=== PATIENT | female | born 1945 | race Caucasian/White ===

== ENCOUNTER 2023-10-25 17:06 | Inpatient (IN) | payer MEDICARE, SELFPAY ==
[2023-10-25 17:29] VITALS: BP 122/77; PULSE 85; RESP 18; TEMP 37.1; O2SAT 97; BMI 45.1
--- NOTE | 2023-10-25 17:56 | ED_ITS ---
Documented by User: ROD Lopez 10/25/23 22:36 HPI - Wound/Laceration 2 General: Chief Complaint: Wound/Laceration Stated Complaint: wound on rear Time Seen by Provider: 10/25/23 17:41 History of Present Illness: 77-year-old female comes in today for co ncerns about wound to her buttocks. Patient was just recently released from a hospital in [facility] that had cared for patient's wound to her buttocks. Patient states that she had just moved to the area yesterday and one of the wound evaluated and assistance for for follow-up. Patient has a history of diabetes mellitus, hypothyroidism, chronic pain, major depressive disorder, coronary artery disease, non- Parkinson's tremor, and CHF. Patient reports no fever or chills. Patient did have some episodes of nausea. Patient is on multiple medications for her chronic conditions. Review of Systems 2 General: Reports: 10 or more systems reviewed and unremarkable except in HPI and below Skin/Breast: Reports: lesions Physical Exam 2 Const: COMMON NORMALS: alert HENMT: COMMON NORMALS: normocephalic HEAD & SCALP: normocephalic Neck/C-Spine: COMMON NORMALS: full ROM Resp: COMMON NORMALS: normal respiratory effort and clear to auscultation bilaterally AUSCULTATION: clear to auscultation bilaterally Cardio: COMMON NORMALS: regular rate RATE: regular rate GI: COMMON NORMALS: Soft to palpation PALPATION: Yes Soft to palpation : COMMON NORMALS: Yes no CVA tenderness BLADDER/KIDNEY EXAM: Yes no CVA tenderness Back/Pelvis: COMMON NORMALS: no CVA tenderness and thoracic and lumbar spine normal to inspection Extremity: COMMON NORMALS: normal to inspection Neuro: SENSORIUM/ORIENTATION: Yes alert Skin: NARRATIVE SKIN EXAM: Chronic wound to the sacrum. Appears to have had surgical debridement and has a opened area that is approximately 7 cm circular with a depth of 8 cm with exposure of muscle. Course 2 Vital Signs: Vital signs: Vital Signs Temperature 98.4 F 10/25/23 20:40 Pulse Rate 82 10/25/23 20:40 Respiratory Rate 16 10/25/23 20:40 Blood Pressure 143/75 10/25/23 20:40 Pulse Oximetry 98 10/25/23 20:40 Oxygen Delivery Me thod Room Air 10/25/23 20:40 MDM - Wound/Laceration Medical Decision Making 77-year-old female comes in for wound care and assistance with referral to primary care and wound management. Patient was just recently released from the hospital in [facility] where she had received treatment for a large decubitus to her sacrum. Patient has recently moved to the [place] area to be closer to family. Patient just arrived yesterday. Patient appears nontoxic. Patient reports that she is concerned about her persistent neck pain after her surgery that she had in June, and the large decubitus to her buttocks. Patient reports no fever. Exam notes a very large open decubitus to the sacrum that is stage IV. There seems to have been some recent surgical debridement of the area. Patient had and placed a large ABD pad. Differential diagnosis includes wound infection, chronic wound, electrolyte imbalance, dehydration, anxiety about health. CBC noted a mild leukocytosis of 12,000. CMP noted a creatinine 1.3, glucose 163, normal sodium and normal potassium. Lactic was 1.7. Wound appeared chronic but healing with some granulation of tissue and minimal necrosis. Case management orders were placed for assistance with primary care and wound care management follow-up. Family, Candace Brady, felt uncomfortable taking patient home as they did not have accommodations for her at this time. Patient has a large significant ulcer to her buttocks and could not be discharged. I discussed this with Dr. Sanchez who agreed that patient would need to be admitted for wound care and further evaluation of the wound by surgery and consideration of placement into a chcf facility. Discussed with Dr. Arias, who agreed to admission. Lab Data 10/25/23 18:47 10/25/23 18:47 Laboratory Results WBC 12.51 10^3/uL (3.29-11.43) H 10/25/23 18:47 RBC 4.76 10^6/uL (3.85-5.65) 10/25/23 18:47 Hgb 13.20 g/dL (11.27-16.99) 10/25/23 18:47 Hct 40.6 % (36-47) 10/25/23 18:47 MCV 85.3 fl (85-98) 10/25/23 18:47 MCH 27.7 pg (27-33) 10/25/23 18:47 MCHC 32.5 g/dL (30-55) 10/25/23 18:47 RDW 13.2 % (12.1-15.1) 10/25/23 18:47 Plt Count 373 10^3/cmm (157-399) 10/25/23 18:47 MPV 10.5 fL (7.4-10.4) H 10/25/23 18:47 Neut % (Auto) 67.3 % 10/25/23 18:47 Lymph % (Auto) 21.8 % 10/25/23 18:47 [place] % (Auto) 7.8 % 10/25/23 18:47 Eos % (Auto) 1.9 % 10/25/23 18:47 Baso % (Auto) 0.6 % 10/25/23 18:47 Neut # (Auto) 8.41 10^3/uL (1.8-7.7) H 10/25/23 18:47 Lymph # (Auto) 2.7 10^3/uL (0.8-4.8) 10/25/23 18:47 [place] # (Auto) 1.0 10^3/uL (0.2-0.9) H 10/25/23 18:47 Eos # (Auto) 0.2 10^3/uL (0.0-0.8) 10/25/23 18:47 Baso # (Auto) 0.1 10^3/uL (0.0-0.1) 10/25/23 18:47 Nucleated RBC % (auto) 0 % 10/25/23 18:47 Nucleated RBCs # 0.0 /100WBC 10/25/23 18:47 ESR 27 mm/hr (0-15) H 10/25/23 18:47 D-Dimer 0.63 ug/mLFEU (0-0.59) H 10/25/23 18:47 Sodium 137 mmol/L (136-145) 10/25/23 18:47 Potassium 4.8 mmol/L (3.5-5.1) 10/25/23 18:47 Chloride 102 mmol/L (98-107) 10/25/23 18:47 Carbon Dioxide 21 mmol/L (22-29) L 10/25/23 18:47 Anion Gap 18.8 (5-19) 10/25/23 18:47 BUN 20 mg/dL (8-23) 10/25/23 18:47 Creatinine 1.3 mg/dL (0.5-0.9) H 10/25/23 18:47 GFR Calculation Not Reportable 10/25/23 18:47 Glucose 163 mg/dL (65-115) H 10/25/23 18:47 Calculated Osmolality 290 mOsm/kg (285-295) 10/25/23 18:47 Lactic Acid 1.7 mmol/L (0.5-2.2) 10/25/23 18:47 Calcium 9.4 mg/dL (8.5-10.5) 10/25/23 18:47 Total Bilirubin 0.3 mg/dL (0.15-1.2) 10/25/23 18:47 AST 45 U/L (0-32) H 10/25/23 18:47 ALT 13 U/L (0-33) 10/25/23 18:47 Alkaline Phosphatase 59 U/L (35-105) 10/25/23 18:47 C-Reactive Protein 44.0 mg/L (0.0-4.9) H 10/25/23 18:47 Total Protein 6.4 g/dL (6.6-8.7) L 10/25/23 18:47 Albumin 3.6 g/dL (3.5-5.2) 10/25/23 18:47 Globulin 2.8 g/dL (1.3-4.6) 10/25/23 18:47 Procalcitonin 0.19 ng/mL (0-0.5) 10/25/23 18:47 No radiology studies performed this visit Discharge Plan Discharge Patient Disposition: Admitted As Inpatient Admit Provider: Yobani Arias Clinical Impression: Decubitus ulcer of sacral region, stage 4 Condition: Stable Discharge Diet: Usual diet Discharge Activity: Increase activity as tolerated Coding Level of Care Code ED Work Over Rig Operator for Chg Fwd Documented by User: Alexis Hamilton Daniel, 10/25/23 23:38 HPI - Wound/Laceration 2 General: Chief Complaint: Wound/Laceration Stated Complaint: wound on rear Time Seen by Provider: 10/25/23 17:41 Course 2 Vital Signs: Vital signs: Vital Signs Temperature 98.4 F 10/25/23 20:40 Pulse Rate 82 10/25/23 20:40 Respiratory Rate 16 10/25/23 20:40 Blood Pressure 143/75 10/25/23 20:40 Pulse Oximetry 98 10/25/23 20:40 Oxygen Delivery Me thod Room Air 10/25/23 20:40 MDM - Wound/Laceration Medical Decision Making 77-year-old female comes in for wound care and assistance with referral to primary care and wound management. Patient was just recently released from the hospital in [facility] where she had received treatment for a large decubitus to her sacrum. Patient has recently moved to the [facility] to be closer to family. Patient just arrived yesterday. Patient appears nontoxic. Patient reports that she is concerned about her persistent neck pain after her surgery that she had in June, and the large decubitus to her buttocks. Patient reports no fever. Exam notes a very large open decubitus to the sacrum that is stage IV. There seems to have been some recent surgical debridement of the area. Patient had and placed a large ABD pad. Differential diagnosis includes wound infection, chronic wound, electrolyte imbalance, dehydration, anxiety about health. CBC noted a mild leukocytosis of 12,000. CMP noted a creatinine 1.3, glucose 163, normal sodium and normal potassium. Lactic was 1.7. Wound appeared chronic but healing with some granulation of tissue and minimal necrosis. Case management orders were placed for assistance with primary care and wound care management follow-up. Family, Candace Brady, felt uncomfortable taking patient home as they did not have accommodations for her at this time. Patient has a large significant ulcer to her buttocks and could not be discharged. I discussed this with Dr. Sanchez who agreed that patient would need to be admitted for wound care and further evaluation of the wound by surgery and consideration of placement into a chcf facility. Discussed with Dr. Arias, who agreed to admission. This patient was originally seen by Mr. Howe, [employer].? I agree with his history, evaluation, and treatment. Lab Data 10/25/23 18:47 10/25/23 18:47 Laboratory Results WBC 12.51 10^3/uL (3.29-11.43) H 10/25/23 18:47 RBC 4.76 10^6/uL (3.85-5.65) 10/25/23 18:47 Hgb 13.20 g/dL (11.27-16.99) 10/25/23 18:47 Hct 40.6 % (36-47) 10/25/23 18:47 MCV 85.3 fl (85-98) 10/25/23 18:47 MCH 27.7 pg (27-33) 10/25/23 18:47 MCHC 32.5 g/dL (30-55) 10/25/23 18:47 RDW 13.2 % (12.1-15.1) 10/25/23 18:47 Plt Count 373 10^3/cmm (157-399) 10/25/23 18:47 MPV 10.5 fL (7.4-10.4) H 10/25/23 18:47 Neut % (Auto) 67.3 % 10/25/23 18:47 Lymph % (Auto) 21.8 % 10/25/23 18:47 [place]bur[place] % (Auto) 7.8 % 10/25/23 18:47 Eos % (Auto) 1.9 % 10/25/23 18:47 Baso % (Auto) 0.6 % 10/25/23 18:47 Neut # (Auto) 8.41 10^3/uL (1.8-7.7) H 10/25/23 18:47 Lymph # (Auto) 2.7 10^3/uL (0.8-4.8) 10/25/23 18:47 Sherburne # (Auto) 1.0 10^3/uL (0.2-0.9) H 10/25/23 18:47 Eos # (Auto) 0.2 10^3/uL (0.0-0.8) 10/25/23 18:47 Baso # (Auto) 0.1 10^3/uL (0.0-0.1) 10/25/23 18:47 Nucleated RBC % (auto) 0 % 10/25/23 18:47 Nucleated RBCs # 0.0 /100WBC 10/25/23 18:47 ESR 27 mm/hr (0-15) H 10/25/23 18:47 D-Dimer 0.63 ug/mLFEU (0-0.59) H 10/25/23 18:47 Sodium 137 mmol/L (136-145) 10/25/23 18:47 Potassium 4.8 mmol/L (3.5-5.1) 10/25/23 18:47 Chloride 102 mmol/L (98-107) 10/25/23 18:47 Carbon Dioxide 21 mmol/L (22-29) L 10/25/23 18:47 Anion Gap 18.8 (5-19) 10/25/23 18:47 BUN 20 mg/dL (8-23) 10/25/23 18:47 Creatinine 1.3 mg/dL (0.5-0.9) H 10/25/23 18:47 GFR Calculation Not Reportable 10/25/23 18:47 Glucose 163 mg/dL (65-115) H 10/25/23 18:47 Calculated Osmolality 290 mOsm/kg (285-295) 10/25/23 18:47 Lactic Acid 1.7 mmol/L (0.5-2.2) 10/25/23 18:47 Calcium 9.4 mg/dL (8.5-10.5) 10/25/23 18:47 Total Bilirubin 0.3 mg/dL (0.15-1.2) 10/25/23 18:47 AST 45 U/L (0-32) H 10/25/23 18:47 ALT 13 U/L (0-33) 10/25/23 18:47 Alkaline Phosphatase 59 U/L (35-105) 10/25/23 18:47 C-Reactive Protein 44.0 mg/L (0.0-4.9) H 10/25/23 18:47 Total Protein 6.4 g/dL (6.6-8.7) L 10/25/23 18:47 Albumin 3.6 g/dL (3.5-5.2) 10/25/23 18:47 Globulin 2.8 g/dL (1.3-4.6) 10/25/23 18:47 Procalcitonin 0.19 ng/mL (0-0.5) 10/25/23 18:47 Discharge Plan Discharge Patient Disposition: Admitted As Inpatient Admit Provider: Yobani Arias Clinical Impression: Decubitus ulcer of sacral region, stage 4 Condition: Stable Discharge Diet: Usual diet Discharge Activity: Increase activity as tolerated Coding Level of Care Code ED Work Over Rig Operator for Peri Culp
--- NOTE | 2023-10-25 18:38 | PC.NURSE ---
late entry: Pt had orginally reported that she arrived in town yesterday was staying with a friend and today that friend dropped her off here, however now she is saying she arrived around noon today was assisted by a jainism deacon to get into her daughters house however was unable to get up the stairs so the Confucianism Deacon took the pt to his house then brought her here. This service writer asked who would be helping her at home and changing her dressings, pt stated I have no home and my daughter is resting so I have no one who can help me . This service writer took the number of the pt's daughter Candace Brady, [phone], I attempted to call but was only able to leave a message. Pt is reporting she has an appt with wound care tomorrow. Will try to call daughter again to investigate the situation.
--- NOTE | 2023-10-25 18:57 | PC.NURSE ---
Pt's daughter called back and reported they arrived from [place] this morning around 0600. Candace, Daughter, reported that she brought the pt here to assist in her care as she felt pt was not receiving the care she needed back in [place]. Daughter and family fully intended to take over care of pt's wounds and address all other needs however on arrival they found that the pt wasn't even able to get into the house as there were 7 steps to get into the house. Candace is hoping to to have the pt admitted as they have no place for the pt to stay which will allow them to make arrangments for pt. This curriculum writer explained that we are unable to admit the pt for non acute medical reasons, she verbalized understanding however repeatedly asked for help as they have no resources. Provider notified.
[2023-10-25 19:25] LABS: Basophils # 0.1 10^3/uL (0.0-0.1); Basophils % 0.6 %; Eosinophils # 0.2 10^3/uL (0.0-0.8); Eosinophils % 1.9 %; Hematocrit 40.6 % (36-47); Lymphocytes # 2.7 10^3/uL (0.8-4.8); Lymphocytes % 21.8 %; Mean Corpuscular HGB Conc 32.5 g/dL (30-55); Mean Corpuscular Hemoglobin 27.7 pg (27-33); Mean Corpuscular Volume 85.3 fl (85-98); Mean Platelet Volume 10.5 fL (7.4-10.4); Monocytes % 7.8 %; Neutrophils # 8.41 10^3/uL (1.8-7.7); Neutrophils % 67.3 %; Nucleated Red Blood Cells % 0 %; Platelet Count 373 10^3/cmm (157-399); Red Blood Count 4.76 10^6/uL (3.85-5.65); Red Cell Distribution Width 13.2 % (12.1-15.1); White Blood Count 12.51 10^3/uL (3.29-11.43)
[2023-10-25 19:43] LABS: Lactic Sepsis W/Reflex 1.7 mmol/L (0.5-2.2)
[2023-10-25 19:47] LABS: Alanine Aminotransferase 13 U/L (0-33); Albumin Level 3.6 g/dL (3.5-5.2); Alkaline Phosphatase 59 U/L (35-105); Anion Gap 18.8 (5-19); Aspartate Amino Transferase 45 U/L (0-32); Blood Urea Nitrogen 20 mg/dL (8-23); Calcium 9.4 mg/dL (8.5-10.5); Carbon Dioxide 21 mmol/L (22-29); Chloride 102 mmol/L (98-107); Creatinine Clr Calc Pharmacy 50.2052; Globulin 2.8 g/dL (1.3-4.6); Glucose 163 mg/dL (65-115); Osmolality Calculated 290 mOsm/kg (285-295); Potassium 4.8 mmol/L (3.5-5.1); Sodium 137 mmol/L (136-145); Total Bilirubin 0.3 mg/dL (0.15-1.2); Total Protein 6.4 g/dL (6.6-8.7)
[2023-10-25 20:40] VITALS: BP 143/75; PULSE 82; RESP 16; TEMP 36.9; O2SAT 98
--- NOTE | 2023-10-25 21:16 | PC.NURSE ---
This ghost writer received a call from the pt's daughter, Candace. She became upset when she was given the option to call for a lift assist from the fire dept, she stated well that's not gonna work cause what happens when I need to get her to appointments , this ghost writer explained that it is not a laborer marine terminal solution but it will help while arrangments can be made. Candace continued to repeat reasons why she can't come get the pt, this ghost writer apologized for the situation, Candace stated well I don't know what you're gonna do about it and she hung up the phone. This ghost writer informed the charge nurse and Nurse Private Duty as well as the provider regarding this situation.
[2023-10-25 22:24] LABS: Erythrocyte Sedimentation Rate 27 mm/hr (0-15)
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
--- NOTE | 2023-10-25 22:31 | PC.NURSE ---
Pt states she had left [place] from [facility] [place]. Pt states her family packed her belongings from her apartment into a [employer] and picked pt up from the hospital then traveled to [place]. Pt family stated OTP they were not able to provide care for pt because she is more care than they expected. Pt asking to be admitted at this time for halfway placement. Provider notified.
[2023-10-25 22:46] LABS: Procalcitonin 0.19 ng/mL (0-0.5)
[2023-10-25 22:53] LABS: D Dimer 0.63 ug/mLFEU (0-0.59)
[2023-10-25 23:20] VITALS: BP 114/93; PULSE 96; RESP 18; O2SAT 98
--- NOTE | 2023-10-25 23:31 | PC.NURSE ---
Pt brought back to a room, she met with the hospitalist. Pt is to be admitted as we are unable to get the family to take the pt home even with resources. Report has been called to the med-surg floor, IV is currently being started and blood cultures collected. Will transfer to floor when ready.
[2023-10-25 23:50] VITALS: BP 115/95; PULSE 101; RESP 18; O2SAT 97
[2023-10-26] VITALS (8 sets, daily range): BP systolic 102–132; BP diastolic 65–85; PULSE 69–87; RESP 16–18; TEMP 36.4–37; O2SAT 92–97; BMI 35.0
[2023-10-26] MEDS: enoxaparin 40 mg/0.4 mL Syringe SUBCUT (01:34)
[2023-10-26 01:42] LABS: Thyroid Stimulating Hormone 4.88 uIU/mL (0.27-4.20)
[2023-10-26] MEDS: piperacillin-tazobactam 3.375 GM in sodium chloride 0.9% (plus) 50 ML IV ×3 (02:39→18:14)
[2023-10-26 03:48] LABS: Basophils # 0.1 10^3/uL (0.0-0.1); Basophils % 0.8 %; Eosinophils # 0.2 10^3/uL (0.0-0.8); Eosinophils % 1.9 %; Hematocrit 38.9 % (36-47); Lymphocytes # 3.7 10^3/uL (0.8-4.8); Lymphocytes % 31.2 %; Mean Corpuscular HGB Conc 32.4 g/dL (30-55); Mean Corpuscular Hemoglobin 27.8 pg (27-33); Mean Corpuscular Volume 85.9 fl (85-98); Mean Platelet Volume 10.4 fL (7.4-10.4); Monocytes # 0.8 10^3/uL (0.2-0.9); Neutrophils # 6.98 10^3/uL (1.8-7.7); Neutrophils % 58.5 %; Nucleated Red Blood Cells % 0 %; Platelet Count 350 10^3/cmm (157-399); Red Blood Count 4.53 10^6/uL (3.85-5.65); Red Cell Distribution Width 13.3 % (12.1-15.1); White Blood Count 11.93 10^3/uL (3.29-11.43)
[2023-10-26 04:16] LABS: Blood Urea Nitrogen 18 mg/dL (8-23); C Reactive Protein 40.4 mg/L (0.0-4.9); Calcium 8.9 mg/dL (8.5-10.5); Carbon Dioxide 19 mmol/L (22-29); Chloride 101 mmol/L (98-107); Creatinine Clr Calc Pharmacy 47.5688; Glucose 161 mg/dL (65-115); Magnesium 2.2 mg/dL (1.7-2.3); Osmolality Calculated 285 mOsm/kg (285-295); Phosphorus 4.1 mg/dL (2.5-4.5); Sodium 135 mmol/L (136-145)
[2023-10-26 04:20] LABS: Anion Gap 19.2 (5-19); Potassium 4.2 mmol/L (3.5-5.1)
[2023-10-26 06:31] LABS: Glucose Point of Care 184 mg/dL (70-110)
--- NOTE | 2023-10-26 07:46 | P.PN_ITS ---
Documented by User: NELA Lewis STDROBYN 10/26/23 10:10 Subjective 2 Subjective: Patient resting in bed this morning on room air. She states she is here because she is unable to take care of herself anymore. She denies chest pain, shortness of breath. Medications: Reviewed: Yes Vitals/I&O/Wt Last Vital Signs Temp 97.9 F 10/26/23 03:57 Pulse 72 10/26/23 03:57 Resp 16 10/26/23 03:57 BP 119/75 10/26/23 03:57 Pulse Ox 93 10/26/23 03:57 O2 Del Method Room Air 10/26/23 03:57 10/25/23 10/26/23 10/26/23 22:59 06:59 14:59 Intake Total 420 / 420 Output Total 500 / 500 Balance -80 / -80 Weight last 48 hrs Weight 220 lb 4.8 oz Weight 217 lb Weight 280 lb Physical Exam 2 Narrative: General Exam: Patient noted to be alert, no apparent distress. Neck supple, no lymphadenopathy. Resp: on room air, lungs sounds clear to auscultation, denies SOB with excertion Cardio: no JVD, regular rate, regular rhythm GI: soft, nontender, normoactive bowel sounds Extremity: 1+ edema to bilateral lower legs Skin: Stage IV pressure sore to sacrum Data 10/26/23 02:41 10/26/23 02:41 Micro: Microbiology 10/26/23 00:00 Blood Culture - Preliminary Blood SPECIMEN COLLECTED 10/26/23 00:00 Blood Culture - Preliminary Blood SPECIMEN COLLECTED A&P Assessment and plan (1) Decubitus ulcer of sacral region, stage 4: Consult Surgery Wet to Dry dressing change BID Q2 turn Recent debridment, request records. PRN pain meds ordered (2) Acute kidney injury superimposed on chronic kidney disease: Renal dosing on medications BMP in AM, monitor kidney function closely. (3) Diabetes: Placed on sliding scale insulin Cardiac Carbohydrate Consistent diet ACHS A1C pending (4) Coronary artery disease: Stent placed 6 months ago, request records. Continue home dose statin. Continue aspirin and plavix. (5) H/O neck surgery: Unknown reason for neck surgery, incision site noted to be a well healing scar. Will obtain records from this procedure. Continue carbidopa/levodopa Plan Continue home dose of 25mcg of levothyroxine for Hypothyroism. Continue antihypertensive regimen Continue Bumex for CHF Consult Case Management form SNF placement as patient states she is unable to care for herself. Coding Level of Care Code 18807 Diagnoses Decubitus ulcer of sacral region, stage 4 L89.154 Acute kidney injury superimposed on chronic kidney disease N17.9; N18.9 Diabetes E11.9 Coronary artery disease I25.10 H/O neck surgery Z98.890 Time Spent (min) 24 Documented by User: José Miguel St MD 10/26/23 12:31 Data 10/26/23 02:41 10/26/23 02:41 A&P Assessment and plan (1) Decubitus ulcer of sacral region, stage 4: (2) Acute kidney injury superimposed on chronic kidney disease: (3) Diabetes: (4) Coronary artery disease: (5) H/O neck surgery: Attestations 2 Medical Necessity Statement*: Needs continued hospitalization, for evaluation of decubitus, evaluation of current inability to manage at home and potential placement. Diagnoses Decubitus ulcer of sacral region, stage 4 L89.154 Acute kidney injury superimposed on chronic kidney disease N17.9; N18.9 Diabetes E11.9 Coronary artery disease I25.10 H/O neck surgery Z98.890 Time Spent (min) 24
[2023-10-26] MEDS: levothyroxine 25 mcg Tablet PO (08:24)
[2023-10-26] MEDS: BuSPIRONE 10 mg Tablet 30 MG PO ×2 (08:24→18:13)
[2023-10-26] MEDS: topiramate 100 mg Tablet 200 MG PO ×2 (08:24→18:13)
[2023-10-26] MEDS: carbidopa-levodopa 25-100mg Tablet 1 EACH PO ×3 (08:24→20:47)
[2023-10-26] MEDS: clopidogrel 75 mg Tablet PO (08:24)
[2023-10-26] MEDS: potassium chloride ER 10 mEq Tablet PO (08:24)
[2023-10-26] MEDS: insulin lispro 100 unit/1 mL SUBCUT ×2 (08:24→12:33)
[2023-10-26] MEDS: gabapentin 300 mg Capsule PO ×3 (08:24→20:47)
[2023-10-26] MEDS: bumetanide 1 mg Tablet PO (08:24)
[2023-10-26] MEDS: aspirin 81 mg EC Tablet PO (08:24)
[2023-10-26] MEDS: atorvastatin 40 mg Tablet 20 MG PO (08:24)
[2023-10-26] MEDS: sennosides-docusate Tablet 1 TAB PO (08:24)
[2023-10-26] MEDS: cholecalciferol (vitamin D3) 1,000 unit Tablet 1000 UNIT PO (08:24)
[2023-10-26] MEDS: carvedilol 6.25 mg Tablet PO (08:25)
[2023-10-26] MEDS: pantoprazole 40 mg SDV IVP (09:39)
--- NOTE | 2023-10-26 09:51 | PC.CHAP ---
Pastoral Care Encounter/Spiritual Assessment Type of Contact [] Declined search analyst visit [] Patient/Family/Request visit [] Outpatient visit [] Follow-up visit [] Physician referral [] Code/Alert [x] Routine visit [] Staff referral [] Actively dying [x] Patient sleeping [] Family support [] [] Out of room [] Palliative care [] [] Receiving care in room [] Pre-surgical visit [] Trauma [] Long length of stay [] ICU visit [] Other: Relational/Emotional Strength [] Patient feels connected with others/family/visitors/staff [] Distress [] Loneliness/isolation [] Abandonment Spirituality of Patient [] Person of Nona [] Attends Evangelical of their [place] [] Believes in Prayer [] Reads Bible or Temple materials [] There are Spiritual issues to be addressed Bridge Worker Interventions [x] Prayer [] Active listening [] Non-anxious presence [] Spiritual/emotional support [] Crisis/trauma care [] Spiritual counseling [] Bereavement support [] Provided bereavement packet [] Provided Bible/devotional materials [] Provided toy/stuffed animal, coloring book to patient or family member [] Provided Communion [] Anointing/[place] [] Salvation [] Completed spiritual assessment [] Other: Impact on Illness or Injury [] Angry [] Fearful [] Anxious [] Often cries [] Exhaustion [] Unable to work [] Unable to attend advent [] Unable to walk/stand [] Unable to read [] Unable to drive [] Unable to eat/drink [] Unable to sleep [] Unable to be with family [] Patient intubated [] Other: Summary Time spent with patient
[2023-10-26 10:34] LABS: Glucose Point of Care 153 mg/dL (70-110)
[2023-10-26 15:42] LABS: Estmated Average Glucose 146; Hemoglobin A1C 6.7 % (4.0-6.0)
--- NOTE | 2023-10-26 16:42 | P.CONIM_ITS ---
Providers/Reason For Consult 2 Consulting Physician/Specialty*: general surgery Reason for Consult*: evaluate decubitus ulcer Requesting Physician: roly ramirez MD hospitalist Attending Physician: José Miguel St MD History of Present Illness History of Present Illness Jaylene Montiel is a 77 year old female recently in [facility] with wound vac and daugher who lives around here picked up mother from [place] and dropped patient here in our ER. SHe does not have a wound vac on. SHe had debridment of wound recntly presumably in [place]. It is unclear why she has sacral decubitus ulcer. She is not paraplegic or quadriplegic and no CVA. She is large and uses wheelchair to get about. Never had this size of ulcer before. SHe does not appear septic or in much discomfort. Review of Systems 2 Narrative: Constitutional: denies rigors, singnificant weight gain, increased appetite HEENT: denies chronic cough, blurry vision, excessive tearing, eye pain, flashing lights, odynophagia, painful mastication, change in voice, change in taste, chronic sore throat, hypersalivation Heart: denies racing heart, palpitations, othropnea, PND Lungs: denies hemoptysis, pain with deep inspiration, chronic bronchitis GI: denies hematemesis, hematochezia, dysphagia, tenesmus : denies polyuria, hematuria, painful micturation Musculoskeletal: denies hemarthrosis, Muscle wasting Neuro: denies new onset syncope, dysesthesia, dysequilibrium, ptosis eyelid or face SKin: denies new onset hyperalgia, new rash new cyanosis Endocrine: denies new polyuria, polydipsia, polyphagia, heat intolerance, excessive energy Hem/Onc: denies new petechiae, swollen glands, new excessive epstaxis Psych: denies racing thought Medications/Allergies Home Medications Medication Instructions Recorded Confirmed Last Taken Type aspirin 81 mg tablet 81 mg PO DAILY 10/25/23 10/25/23 Unknown History bumetanide 2 mg tablet 2 mg PO DAILY 10/25/23 10/25/23 Unknown History buspirone 30 mg tablet 30 mg PO BID 10/25/23 10/25/23 Unknown History calcium carbonate 600 mg-vitamin 1 tab PO DAILY 10/25/23 10/25/23 Unknown History D3 10 mcg (400 unit) tablet (Calcium 600 + D(3)) carbidopa 25 mg-levodopa 100 mg 1 tab PO TID 10/25/23 10/25/23 Unknown History tablet carvedilol 6.25 mg tablet 6.25 mg PO DAILY 10/25/23 10/25/23 Unknown History cholecalciferol (vitamin D3) 25 1,000 unit PO DAILY 10/25/23 10/25/23 Unknown History mcg (1,000 unit) tablet (Vitamin D3) clopidogrel 75 mg tablet 75 mg PO DAILY 10/25/23 10/25/23 Unknown History empagliflozin 10 mg tablet 10 mg PO DAILY 10/25/23 10/25/23 Unknown History (Jardiance) gabapentin 300 mg capsule 300 mg PO TID 10/25/23 10/25/23 Unknown History levothyroxine 25 mcg tablet 25 mcg PO DAILY 10/25/23 10/25/23 Unknown History levothyroxine 25 mcg tablet 25 mcg PO DAILY 10/25/23 10/25/23 Unknown History hrfxlpdws-oft-linz fumarate 18 1 cap PO DAILY 10/25/23 10/25/23 Unknown History mg-FA 600 mcg-vit K 40 mcg capsule (Multi For Her) olmesartan 20 mg tablet 20 mg PO DAILY 10/25/23 10/25/23 Unknown History omega-3 acid ethyl esters 1 gram 2 cap PO BID 10/25/23 10/25/23 Unknown History capsule potassium chloride 20 mEq 20 meq PO DAILY 10/25/23 10/25/23 Unknown History tablet,extended release pravastatin 40 mg tablet 40 mg PO DAILY 10/25/23 10/25/23 Unknown History quetiapine 100 mg tablet 100 mg PO QPM 10/25/23 10/25/23 Unknown History spironolactone 25 mg tablet 50 mg PO DAILY 10/25/23 10/25/23 Unknown History topiramate 100 mg tablet 200 mg PO BID 10/25/23 10/25/23 Unknown History trazodone 150 mg tablet 300 mg PO BEDTIME 10/25/23 10/25/23 Unknown History vortioxetine 20 mg tablet 20 mg PO DAILY 10/25/23 10/25/23 Unknown History (Trintellix) vortioxetine 20 mg tablet 20 mg PO DAILY 10/25/23 10/25/23 Unknown History (Trintellix) Allergies Allergy/AdvReac Type Severity Reaction Status Date / Time lisinopril Allergy ADR-Cough Verified 10/25/23 17:34 Sulfa (Sulfonamide Allergy ALGY-Anaphy Verified 10/25/23 17:34 Antibiotics) laxis Current Medications Generic Name Dose Route Start Last Admin Trade Name Kavonq PRN Reason Stop Dose Admin Aspirin 81 mg 10/26/23 09:00 10/26/23 08:24 Aspirin 81 Mg Ec Tablet PO 81 mg DAILY MAX Administration Atorvastatin Calcium 20 mg 10/26/23 09:00 10/26/23 08:24 Atorvastatin 40 Mg Tablet PO 20 mg DAILY MAX Administration Bumetanide 1 mg 10/26/23 09:00 10/26/23 08:24 Bumetanide 1 Mg Tablet PO 1 mg DAILY MAX Administration Buspirone HCl 30 mg 10/26/23 09:00 10/26/23 08:24 Buspirone 10 Mg Tablet PO 30 mg BID MAX Administration Carbidopa/Levodopa 1 each 10/26/23 09:00 10/26/23 15:17 Carbidopa-Levodopa 25-100mg Tablet PO 1 each TID MAX Administration Carvedilol 6.25 mg 10/26/23 09:00 10/26/23 08:25 Carvedilol 6.25 Mg Tablet PO 6.25 mg DAILY MAX Administration Clopidogrel Bisulfate 75 mg 10/26/23 09:00 10/26/23 08:24 Clopidogrel 75 Mg Tablet PO 75 mg DAILY MAX Administration Enoxaparin Sodium 40 mg 10/26/23 00:17 10/26/23 01:34 Enoxaparin 40 Mg/0.4 Ml Syringe SUBCUT 40 mg Q24H MAX Administration Gabapentin 300 mg 10/26/23 09:00 10/26/23 15:17 Gabapentin 300 Mg Capsule PO 300 mg TID MAX Administration Piperacillin Sod/Tazobactam 50 mls @ 12.5 mls/hr 10/26/23 00:45 10/26/23 16:14 Sod 3.375 gm/ Sodium Chloride IV Infused Q8H MAX Infusion Insulin Human Lispro 0 unit 10/26/23 08:00 10/26/23 12:33 Insulin Lispro 100 Unit/1 Ml SUBCUT 6 unit TIDWM MAX Administration Protocol Levothyroxine Sodium 25 mcg 10/26/23 09:00 10/26/23 08:24 Levothyroxine 25 Mcg Tablet PO 25 mcg DAILY MAX Administration Non-Formulary Medication 20 mg 10/26/23 09:00 10/26/23 08:31 Vortioxetine [Trintellix] PO 20 mg DAILY MAX Administration Pantoprazole Sodium 40 mg 10/26/23 09:00 10/26/23 09:39 Pantoprazole 40 Mg Sdv IVP 40 mg BID MAX Administration Potassium Chloride 10 meq 10/26/23 09:00 10/26/23 08:24 Potassium Chloride Er 10 Meq Tablet PO 10 meq DAILY MAX Administration Senna/Docusate Sodium 1 tab 10/26/23 09:00 10/26/23 08:24 Sennosides-Docusate Tablet PO 1 tab DAILY MAX Administration Topiramate 200 mg 10/26/23 09:00 10/26/23 08:24 Topiramate 100 Mg Tablet PO 200 mg BID MAX Administration Vitamin D 1,000 unit 10/26/23 09:00 10/26/23 08:24 Cholecalciferol (Vitamin D3) 1,000 Unit Tablet PO 1,000 unit DAILY MAX Administration PFSH Acute 2 PFSH: Medical History (Updated 10/26/23 @ 09:[address] MD) Coarse tremors Diabetic neuropathy Hypertension Diabetes Coronary artery disease Hypothyroidism Decubitus ulcer of sacral region, stage 4 Surgical History (Updated 10/26/23 @ 09:[address] MD) H/O neck surgery Vitals/I&O/Wt Last Vital Signs Temp 97.8 F 10/26/23 11:49 Pulse 69 10/26/23 11:49 Resp 18 10/26/23 11:49 BP 102/65 10/26/23 11:49 Pulse Ox 94 10/26/23 11:49 O2 Del Method Room Air 10/26/23 11:49 10/26/23 10/26/23 10/26/23 06:59 14:59 22:59 Intake Total 420 / 420 480 / 480 50 / 530 Output Total 500 / 500 Balance -80 / -80 480 / 480 50 / 530 Weight last 48 hrs Weight 220 lb 4.8 oz Weight 217 lb Weight 280 lb Physical Exam 2 Narrative: Patient is a well developed well nourished and in NAD and is afebrile with vitals stable and is answering questions appropriately with a normal affect and is alert and oriented x3 HEENT: normocephalic with normal external ears and nonicteric, oral mucosa moist and dentition normal for age, trachea midline with no large masses visualized Heart: RRR, no gallops murmurs or rubs, normal PMI with no thrills Lungs: normal excursions, no loud audible wheezing, no subcutaneous emphysema Abdomen: nondistended, no gross hepatosplenomegaly, no masses, no rigidity or rebound, no loud borborygmi Neuro: nonfocal, RG, grossly normal sensation Musculoskeletal: good muscle tone, no fasciculations Skin: pink warm and dry with no rashes or ecchymosis Vascular: good radial pulses, no ulceration, less than 2 second capillary refill in hand : deferred 4-5cm wide and 6-8 cm deep granulating i n presacral ulcer with granulation tissue over bone and no gross surrounding skin infection but has chronic reddened skin that extends up to 8 cm beyond skin with some of redness that does not stephanie c/w immature scar/healing of skin Data 10/26/23 02:41 10/26/23 02:41 Micro: Microbiology 10/26/23 00:00 Blood Culture - Preliminary Blood SPECIMEN COLLECTED 10/26/23 00:00 Blood Culture - Preliminary Blood SPECIMEN COLLECTED A&P Assessment and plan (1) Decubitus ulcer of sacral region, stage 4: Wound vac was placed and will need to be changed qmwf and likely when placed at longterm can try to arrange for vac there. SHe would benefit from low pressure air mattress like [employer] mattress to prevent pressure sores. Coding Level of Care Code Acute Code for Chg Fwd Diagnoses Decubitus ulcer of sacral region, stage 4 L89.154
[2023-10-26 17:08] LABS: Glucose Point of Care 132 mg/dL (70-110)
[2023-10-26] MEDS: quetiapine 100 mg Tablet PO (18:13)
[2023-10-26] MEDS: trazodone 150 mg Tablet 300 MG PO (20:47)
[2023-10-26 20:49] LABS: Glucose Point of Care 124 mg/dL (70-110)
--- NOTE | 2023-10-26 22:02 | ECG_ITS ---
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 Measurements Intervals [place] Rate: 77 P: 37 MN: 163 QRS: -4 QRSD: 76 T: 31 QT: 374 QTc: 425 Interpretive Statements SINUS RHYTHM LOW QRS VOLTAGE IN PRECORDIAL LEADS [QRS DEFLECTION < 1.0 mV IN CHEST LEADS] No previous ECG available for comparison Electronically Signed On 10-27-2023 21:43:59 CDT by Chandan Walters M.D. [email or web address]
--- NOTE | 2023-10-26 22:02 | XRR_ITS ---
PROCEDURE INFORMATION: Exam: XR Chest Exam date and time: 10/26/2023 9:35 PM Age: 77 years old Clinical indication: Chest wall pain TECHNIQUE: Imaging protocol: Radiologic exam of the chest. Views: 1 view. COMPARISON: No relevant prior studies available. FINDINGS: Lungs: Unremarkable. No consolidation. Pleural spaces: Unremarkable. No pleural effusion. No pneumothorax. Heart/Mediastinum: Aorta appears somewhat prominent, CT could further characterize this. Bones/joints: Unremarkable. XR/XR chest 1V portable [id number] IMPRESSION: Aorta appears somewhat prominent, CT could further characterize this.
[2023-10-27] VITALS (7 sets, daily range): BP systolic 99–161; BP diastolic 57–115; PULSE 70–84; RESP 15–17; TEMP 36.4–36.9; O2SAT 90–96; BMI 35.5
[2023-10-27] MEDS: enoxaparin 40 mg/0.4 mL Syringe SUBCUT ×2 (00:01→23:41)
[2023-10-27 06:31] LABS: Glucose Point of Care 128 mg/dL (70-110)
[2023-10-27 08:30] LABS: Protein Urine Neg (Negative); Urine Appearance Cloudy (CLEAR); Urine Color Yellow (Yellow); pH Urine 5 (5-7)
[2023-10-27 08:31] LABS: Bilirubin Urine Neg (Negative); Blood Urine Neg (Negative); Glucose Urine UA 4+ (Normal); Ketones Urine Negative (Negative); Leukocyte Esterase Urine 2+ (Negative); Nitrate Urine Negative (Negative); Urobilinogen Urine Norm (Negative)
--- NOTE | 2023-10-27 08:35 | P.PN_ITS ---
Documented by User: Honey Joy, NELA STDNT 10/27/23 08:49 Subjective 2 Subjective: Resting in bed on room air, she just finished eating breakfast. She denies any pain at this time does report a little bit of discomfort where her wound VAC has been placed. Medications: Reviewed: Yes Vitals/I&O/Wt Last Vital Signs Temp 98.1 F 10/27/23 03:52 Pulse 70 10/27/23 03:52 Resp 15 10/27/23 03:52 BP 99/64 10/27/23 03:52 Pulse Ox 90 10/27/23 03:52 O2 Del Method Room Air 10/27/23 03:52 10/26/23 10/27/23 10/27/23 22:59 06:59 14:59 Intake Total 770 / 1250 50 / 1300 Output Total 0 / 0 Balance 770 / 1250 50 / 1300 Weight last 48 hrs Weight 220 lb 4.8 oz Weight 220 lb 4.8 oz Weight 217 lb Weight 280 lb Physical Exam 2 Narrative: General Exam: Patient noted to be alert, no apparent distress. Neck supple, no lymphadenopathy. Resp: on room air, lungs sounds diminished to auscultation, denies SOB with excertion Cardio: no JVD, regular rate, regular rhythm GI: soft, nontender, normoactive bowel sounds Extremity: 2+ edema to bilateral lower legs Skin: Stage IV pressure sore to sacrum, wound VAC placed 10/26/23 Data 10/26/23 02:41 10/26/23 02:41 Micro: Microbiology 10/26/23 00:00 Blood Culture - Preliminary Blood NEGATIVE TO DATE 10/26/23 00:00 Blood Culture - Preliminary Blood NEGATIVE TO DATE A&P Assessment and plan (1) Decubitus ulcer of sacral region, stage 4: Consult Surgery, placed wound VAC 10/26/23 Q2 turn Received records from recent debridment. MRI from recent [facility] Hospital stay demonstrated no abscess or Osteomyelitis. PRN pain meds ordered (2) Acute kidney injury superimposed on chronic kidney disease: Renal dosing on medications BMP in AM, monitor kidney function closely. (3) Diabetes: Placed on sliding scale insulin Cardiac Carbohydrate Consistent diet ACHS A1C pending (4) Coronary artery disease: Stent placed 6 months ago, received records. Continue home dose statin. Continue aspirin and plavix. (5) H/O neck surgery: Unknown reason for neck surgery, incision site noted to be a well healing scar. Continue carbidopa/levodopa Plan Continue home dose of 25mcg of levothyroxine for Hypothyroism. Continue antihypertensive regimen Continue Bumex for CHF Consult Case Management form SNF placement as patient states she is unable to care for herself. Coding Level of Care Code Acute Code for Chg Fwd Diagnoses Decubitus ulcer of sacral region, stage 4 L89.154 Acute kidney injury superimposed on chronic kidney disease N17.9; N18.9 Diabetes E11.9 Coronary artery disease I25.10 H/O neck surgery Z98.890 Documented by User: José Miguel St MD 10/27/23 08:54 Data 10/26/23 02:41 10/26/23 02:41 A&P Assessment and plan (1) Decubitus ulcer of sacral region, stage 4: Consult Surgery, placed wound VAC 10/26/23 Q2 turn Received records from recent debridement. MRI from recent [facility] Hospital stay demonstrated no abscess or osteomyelitis PRN pain meds ordered At this point with review of old records can discontinue Zosyn. Still awaiting urinalysis. (2) Acute kidney injury superimposed on chronic kidney disease: (3) Diabetes: Placed on sliding scale insulin Cardiac Carbohydrate Consistent diet ACHS A1c reviewed (4) Coronary artery disease: (5) H/O neck surgery: Attestations 2 Medical Necessity Statement*: Needs continued hospitalization pending placement Coding Level of Care Code Acute Code for Chg Fwd Diagnoses Decubitus ulcer of sacral region, stage 4 L89.154 Acute kidney injury superimposed on chronic kidney disease N17.9; N18.9 Diabetes E11.9 Coronary artery disease I25.10 H/O neck surgery Z98.890
[2023-10-27 08:36] LABS: Add Urine Culture? Yes; Bacteria Urine TRACE /hpf; RBC Urine 0-4 /hpf (0-2); Squamous Epithelial Cell Urine 0-4 /hpf (0-5); WBC Urine 15-25 /hpf (0-5)
[2023-10-27] MEDS: levothyroxine 25 mcg Tablet PO (09:05)
[2023-10-27] MEDS: topiramate 100 mg Tablet 200 MG PO ×2 (09:05→17:18)
[2023-10-27] MEDS: cholecalciferol (vitamin D3) 1,000 unit Tablet 1000 UNIT PO (09:05)
[2023-10-27] MEDS: sennosides-docusate Tablet 1 TAB PO (09:05)
[2023-10-27] MEDS: potassium chloride ER 10 mEq Tablet PO (09:05)
[2023-10-27] MEDS: bumetanide 1 mg Tablet PO (09:05)
[2023-10-27] MEDS: clopidogrel 75 mg Tablet PO (09:05)
[2023-10-27] MEDS: atorvastatin 40 mg Tablet 20 MG PO (09:05)
[2023-10-27] MEDS: carbidopa-levodopa 25-100mg Tablet 1 EACH PO ×3 (09:05→20:39)
[2023-10-27] MEDS: carvedilol 6.25 mg Tablet PO (09:05)
[2023-10-27] MEDS: aspirin 81 mg EC Tablet PO (09:05)
[2023-10-27] MEDS: BuSPIRONE 10 mg Tablet 30 MG PO ×2 (09:06→17:19)
[2023-10-27] MEDS: gabapentin 300 mg Capsule PO ×3 (09:12→20:39)
[2023-10-27] MEDS: pantoprazole DR 40 mg Tablet PO ×2 (09:13→17:19)
[2023-10-27 10:50] LABS: Glucose Point of Care 158 mg/dL (70-110)
[2023-10-27] MEDS: insulin lispro 100 unit/1 mL SUBCUT (11:47)
[2023-10-27 17:07] LABS: Glucose Point of Care 129 mg/dL (70-110)
[2023-10-27] MEDS: quetiapine 100 mg Tablet PO (17:18)
[2023-10-27 20:35] LABS: Glucose Point of Care 148 mg/dL (70-110)
[2023-10-27] MEDS: trazodone 150 mg Tablet 300 MG PO (20:39)
[2023-10-28 04:00] VITALS: BP 95/55; PULSE 67; RESP 17; TEMP 36.8; O2SAT 92
[2023-10-28 06:30] LABS: Glucose Point of Care 135 mg/dL (70-110)
[2023-10-28 07:14] VITALS: BP 110/69; PULSE 91; RESP 16; TEMP 36.6; O2SAT 93
[2023-10-28] MEDS: cholecalciferol (vitamin D3) 1,000 unit Tablet 1000 UNIT PO (08:09)
[2023-10-28] MEDS: clopidogrel 75 mg Tablet PO (08:10)
[2023-10-28] MEDS: carbidopa-levodopa 25-100mg Tablet 1 EACH PO ×3 (08:10→20:24)
[2023-10-28] MEDS: carvedilol 6.25 mg Tablet PO (08:10)
[2023-10-28] MEDS: BuSPIRONE 10 mg Tablet 30 MG PO ×2 (08:10→17:12)
[2023-10-28] MEDS: gabapentin 300 mg Capsule PO ×3 (08:10→20:24)
[2023-10-28] MEDS: aspirin 81 mg EC Tablet PO (08:10)
[2023-10-28] MEDS: levothyroxine 25 mcg Tablet PO (08:10)
[2023-10-28] MEDS: atorvastatin 40 mg Tablet 20 MG PO (08:10)
[2023-10-28] MEDS: bumetanide 1 mg Tablet PO (08:10)
[2023-10-28] MEDS: pantoprazole DR 40 mg Tablet PO ×2 (08:10→17:12)
[2023-10-28] MEDS: topiramate 100 mg Tablet 200 MG PO ×2 (08:10→17:12)
[2023-10-28] MEDS: potassium chloride ER 10 mEq Tablet PO (08:11)
[2023-10-28] MEDS: sennosides-docusate Tablet 1 TAB PO (08:11)
[2023-10-28 08:14] VITALS: PULSE 78; RESP 16; O2SAT 93
--- NOTE | 2023-10-28 09:22 | PM.PN ---
Documented by User: NELA Lewis STDNT 10/28/23 09:56 Subjective Subjective: Patient resting in bed on room air noted to be more tired this morning. Reports having trouble sleeping in the hospital complains of adhesive from wound VAC being irritating. Denies chest pain, shortness of breath, nausea, vomiting diarrhea. Medications: Reviewed: Yes Vitals/I&O/Wt Last Vital Signs Temp 97.8 F 10/28/23 07:14 Pulse 78 10/28/23 08:14 Resp 16 10/28/23 08:14 BP 110/69 10/28/23 07:14 Pulse Ox 93 10/28/23 08:14 O2 Del Method Room Air 10/28/23 08:14 10/27/23 10/28/23 10/28/23 22:59 06:59 14:59 Intake Total 120 / 120 120 / 120 Balance 120 / -780 120 / 120 Weight last 48 hrs Weight 253 lb 12.8 oz Weight 220 lb 4.8 oz Physical Exam Narrative: General Exam: Patient noted to be alert, no apparent distress. Neck supple, no lymphadenopathy. Resp: on room air, lungs sounds clear to auscultation, denies SOB with excretion Cardio: no JVD, regular rate, regular rhythm GI: soft, nontender, normoactive bowel sounds Extremity: 1+ edema to bilateral lower legs Skin: Stage IV pressure sore to sacrum, wound VAC placed 10/26/23 Data 10/26/23 02:41 10/26/23 02:41 Micro: Microbiology 10/27/23 07:40 Urine Culture - Preliminary Urine,Clean Catch Gram Negative Rods Gram Negative Rods#2 Yeast species A&P Assessment and plan (1) Decubitus ulcer of sacral region, stage 4: Consult Surgery, placed wound VAC 10/26/23, complaining of irritation from adhesive on wound VAC. Q2 turn Received records from recent debridement. MRI from recent [facility] Hospital stay demonstrated no abscess or osteomyelitis PRN pain meds ordered Urinalysis resulted: Gram negative rods and yeast species (2) Acute kidney injury superimposed on chronic kidney disease: Renal dosing on medications BMP in AM, monitor kidney function closely. (3) Diabetes: Placed on sliding scale insulin Cardiac Carbohydrate Consistent diet ACHS A1c reviewed (4) Coronary artery disease: Stent placed 6 months ago, received records. Continue home dose statin. Continue aspirin and plavix. (5) H/O neck surgery: Unknown reason for neck surgery, incision site noted to be a well healing scar. Continue carbidopa/levodopa Plan Continue home dose of 25mcg of levothyroxine for Hypothyroism. Continue antihypertensive regimen Continue Bumex for CHF Consult Case Management form SNF placement as patient states she is unable to care for herself. Coding Level of Care Code 34487 Diagnoses Decubitus ulcer of sacral region, stage 4 L89.154 Acute kidney injury superimposed on chronic kidney disease N17.9; N18.9 Diabetes E11.9 Coronary artery disease I25.10 H/O neck surgery Z98.890 Documented by User: José Miguel St MD 10/28/23 10:44 Data 10/26/23 02:41 10/26/23 02:41 A&P Assessment and plan (1) Decubitus ulcer of sacral region, stage 4: Consult Surgery, placed wound VAC 10/26/23, complaining of irritation from adhesive on wound VAC. Q2 turn Received records from recent debridement. MRI from recent [facility] Hospital stay demonstrated no abscess or osteomyelitis PRN pain meds ordered Urinalysis resulted: Gram negative rods and yeast species. On reviewing records from other hospital they have notations regarding pyuria considered asymptomatic. At this point will not treat. (2) Acute kidney injury superimposed on chronic kidney disease: (3) Diabetes: (4) Coronary artery disease: (5) H/O neck surgery: Attestations Medical Necessity Statement*: Needs continued hospitalization pending placement secondary to need for wound care with wound vacuum Diagnoses Decubitus ulcer of sacral region, stage 4 L89.154 Acute kidney injury superimposed on chronic kidney disease N17.9; N18.9 Diabetes E11.9 Coronary artery disease I25.10 H/O neck surgery Z98.890
[2023-10-28 11:39] LABS: Glucose Point of Care 193 mg/dL (70-110)
[2023-10-28 11:49] VITALS: BP 100/65; PULSE 89; RESP 15; TEMP 36.7; O2SAT 94
--- NOTE | 2023-10-28 12:22 | PC.SOCIAL ---
IMM Update pg 2 of IMM updated and reviewed w/ patient. Copy provided and copy dated, initialed and placed in chart.
[2023-10-28 16:00] VITALS: BP 110/59; PULSE 73; RESP 16; TEMP 36.8; O2SAT 96
[2023-10-28 16:43] LABS: Glucose Point of Care 175 mg/dL (70-110)
[2023-10-28] MEDS: quetiapine 100 mg Tablet PO (17:12)
[2023-10-28] MEDS: insulin lispro 100 unit/1 mL SUBCUT (17:13)
[2023-10-28 20:00] VITALS: BP 101/66; PULSE 76; RESP 18; TEMP 37.2; O2SAT 93
[2023-10-28] MEDS: trazodone 150 mg Tablet 300 MG PO (20:24)
[2023-10-28 20:34] LABS: Glucose Point of Care 197 mg/dL (70-110)
[2023-10-28] MEDS: enoxaparin 40 mg/0.4 mL Syringe SUBCUT (23:30)
[2023-10-29] VITALS: BP 88/55; PULSE 61; RESP 18; TEMP 36.6; O2SAT 93
[2023-10-29] MEDS: lactated ringers 500 ML 999 ML IV (00:18)
[2023-10-29 04:00] VITALS: BP 127/70; PULSE 86; RESP 18; TEMP 36.3; O2SAT 92
[2023-10-29 06:36] LABS: Glucose Point of Care 150 mg/dL (70-110)
[2023-10-29 08:00] VITALS: BP 100/55; PULSE 82; RESP 14; TEMP 37; O2SAT 92
[2023-10-29 08:44] LABS: Basophils # 0.1 10^3/uL (0.0-0.1); Eosinophils # 0.3 10^3/uL (0.0-0.8); Eosinophils % 3.7 %; Hematocrit 36.3 % (36-47); Lymphocytes # 3.5 10^3/uL (0.8-4.8); Lymphocytes % 37.1 %; Mean Corpuscular Hemoglobin 27.8 pg (27-33); Mean Corpuscular Volume 87.1 fl (85-98); Mean Platelet Volume 10.5 fL (7.4-10.4); Monocytes # 0.6 10^3/uL (0.2-0.9); Monocytes % 6.8 %; Neutrophils # 4.73 10^3/uL (1.8-7.7); Neutrophils % 50.8 %; Nucleated Red Blood Cells % 0 %; Platelet Count 322 10^3/cmm (157-399); Red Blood Count 4.17 10^6/uL (3.85-5.65); Red Cell Distribution Width 13.4 % (12.1-15.1)
[2023-10-29 09:03] LABS: Alanine Aminotransferase 21 U/L (0-33); Albumin Level 3.1 g/dL (3.5-5.2); Alkaline Phosphatase 49 U/L (35-105); Anion Gap 14.5 (5-19); Aspartate Amino Transferase 49 U/L (0-32); Blood Urea Nitrogen 23 mg/dL (8-23); Calcium 8.7 mg/dL (8.5-10.5); Carbon Dioxide 23 mmol/L (22-29); Chloride 107 mmol/L (98-107); Creatinine Clr Calc Pharmacy 77.0939; Globulin 2.8 g/dL (1.3-4.6); Glucose 151 mg/dL (65-115); Osmolality Calculated 299 mOsm/kg (285-295); Potassium 3.5 mmol/L (3.5-5.1); Sodium 141 mmol/L (136-145); Total Bilirubin 0.3 mg/dL (0.15-1.2); Total Protein 5.9 g/dL (6.6-8.7)
[2023-10-29 10:06] VITALS: PULSE 63; RESP 16; O2SAT 96
[2023-10-29] MEDS: topiramate 100 mg Tablet 200 MG PO (10:17)
[2023-10-29] MEDS: levothyroxine 25 mcg Tablet PO (10:17)
[2023-10-29] MEDS: cholecalciferol (vitamin D3) 1,000 unit Tablet 1000 UNIT PO (10:17)
[2023-10-29] MEDS: carbidopa-levodopa 25-100mg Tablet 1 EACH PO (10:17)
[2023-10-29] MEDS: gabapentin 300 mg Capsule PO (10:18)
[2023-10-29] MEDS: atorvastatin 40 mg Tablet 20 MG PO (10:18)
[2023-10-29] MEDS: aspirin 81 mg EC Tablet PO (10:19)
[2023-10-29] MEDS: BuSPIRONE 10 mg Tablet 30 MG PO (10:19)
[2023-10-29] MEDS: clopidogrel 75 mg Tablet PO (10:19)
[2023-10-29] MEDS: pantoprazole DR 40 mg Tablet PO (10:19)
[2023-10-29] MEDS: sennosides-docusate Tablet 1 TAB PO (10:20)
[2023-10-29] MEDS: potassium chloride ER 10 mEq Tablet PO (10:20)
[2023-10-29] MEDS: insulin lispro 100 unit/1 mL SUBCUT (11:34)
[2023-10-29 11:40] VITALS: BP 93/64; PULSE 80; RESP 15; TEMP 36.6; O2SAT 97
--- NOTE | 2023-10-29 11:50 | PM.DCS ---
Discharge Providers Date of Admission: 10/25/23 22:57 Date of Discharge: October 29, 2023 Attending Provider at Admission: Yobani Arias MD Attending Provider at Discharge: José Miguel St MD Diagnoses at Discharge Discharge Diagnosis (1) Decubitus ulcer of sacral region, stage 4: Status: Acute (2) Acute kidney injury superimposed on chronic kidney disease: Status: Acute (3) Diabetes: Status: Acute (4) Coronary artery disease: Status: Acute (5) H/O neck surgery: Status: Acute Reason for Visit Reason for Visit: wound on rear Hospital Course Hospital Course Jaylene is a 77-year-old white female has had a prolonged hospital course in [place] with a sacral decubitus. She was discharged from the hospital, transitioned here. Family could not take care of her and she was brought to the emergency department within 24 to 36 hours of discharge and [place] from my understanding. On arrival to the hospital there was initial concern of possibility of infection of decubitus and she was placed on broad-spectrum antibiotics. After review of the patient again, with review of old records obtained from [place] it was apparent she had completed a course of antibiotics, had a pelvic MRI, and IV antibiotics have been discontinued after review by infectious disease. Urinalysis had also been completed there and thought to be contaminant. For that reason IV antibiotics were discontinued, and attempts were made for placement of the patient. Surgery was consulted and recommended wound vacuum for her sacral decub. She was able to be placed on October 28, and was able to transition out of the hospital. Some medications were reduced during her hospital stay secondary to lower blood pressures. She will need follow-up with her primary care provider at the nursing facility with CBC and BMP in approximately 3 days to a week. Family and patient were given opportunity ask questions and agreed with the plan. Physical Exam Narrative: General exam no distress Neck is supple Cardiovascular regular rate and rhythm Lungs clear Abdomen is soft Wound vacuum in place on sacrum Extremities no cyanosis clubbing or edema Discharge Data Studies Completed and Pending Completed Studies During Hospitalization Category Date Time Status XR chest 1V portable [id number] Routine Exams 10/26/23 22:02 Completed Pending at discharge Category Date Time Status Blood Culture Stat Lab 10/25/23 23:37 Results COVID [SARS Covid-2 Antigen] Routine Lab 10/29/23 11:19 Uncollected Urine Culture Routine Lab 10/27/23 07:40 Results Radiology Impressions Chest X-Ray 10/26/23 22:02 IMPRESSION: Aorta appears somewhat prominent, CT could further characterize this. Laboratory Results WBC 9.30 10^3/uL (3.29-11.43) 10/29/23 08:28 RBC 4.17 10^6/uL (3.85-5.65) 10/29/23 08:28 Hgb 11.60 g/dL (11.27-16.99) 10/29/23 08:28 Hct 36.3 % (36-47) 10/29/23 08:28 MCV 87.1 fl (85-98) 10/29/23 08:28 MCH 27.8 pg (27-33) 10/29/23 08:28 MCHC 32.0 g/dL (30-55) 10/29/23 08:28 RDW 13.4 % (12.1-15.1) 10/29/23 08:28 Plt Count 322 10^3/cmm (157-399) 10/29/23 08:28 MPV 10.5 fL (7.4-10.4) H 10/29/23 08:28 Neut % (Auto) 50.8 % 10/29/23 08:28 Lymph % (Auto) 37.1 % 10/29/23 08:28 [place] % (Auto) 6.8 % 10/29/23 08:28 Eos % (Auto) 3.7 % 10/29/23 08:28 Baso % (Auto) 1.0 % 10/29/23 08:28 Neut # (Auto) 4.73 10^3/uL (1.8-7.7) 10/29/23 08:28 Lymph # (Auto) 3.5 10^3/uL (0.8-4.8) 10/29/23 08:28 [place] # (Auto) 0.6 10^3/uL (0.2-0.9) 10/29/23 08:28 Eos # (Auto) 0.3 10^3/uL (0.0-0.8) 10/29/23 08:28 Baso # (Auto) 0.1 10^3/uL (0.0-0.1) 10/29/23 08:28 Nucleated RBC % (auto) 0 % 10/29/23 08:28 Nucleated RBCs # 0.0 /100WBC 10/29/23 08:28 ESR 27 mm/hr (0-15) H 10/25/23 18:47 D-Dimer 0.63 ug/mLFEU (0-0.59) H 10/25/23 18:47 Sodium 141 mmol/L (136-145) 10/29/23 08:28 Potassium 3.5 mmol/L (3.5-5.1) 10/29/23 08:28 Chloride 107 mmol/L (98-107) 10/29/23 08:28 Carbon Dioxide 23 mmol/L (22-29) 10/29/23 08:28 Anion Gap 14.5 (5-19) 10/29/23 08:28 BUN 23 mg/dL (8-23) 10/29/23 08:28 Creatinine 0.8 mg/dL (0.5-0.9) 10/29/23 08:28 GFR Calculation Not Reportable 10/29/23 08:28 Glucose 151 mg/dL (65-115) H 10/29/23 08:28 POC Glucose 150 mg/dL (70-110) H 10/29/23 06:31 Estimat Average Glucose 146 10/26/23 Unknown Hemoglobin A1c 6.7 % (4.0-6.0) H 10/26/23 Unknown Calculated Osmolality 299 mOsm/kg (285-295) H 10/29/23 08:28 Lactic Acid 1.7 mmol/L (0.5-2.2) 10/25/23 18:47 Calcium 8.7 mg/dL (8.5-10.5) 10/29/23 08:28 Phosphorus 4.1 mg/dL (2.5-4.5) 10/26/23 02:41 Magnesium 2.2 mg/dL (1.7-2.3) 10/26/23 02:41 Total Bilirubin 0.3 mg/dL (0.15-1.2) 10/29/23 08:28 AST 49 U/L (0-32) H 10/29/23 08:28 ALT 21 U/L (0-33) 10/29/23 08:28 Alkaline Phosphatase 49 U/L (35-105) 10/29/23 08:28 C-Reactive Protein 40.4 mg/L (0.0-4.9) H 10/26/23 02:41 Total Protein 5.9 g/dL (6.6-8.7) L 10/29/23 08:28 Albumin 3.1 g/dL (3.5-5.2) L 10/29/23 08:28 Globulin 2.8 g/dL (1.3-4.6) 10/29/23 08:28 Procalcitonin 0.19 ng/mL (0-0.5) 10/25/23 18:47 TSH 4.88 uIU/mL (0.27-4.20) H 10/26/23 Unknown Urine Color Yellow (Yellow) 10/27/23 07:40 Urine Appearance Cloudy (CLEAR) A 10/27/23 07:40 Urine pH 5 (5-7) 10/27/23 07:40 Ur Specific [place] 1.020 (1.005-1.030) 10/27/23 07:40 Urine Protein Neg (Negative) 10/27/23 07:40 Urine Glucose (UA) 4+ (Normal) H 10/27/23 07:40 Urine Ketones Negative (Negative) 10/27/23 07:40 Urine Blood Neg (Negative) 10/27/23 07:40 Urine Nitrate Negative (Negative) 10/27/23 07:40 Urine Bilirubin Neg (Negative) 10/27/23 07:40 Urine Urobilinogen Norm mg/dL (Negative) 10/27/23 07:40 Ur Leukocyte Esterase 2+ (Negative) H 10/27/23 07:40 Urine RBC 0-4 /hpf (0-2) H 10/27/23 07:40 Urine WBC 15-25 /hpf (0-5) H 10/27/23 07:40 Ur Squamous Epith Cells 0-4 /hpf (0-5) H 10/27/23 07:40 Amorphous Sediment Not Reportable 10/27/23 07:40 Urine Bacteria Trace /hpf (NONE) 10/27/23 07:40 Urine Mucus None /hpf 10/27/23 07:40 Urine Yeast 4+ /hpf H 10/27/23 07:40 Vitals Last Vital Signs Temp 97.8 F 10/29/23 11:40 Pulse 80 10/29/23 11:40 Resp 15 10/29/23 11:40 BP 93/64 10/29/23 11:40 Pulse Ox 97 10/29/23 11:40 O2 Del Method Nasal Cannula 10/29/23 11:40 O2 Flow Rate 1 10/29/23 10:06 Discharge Plan Discharge Patient Disposition: Xfer SNF Condition: Stable Prescriptions: New pantoprazole 40 mg Tablet,Delayed Release (Dr/Ec) 40 mg PO BID Qty: 60 0RF bumetanide 1 mg Tablet 1 mg PO DAILY Qty: 30 0RF Continued gabapentin 300 mg capsule 300 mg PO TID Trintellix 20 mg tablet 20 mg PO DAILY aspirin 81 mg Tablet 81 mg PO DAILY Vitamin D3 25 mcg (1,000 unit) Tablet 1,000 unit PO DAILY pravastatin 40 mg tablet 40 mg PO DAILY levothyroxine 25 mcg tablet 25 mcg PO DAILY buspirone 30 mg tablet 30 mg PO BID Multi For Her 18 mg iron-600 mcg-40 mcg Capsule 1 cap PO DAILY topiramate 100 mg tablet 200 mg PO BID carvedilol 6.25 mg tablet 6.25 mg PO DAILY Calcium 600 + D(3) 600 mg-10 mcg (400 unit) Tablet 1 tab PO DAILY Jardiance 10 mg tablet 10 mg PO DAILY levothyroxine 25 mcg tablet 25 mcg PO DAILY carbidopa-levodopa 25-100 mg tablet 1 tab PO TID Trintellix 20 mg tablet 20 mg PO DAILY quetiapine 100 mg tablet 100 mg PO QPM clopidogrel 75 mg tablet 75 mg PO DAILY trazodone 150 mg tablet 300 mg PO BEDTIME omega-3 acid ethyl esters 1 gram capsule 2 cap PO BID potassium chloride 20 mEq tablet extended release 20 meq PO DAILY Discontinued olmesartan 20 mg tablet 20 mg PO DAILY spironolactone 25 mg tablet 50 mg PO DAILY bumetanide 2 mg tablet 2 mg PO DAILY Discharge Orders: Discharge Order (Routine); Ordered 10/29/23 Ordered By: José Miguel St Referrals: [facility]Outside[facility], [Staff Physician] - (Will see patient Thursday during halfway rounds. ) Discharge Diet: Usual diet, Cardiac and Diabetic Discharge Activity: Increase activity as tolerated Patient Instructions: Bumetanide (By mouth) (Bumex), Pantoprazole (By mouth), Opioid Safety, Wound Care (General) Activity Restrictions/Additional Instructions: CBC, BMP in 1 week Follow-up with primary care and wound care at nursing facility Continue wound vacuum, please call surgery prior to discharge with any further wound instructions Discharge Attestations Time Spent in Discharge Care*: greater than 30 min Quality Metrics Clinical Quality Measures [ No reported AMI, CVA or VTE this stay] Coding Level of Care Code 73484 Total time (in minutes) for Discharge: 35 Diagnoses Decubitus ulcer of sacral region, stage 4 L89.154 Acute kidney injury superimposed on chronic kidney disease N17.9; N18.9 Diabetes E11.9 Coronary artery disease I25.10 H/O neck surgery Z98.890
[2023-10-29 12:54] LABS: SARS Covid-2 Antigen negative (Negative)
== END 2023-10-29 14:10 | disposition skilled nursing facility (03) | DRG 593 ==
LOC: ER 22:36 → MEDSURG 23:35
PROVIDERS: Admitting Provider Internal Medicine; Emergency Provider Nurse Practitioner Family; Visit Provider Internal Medicine
DX: L89.154 Pressure ulcer of sacral region, stage 4 (principal); I13.0 Hypertensive heart and chronic kidney disease with heart failure and stage 1 through stage 4 chronic kidney disease, or unspecified chronic kidney disease; N17.9 Acute kidney failure, unspecified; Z68.41 Body mass index [BMI] 40.0-44.9, adult; E11.22 Type 2 diabetes mellitus with diabetic chronic kidney disease; E11.40 Type 2 diabetes mellitus with diabetic neuropathy, unspecified; N18.30 Chronic kidney disease, stage 3 unspecified; E03.9 Hypothyroidism, unspecified; R25.1 Tremor, unspecified; M54.50 Low back pain, unspecified; I25.10 Atherosclerotic heart disease of native coronary artery without angina pectoris; E66.01 Morbid (severe) obesity due to excess calories; Z99.3 Dependence on wheelchair; Z79.82 Long term (current) use of aspirin; Z79.02 Long term (current) use of antithrombotics/antiplatelets; Z11.52 Encounter for screening for COVID-19
CPT/HCPCS: 36415; 36416; 71045; 80048; 80053; 81001; 82962; 83036; 83605; 83735; 84100; 84145; 84443; 85025; 85378; 85651; 86140; 87040; 87077; 87086; 87106; 87186; 87426; 93005; 96372; 97110; 97116; 97161; 97167; 97530; 97535; 99285; C9113; J1650; J1815; J2543; J3370; J7050; J7120

== ENCOUNTER → 2024-01-12 12:02 | Outpatient (BNVA) | payer MEDICARE, SELFPAY | PROVIDERS: PCP Internal Medicine; Visit Provider Internal Medicine | DX: E11.40 Type 2 diabetes mellitus with diabetic neuropathy, unspecified; I25.10 Atherosclerotic heart disease of native coronary artery without angina pectoris; E78.5 Hyperlipidemia, unspecified; Z79.4 Long term (current) use of insulin | CPT/HCPCS: 99204 ==

== ENCOUNTER → 2024-02-17 12:15 | Outpatient (BNVA) | payer MEDICARE, SELFPAY | PROVIDERS: PCP Internal Medicine; Visit Provider Internal Medicine | DX: E11.9 Type 2 diabetes mellitus without complications (principal); E78.5 Hyperlipidemia, unspecified; I25.10 Atherosclerotic heart disease of native coronary artery without angina pectoris; Z79.4 Long term (current) use of insulin | CPT/HCPCS: 99214 ==

== ENCOUNTER → 2024-05-24 09:41 | Outpatient (BNVA) | payer MEDICARE, SELFPAY | PROVIDERS: PCP Internal Medicine; Visit Provider Internal Medicine | DX: I25.10 Atherosclerotic heart disease of native coronary artery without angina pectoris (principal); E78.5 Hyperlipidemia, unspecified; E11.9 Type 2 diabetes mellitus without complications; Z79.4 Long term (current) use of insulin | CPT/HCPCS: 99214 ==

== ENCOUNTER 2024-06-04 17:26 | Observation (INO) | payer MEDICARE, SELFPAY ==
[2024-06-04] VITALS (17 sets, daily range): BP systolic 115–125; BP diastolic 60–79; PULSE 53–79; RESP 2–22; TEMP 36.8–37.1; O2SAT 94–98; BMI 36.6
--- NOTE | 2024-06-04 17:34 | XRR_ITS ---
PROCEDURE INFORMATION: Exam: XR Chest Exam date and time: 06/04/2024 6:21 PM Age: 78 years old Clinical indication: Pain; Chest pressure; Prior surgery; Surgery date: 6+ months; Surgery type: Thyroidectomy; Additional info: Chest pain TECHNIQUE: Imaging protocol: Radiologic exam of the chest. Views: 1 view. COMPARISON: CR XR chest 1V portable [id number] 10/26/2023 9:35 PM FINDINGS: Lungs: Unremarkable. No consolidation. Pleural spaces: Unremarkable. No pleural effusion. No pneumothorax. Heart/Mediastinum: Stable cardiomediastinal silhouette. Vasculature: Tortuous thoracic aorta. Bones/joints: Changes of upper median sternotomy. Cervical fusion hardware partially imaged. XR/XR chest 1V portable [id number] IMPRESSION: No acute findings.
--- NOTE | 2024-06-04 17:35 | ECG_ITS ---
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 Measurements Intervals [place] Rate: 57 P: 24 MT: 169 QRS: -12 QRSD: 80 T: 38 QT: 423 QTc: 414 Interpretive Statements SINUS BRADYCARDIA LOW QRS VOLTAGE IN PRECORDIAL LEADS [QRS DEFLECTION < 1.0 mV IN CHEST LEADS] POSSIBLE RIGHT VENTRICULAR CONDUCTION DELAY [RSR (QR) IN V1/V2] POSSIBLE ANTERIOR MYOCARDIAL INFARCTION , PROBABLY OLD [30 ms Q WAVE IN V3/V4, OR R < 0.2 mV IN V4] Compared to ECG 10/26/2023 23:55:22 Myocardial infarct finding now present Sinus rhythm no longer present Electronically Signed On 06-06-2024 00:13:24 CDT by Jerry Wells M.D. [email or web address]
--- NOTE | 2024-06-04 18:03 | W.ED.CHESTPA ---
Documented by User: Nicolas Gamez DO 06/06/24 07:15 HPI - Chest Pain General: Chief Complaint: Chest Pain Stated Complaint: chest pain Time Seen by Provider: 06/04/24 17:34 History of Present Illness: 78-year-old female presents to the emergency room complaining of chest pain that began while she was taking a shower earlier today. She has no known history of coronary disease she thinks she had a stress test around 9 to 10 years ago that was reported to her as normal for the last 3 to 4 months she is intermittently been having chest discomfort to less intense degree usually resolves spontaneously is not always associated with activity. The episode today that began while at rest was much more intense and longer lasting than she has had previously she reports it was a 9 out of 10 she was given aspirin and nitro in the field which relieved her discomfort. Discomfort is almost completely resolved at the time I seen the patient. She does have a upper sternotomy scar from the previous thyroid surgery Associated symptoms: Deny abdominal pain, dyspnea or fever(s) Related Data Home Medications Medication Instructions Recorded Confirmed aspirin 81 mg tablet 81 mg PO DAILY 10/25/23 06/04/24 buspirone 30 mg tablet 30 mg PO BID 10/25/23 06/04/24 calcium 600 mg (as 1 tab PO DAILY 10/25/23 06/04/24 carbonate)-vitamin D3 10 mcg (400 unit) tablet (Calcium 600 + D(3)) carbidopa 25 mg-levodopa 100 mg 1 tab PO TID 10/25/23 06/04/24 tablet carvedilol 6.25 mg tablet 6.25 mg PO DAILY 10/25/23 06/04/24 clopidogrel 75 mg tablet 75 mg PO DAILY 10/25/23 06/04/24 levothyroxine 25 mcg tablet 25 mcg PO 0600 10/25/23 06/04/24 [id number] fumarate 18 1 cap PO DAILY 10/25/23 06/05/24 mg-FA 600 mcg-vit K 40 mcg capsule (Multi For Her) potassium chloride 20 mEq 20 meq PO DAILY 10/25/23 06/04/24 tablet,extended release pravastatin 40 mg tablet 40 mg PO DAILY 10/25/23 06/04/24 topiramate 100 mg tablet 200 mg PO BID 10/25/23 06/04/24 trazodone 150 mg tablet 300 mg PO BEDTIME 10/25/23 06/04/24 fluticasone propionate 50 2 spray intranasal DAILY 01/12/24 06/04/24 mcg/actuation nasal spray,suspension insulin aspart U-100 100 unit/mL 6 unit SUBCUT 0730 01/12/24 06/05/24 (3 mL) subcutaneous pen ondansetron HCl 4 mg tablet 4 mg PO Q4H PRN Nausea And Vomiting 01/12/24 06/04/24 insulin glargine 100 unit/mL 12 unit SUBCUT 0800 02/22/24 06/04/24 subcutaneous solution (Lantus U-100 Insulin) meloxicam 15 mg tablet 15 mg PO DAILY 03/14/24 06/04/24 acetaminophen 325 mg tablet 650 mg PO Q4H PRN Pain, Mild 06/04/24 06/04/24 carboxymethylcellulose sodium 0.5 1 drp ophthalmic (eye) QID 06/04/24 06/05/24 % eye drops (Refresh Tears) cholecalciferol (vitamin D3) 25 25 mcg PO DAILY 06/04/24 06/04/24 mcg (1,000 unit) tablet omega-3 fatty acids 1,000 mg 1,000 mg PO BID 06/04/24 06/04/24 capsule fluconazole 200 mg tablet 200 mg PO DAILY 06/05/24 06/05/24 (Diflucan) insulin aspart U-100 100 unit/mL 4 unit SUBCUT 1200,1700 06/05/24 06/05/24 (3 mL) subcutaneous pen insulin aspart U-100 100 unit/mL See Rx Instructions .Route 06/05/24 06/05/24 (3 mL) subcutaneous pen .COMPLEX PRN Hyperglycemia Previous Rx's Medication Instructions Recorded bumetanide 1 mg tablet 1 mg PO DAILY #30 tabs 10/29/23 pantoprazole 40 mg tablet,delayed 40 mg PO BID #60 tabs 10/29/23 release Allergies Allergy/AdvReac Type Severity Reaction Status Date / Time Influenza Virus Vaccines Allergy ALGY-Swell Verified 06/04/24 23:05 Lip/Tongue/Throat lisinopril Allergy ADR-Cough Verified 05/30/24 13:48 Sulfa (Sulfonamide Allergy ALGY-Anaphy Verified 05/30/24 13:48 Antibiotics) laxis Review of Systems Const: Denies: fever(s) or chills Card: Reports: chest pain Resp: Denies: dyspnea GI: Denies: abdominal pain : Denies: dysuria, urinary frequency or urinary urgency Musc: Denies: neck pain or back pain Skin/Breast: Denies: rash PFSH ED PFSH: Medical History Congestive heart failure Dorsalgia Obesity Tremor, unspecified Type 2 diabetes mellitus with diabetic neuropathy, 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 Coarse tremors Diabetic neuropathy Hypertension Diabetes Coronary artery disease Hypothyroidism Decubitus ulcer of sacral region, stage 4 Surgical History H/O neck surgery Family History Father Family history of premature coronary artery disease CAD (coronary artery disease) Social History Smoking and tobacco/nicotine status: never used tobacco/nicotine Housing: Penitentiary Marital status: / 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 Physical Exam Const: GENERAL APPEARANCE: cooperative ORIENTATION/CONSCIOUSNESS: Yes awake, Yes oriented to person, Yes oriented to place and Yes oriented to time HENMT: COMMON NORMALS: normocephalic, atraumatic and hearing grossly normal bilaterally HEAD & SCALP: normocephalic and atraumatic Resp: COMMON NORMALS: normal respiratory effort, No retractions, No use of accessory muscles and clear to auscultation bilaterally AUSCULTATION: clear to auscultation bilaterally Cardio: COMMON NORMALS: regular rate, regular rhythm and No murmurs present (Cardio) RATE: regular rate RHYTHM: regular rhythm GI: COMMON NORMALS: Soft to palpation and No hepatosplenomegaly present AUSCULTATION: Yes normoactive bowel sounds PALPATION: Yes Soft to palpation, No Tenderness to palpation present (GI), No Guarding due to palpation present (GI) and Yes No hepatosplenomegaly present Extremity: COMMON NORMALS: normal to inspection, capillary refill normal, no clubbing, cyanosis or edema, no calf tenderness and no pedal edema Neuro: SENSORIUM/ORIENTATION: Yes oriented to person, Yes oriented to place and Yes oriented to time Skin: COMMON NORMALS: no rashes or lesions noted GENERAL SKIN EXAM: no rashes or lesions noted Course Vital Signs: Vital signs: Vital Signs Temperature 97.2 F L 06/06/24 04:00 Pulse Rate 54 L 06/06/24 04:00 Respiratory Rate 12 06/06/24 00:00 Blood Pressure 117/75 06/06/24 04:00 Pulse Oximetry 95 06/06/24 04:00 Oxygen Delivery Me thod Room Air 06/06/24 04:00 MDM - Chest Pain Medical Decision Making Care signed out to Dr. Sanchez at change of shift. See final notes for diagnosis and disposition. Lab Data 06/04/24 18:07 06/06/24 02:45 Radiology Impressions Chest X-Ray 06/04/24 17:34 IMPRESSION: No acute findings. Laboratory Results WBC 9.48 10^3/uL (3.29-11.43) 06/04/24 18:07 RBC 5.40 10^6/uL (3.85-5.65) 06/04/24 18:07 Hgb 15.20 g/dL (11.27-16.99) 06/04/24 18:07 Hct 47.1 % (36-47) H 06/04/24 18:07 MCV 87.2 fl (85-98) 06/04/24 18:07 MCH 28.1 pg (27-33) 06/04/24 18:07 MCHC 32.3 g/dL (30-55) 06/04/24 18:07 RDW 12.8 % (12.1-15.1) 06/04/24 18:07 Plt Count 198 10^3/cmm (157-399) 06/04/24 18:07 MPV 10.7 fL (7.4-10.4) H 06/04/24 18:07 Neut % (Auto) 51.1 % 06/04/24 18:07 Lymph % (Auto) 37.2 % 06/04/24 18:07 [place] % (Auto) 6.9 % 06/04/24 18:07 Eos % (Auto) 3.5 % 06/04/24 18:07 Baso % (Auto) 0.7 % 06/04/24 18:07 Neut # (Auto) 4.84 10^3/uL (1.8-7.7) 06/04/24 18:07 Lymph # (Auto) 3.5 10^3/uL (0.8-4.8) 06/04/24 18:07 [place] # (Auto) 0.7 10^3/uL (0.2-0.9) 06/04/24 18:07 Eos # (Auto) 0.3 10^3/uL (0.0-0.8) 06/04/24 18:07 Baso # (Auto) 0.1 10^3/uL (0.0-0.1) 06/04/24 18:07 Nucleated RBC % (auto) 0 % 06/04/24 18:07 Nucleated RBCs # 0.0 /100WBC 06/04/24 18:07 Sodium 138 mmol/L (136-145) 06/04/24 18:07 Potassium 4.5 mmol/L (3.5-5.1) 06/04/24 18:07 Chloride 102 mmol/L (98-107) 06/04/24 18:07 Carbon Dioxide 26 mmol/L (22-29) 06/04/24 18:07 Anion Gap 14.5 (5-19) 06/04/24 18:07 BUN 28 mg/dL (8-23) H 06/04/24 18:07 Creatinine 1.2 mg/dL (0.5-0.9) H 06/04/24 18:07 GFR Calculation Not Reportable 06/04/24 18:07 Glucose 183 mg/dL (65-115) H 06/04/24 18:07 Estimat Average Glucose 180 06/04/24 18:07 Hemoglobin A1c 7.9 % (4.0-6.0) H 06/04/24 18:07 Calculated Osmolality 296 mOsm/kg (285-295) H 06/04/24 18:07 Calcium 9.3 mg/dL (8.5-10.5) 06/04/24 18:07 Total Bilirubin 0.2 mg/dL (0.15-1.2) 06/04/24 18:07 AST 8 U/L (0-32) 06/04/24 18:07 ALT < 5 U/L (0-33) 06/04/24 18:07 Alkaline Phosphatase 50 U/L (35-105) 06/04/24 18:07 Troponin T Baseline 33 ng/L (0-10) H 06/04/24 18:07 Troponin T 120 Minute 30.48 ng/L (0-10) H 06/04/24 20:37 Delta Troponin T -2.52 ABS# (0-10) L 06/04/24 20:37 NT-Pro-B Natriuret Pep 403 pg/mL (0-450) 06/04/24 18:07 Total Protein 6.7 g/dL (6.6-8.7) 06/04/24 18:07 Albumin 4.2 g/dL (3.5-5.2) 06/04/24 18:07 Globulin 2.5 g/dL (1.3-4.6) 06/04/24 18:07 Triglycerides 214 mg/dL (0-150) H 06/04/24 18:07 Cholesterol 174 mg/dL (0-200) 06/04/24 18:07 LDL Cholesterol, Calc 97 mg/dL (50-129) 06/04/24 18:07 HDL Cholesterol 34 mg/dL (60-100) L 06/04/24 18:07 LDL/HDL Ratio 2.85 RATIO (0.00-3.22) 06/04/24 18:07 Cholesterol/HDL Ratio 5.12 mg/dL (0.0-4.40) H 06/04/24 18:07 Discharge Plan Discharge Patient Disposition: Placed in Observation Admit Provider: Alfonso Pedro Clinical Impression: Chest pain Qualifiers: Chest pain type: other chest pain Qualified Code(s): R07.89 - Other chest pain Coding Level of Care Code ED Integrated Marketing Intern for Chg Fwd Documented by User: Alexis Sanchez DO 06/04/24 20:16 HPI - Chest Pain General: Chief Complaint: Chest Pain Stated Complaint: chest pain Time Seen by Provider: 06/04/24 17:34 Related Data Home Medications Medication Instructions Recorded Confirmed aspirin 81 mg tablet 81 mg PO DAILY 10/25/23 06/04/24 buspirone 30 mg tablet 30 mg PO BID 10/25/23 06/04/24 calcium 600 mg (as 1 tab PO DAILY 10/25/23 06/04/24 carbonate)-vitamin D3 10 mcg (400 unit) tablet (Calcium 600 + D(3)) carbidopa 25 mg-levodopa 100 mg 1 tab PO TID 10/25/23 06/04/24 tablet carvedilol 6.25 mg tablet 6.25 mg PO DAILY 10/25/23 06/04/24 clopidogrel 75 mg tablet 75 mg PO DAILY 10/25/23 06/04/24 levothyroxine 25 mcg tablet 25 mcg PO 0600 10/25/23 06/04/24 [id number] fumarate 18 1 cap PO DAILY 10/25/23 06/05/24 mg-FA 600 mcg-vit K 40 mcg capsule (Multi For Her) potassium chloride 20 mEq 20 meq PO DAILY 10/25/23 06/04/24 tablet,extended release pravastatin 40 mg tablet 40 mg PO DAILY 10/25/23 06/04/24 topiramate 100 mg tablet 200 mg PO BID 10/25/23 06/04/24 trazodone 150 mg tablet 300 mg PO BEDTIME 10/25/23 06/04/24 fluticasone propionate 50 2 spray intranasal DAILY 01/12/24 06/04/24 mcg/actuation nasal spray,suspension insulin aspart U-100 100 unit/mL 6 unit SUBCUT 0730 01/12/24 06/05/24 (3 mL) subcutaneous pen ondansetron HCl 4 mg tablet 4 mg PO Q4H PRN Nausea And Vomiting 01/12/24 06/04/24 insulin glargine 100 unit/mL 12 unit SUBCUT 0800 02/22/24 06/04/24 subcutaneous solution (Lantus U-100 Insulin) meloxicam 15 mg tablet 15 mg PO DAILY 03/14/24 06/04/24 acetaminophen 325 mg tablet 650 mg PO Q4H PRN Pain, Mild 06/04/24 06/04/24 carboxymethylcellulose sodium 0.5 1 drp ophthalmic (eye) QID 06/04/24 06/05/24 % eye drops (Refresh Tears) cholecalciferol (vitamin D3) 25 25 mcg PO DAILY 06/04/24 06/04/24 mcg (1,000 unit) tablet omega-3 fatty acids 1,000 mg 1,000 mg PO BID 06/04/24 06/04/24 capsule fluconazole 200 mg tablet 200 mg PO DAILY 06/05/24 06/05/24 (Diflucan) insulin aspart U-100 100 unit/mL 4 unit SUBCUT 1200,1700 06/05/24 06/05/24 (3 mL) subcutaneous pen insulin aspart U-100 100 unit/mL See Rx Instructions .Route 06/05/24 06/05/24 (3 mL) subcutaneous pen .COMPLEX PRN Hyperglycemia Previous Rx's Medication Instructions Recorded bumetanide 1 mg tablet 1 mg PO DAILY #30 tabs 10/29/23 pantoprazole 40 mg tablet,delayed 40 mg PO BID #60 tabs 10/29/23 release Allergies Allergy/AdvReac Type Severity Reaction Status Date / Time Influenza Virus Vaccines Allergy ALGY-Swell Verified 06/04/24 23:05 Lip/Tongue/Throat lisinopril Allergy ADR-Cough Verified 05/30/24 13:48 Sulfa (Sulfonamide Allergy ALGY-Anaphy Verified 05/30/24 13:48 Antibiotics) laxis PFSH ED PFSH: Medical History Congestive heart failure Dorsalgia Obesity Tremor, unspecified Type 2 diabetes mellitus with diabetic neuropathy, 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 Coarse tremors Diabetic neuropathy Hypertension Diabetes Coronary artery disease Hypothyroidism Decubitus ulcer of sacral region, stage 4 Surgical History H/O neck surgery Family History Father Family history of premature coronary artery disease CAD (coronary artery disease) Social History Smoking and tobacco/nicotine status: never used tobacco/nicotine Housing: Penitentiary 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 Sanchez at change of shift. See final notes for diagnosis and disposition. Case checked out at shift change. This patient has anginal pain, onset at rest, crescendoing in terms of frequency and intensity over the last couple of weeks. She still having some mild discomfort now after morphine. Aspirin was not given due to sulfa allergy. Pressure was a bit low, so nitroglycerin was not given in terms of sublingual route. She is placed on nitroglycerin paste, given morphine and Zofran. No acute ST wave changes on EKG. Chest x-ray is nonacute. Other laboratory is not remarkable, except for the first troponin, which is elevated at 33. She has a good story, with an elevation in troponin and she does have risk factors, should be observed. Hospitalist agrees. Requests cardiology consultation, and recommendations from cardiology are Lovenox, nitroglycerin paste, etc. Lab Data 06/04/24 18:07 06/06/24 02:45 Radiology Impressions Chest X-Ray 06/04/24 17:34 IMPRESSION: No acute findings. Laboratory Results WBC 9.48 10^3/uL (3.29-11.43) 06/04/24 18:07 RBC 5.40 10^6/uL (3.85-5.65) 06/04/24 18:07 Hgb 15.20 g/dL (11.27-16.99) 06/04/24 18:07 Hct 47.1 % (36-47) H 06/04/24 18:07 MCV 87.2 fl (85-98) 06/04/24 18:07 MCH 28.1 pg (27-33) 06/04/24 18:07 MCHC 32.3 g/dL (30-55) 06/04/24 18:07 RDW 12.8 % (12.1-15.1) 06/04/24 18:07 Plt Count 198 10^3/cmm (157-399) 06/04/24 18:07 MPV 10.7 fL (7.4-10.4) H 06/04/24 18:07 Neut % (Auto) 51.1 % 06/04/24 18:07 Lymph % (Auto) 37.2 % 06/04/24 18:07 [place] % (Auto) 6.9 % 06/04/24 18:07 Eos % (Auto) 3.5 % 06/04/24 18:07 Baso % (Auto) 0.7 % 06/04/24 18:07 Neut # (Auto) 4.84 10^3/uL (1.8-7.7) 06/04/24 18:07 Lymph # (Auto) 3.5 10^3/uL (0.8-4.8) 06/04/24 18:07 [place] # (Auto) 0.7 10^3/uL (0.2-0.9) 06/04/24 18:07 Eos # (Auto) 0.3 10^3/uL (0.0-0.8) 06/04/24 18:07 Baso # (Auto) 0.1 10^3/uL (0.0-0.1) 06/04/24 18:07 Nucleated RBC % (auto) 0 % 06/04/24 18:07 Nucleated RBCs # 0.0 /100WBC 06/04/24 18:07 Sodium 138 mmol/L (136-145) 06/04/24 18:07 Potassium 4.5 mmol/L (3.5-5.1) 06/04/24 18:07 Chloride 102 mmol/L (98-107) 06/04/24 18:07 Carbon Dioxide 26 mmol/L (22-29) 06/04/24 18:07 Anion Gap 14.5 (5-19) 06/04/24 18:07 BUN 28 mg/dL (8-23) H 06/04/24 18:07 Creatinine 1.2 mg/dL (0.5-0.9) H 06/04/24 18:07 GFR Calculation Not Reportable 06/04/24 18:07 Glucose 183 mg/dL (65-115) H 06/04/24 18:07 Estimat Average Glucose 180 06/04/24 18:07 Hemoglobin A1c 7.9 % (4.0-6.0) H 06/04/24 18:07 Calculated Osmolality 296 mOsm/kg (285-295) H 06/04/24 18:07 Calcium 9.3 mg/dL (8.5-10.5) 06/04/24 18:07 Total Bilirubin 0.2 mg/dL (0.15-1.2) 06/04/24 18:07 AST 8 U/L (0-32) 06/04/24 18:07 ALT < 5 U/L (0-33) 06/04/24 18:07 Alkaline Phosphatase 50 U/L (35-105) 06/04/24 18:07 Troponin T Baseline 33 ng/L (0-10) H 06/04/24 18:07 Troponin T 120 Minute 30.48 ng/L (0-10) H 06/04/24 20:37 Delta Troponin T -2.52 ABS# (0-10) L 06/04/24 20:37 NT-Pro-B Natriuret Pep 403 pg/mL (0-450) 06/04/24 18:07 Total Protein 6.7 g/dL (6.6-8.7) 06/04/24 18:07 Albumin 4.2 g/dL (3.5-5.2) 06/04/24 18:07 Globulin 2.5 g/dL (1.3-4.6) 06/04/24 18:07 Triglycerides 214 mg/dL (0-150) H 06/04/24 18:07 Cholesterol 174 mg/dL (0-200) 06/04/24 18:07 LDL Cholesterol, Calc 97 mg/dL (50-129) 06/04/24 18:07 HDL Cholesterol 34 mg/dL (60-100) L 06/04/24 18:07 LDL/HDL Ratio 2.85 RATIO (0.00-3.22) 06/04/24 18:07 Cholesterol/HDL Ratio 5.12 mg/dL (0.0-4.40) H 06/04/24 18:07 All radiology interpretation(s) finalized by discharge Discharge Plan Discharge Patient Disposition: Placed in Observation Admit Provider: Alfonso Pedro Clinical Impression: Chest pain Qualifiers: Chest pain type: other chest pain Qualified Code(s): R07.89 - Other chest pain Coding Level of Care Code ED Integrated Marketing Intern for Peri Culp
[2024-06-04 18:15] LABS: Basophils # 0.1 10^3/uL (0.0-0.1); Basophils % 0.7 %; Eosinophils # 0.3 10^3/uL (0.0-0.8); Eosinophils % 3.5 %; Hematocrit 47.1 % (36-47); Lymphocytes # 3.5 10^3/uL (0.8-4.8); Lymphocytes % 37.2 %; Mean Corpuscular HGB Conc 32.3 g/dL (30-55); Mean Corpuscular Hemoglobin 28.1 pg (27-33); Mean Corpuscular Volume 87.2 fl (85-98); Mean Platelet Volume 10.7 fL (7.4-10.4); Monocytes # 0.7 10^3/uL (0.2-0.9); Monocytes % 6.9 %; Neutrophils # 4.84 10^3/uL (1.8-7.7); Neutrophils % 51.1 %; Nucleated Red Blood Cells % 0 %; Platelet Count 198 10^3/cmm (157-399); Red Cell Distribution Width 12.8 % (12.1-15.1); White Blood Count 9.48 10^3/uL (3.29-11.43)
[2024-06-04 18:33] LABS: Troponin(5th) Baseline 33 ng/L (0-10)
[2024-06-04 18:36] LABS: Alanine Aminotransferase < 5 U/L (0-33); Albumin Level 4.2 g/dL (3.5-5.2); Alkaline Phosphatase 50 U/L (35-105); Anion Gap 14.5 (5-19); Aspartate Amino Transferase 8 U/L (0-32); Blood Urea Nitrogen 28 mg/dL (8-23); Calcium 9.3 mg/dL (8.5-10.5); Carbon Dioxide 26 mmol/L (22-29); Chloride 102 mmol/L (98-107); Creatinine Clr Calc Pharmacy 41.1214; Globulin 2.5 g/dL (1.3-4.6); Glucose 183 mg/dL (65-115); Osmolality Calculated 296 mOsm/kg (285-295); Potassium 4.5 mmol/L (3.5-5.1); Sodium 138 mmol/L (136-145); Total Bilirubin 0.2 mg/dL (0.15-1.2); Total Protein 6.7 g/dL (6.6-8.7)
--- NOTE | 2024-06-04 19:33 | ECG_ITS ---
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 Measurements Intervals Mercedes Rate: 59 P: 46 MD: 181 QRS: -10 QRSD: 80 T: 44 QT: 426 QTc: 423 Interpretive Statements SINUS BRADYCARDIA LOW QRS VOLTAGE IN PRECORDIAL LEADS [QRS DEFLECTION < 1.0 mV IN CHEST LEADS] POSSIBLE ANTERIOR MYOCARDIAL INFARCTION , PROBABLY OLD [30 ms Q WAVE IN V3/V4, OR R < 0.2 mV IN V4] Compared to ECG 06/04/2024 18:13:47 No significant changes Electronically Signed On 06-07-2024 01:04:19 CDT by Jerry Wells M.D. [email or web address]
[2024-06-04] MEDS: morphine 4 mg/mL SDV 1 mL IVP (19:59)
[2024-06-04] MEDS: ondansetron 2 mg/ML SDV 2 mL 4 MG IVP (19:59)
--- NOTE | 2024-06-04 20:02 | P.HP_ITS ---
Providers/Chief Complaint 2 Primary Care Provider: Joni Woods MD Chief Complaint: chest pain History of Present Illness Jaylene Montiel is a 78 year old female with a past medical history significant for hypertension, type 2 diabetes mellitus, hypothyroidism, obesity, sacral pressure ulcer, neuropathy, tremors, and congestive heart failure who presents to the emergency department with chest pain. Patient reports onset prior today. She states that she was taking a shower at the time of onset. She describes the changes left-sided chest pressure without significant radiation. She divides the location is substernal. She rates the pain initially about a 9- 10 out of 10. Pain medications in the emergency department helped the pain. She denies other known alleviating or aggravating factors. She endorses associated shortness of breath. She is unsure about diaphoresis. Denies other associated symptoms. Denies fevers or chills. Denies nausea or emesis. Patient denies prior known history of coronary artery disease or heart disease. Home medication list does reveal aspirin and Plavix. She endorses a history of congestive heart failure but is unsure of the type. She denies prior cardiac catheterization. She reports a remote history of a cardiac stress test conducted greater than 10 years ago. Review of Systems 2 Narrative: A complete review of systems was obtained and is negative except as stated in HPI. Medications/Allergies Home Medications Medication Instructions Recorded Confirmed Last Taken Type aspirin 81 mg tablet 81 mg PO DAILY 10/25/23 05/30/24 Unknown History buspirone 30 mg tablet 30 mg PO BID 10/25/23 05/30/24 Unknown History calcium 600 mg (as 1 tab PO DAILY 10/25/23 05/30/24 Unknown History carbonate)-vitamin D3 10 mcg (400 unit) tablet (Calcium 600 + D(3)) carbidopa 25 mg-levodopa 100 mg 1 tab PO TID 10/25/23 05/30/24 Unknown History tablet carvedilol 6.25 mg tablet 6.25 mg PO DAILY 10/25/23 05/30/24 Unknown History cholecalciferol (vitamin D3) 25 1,000 unit PO DAILY 10/25/23 05/30/24 Unknown History mcg (1,000 unit) tablet (Vitamin D3) clopidogrel 75 mg tablet 75 mg PO DAILY 10/25/23 05/30/24 Unknown History gabapentin 300 mg capsule 300 mg PO TID 10/25/23 05/30/24 Unknown History levothyroxine 25 mcg tablet 25 mcg PO DAILY 10/25/23 05/30/24 Unknown History lamwhwxfu-cpr-xaja fumarate 18 1 cap PO DAILY 10/25/23 05/30/24 Unknown History mg-FA 600 mcg-vit K 40 mcg capsule (Multi For Her) omega-3 acid ethyl esters 1 gram 2 cap PO BID 10/25/23 05/30/24 Unknown History capsule potassium chloride 20 mEq 20 meq PO DAILY 10/25/23 05/30/24 Unknown History tablet,extended release pravastatin 40 mg tablet 40 mg PO DAILY 10/25/23 05/30/24 Unknown History topiramate 100 mg tablet 200 mg PO BID 10/25/23 05/30/24 Unknown History trazodone 150 mg tablet 300 mg PO BEDTIME 10/25/23 05/30/24 Unknown History vortioxetine 20 mg tablet 20 mg PO DAILY 10/25/23 05/30/24 Unknown History (Trintellix) bumetanide 1 mg tablet 1 mg PO DAILY #30 tabs 10/29/23 05/30/24 Unknown Rx pantoprazole 40 mg tablet,delayed 40 mg PO BID #60 tabs 10/29/23 05/30/24 Unknown Rx release fluticasone propionate 50 intranasal 01/12/24 05/30/24 Unknown History mcg/actuation nasal spray,suspension insulin aspart U-100 100 unit/mL SUBCUT 01/12/24 05/30/24 Unknown History (3 mL) subcutaneous pen lamotrigine 100 mg tablet mg PO 01/12/24 05/30/24 Unknown History ondansetron HCl 4 mg tablet mg PO 01/12/24 05/30/24 Unknown History insulin glargine 100 unit/mL unit SUBCUT 02/22/24 05/30/24 Unknown History subcutaneous solution (Lantus U-100 Insulin) nystatin 100,000 unit/gram topical topical 02/22/24 05/30/24 Unknown History cream cefuroxime axetil 250 mg tablet 250 mg PO BID 03/14/24 05/30/24 Unknown History meloxicam 15 mg tablet 15 mg PO 03/14/24 05/30/24 Unknown History nitrofurantoin 100 mg PO BID 05/30/24 05/30/24 Unknown History monohydrate/macrocrystals 100 mg capsule (Macrobid) Allergies Allergy/AdvReac Type Severity Reaction Status Date / Time lisinopril Allergy ADR-Cough Verified 05/30/24 13:48 Sulfa (Sulfonamide Allergy ALGY-Anaphy Verified 05/30/24 13:48 Antibiotics) laxis PFSH Acute 2 PFSH: Medical History Congestive heart failure Dorsalgia Obesity Tremor, unspecified Type 2 diabetes mellitus with diabetic neuropathy, 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 Coarse tremors Diabetic neuropathy Hypertension Diabetes Coronary artery disease Hypothyroidism Decubitus ulcer of sacral region, stage 4 Surgical History H/O neck surgery Family History Father Family history of premature coronary artery disease CAD (coronary artery disease) Social History Smoking and tobacco/nicotine status: never used tobacco/nicotine Housing: Assisted 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 Head: Normocephalic. Atraumatic. EOM intact. Neck: No JVD. Cardiovascular: RRR. No gallops. No murmurs. Lungs: Clear to auscultation, no use of accessory muscles, no crackles or wheezes. Skin: No jaundice. No rashes. Abdomen: Normal bowel sounds, abdomen soft and nontender. Genito Urinary: Genital exam not performed since complaints not related. Rectal: Rectal exam not performed since no symptoms indicated blood loss. Extremities: No cyanosis or clubbing. Musculoskeletal: No swollen or erythematous joints. Neurological: Moves all 4 extremities. No myoclonus. Data 06/04/24 18:07 10/26/24 18:07 A&P Assessment and plan (1) Chest pain: Chest pain concerning for possible unstable angina Continuous telemetry monitoring Trend troponins Status post aspirin load and therapeutic Lovenox in ED Nitroglycerin as needed Continue home aspirin and Plavix Continue home pravastatin Check lipids and A1c for restratification Check echocardiogram Cardiology consultation (2) Congestive heart failure: Chronic congestive heart failure, unspecified type Obtain NT proBNP Check echocardiogram Continue beta-carlie (3) Hyperlipidemia: Lipid panel as above Continue statin (4) Diabetes: Type 2 diabetes mellitus Continue Lantus, dose adjusted Sliding-scale insulin correction (5) Diabetic neuropathy: Continue home gabapentin Plan DVT prophylaxis: Lovenox CODE STATUS: Full code Attestations 2 Medical Necessity Statement*: Patient presents with chest pain concerning for unstable angina with expected hospitalization not to cross 2 midnights for evaluation for acute coronary syndrome, telemetry monitoring, serial troponins, echocardiogram, cardiology evaluation, and supportive care. Coding Level of Care Code Acute Code for [facility] Fwd Diagnoses Chest pain R07.9 Congestive heart failure I50.9 Hyperlipidemia E78.5 Diabetes E11.9 Diabetic neuropathy E11.40
[2024-06-04] MEDS: enoxaparin 100 mg/mL Syringe 90 MG SUBCUT (20:27)
[2024-06-04] MEDS: nitroglycerin 1 gm/inch oint Pkt 0.5 INCH TOPICAL (20:27)
[2024-06-04 20:51] LABS: Chol HDL Ratio 5.12 mg/dL (0.0-4.40); Cholesterol 174 mg/dL (0-200); HDL Cholesterol 34 mg/dL (60-100); LDL Cholesterol Calculated 97 mg/dL (50-129); LDL HDL Ratio 2.85 RATIO (0.00-3.22); Triglycerides 214 mg/dL (0-150)
[2024-06-04 20:52] LABS: Estmated Average Glucose 180; Hemoglobin A1C 7.9 % (4.0-6.0)
[2024-06-04 21:03] LABS: Troponin 5 2HR 30.48 ng/L (0-10)
[2024-06-04 21:04] LABS: Troponin 5 2HR Delta -2.52 ABS# (0-10)
--- NOTE | 2024-06-04 22:03 | P.CONIM_ITS ---
Providers/Reason For Consult 2 Consulting Physician/Specialty*: ALEX Wells MD/cardiology Reason for Consult*: Patient with a chest pain suggestive of unstable angina. History of atherosclerotic heart diseas Requesting Physician: Dr. Pedro Attending Physician: Alfonso Pedro MD Primary Care Provider: Joni Woods MD History of Present Illness History of Present Illness Jaylene Montiel is a 78 year old female presenting with acute chest pain and shortness of breath. The chest pain has been intermittently occurring for several months but became severe today during a shower, prompting her visit. The pain, rated 8/10, was located in the left breast area but did not radiate to the neck or back. It lasted approximately 45 minutes. The patient reports episodes of this chest pain occurring once or twice a week and can occur at rest. She has a past medical history significant for Congestive Heart Failure (CHF), diagnosed 10-12 years ago, but she denies previous myocardial infarction or coronary artery disease investigations like angiography. She has hypertension, diabetes, and hyperlipidemia, managed with medication. The patient has a history of essential tremor and underwent neck surgery, reportedly without clear indication. Sleep apnea was diagnosed, and while she was previously on CPAP, she lost the device. She also has a history of chronic new disease a stage III, hypothyroidism, muscle spasm, lower back pain and tremors. She resides in a [place] [facility] and was transported to the hospital by ambulance after administration of nitroglycerin proved ineffective. Additionally, there's mention of weakness during episodes of pain. Her father had a history of heart disease, dying of a heart attack in his 60s. Review of Systems 2 Narrative: CONSTITUTIONAL: No fever or chills. EYES: No blurring of vision or other visual disturbances lately. ENT: No hoarseness of voice, auditory disturbances or sore throat. CARDIOVASCULAR: As mentioned above. RESPIRATORY: No significant cough. GASTROINTESTINAL: No hematemesis or melena. GENITOURINARY: No dysuria or hematuria. INTEGUMENTARY: No skin rashes or history of skin cancer. NEURO: No transient ischemic attacks or amaurosis. PSYCHIATRIC: No history of psychosis or major depression. HEMATOLOGIC: No bleeding disorders or significant anemia. ENDOCRINE: History of diabetes and hypothyroidism. She had a retrosternal goiter and underwent surgery few years ago. She is on thyroid replacement. MUSCULOSKELETAL: No recent joint pain or swelling. ALLERGY/IMMUNOLOGY: As mentioned above. Medications/Allergies Home Medications Medication Instructions Recorded Confirmed Last Taken Type aspirin 81 mg tablet 81 mg PO DAILY 10/25/23 05/30/24 Unknown History buspirone 30 mg tablet 30 mg PO BID 10/25/23 05/30/24 Unknown History calcium 600 mg (as 1 tab PO DAILY 10/25/23 05/30/24 Unknown History carbonate)-vitamin D3 10 mcg (400 unit) tablet (Calcium 600 + D(3)) carbidopa 25 mg-levodopa 100 mg 1 tab PO TID 10/25/23 05/30/24 Unknown History tablet carvedilol 6.25 mg tablet 6.25 mg PO DAILY 10/25/23 05/30/24 Unknown History cholecalciferol (vitamin D3) 25 1,000 unit PO DAILY 10/25/23 05/30/24 Unknown History mcg (1,000 unit) tablet (Vitamin D3) clopidogrel 75 mg tablet 75 mg PO DAILY 10/25/23 05/30/24 Unknown History gabapentin 300 mg capsule 300 mg PO TID 10/25/23 05/30/24 Unknown History levothyroxine 25 mcg tablet 25 mcg PO DAILY 10/25/23 05/30/24 Unknown History qvdwlcnww-uap-jkri fumarate 18 1 cap PO DAILY 10/25/23 05/30/24 Unknown History mg-FA 600 mcg-vit K 40 mcg capsule (Multi For Her) omega-3 acid ethyl esters 1 gram 2 cap PO BID 10/25/23 05/30/24 Unknown History capsule potassium chloride 20 mEq 20 meq PO DAILY 10/25/23 05/30/24 Unknown History tablet,extended release pravastatin 40 mg tablet 40 mg PO DAILY 10/25/23 05/30/24 Unknown History topiramate 100 mg tablet 200 mg PO BID 10/25/23 05/30/24 Unknown History trazodone 150 mg tablet 300 mg PO BEDTIME 10/25/23 05/30/24 Unknown History vortioxetine 20 mg tablet 20 mg PO DAILY 10/25/23 05/30/24 Unknown History (Trintellix) bumetanide 1 mg tablet 1 mg PO DAILY #30 tabs 10/29/23 05/30/24 Unknown Rx pantoprazole 40 mg tablet,delayed 40 mg PO BID #60 tabs 10/29/23 05/30/24 Unknown Rx release fluticasone propionate 50 intranasal 01/12/24 05/30/24 Unknown History mcg/actuation nasal spray,suspension insulin aspart U-100 100 unit/mL SUBCUT 01/12/24 05/30/24 Unknown History (3 mL) subcutaneous pen lamotrigine 100 mg tablet mg PO 01/12/24 05/30/24 Unknown History ondansetron HCl 4 mg tablet mg PO 01/12/24 05/30/24 Unknown History insulin glargine 100 unit/mL unit SUBCUT 02/22/24 05/30/24 Unknown History subcutaneous solution (Lantus U-100 Insulin) nystatin 100,000 unit/gram topical topical 02/22/24 05/30/24 Unknown History cream cefuroxime axetil 250 mg tablet 250 mg PO BID 03/14/24 05/30/24 Unknown History meloxicam 15 mg tablet 15 mg PO 03/14/24 05/30/24 Unknown History nitrofurantoin 100 mg PO BID 05/30/24 05/30/24 Unknown History monohydrate/macrocrystals 100 mg capsule (Macrobid) Allergies Allergy/AdvReac Type Severity Reaction Status Date / Time Influenza Virus Vaccines Allergy ALGY-Swell Verified 06/04/24 23:05 Lip/Tongue/Throat lisinopril Allergy ADR-Cough Verified 05/30/24 13:48 Sulfa (Sulfonamide Allergy ALGY-Anaphy Verified 05/30/24 13:48 Antibiotics) laxis PFSH Acute 2 PFSH: Medical History (Updated 06/04/24 @ 23:31 by Jerry Wells MD) Congestive heart failure Dorsalgia Obesity Tremor, unspecified Type 2 diabetes mellitus with diabetic neuropathy, 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 Coarse tremors Diabetic neuropathy Hypertension Diabetes Coronary artery disease Hypothyroidism Decubitus ulcer of sacral region, stage 4 Surgical History H/O neck surgery Family History Father Family history of premature coronary artery disease CAD (coronary artery disease) Social History Smoking and tobacco/nicotine status: never used tobacco/nicotine Housing: Shelter Marital status: / 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 Not in any acute distress. HEENT: No significant pallor, icterus or lymphadenopathy.Oral cavity: There are no mucous membrane lesions. NECK: Trachea appears to be central. No masses noted. No JVD or thyromegaly appreciated. RESPIRATORY: Chest is symmetrical. No intercostals muscle retraction or any accessory muscle activation. She has significant tenderness in the chest wall, anteriorly in the left infraclavicular region.. Breath sounds are heard bilaterally. No rales or rhonchi heard. No evidence of any consolidation. BREASTS: Deferred. HEART: The heart sounds are normal. No S3 or S4. No significant murmurs. No pericardial rub ABDOMEN: No vessel pulsations or distention. No tenderness. No organomegaly appreciated. Bowel sounds are normally heard. : Deferred. RECTAL: Deferred. LYMPHATIC: No lymphadenopathy noted in the neck. EXTREMITIES: 1+ edema both lower extremities. No cyanosis. Peripheral pulses are palpable and good volume and amplitude. MUSCULOSKELETAL: No acute joint deformities or swelling SKIN: There are no significant rashes or ecchymosis NEUROPSYCHIATRIC: The patient is alert and oriented x3. Appears to be in a good mood. No tremors or rigidity noted. Data 06/04/24 18:07 06/04/24 18:07 Other Labs: Laboratory Last Values WBC 9.48 10^3/uL (3.29-11.43) 06/04/24 18:07 RBC 5.40 10^6/uL (3.85-5.65) 06/04/24 18:07 Hgb 15.20 g/dL (11.27-16.99) 06/04/24 18:07 Hct 47.1 % (36-47) H 06/04/24 18:07 MCV 87.2 fl (85-98) 06/04/24 18:07 MCH 28.1 pg (27-33) 06/04/24 18:07 MCHC 32.3 g/dL (30-55) 06/04/24 18:07 RDW 12.8 % (12.1-15.1) 06/04/24 18:07 Plt Count 198 10^3/cmm (157-399) 06/04/24 18:07 MPV 10.7 fL (7.4-10.4) H 06/04/24 18:07 Neut % (Auto) 51.1 % 06/04/24 18:07 Lymph % (Auto) 37.2 % 06/04/24 18:07 [place] % (Auto) 6.9 % 06/04/24 18:07 Eos % (Auto) 3.5 % 06/04/24 18:07 Baso % (Auto) 0.7 % 06/04/24 18:07 Neut # (Auto) 4.84 10^3/uL (1.8-7.7) 06/04/24 18:07 Lymph # (Auto) 3.5 10^3/uL (0.8-4.8) 06/04/24 18:07 [place] # (Auto) 0.7 10^3/uL (0.2-0.9) 06/04/24 18:07 Eos # (Auto) 0.3 10^3/uL (0.0-0.8) 06/04/24 18:07 Baso # (Auto) 0.1 10^3/uL (0.0-0.1) 06/04/24 18:07 Nucleated RBC % (auto) 0 % 06/04/24 18:07 Nucleated RBCs # 0.0 /100WBC 06/04/24 18:07 Sodium 138 mmol/L (136-145) 06/04/24 18:07 Potassium 4.5 mmol/L (3.5-5.1) 06/04/24 18:07 Chloride 102 mmol/L (98-107) 06/04/24 18:07 Carbon Dioxide 26 mmol/L (22-29) 06/04/24 18:07 Anion Gap 14.5 (5-19) 06/04/24 18:07 BUN 28 mg/dL (8-23) H 06/04/24 18:07 Creatinine 1.2 mg/dL (0.5-0.9) H 06/04/24 18:07 GFR Calculation Not Reportable 06/04/24 18:07 Glucose 183 mg/dL (65-115) H 06/04/24 18:07 Estimat Average Glucose 180 06/04/24 18:07 Hemoglobin A1c 7.9 % (4.0-6.0) H 06/04/24 18:07 Calculated Osmolality 296 mOsm/kg (285-295) H 06/04/24 18:07 Calcium 9.3 mg/dL (8.5-10.5) 06/04/24 18:07 Total Bilirubin 0.2 mg/dL (0.15-1.2) 06/04/24 18:07 AST 8 U/L (0-32) 06/04/24 18:07 ALT < 5 U/L (0-33) 06/04/24 18:07 Alkaline Phosphatase 50 U/L (35-105) 06/04/24 18:07 Troponin T Baseline 33 ng/L (0-10) H 06/04/24 18:07 Troponin T 120 Minute 30.48 ng/L (0-10) H 06/04/24 20:37 Delta Troponin T -2.52 ABS# (0-10) L 06/04/24 20:37 Total Protein 6.7 g/dL (6.6-8.7) 06/04/24 18:07 Albumin 4.2 g/dL (3.5-5.2) 06/04/24 18:07 Globulin 2.5 g/dL (1.3-4.6) 06/04/24 18:07 Triglycerides 214 mg/dL (0-150) H 06/04/24 18:07 Cholesterol 174 mg/dL (0-200) 06/04/24 18:07 LDL Cholesterol, Calc 97 mg/dL (50-129) 06/04/24 18:07 HDL Cholesterol 34 mg/dL (60-100) L 06/04/24 18:07 LDL/HDL Ratio 2.85 RATIO (0.00-3.22) 06/04/24 18:07 Cholesterol/HDL Ratio 5.12 mg/dL (0.0-4.40) H 06/04/24 18:07 EKG 1: [employer] Worker Interpretation: Sinus bradycardia with poor R wave progression. No acute ST-T changes. A&P Assessment and plan (1) Chest pain: The patient's acute presentation necessitates the exclusion of myocardial infarction or cardiac origin of chest pain. Initial investigations including blood tests and EKG do not show acute coronary syndrome. The severe tenderness of chest wall suggests possible musculoskeletal etiology; however, cardiac causes remain a concern given her CHF history. Further evaluation is indicated with echocardiography to assess cardiac function. Future testing, potentially including a stress test, will be considered if ultrasound results are negative to further evaluate the chest pain. A dye-based study is reserved due to kidney function concerns. Patient may be treated with subcu Lovenox and baby aspirin. Other medication may be continued. Qualifiers: Chest pain type: other chest pain Qualified Code(s): R07.89 - Other chest pain (2) Congestive heart failure: Patient was told her her congestive heart failure in the past. But currently she is not any diuretics. Clinically she is not in heart failure. She has trace edema of the lower extremities. I may do a BNP to further evaluate for heart failure. Echocardiogram also would be helpful to evaluate the LV function. Qualifiers: Heart failure type: unspecified Heart failure chronicity: unspecified Qualified Code(s): I50.9 - Heart failure, unspecified (3) Hypothyroidism: Clinically patient appears to be euthyroid. She is on thyroid supplement. This may be continued. Qualifiers: Hypothyroidism type: acquired Qualified Code(s): E03.9 - Hypothyroidism, unspecified (4) Type 2 diabetes mellitus with diabetic neuropathy, unspecified: Aggressive management of the diabetes would be appropriate. Qualifiers: Diabetes mellitus long wall mining machine helper insulin use: without long wall mining machine helper use Qualified Code(s): E11.40 - Type 2 diabetes mellitus with diabetic neuropathy, unspecified (5) Obesity: Patient seems to understand the importance of lifestyle modification. Qualifiers: Obesity type: due to excess calories Obesity classification: adult class 2 (BMI 35 - 39.9) Body mass index: BMI 36.0-36.9 Serious obesity comorbidity presence: with serious comorbidity Qualified Code(s): E66.812 - Obesity, class 2; E66.01 - Morbid (severe) obesity due to excess calories; Z68.36 - Body mass index [BMI] 36.0-36.9, adult (6) Obstructive sleep apnea: Patient may benefit from CPAP treatment. She may require a repeat sleep study. This is deferred to the primary (7) Chronic kidney disease (CKD): The kidney function seems to be fairly stable. Qualifiers: Chronic kidney disease stage: stage 2 (mild) Qualified Code(s): N18.2 - Chronic kidney disease, stage 2 (mild) Plan History of hypertension, currently normotensive. Will go ahead and schedule for the echocardiogram. Serial cardiac enzymes will be continued. Patient may benefit from a cardiac catheterization which will be decided after reviewing the above. Thank you for the opportunity to evaluate this patient and make these recommendations Coding Level of Care Code 76038 Diagnoses Other chest pain R07.89 Chest pain type: other chest pain Congestive heart failure, unspecified HF chronicity, unspecified heart failure type I50.9 Heart failure type: unspecified Heart failure chronicity: unspecified Acquired hypothyroidism E03.9 Hypothyroidism type: acquired Type 2 diabetes mellitus with diabetic neuropathy, without long-term current use of insulin E11.40 Diabetes mellitus fci insulin use: without long wall mining machine helper use Class 2 severe obesity due to excess calories with serious comorbidity and body mass index (BMI) of 36.0 to 36.9 in adult E66.812; E66.01; Z68.36 Obesity type: due to excess calories Obesity classification: adult class 2 (BMI 35 - 39.9) Body mass index: BMI 36.0-36.9 Serious obesity comorbidity presence: with serious comorbidity Obstructive sleep apnea G47.33 Stage 2 chronic kidney disease N18.2 Chronic kidney disease stage: stage 2 (mild)
[2024-06-04 22:54] LABS: NT Pro B Type Natriuretic Pept 403 pg/mL (0-450)
--- NOTE | 2024-06-04 23:35 | ECG_ITS ---
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 Measurements Intervals [place] Rate: 56 P: 46 AL: 190 QRS: -7 QRSD: 106 T: 36 QT: 469 QTc: 455 Interpretive Statements SINUS BRADYCARDIA LOW QRS VOLTAGE IN PRECORDIAL LEADS [QRS DEFLECTION < 1.0 mV IN CHEST LEADS] ANTEROSEPTAL MYOCARDIAL INFARCTION , PROBABLY OLD [40+ ms Q WAVE IN V1-V4] Compared to ECG 06/04/2024 19:33:00 No significant changes Electronically Signed On 06-07-2024 01:04:21 CDT by Jerry Wells M.D. [id number]
[2024-06-04 23:57] LABS: Troponin 5 6HR 33.97 ng/L (0-10); Troponin 5 6HR Delta 0.97 ng/L (0-12)
[2024-06-05] VITALS (9 sets, daily range): BP systolic 92–111; BP diastolic 47–81; PULSE 51–62; RESP 11–16; TEMP 36.5–36.9; O2SAT 92–98
[2024-06-05] MEDS: trazodone 150 mg Tablet 300 MG PO ×2 (00:06→21:29)
--- NOTE | 2024-06-05 01:02 | PC.NURSE ---
Spoke with Dr. Pedro regarding patients medication orders after nurse completed patient medication reconciliation, some medications patient takes differently or has been discontinued. gave orders to make changes to medication orders.
[2024-06-05 04:41] LABS: Blood Urea Nitrogen 27 mg/dL (8-23); Calcium 8.5 mg/dL (8.5-10.5); Carbon Dioxide 23 mmol/L (22-29); Chloride 104 mmol/L (98-107); Creatinine Clr Calc Pharmacy 45.6081; Glucose 204 mg/dL (65-115); Osmolality Calculated 295 mOsm/kg (285-295); Sodium 137 mmol/L (136-145)
[2024-06-05 04:44] LABS: Anion Gap 14.2 (5-19); Potassium 4.2 mmol/L (3.5-5.1)
[2024-06-05] MEDS: levothyroxine 25 mcg Tablet PO (06:14)
[2024-06-05 07:06] LABS: Glucose Point of Care 178 mg/dL (70-110)
[2024-06-05] MEDS: BuSPIRONE 10 mg Tablet 30 MG PO ×2 (08:49→17:35)
[2024-06-05] MEDS: clopidogrel 75 mg Tablet PO (08:49)
[2024-06-05] MEDS: atorvastatin 40 mg Tablet 20 MG PO (08:49)
[2024-06-05] MEDS: topiramate 100 mg Tablet 200 MG PO ×2 (08:49→17:34)
[2024-06-05] MEDS: aspirin 81 mg EC Tablet PO (08:50)
[2024-06-05] MEDS: enoxaparin 100 mg/mL Syringe 90 MG SUBCUT ×2 (08:50→20:00)
[2024-06-05] MEDS: insulin glargine 100 units/1 mL 12 UNIT SUBCUT (08:50)
[2024-06-05] MEDS: pantoprazole DR 40 mg Tablet PO ×2 (08:50→17:34)
[2024-06-05] MEDS: bumetanide 1 mg Tablet PO (08:50)
[2024-06-05] MEDS: insulin lispro 100 unit/1 mL SUBCUT ×4 (08:51→21:30)
[2024-06-05] MEDS: nystatin cream 30 gm 1 APPLIC TOPICAL ×2 (12:15→17:32)
[2024-06-05] MEDS: fluconazole 100 mg Tablet 200 MG PO (12:16)
--- NOTE | 2024-06-05 12:22 | ECG_ITS ---
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 Measurements Intervals [place] Rate: 62 P: 27 TN: 162 QRS: -4 QRSD: 76 T: 28 QT: 387 QTc: 394 Interpretive Statements SINUS RHYTHM LOW QRS VOLTAGE IN PRECORDIAL LEADS [QRS DEFLECTION < 1.0 mV IN CHEST LEADS] SEPTAL MYOCARDIAL INFARCTION , PROBABLY OLD [40+ ms Q WAVE IN V1/V2] Compared to ECG 06/05/2024 00:11:39 Sinus bradycardia no longer present Myocardial infarct finding still present Electronically Signed On 06-07-2024 01:04:34 CDT by Jerry Wells M.D. [id number]
[2024-06-05] MEDS: morphine 4 mg/mL SDV 1 mL 2 MG IVP (12:40)
--- NOTE | 2024-06-05 13:27 | PC.NURSE ---
pt c/o chest pain at 1215.sitting up in chair,eating lunch.rates pain 8/10.substernal.no radiation reported.sr on monitor.no nausea or diaphoresis.bp 112/77.ekg obtained.2 mg mso4 given iv.dr tsai notified.he ordered ntg sl to be given.when nurse brought med to bedside...pt stated that the pain had abated.ntg was not given.pt instructed to notify staff for any further chest pain or tightness.pt verb understanding of instructions
--- NOTE | 2024-06-05 13:43 | PC.NURSE ---
pt refused to have accucheck performed.states she has a dexcom and she wants staff to use results from it for sliding scale insulin.dr tsai notified.he stated he wants at least one accucheck result checked daily and compared with pt's dexcom result.pt instructed in this.states she will oblige.pt also refuses to have bp checked on upper arm..only will allow bp checked on wrist area.rn instructed that most accurate bp is obtained at brachial artery.pt states she has fibromyalgia and cannot tolerate the pain of the bp on upper arm
--- NOTE | 2024-06-05 14:03 | P.PN_ITS ---
Subjective 2 Subjective: Patient has no recurrence of chest pain. Cardiac enzymes are negative so far. The echocardiogram revealed normal LV size ejection fraction within normal [facility] [place] wall motion normalities. Patient had some episodes of bradycardia on the telemetry. But remains asymptomatic Medications: Medication Review Details: Current Medications Acetaminophen (Acetaminophen 325 Mg Tablet) 650 mg PO Q6H PRN PRN Reason: Mild/Mod Pain Or Temp >/= 101 Artificial Tears (Artificial Tears Op Soln 15 Ml Btl) 1 drop EYE-BOTH Q4H PRN PRN Reason: DRY EYE(S) Aspirin (Aspirin 81 Mg Ec Tablet) 81 mg PO DAILY FORMERLY [facility], [facility] Last Admin: 06/05/24 08:50 Dose: 81 mg Atorvastatin Calcium (Atorvastatin 40 Mg Tablet) 20 mg PO DAILY FOR[facility]LY [facility], [facility]1983 Last Admin: 06/05/24 08:49 Dose: 20 mg Bumetanide (Bumetanide 1 Mg Tablet) 1 mg PO DAILY FOR[facility]LY [facility], [facility] Last Admin: 06/05/24 08:50 Dose: 1 mg Buspirone HCl (Buspirone 10 Mg Tablet) 30 mg PO BID FOR[facility]LY [facility], [facility] Last Admin: 06/05/24 08:49 Dose: 30 mg Calcium Carbonate (Calcium Carbonate 500 Mg Chew Tablet) 1,000 mg PO Q4H PRN PRN Reason: DYSPEPSI Carbidopa/Levodopa (Carbidopa-Levodopa 10-100 Mg Tablet) 1 each PO TID FORMERLY [facility], [facility]1983 Last Admin: 06/05/24 08:50 Dose: 1 each Carvedilol (Carvedilol 6.25 Mg Tablet) 6.25 mg PO BEDTIME FORMERLY [facility], [facility]–1983 Clopidogrel Bisulfate (Clopidogrel 75 Mg Tablet) 75 mg PO DAILY FOR[facility]LY [facility], [facility] Last Admin: 06/05/24 08:49 Dose: 75 mg Enoxaparin Sodium (Enoxaparin 100 Mg/Ml Syringe) 90 mg 1 mg/kg (90 mg) SUBCUT Q12H FOR[facility], [facility]1983 Last Admin: 06/05/24 08:50 Dose: 90 mg Glucagon (Glucagon 1 Mg/Ml Kit 1 Ml) 1 mg IM ONCE PRN; Protocol PRN Reason: Adult Acute Hypoglycemia Nursing Prot. Dextrose (D5w) 500 mls @ 0 mls/hr IV ONCE PRN; Protocol PRN Reason: Adult Acute Hypoglycemia Prot Dextrose (D10w) 125 mls @ 750 mls/hr IV PRN PRN; Protocol PRN Reason: Adult Acute Hypoglycemia Nursing Protocol Dextrose (D10w) 250 mls @ 1,000 mls/hr IV PRN PRN; Protocol PRN Reason: Adult Acute Hypoglycemia Nursing Protocol Insulin Glargine (Insulin Glargine 100 Units/1 Ml) 12 unit SUBCUT 0800 FOR[facility], [facility] Last Admin: 06/05/24 08:50 Dose: 12 unit Insulin Human Lispro (Insulin Lispro 100 Unit/1 Ml) 0 unit SUBCUT WM&BEDTIME FOR[facility]LY [facility], [facility]; Protocol Last Admin: 06/05/24 12:16 Dose: 4 unit Levothyroxine Sodium (Levothyroxine 25 Mcg Tablet) 25 mcg PO QAM FOR[facility], [facility] Last Admin: 06/05/24 06:14 Dose: 25 mcg Morphine Sulfate (Morphine 4 Mg/Ml Sdv 1 Ml) 2 mg IVP Q4H PRN PRN Reason: SEVERE PAIN Last Admin: 06/05/24 12:40 Dose: 2 mg Nitroglycerin (Nitroglycerin 0.4 Mg Sublingual Tablet) 0.4 mg SUBLINGUAL Q5M PRN PRN Reason: CHEST PAIN Nystatin (Nystatin Cream 30 Gm) 1 applic TOPICAL BID FORMERLY [facility], [facility] Last Admin: 06/05/24 12:15 Dose: 1 applic Ondansetron HCl (Ondansetron 2 Mg/Ml Sdv 2 Ml) 4 mg IVP Q8H PRN PRN Reason: vomiting, or N/V if npo Ondansetron HCl (Ondansetron 4 Mg Tablet) 4 mg PO Q8H PRN PRN Reason: NAUSEA Pantoprazole Sodium (Pantoprazole Dr 40 Mg Tablet) 40 mg PO BID [facility], [facility] Last Admin: 06/05/24 08:50 Dose: 40 mg Topiramate (Topiramate 100 Mg Tablet) 200 mg PO BID FOR[facility], [facility] Last Admin: 06/05/24 08:49 Dose: 200 mg Trazodone HCl (Trazodone 150 Mg Tablet) 300 mg PO BEDTIME FOR[facility], [facility] Last Admin: 06/05/24 00:06 Dose: 300 mg Vitals/I&O/Wt Last Vital Signs Temp 98.3 F 06/05/24 11:37 Pulse 62 06/05/24 11:37 Resp 16 06/05/24 12:40 BP 111/81 06/05/24 11:37 Pulse Ox 94 06/05/24 12:40 O2 Del Method Nasal Cannula 06/05/24 11:37 06/04/24 06/05/24 06/05/24 22:59 06:59 14:59 Intake Total 240 / 240 Output Total 600 / 600 Balance -360 / -360 Weight last 48 hrs Weight 206 lb 1.6 oz Weight 206 lb 1.6 oz Weight 200 lb Physical Exam 2 Narrative: GENERAL: The patient is alert and oriented times three. Not in any acute distress. HEENT: No significant pallor, icterus or lymphadenopathy.Oral cavity: There are no mucous membrane lesions. NECK: Trachea appears to be central. No masses noted. No JVD or thyromegaly appreciated. RESPIRATORY: Chest is symmetrical. No intercostals muscle retraction or any accessory muscle activation. There is no chest wall tenderness. Breath sounds are heard bilaterally. No rales or rhonchi heard. No evidence of any consolidation. BREASTS: Deferred. HEART: The heart sounds are normal. No S3 or S4. No significant murmurs. No pericardial rub ABDOMEN: No vessel pulsations or distention. No tenderness. No organomegaly appreciated. Bowel sounds are normally heard. : Deferred. RECTAL: Deferred. LYMPHATIC: No lymphadenopathy noted in the neck. EXTREMITIES: No edema or cyanosis. No clubbing. MUSCULOSKELETAL: No acute joint deformities or swelling SKIN: There are no significant rashes or ecchymosis NEUROPSYCHIATRIC: The patient is alert and oriented x3. Appears to be in a good mood. No tremors or rigidity noted. Data 06/04/24 18:07 06/05/24 03:51 Other Labs: Laboratory Last Values WBC 9.48 10^3/uL (3.29-11.43) 06/04/24 18:07 RBC 5.40 10^6/uL (3.85-5.65) 06/04/24 18:07 Hgb 15.20 g/dL (11.27-16.99) 06/04/24 18:07 Hct 47.1 % (36-47) H 06/04/24 18:07 MCV 87.2 fl (85-98) 06/04/24 18:07 MCH 28.1 pg (27-33) 06/04/24 18:07 MCHC 32.3 g/dL (30-55) 06/04/24 18:07 RDW 12.8 % (12.1-15.1) 06/04/24 18:07 Plt Count 198 10^3/cmm (157-399) 06/04/24 18:07 MPV 10.7 fL (7.4-10.4) H 06/04/24 18:07 Neut % (Auto) 51.1 % 06/04/24 18:07 Lymph % (Auto) 37.2 % 06/04/24 18:07 [place] % (Auto) 6.9 % 06/04/24 18:07 Eos % (Auto) 3.5 % 06/04/24 18:07 Baso % (Auto) 0.7 % 06/04/24 18:07 Neut # (Auto) 4.84 10^3/uL (1.8-7.7) 06/04/24 18:07 Lymph # (Auto) 3.5 10^3/uL (0.8-4.8) 06/04/24 18:07 [place] # (Auto) 0.7 10^3/uL (0.2-0.9) 06/04/24 18:07 Eos # (Auto) 0.3 10^3/uL (0.0-0.8) 06/04/24 18:07 Baso # (Auto) 0.1 10^3/uL (0.0-0.1) 06/04/24 18:07 Nucleated RBC % (auto) 0 % 06/04/24 18:07 Nucleated RBCs # 0.0 /100WBC 06/04/24 18:07 Sodium 137 mmol/L (136-145) 06/05/24 03:51 Potassium 4.2 mmol/L (3.5-5.1) 06/05/24 03:51 Chloride 104 mmol/L (98-107) 06/05/24 03:51 Carbon Dioxide 23 mmol/L (22-29) 06/05/24 03:51 Anion Gap 14.2 (5-19) 06/05/24 03:51 BUN 27 mg/dL (8-23) H 06/05/24 03:51 Creatinine 1.1 mg/dL (0.5-0.9) H 06/05/24 03:51 GFR Calculation Not Reportable 06/05/24 03:51 Glucose 204 mg/dL (65-115) H 06/05/24 03:51 POC Glucose 178 mg/dL (70-110) H 06/05/24 06:59 Estimat Average Glucose 180 06/04/24 18:07 Hemoglobin A1c 7.9 % (4.0-6.0) H 06/04/24 18:07 Calculated Osmolality 295 mOsm/kg (285-295) 06/05/24 03:51 Calcium 8.5 mg/dL (8.5-10.5) 06/05/24 03:51 Total Bilirubin 0.2 mg/dL (0.15-1.2) 06/04/24 18:07 AST 8 U/L (0-32) 06/04/24 18:07 ALT < 5 U/L (0-33) 06/04/24 18:07 Alkaline Phosphatase 50 U/L (35-105) 06/04/24 18:07 Troponin T Baseline 33 ng/L (0-10) H 06/04/24 18:07 Troponin T 120 Minute 30.48 ng/L (0-10) H 06/04/24 20:37 Delta Troponin T -2.52 ABS# (0-10) L 06/04/24 20:37 Troponin T Hi Sens 6Hr 33.97 ng/L (0-10) H 06/04/24 23:32 Troponin T Hi Sens 6Hr Delta 0.97 ng/L (0-12) 06/04/24 23:32 NT-Pro-B Natriuret Pep 403 pg/mL (0-450) 06/04/24 18:07 Total Protein 6.7 g/dL (6.6-8.7) 06/04/24 18:07 Albumin 4.2 g/dL (3.5-5.2) 06/04/24 18:07 Globulin 2.5 g/dL (1.3-4.6) 06/04/24 18:07 Triglycerides 214 mg/dL (0-150) H 06/04/24 18:07 Cholesterol 174 mg/dL (0-200) 06/04/24 18:07 LDL Cholesterol, Calc 97 mg/dL (50-129) 06/04/24 18:07 HDL Cholesterol 34 mg/dL (60-100) L 06/04/24 18:07 LDL/HDL Ratio 2.85 RATIO (0.00-3.22) 06/04/24 18:07 Cholesterol/HDL Ratio 5.12 mg/dL (0.0-4.40) H 06/04/24 18:07 Other data: Echocardiogram from today Normal LV size ejection fraction of 60%. Relative hypokinesia of the septum in the anteroseptal segments.Grade I/IV diastolic dysfunction (abnormal relaxation filling pattern), normal to mildly elevated filling pressures. Trace mitral valve regurgitation. Trace tricuspid valve regurgitation. There is no pericardial effusion. There are no intracardiac masses. No similar previous studies are available for comparison A&P Assessment and plan (1) Chest pain: The patient's acute presentation necessitates the exclusion of myocardial infarction or cardiac origin of chest pain. Initial investigations including blood tests and EKG do not show acute coronary syndrome. The severe tenderness of chest wall suggests possible musculoskeletal etiology; however, cardiac causes remain a concern given her CHF history. Further evaluation is indicated with echocardiography to assess cardiac function. Future testing, potentially including a stress test, will be considered if ultrasound results are negative to further evaluate the chest pain. A dye-based study is reserved due to kidney function concerns. Patient may be treated with subcu Lovenox and baby aspirin. Other medication may be continued. At this point, I may go ahead and schedule the patient for a Lexiscan/sestamibi/sestamibi stress test in the morning. Based on the results, further recommendations will be made. Qualifiers: Chest pain type: other chest pain Qualified Code(s): R07.89 - Other chest pain (2) Congestive heart failure: Patient was told her her congestive heart failure in the past. But currently she is not any diuretics. Clinically she is not in heart failure. She has trace edema of the lower extremities. I may do a BNP to further evaluate for heart failure. Echocardiogram also would be helpful to evaluate the LV function. The echocardiogram results are discussed with the patient. The LV ejection fraction was within normal limits. No significant wall motion abnormalities. The BNP was found to be in the normal range. At this point, the patient may not require any specific intervention. Based on the results of the Perfusion scan, further recommendations will be made. Qualifiers: Heart failure type: unspecified Heart failure chronicity: unspecified Qualified Code(s): I50.9 - Heart failure, unspecified (3) Hypothyroidism: Clinically patient appears to be euthyroid. She is on thyroid supplement. This may be continued. Qualifiers: Hypothyroidism type: acquired Qualified Code(s): E03.9 - Hypothyroidism, unspecified (4) Type 2 diabetes mellitus with diabetic neuropathy, unspecified: Aggressive management of the diabetes would be appropriate. Qualifiers: Diabetes mellitus fci insulin use: without local company intermodal truck driver use Qualified Code(s): E11.40 - Type 2 diabetes mellitus with diabetic neuropathy, unspecified (5) Obesity: Patient seems to understand the importance of lifestyle modification. Qualifiers: Obesity type: due to excess calories Obesity classification: adult class 2 (BMI 35 - 39.9) Serious obesity comorbidity presence: with serious comorbidity Body mass index: BMI 36.0-36.9 Qualified Code(s): E66.812 - Obesity, class 2; E66.01 - Morbid (severe) obesity due to excess calories; Z68.36 - Body mass index [BMI] 36.0-36.9, adult (6) Obstructive sleep apnea: Patient may benefit from CPAP treatment. She may require a repeat sleep study. This is deferred to the primary (7) Chronic kidney disease (CKD): The kidney function seems to be fairly stable. Qualifiers: Chronic kidney disease stage: stage 2 (mild) Qualified Code(s): N18.2 - Chronic kidney disease, stage 2 (mild) Plan The blood pressure seems to be fairly under control. May continue the current medications. Based on the results of the above tests and the patient's clinical progress, further recommendations will be made. Attestations 2 Medical Necessity Statement*: Deferred to the primary Coding Level of Care Code 78363 Diagnoses Other chest pain R07.89 Chest pain type: other chest pain Congestive heart failure, unspecified HF chronicity, unspecified heart failure type I50.9 Heart failure type: unspecified Heart failure chronicity: unspecified Acquired hypothyroidism E03.9 Hypothyroidism type: acquired Type 2 diabetes mellitus with diabetic neuropathy, without long-term current use of insulin E11.40 Diabetes mellitus local company intermodal truck driver insulin use: without local company intermodal truck driver use Class 2 severe obesity due to excess calories with serious comorbidity and body mass index (BMI) of 36.0 to 36.9 in adult E66.812; E66.01; Z68.36 Obesity type: due to excess calories Obesity classification: adult class 2 (BMI 35 - 39.9) Serious obesity comorbidity presence: with serious comorbidity Body mass index: BMI 36.0-36.9 Obstructive sleep apnea G47.33 Stage 2 chronic kidney disease N18.2 Chronic kidney disease stage: stage 2 (mild)
--- NOTE | 2024-06-05 16:20 | P.PN_ITS ---
Subjective 2 Subjective: No chest pain or pressure at the time of my visit. Had additional episode in the afternoon which improved with morphine. Vitals/I&O/Wt Last Vital Signs Temp 98.3 F 06/05/24 11:37 Pulse 62 06/05/24 11:37 Resp 16 06/05/24 12:40 BP 111/81 06/05/24 11:37 Pulse Ox 94 06/05/24 12:40 O2 Del Method Nasal Cannula 06/05/24 11:37 06/05/24 06/05/24 06/05/24 06:59 14:59 22:59 Intake Total 480 / 480 Output Total 600 / 600 Balance -120 / -120 Weight last 48 hrs Weight 93.485 kg Weight 93.485 kg Weight 90.718 kg Physical Exam 2 Const: COMMON NORMALS: patient oriented x3 and alert GENERAL APPEARANCE: c ooperative ORIENTATION/CONSCIOUSNESS: Yes awake HENMT: COMMON NORMALS: oropharynx normal Neck/C-Spine: COMMON NORMALS: no JVD Resp: COMMON NORMALS: normal respiratory effort and clear to auscultation bilaterally AUSCULTATION: clear to auscultation bilaterally Cardio: COMMON NORMALS: no JVD, regular rhythm, S1 normal heart sound present, S2 normal heart sound present and No murmurs present (Cardio) RHYTHM: regular rhythm HEART SOUNDS: S1 normal heart sound present and S2 normal heart sound present GI: COMMON NORMALS: Normal to inspection, nondistended, normoactive bowel sounds present, Soft to palpation and non-tender PALPATION: Yes Soft to palpation Extremity: COMMON NORMALS: no joint enlargement GENERAL: Yes edema (1+ BLLE) Neuro: COMMON NORMALS: patient oriented x3 and moves all extremities S ENSORIUM/ORIENTATION: Yes alert Skin: COMMON NORMALS: no rashes or lesions noted GENERAL SKIN EXAM: no rashes or lesions noted Data 06/04/24 18:07 06/05/24 03:51 A&P Assessment and plan (1) Chest pain: Additional episode of chest pain, EKG obtained, reviewed, no evidence of acute ischemia. Reviewed vitals, CBC, CMP, troponin series, Echocardiogram noted with 6% EF, relative hypokinesia of the septum in the anteroseptal segments. Grade 1 diastolic dysfunction. Trace MVR, trace TVR. Reviewed cardiology note, discussed with meter installer. Continue aspirin, Plavix, statin. Beta-carlie dose was decreased due to bradycardia. Plans for additional assessment with stress testing in the morning. lipids and A1c for restratification. A1c 7.9. Qualifiers: Chest pain type: other chest pain Qualified Code(s): R07.89 - Other chest pain (2) Congestive heart failure: Bilateral lower extremity edema. EF noted 60%, grade 1 diastolic dysfunction. Noted septal wall motion abnormality. Additional assessment with stress testing the morning. Continue bumetanide. Chronic congestive heart failure, unspecified type Obtain NT proBNP Check echocardiogram Continue beta-carlie Qualifiers: Heart failure type: unspecified Heart failure chronicity: unspecified Qualified Code(s): I50.9 - Heart failure, unspecified (3) Hyperlipidemia: Lipid panel as above Continue statin (4) Diabetes: Reviewed A1c, 7.9. Continue insulin, consistent carbohydrate diet. Type 2 diabetes mellitus Continue Lantus, dose adjusted Sliding-scale insulin correction Qualifiers: Diabetes mellitus type: type 2 Diabetes mellitus senior care insulin use: without termite helper use Diabetes mellitus complication status: with other specified complication Qualified Code(s): E11.69 - Type 2 diabetes mellitus with other specified complication (5) Diabetic neuropathy: Continue home gabapentin Plan Dry eyes: Artificial tears added DVT prophylaxis: Lovenox CODE STATUS: Full code Attestations 2 Medical Necessity Statement*: Continue admission for assessment management of chest pain, septal wall motion abnormality, and a lady with underlying CHF, metabolic syndrome. and High MDM includes amount and/or complexity of data reviewed/ordered [ previous or external records, resulted lab(s)/test(s), ordered lab(s)/test(s) and other healthcare professional discussion] as documented Diagnoses Other chest pain R07.89 Chest pain type: other chest pain Congestive heart failure, unspecified HF chronicity, unspecified heart failure type I50.9 Heart failure type: unspecified Heart failure chronicity: unspecified Hyperlipidemia E78.5 Type 2 diabetes mellitus with other specified complication, without long-term current use of insulin E11.69 Diabetes mellitus type: type 2 Diabetes mellitus termite helper insulin use: without termite helper use Diabetes mellitus complication status: with other specified complication Diabetic neuropathy E11.40
[2024-06-05 17:34] LABS: Glucose Point of Care 169 mg/dL (70-110)
[2024-06-05] MEDS: nitroglycerin 0.4 mg sublingual Tablet SUBLINGUAL ×2 (19:52→20:00)
[2024-06-05 20:28] LABS: Glucose Point of Care 174 mg/dL (70-110)
--- NOTE | 2024-06-05 20:29 | USCV_ITS ---
Jaylene Montiel Age: 78 Gender: F : 1945 Exam Date: 06/05/2024 08:17 Ordering Phys: Alfonso Pedro MD Technologist: Terry King Exam Location: [facility] – [place] Indication: chest pain BP: 105 / 55 HR: 54 Rhythm: Sinus Technical Quality: Adequate MEASUREMENTS (Male / Female) Normal Values 2D ECHO LV Diastolic Diameter PLAX 3.1 cm 4.2 - 5.9 / 3.9 - 5.3 cm IVS Diastolic Thickness 1.3 cm 0.6 - 1.0 / 0.6 - 0.9 cm IVS Systolic Thickness 1.4 cm LVPW Diastolic Thickness 1.3 cm 0.6 - 1.0 / 0.6 - 0.9 cm LVPW Systolic Thickness 1.4 cm LVOT Diameter 2.1 cm LV Ejection Fraction 2D Teich 64.3 % LV Ejection Fraction MOD 4C 57.5 % LV Ejection Fraction MOD 2C 61.4 % LV Ejection Fraction 2C AL 61.6 % LA Diameter 3.7 cm RA Systolic Volume 4C AL 41.4 ml RA Systolic Volume 4C MOD 40.6 ml LA Sys Volume AL 39.8 cm cubed LA Sys Volume Index AL 19.2 cm cubed/m squared Aorta at Sinotubular Diameter 2.5 cm IVC Diameter 1.9 cm M-MODE LA Ao Ratio MM 0.6 AV Cusp Separation MM 1.9 cm DOPPLER AV Peak Velocity 104.0 cm/s LVOT Peak Velocity 89.0 cm/s AV Area Cont Eq vti 3.4 cm squared AV Area Cont Eq pk 3.0 cm squared MV Peak Velocity 102.0 cm/s MV Area PHT 4.5 cm squared Mitral E to A Ratio 0.8 TV Peak Velocity 253.5 cm/s TR Peak Velocity 269.0 cm/s TR Peak Gradient 28.9 mmHg TR Mean Velocity 223.0 cm/s TR Mean Gradient 20.9 mmHg TR Velocity Time Integral 90.0 cm PV Peak Velocity 74.0 cm/s RV Ejection Time 0.4 s FINDINGS Left Ventricle Normal LV size ejection fraction of 60%. Relative hypokinesia of the septum in the anteroseptal segments.Grade I/IV diastolic dysfunction (abnormal relaxation filling pattern), normal to mildly elevated filling pressures. Right Ventricle Normal right ventricular size and systolic function. Right Atrium Normal right atrial size. Left Atrium Normal left atrial size. Mitral Valve Trace mitral valve regurgitation. Aortic Valve Thickened aortic valve. Tricuspid Valve Trace tricuspid valve regurgitation. Pulmonic Valve No gross abnormalities noted Pericardium No pericardial effusion. Aorta Normal aortic annulus size. IVC The inferior vena cava appears normal. CONCLUSIONS Normal LV size ejection fraction of 60%. Relative hypokinesia of the septum in the anteroseptal segments.Grade I/IV diastolic dysfunction (abnormal relaxation filling pattern), normal to mildly elevated filling pressures. Trace mitral valve regurgitation. Trace tricuspid valve regurgitation. There is no pericardial effusion. There are no intracardiac masses. No similar previous studies are available for comparison Dr Jerry Wells MD FAC (Electronically Signed) Final Date: 05 June 2024 10:03 S
[2024-06-05] MEDS: carvedilol 6.25 mg Tablet PO (21:29)
[2024-06-06] VITALS (11 sets, daily range): BP systolic 90–133; BP diastolic 52–79; PULSE 54–77; RESP 12–19; TEMP 36.2–37.1; O2SAT 90–96
[2024-06-06 03:44] LABS: Blood Urea Nitrogen 29 mg/dL (8-23); Calcium 8.3 mg/dL (8.5-10.5); Carbon Dioxide 25 mmol/L (22-29); Chloride 105 mmol/L (98-107); Glucose 146 mg/dL (65-115); Osmolality Calculated 296 mOsm/kg (285-295); Sodium 139 mmol/L (136-145)
[2024-06-06 03:55] LABS: Anion Gap 12.9 (5-19); Creatinine Clr Calc Pharmacy 45.6081; Potassium 3.9 mmol/L (3.5-5.1)
--- NOTE | 2024-06-06 06:00 | ECG_ITS ---
[facility] Test Date: 2024-06-06 Pat Name: Jaylene Montiel Department: Room: 105 Gender: Female Laboratory Tech: : [id number] Requested By: Jerry Wells Order Number: [id number] Mary MD: Jerry Wells M.D. Interpretive Statements PROCEDURE: At the baseline, the EKG revealed sinus bradycardia with some nonspecific T wave changes. Minimal left axis deviation. The baseline heart was 51 bpm with a blood pressue of 103/81 mm of Hg Lexiscan was infused over a period of 20 seconds. A total of 0.4 milligrams of Lexiscan was infused. The stress phase was continued for a total of 5 minutes. Heart rate at the end of the stress phase was 58 bpm with a blood pressure 108/67 mm of Hg. The EKG at the peak infusion revealed no significant changes. Sestamibi was injected 20 seconds after the Lexiscan infusion. Heart rate at the end of the recovery phase was 59 bpm with a blood pressure of 105/66 mm of Hg. CONCLUSION: 1. No significant EKG changes with the LexiScan infusion 2. No LexiScan induced chest pain or cardiac arrhythmia 3. Normal blood pressure and heart rate response 4. Sestamibi/sestamibi perfusion scan pending; see separate report. Lung unchanged pre/post procedure; Intraprocedure shortess of breath; Symptoms resoled by discharge Electronically Signed On 06-09-2024 18:46:53 CDT by Jerry Wells M.D. [email or web address]
[2024-06-06] MEDS: levothyroxine 25 mcg Tablet PO (06:07)
[2024-06-06 06:46] LABS: Glucose Point of Care 129 mg/dL (70-110)
--- NOTE | 2024-06-06 07:36 | PC.NURSE ---
Patient left unit to stress test at 0710.
[2024-06-06] MEDS: regadenoson 0.4 Mg/5 ml Syringe IVP (08:11)
--- NOTE | 2024-06-06 09:21 | PC.NURSE ---
Patient returned to unit from stress test at 0920.
[2024-06-06] MEDS: insulin glargine 100 units/1 mL 12 UNIT SUBCUT (09:42)
[2024-06-06] MEDS: enoxaparin 100 mg/mL Syringe 90 MG SUBCUT ×2 (09:42→21:13)
[2024-06-06] MEDS: aspirin 81 mg EC Tablet PO (09:43)
[2024-06-06] MEDS: atorvastatin 40 mg Tablet 20 MG PO (09:43)
[2024-06-06] MEDS: clopidogrel 75 mg Tablet PO (09:43)
[2024-06-06] MEDS: bumetanide 1 mg Tablet PO (09:43)
[2024-06-06] MEDS: topiramate 100 mg Tablet 200 MG PO ×2 (09:43→17:05)
[2024-06-06] MEDS: pantoprazole DR 40 mg Tablet PO ×2 (09:43→17:04)
[2024-06-06] MEDS: BuSPIRONE 10 mg Tablet 30 MG PO ×2 (09:44→17:04)
--- NOTE | 2024-06-06 10:02 | P.PN_ITS ---
Subjective 2 Subjective: Patient went for a stress test today. She has been having atypical chest pain on and off. Most recent was after her stress test. She stated that during her stress test she did not have any chest pain. She states it is the left side of her chest wall and goes across to the other. It lasts normally for about 1 minute. This is been going on for 3 to 4 months she states. No active chest pain at this time. Most recent echo showed EF normal at 60% with some mild hypokinesis of the septum and anteroseptal segment. Blood pressure is well- controlled. Vital signs are stable. Medications: Reviewed: Yes Medication Review Details: Current Medications Acetaminophen (Acetaminophen 325 Mg Tablet) 650 mg PO Q6H PRN PRN Reason: Mild/Mod Pain Or Temp >/= 101 Aminophylline (Aminophylline 25 Mg/Ml Sdv 20 Ml) 25 mg IVP Q2M PRN PRN Reason: see dose instructions Stop: 06/07/24 07:59 Artificial Tears (Artificial Tears Op Soln 15 Ml Btl) 1 drop EYE-BOTH Q4H PRN PRN Reason: DRY EYE(S) Last Admin: 06/06/24 17:05 Dose: 1 drop Aspirin (Aspirin 81 Mg Ec Tablet) 81 mg PO DAILY [facility] Last Admin: 06/06/24 09:43 Dose: 81 mg Atorvastatin Calcium (Atorvastatin 40 Mg Tablet) 20 mg PO DAILY [facility] Last Admin: 06/06/24 09:43 Dose: 20 mg Bumetanide (Bumetanide 1 Mg Tablet) 1 mg PO DAILY [facility] Last Admin: 06/06/24 09:43 Dose: 1 mg Buspirone HCl (Buspirone 10 Mg Tablet) 30 mg PO BID [facility] Last Admin: 06/06/24 17:04 Dose: 30 mg Calcium Carbonate (Calcium Carbonate 500 Mg Chew Tablet) 1,000 mg PO Q4H PRN PRN Reason: DYSPEPSI Carbidopa/Levodopa (Carbidopa-Levodopa 10-100 Mg Tablet) 1 each PO TID [facility] Last Admin: 06/06/24 15:27 Dose: 1 each Carvedilol (Carvedilol 6.25 Mg Tablet) 6.25 mg PO BEDTIME [facility] Last Admin: 06/05/24 21:29 Dose: 6.25 mg Clopidogrel Bisulfate (Clopidogrel 75 Mg Tablet) 75 mg PO DAILY [facility] Last Admin: 06/06/24 09:43 Dose: 75 mg Enoxaparin Sodium (Enoxaparin 100 Mg/Ml Syringe) 90 mg 1 mg/kg (90 mg) SUBCUT Q12H [facility] Last Admin: 06/06/24 09:42 Dose: 90 mg Glucagon (Glucagon 1 Mg/Ml Kit 1 Ml) 1 mg IM ONCE PRN; Protocol PRN Reason: Adult Acute Hypoglycemia Nursing Prot. Dextrose (D5w) 500 mls @ 0 mls/hr IV ONCE PRN; Protocol PRN Reason: Adult Acute Hypoglycemia Prot Dextrose (D10w) 125 mls @ 750 mls/hr IV PRN PRN; Protocol PRN Reason: Adult Acute Hypoglycemia Nursing Protocol Dextrose (D10w) 250 mls @ 1,000 mls/hr IV PRN PRN; Protocol PRN Reason: Adult Acute Hypoglycemia Nursing Protocol Insulin Glargine (Insulin Glargine 100 Units/1 Ml) 12 unit SUBCUT 0800 [facility] Last Admin: 06/06/24 09:42 Dose: 12 unit Insulin Human Lispro (Insulin Lispro 100 Unit/1 Ml) 0 unit SUBCUT WM&BEDTIME [facility]; Protocol Last Admin: 06/06/24 17:05 Dose: 4 unit Levothyroxine Sodium (Levothyroxine 25 Mcg Tablet) 25 mcg PO QAM [facility] Last Admin: 06/06/24 06:07 Dose: 25 mcg Morphine Sulfate (Morphine 4 Mg/Ml Sdv 1 Ml) 2 mg IVP Q4H PRN PRN Reason: SEVERE PAIN Last Admin: 06/05/24 12:40 Dose: 2 mg Nitroglycerin (Nitroglycerin 0.4 Mg Sublingual Tablet) 0.4 mg SUBLINGUAL Q5M PRN PRN Reason: CHEST PAIN Last Admin: 06/06/24 18:36 Dose: 0.4 mg Nitroglycerin (Nitroglycerin 0.4 Mg Sublingual Tablet) 0.4 mg SUBLINGUAL Q5M PRN PRN Reason: CHEST PAIN Stop: 06/07/24 07:59 Nystatin (Nystatin Cream 30 Gm) 1 applic TOPICAL BID [facility] Last Admin: 06/06/24 18:11 Dose: 1 applic Ondansetron HCl (Ondansetron 2 Mg/Ml Sdv 2 Ml) 4 mg IVP Q8H PRN PRN Reason: vomiting, or N/V if npo Ondansetron HCl (Ondansetron 4 Mg Tablet) 4 mg PO Q8H PRN PRN Reason: NAUSEA Ondansetron HCl (Ondansetron 2 Mg/Ml Sdv 2 Ml) 4 mg IVP Q2M PRN PRN Reason: NAUSEA Pantoprazole Sodium (Pantoprazole Dr 40 Mg Tablet) 40 mg PO BID [facility] Last Admin: 06/06/24 17:04 Dose: 40 mg Topiramate (Topiramate 100 Mg Tablet) 200 mg PO BID [facility] Last Admin: 06/06/24 17:05 Dose: 200 mg Trazodone HCl (Trazodone 150 Mg Tablet) 300 mg PO BEDTIME [facility] Last Admin: 06/05/24 21:29 Dose: 300 mg Vitals/I&O/Wt Last Vital Signs Temp 98.3 F 06/06/24 08:00 Pulse 59 L 06/06/24 08:17 Resp 18 06/06/24 08:00 BP 105/66 06/06/24 08:17 Pulse Ox 96 06/06/24 08:00 O2 Del Method Room Air 06/06/24 08:00 06/05/24 06/06/24 06/06/24 22:59 06:59 14:59 Intake Total 120 / 600 Output Total 300 / 900 300 / 1200 Balance -180 / -300 -300 / -600 Weight last 48 hrs Weight 209 lb Weight 209 lb Weight 206 lb 1.6 oz Weight 206 lb 1.6 oz Weight 200 lb Physical Exam 2 Narrative: GENERAL: The patient is alert and oriented times three. Not in any acute distress. HEENT: No significant pallor, icterus or lymphadenopathy.Oral cavity: There are no mucous membrane lesions. NECK: Trachea appears to be central. No masses noted. No JVD or thyromegaly appreciated. RESPIRATORY: Chest is symmetrical. No intercostals muscle retraction or any accessory muscle activation. There is no chest wall tenderness. Breath sounds are heard bilaterally. No rales or rhonchi heard. No evidence of any consolidation. BREASTS: Deferred. HEART: The heart sounds are normal. No S3 or S4. Short systolic murmur the left sternal border. No pericardial rub ABDOMEN: No vessel pulsations or distention. No tenderness. No organomegaly appreciated. Bowel sounds are normally heard. : Deferred. RECTAL: Deferred. LYMPHATIC: No lymphadenopathy noted in the neck. EXTREMITIES: No edema or cyanosis. No clubbing. MUSCULOSKELETAL: No acute joint deformities or swelling SKIN: There are no significant rashes or ecchymosis NEUROPSYCHIATRIC: The patient is alert and oriented x3. Appears to be in a good mood. No tremors or rigidity noted. Data 06/04/24 18:07 06/06/24 02:45 Other Labs: Laboratory Last Values WBC 9.48 10^3/uL (3.29-11.43) 06/04/24 18:07 RBC 5.40 10^6/uL (3.85-5.65) 06/04/24 18:07 Hgb 15.20 g/dL (11.27-16.99) 06/04/24 18:07 Hct 47.1 % (36-47) H 06/04/24 18:07 MCV 87.2 fl (85-98) 06/04/24 18:07 MCH 28.1 pg (27-33) 06/04/24 18:07 MCHC 32.3 g/dL (30-55) 06/04/24 18:07 RDW 12.8 % (12.1-15.1) 06/04/24 18:07 Plt Count 198 10^3/cmm (157-399) 06/04/24 18:07 MPV 10.7 fL (7.4-10.4) H 06/04/24 18:07 Neut % (Auto) 51.1 % 06/04/24 18:07 Lymph % (Auto) 37.2 % 06/04/24 18:07 [place] % (Auto) 6.9 % 06/04/24 18:07 Eos % (Auto) 3.5 % 06/04/24 18:07 Baso % (Auto) 0.7 % 06/04/24 18:07 Neut # (Auto) 4.84 10^3/uL (1.8-7.7) 06/04/24 18:07 Lymph # (Auto) 3.5 10^3/uL (0.8-4.8) 06/04/24 18:07 [place] # (Auto) 0.7 10^3/uL (0.2-0.9) 06/04/24 18:07 Eos # (Auto) 0.3 10^3/uL (0.0-0.8) 06/04/24 18:07 Baso # (Auto) 0.1 10^3/uL (0.0-0.1) 06/04/24 18:07 Nucleated RBC % (auto) 0 % 06/04/24 18:07 Nucleated RBCs # 0.0 /100WBC 06/04/24 18:07 Sodium 139 mmol/L (136-145) 06/06/24 02:45 Potassium 3.9 mmol/L (3.5-5.1) 06/06/24 02:45 Chloride 105 mmol/L (98-107) 06/06/24 02:45 Carbon Dioxide 25 mmol/L (22-29) 06/06/24 02:45 Anion Gap 12.9 (5-19) 06/06/24 02:45 BUN 29 mg/dL (8-23) H 06/06/24 02:45 Creatinine 1.1 mg/dL (0.5-0.9) H 06/06/24 02:45 GFR Calculation Not Reportable 06/06/24 02:45 Glucose 146 mg/dL (65-115) H 06/06/24 02:45 POC Glucose 181 mg/dL (70-110) H 06/06/24 16:21 Estimat Average Glucose 180 06/04/24 18:07 Hemoglobin A1c 7.9 % (4.0-6.0) H 06/04/24 18:07 Calculated Osmolality 296 mOsm/kg (285-295) H 06/06/24 02:45 Calcium 8.3 mg/dL (8.5-10.5) L 06/06/24 02:45 Total Bilirubin 0.2 mg/dL (0.15-1.2) 06/04/24 18:07 AST 8 U/L (0-32) 06/04/24 18:07 ALT < 5 U/L (0-33) 06/04/24 18:07 Alkaline Phosphatase 50 U/L (35-105) 06/04/24 18:07 Troponin T Baseline 33 ng/L (0-10) H 06/04/24 18:07 Troponin T 120 Minute 30.48 ng/L (0-10) H 06/04/24 20:37 Delta Troponin T -2.52 ABS# (0-10) L 06/04/24 20:37 Troponin T Hi Sens 6Hr 33.97 ng/L (0-10) H 06/04/24 23:32 Troponin T Hi Sens 6Hr Delta 0.97 ng/L (0-12) 06/04/24 23:32 NT-Pro-B Natriuret Pep 403 pg/mL (0-450) 06/04/24 18:07 Total Protein 6.7 g/dL (6.6-8.7) 06/04/24 18:07 Albumin 4.2 g/dL (3.5-5.2) 06/04/24 18:07 Globulin 2.5 g/dL (1.3-4.6) 06/04/24 18:07 Triglycerides 214 mg/dL (0-150) H 06/04/24 18:07 Cholesterol 174 mg/dL (0-200) 06/04/24 18:07 LDL Cholesterol, Calc 97 mg/dL (50-129) 06/04/24 18:07 HDL Cholesterol 34 mg/dL (60-100) L 06/04/24 18:07 LDL/HDL Ratio 2.85 RATIO (0.00-3.22) 06/04/24 18:07 Cholesterol/HDL Ratio 5.12 mg/dL (0.0-4.40) H 06/04/24 18:07 Other data: Echo Complete CONCLUSIONS Normal LV size ejection fraction of 60%. Relative hypokinesia of the septum in the anteroseptal segments.Grade I/IV diastolic dysfunction (abnormal relaxation filling pattern), normal to mildly elevated filling pressures. Trace mitral valve regurgitation. Trace tricuspid valve regurgitation. There is no pericardial effusion. There are no intracardiac masses. No similar previous studies are available for comparison A&P Assessment and plan (1) Chest pain: Patient had Lexiscan/sestamibi/sestamibi stress test this morning. Based on the results, further recommendations will be made. The Perfusion scan results were discussed the patient. As of now she has no evidence of ischemia based on the perfusion scan. She has a low risk for coronary events based on the current findings. At this point, it may be appropriate to continue the medical treatment. Qualifiers: Chest pain type: other chest pain Qualified Code(s): R07.89 - Other chest pain (2) Congestive heart failure: Patient was told her her congestive heart failure in the past. But currently she is not any diuretics. Clinically she is not in heart failure. She has trace edema of the lower extremities. Probnp stable at 403. Echocardiogram showed normal LV function with no significant wall motion abnormalities. Qualifiers: Heart failure chronicity: unspecified Heart failure type: unspecified Qualified Code(s): I50.9 - Heart failure, unspecified (3) Hypothyroidism: Clinically patient appears to be euthyroid. She is on thyroid supplement. This may be continued. Qualifiers: Hypothyroidism type: acquired Qualified Code(s): E03.9 - Hypothyroidism, unspecified (4) Type 2 diabetes mellitus with diabetic neuropathy, unspecified: Aggressive management of the diabetes would be appropriate. Qualifiers: Diabetes mellitus fdc insulin use: without tank terminal gauger use Qualified Code(s): E11.40 - Type 2 diabetes mellitus with diabetic neuropathy, unspecified (5) Obesity: Patient seems to understand the importance of lifestyle modification. Qualifiers: Body mass index: BMI 36.0-36.9 Obesity classification: adult class 2 (BMI 35 - 39.9) Obesity type: due to excess calories Serious obesity comorbidity presence: with serious comorbidity Qualified Code(s): E66.812 - Obesity, class 2; E66.01 - Morbid (severe) obesity due to excess calories; Z68.36 - Body mass index [BMI] 36.0-36.9, adult (6) Obstructive sleep apnea: Patient may benefit from CPAP treatment. She may require a repeat sleep study. This is deferred to the primary (7) Chronic kidney disease (CKD): Kidney function is stable. Creat 1.1. Qualifiers: Chronic kidney disease stage: stage 2 (mild) Qualified Code(s): N18.2 - Chronic kidney disease, stage 2 (mild) Plan Since the patient has no evidence of ischemia based on the perfusion scan, she may not require any further investigations or myocardial standpoint. The therapeutic dose of Lovenox will be discontinued. Patient may be started on DVT prophylaxis Attestations 2 Medical Necessity Statement*: Deferred to primary. Coding Level of Care Code 21878 Diagnoses Other chest pain R07.89 Chest pain type: other chest pain Congestive heart failure, unspecified HF chronicity, unspecified heart failure type I50.9 Heart failure chronicity: unspecified Heart failure type: unspecified Acquired hypothyroidism E03.9 Hypothyroidism type: acquired Type 2 diabetes mellitus with diabetic neuropathy, without long-term current use of insulin E11.40 Diabetes mellitus fdc insulin use: without tank terminal gauger use Class 2 severe obesity due to excess calories with serious comorbidity and body mass index (BMI) of 36.0 to 36.9 in adult E66.812; E66.01; Z68.36 Body mass index: BMI 36.0-36.9 Obesity classification: adult class 2 (BMI 35 - 39.9) Obesity type: due to excess calories Serious obesity comorbidity presence: with serious comorbidity Obstructive sleep apnea G47.33 Stage 2 chronic kidney disease N18.2 Chronic kidney disease stage: stage 2 (mild)
--- NOTE | 2024-06-06 10:32 | NMCV_ITS ---
NM julianne perf SPECT r/s* [id number] Jaylene Montiel Age: 78 Gender: F : 1945 Exam Date: 06/06/2024 07:13 Ordering Phys: Jerry Wells MD ([email or web address]) Technologist: PALAK Humphreys Exam Location: [facility] Indications: cp STRESS TEST Please see separate stress test report in [facility] for full findings IMAGE PROTOCOL Rest/Stress 1 Lexiscan Day Radiopharmaceutical Dose (mCi) Administration Site Administered by Rest: Tc-99m 10.4 IV PALAK Rudd Sestamibi Stress:Tc-99m 28.9 IV PALAK Humphreys Sestamikeshawn Rest: 06-Jun-2024 60 Discovery 630 Stress: 06-Jun-2024 30 Discovery 630 0.4mg Lexiscan. Supine position only as patient was unable to lay prone. SPECT RESULTS Technical Quality: Good Raw Data Analysis: Normal Image Corrections: No attenuation or motion correction applied Summed Stress Score: 0 Summed Rest Score: 5 Summed Difference Score: 0 PERFUSION FINDINGS Fairly uniform myocardial tracer uptake with no significant Perfusion normalities FUNCTIONAL RESULTS (calculated via Gated SPECT) Stress Image LV EF (%): 72 Stress EDV (mL):61 TID: 1.03 Stress ESV (mL):17 FUNCTIONAL FINDINGS: Segmental wall motion analysis revealing no gross wall motion abnormalities IMPRESSIONS 1. Unremarkable Myocardial perfusion imaging 2. Normal LV ejection fraction 72% 3. LV wall motion analysis revealing no gross wall motion abnormalities. 4. Normal LV volume Low probability for coronary ischemia, based on the above findings No similar previous studies are available for comparison Dr Jerry eWlls MD [facility] (Electronically Signed) Final Date: 06 June 2024 12:58 S
[2024-06-06] MEDS: nystatin cream 30 gm 1 APPLIC TOPICAL ×2 (11:24→18:11)
--- NOTE | 2024-06-06 11:30 | PC.NURSE ---
Intradry is placed in patients folds under both breast, right underarm, and lower abdomen.
[2024-06-06 12:55] LABS: Glucose Point of Care 207 mg/dL (70-110)
[2024-06-06] MEDS: insulin lispro 100 unit/1 mL SUBCUT ×3 (13:01→21:14)
--- NOTE | 2024-06-06 16:00 | PM.PN ---
Subjective Subjective: Patient underwent stress test earlier today. Results are currently awaited. States that she is having intermittent jaw pain but otherwise is improved. Medications: Reviewed: Yes Medication Review Details: Current Medications Acetaminophen (Acetaminophen 325 Mg Tablet) 650 mg PO Q6H PRN PRN Reason: Mild/Mod Pain Or Temp >/= 101 Artificial Tears (Artificial Tears Op Soln 15 Ml Btl) 1 drop EYE-BOTH Q4H PRN PRN Reason: DRY EYE(S) Aspirin (Aspirin 81 Mg Ec Tablet) 81 mg PO DAILY [facility] Last Admin: 06/05/24 08:50 Dose: 81 mg Atorvastatin Calcium (Atorvastatin 40 Mg Tablet) 20 mg PO DAILY [facility] Last Admin: 06/05/24 08:49 Dose: 20 mg Bumetanide (Bumetanide 1 Mg Tablet) 1 mg PO DAILY [facility] Last Admin: 06/05/24 08:50 Dose: 1 mg Buspirone HCl (Buspirone 10 Mg Tablet) 30 mg PO BID [facility] Last Admin: 06/05/24 08:49 Dose: 30 mg Calcium Carbonate (Calcium Carbonate 500 Mg Chew Tablet) 1,000 mg PO Q4H PRN PRN Reason: DYSPEPSI Carbidopa/Levodopa (Carbidopa-Levodopa 10-100 Mg Tablet) 1 each PO TID [facility] Last Admin: 06/05/24 08:50 Dose: 1 each Carvedilol (Carvedilol 6.25 Mg Tablet) 6.25 mg PO BEDTIME [facility] Clopidogrel Bisulfate (Clopidogrel 75 Mg Tablet) 75 mg PO DAILY [facility] Last Admin: 06/05/24 08:49 Dose: 75 mg Enoxaparin Sodium (Enoxaparin 100 Mg/Ml Syringe) 90 mg 1 mg/kg (90 mg) SUBCUT Q12H [facility] Last Admin: 06/05/24 08:50 Dose: 90 mg Glucagon (Glucagon 1 Mg/Ml Kit 1 Ml) 1 mg IM ONCE PRN; Protocol PRN Reason: Adult Acute Hypoglycemia Nursing Prot. Dextrose (D5w) 500 mls @ 0 mls/hr IV ONCE PRN; Protocol PRN Reason: Adult Acute Hypoglycemia Prot Dextrose (D10w) 125 mls @ 750 mls/hr IV PRN PRN; Protocol PRN Reason: Adult Acute Hypoglycemia Nursing Protocol Dextrose (D10w) 250 mls @ 1,000 mls/hr IV PRN PRN; Protocol PRN Reason: Adult Acute Hypoglycemia Nursing Protocol Insulin Glargine (Insulin Glargine 100 Units/1 Ml) 12 unit SUBCUT 0800 [facility] Last Admin: 06/05/24 08:50 Dose: 12 unit Insulin Human Lispro (Insulin Lispro 100 Unit/1 Ml) 0 unit SUBCUT WM&BEDTIME [facility]; Protocol Last Admin: 06/05/24 12:16 Dose: 4 unit Levothyroxine Sodium (Levothyroxine 25 Mcg Tablet) 25 mcg PO QAM [facility] Last Admin: 06/05/24 06:14 Dose: 25 mcg Morphine Sulfate (Morphine 4 Mg/Ml Sdv 1 Ml) 2 mg IVP Q4H PRN PRN Reason: SEVERE PAIN Last Admin: 06/05/24 12:40 Dose: 2 mg Nitroglycerin (Nitroglycerin 0.4 Mg Sublingual Tablet) 0.4 mg SUBLINGUAL Q5M PRN PRN Reason: CHEST PAIN Nystatin (Nystatin Cream 30 Gm) 1 applic TOPICAL BID [facility] Last Admin: 06/05/24 12:15 Dose: 1 applic Ondansetron HCl (Ondansetron 2 Mg/Ml Sdv 2 Ml) 4 mg IVP Q8H PRN PRN Reason: vomiting, or N/V if npo Ondansetron HCl (Ondansetron 4 Mg Tablet) 4 mg PO Q8H PRN PRN Reason: NAUSEA Pantoprazole Sodium (Pantoprazole Dr 40 Mg Tablet) 40 mg PO BID [facility] Last Admin: 06/05/24 08:50 Dose: 40 mg Topiramate (Topiramate 100 Mg Tablet) 200 mg PO BID [facility] Last Admin: 06/05/24 08:49 Dose: 200 mg Trazodone HCl (Trazodone 150 Mg Tablet) 300 mg PO BEDTIME [facility] Last Admin: 06/05/24 00:06 Dose: 300 mg Vitals/I&O/Wt Last Vital Signs Temp 98.4 F 06/06/24 16:00 Pulse 56 L 06/06/24 16:00 Resp 16 06/06/24 16:00 BP 110/64 06/06/24 16:00 Pulse Ox 95 06/06/24 16:00 O2 Del Method Room Air 06/06/24 16:00 06/06/24 06/06/24 06/06/24 06:59 14:59 22:59 Intake Total 60 / 60 240 / 300 Output Total 300 / 1200 1000 / 1000 450 / 1450 Balance -300 / -600 -940 / -940 -210 / -1150 Weight last 48 hrs Weight 94.801 kg Weight 94.801 kg Weight 93.485 kg Weight 93.485 kg Physical Exam Narrative: General: No acute distress, AO x3 HEENT: PERRLA, pupils bilaterally equal and reactive, pallors not present Chest: Normal vesicular breath sounds, no added sounds, equal good air entry bilaterally CVS: S1-S2 regular, no murmurs, no tachycardia, no gallops, no rubs Abdomen: Soft, nontender, no organomegaly, bowel sounds present Neuro: No focal deficits, no facial deformity, AO x3, power 5/5 in all limbs Data 06/04/24 18:07 06/06/24 02:45 A&P Assessment and plan (1) Chest pain: Additional episode of chest pain, EKG obtained, reviewed, no evidence of acute ischemia. Reviewed vitals, CBC, CMP, troponin series, Echocardiogram noted with 6% EF, relative hypokinesia of the septum in the anteroseptal segments. Grade 1 diastolic dysfunction. Trace MVR, trace TVR. Reviewed cardiology note, discussed with turbine attendant. Continue aspirin, Plavix, statin. Beta-carlie dose was decreased due to bradycardia. Plans for additional assessment with stress testing in the morning. lipids and A1c for restratification. A1c 7.9. Qualifiers: Chest pain type: other chest pain Qualified Code(s): R07.89 - Other chest pain (2) Congestive heart failure: Bilateral lower extremity edema. EF noted 60%, grade 1 diastolic dysfunction. Noted septal wall motion abnormality. Additional assessment with stress testing the morning. Continue bumetanide. Chronic congestive heart failure, unspecified type Obtain NT proBNP Check echocardiogram Continue beta-carlie Qualifiers: Heart failure type: unspecified Heart failure chronicity: unspecified Qualified Code(s): I50.9 - Heart failure, unspecified (3) Hyperlipidemia: Lipid panel as above Continue statin (4) Diabetes: Reviewed A1c, 7.9. Continue insulin, consistent carbohydrate diet. Type 2 diabetes mellitus Continue Lantus, dose adjusted Sliding-scale insulin correction Qualifiers: Diabetes mellitus type: type 2 Diabetes mellitus skilled nursing insulin use: without skilled nursing use Diabetes mellitus complication status: with other specified complication Qualified Code(s): E11.69 - Type 2 diabetes mellitus with other specified complication (5) Diabetic neuropathy: Continue home gabapentin Plan Dry eyes: Artificial tears added DVT prophylaxis: Lovenox CODE STATUS: Full code Plan for today: June 06, 2024. Awaiting stress test results for further disposition. If abnormal may need an angiogram for further diagnostics and treatment decisions. Has intermittent jaw pain but otherwise feels improved. Attestations Medical Necessity Statement*: Awaiting stress test results Coding Level of Care Code Acute Code for Chg Fwd Straight Forward/Low MDM includes number and complexity of problems actively addressed during encounter, amount and/or complexity of data reviewed/ordered and described risk of complication, morbidity or mortality of management as documented Diagnoses Other chest pain R07.89 Chest pain type: other chest pain Congestive heart failure, unspecified HF chronicity, unspecified heart failure type I50.9 Heart failure type: unspecified Heart failure chronicity: unspecified Hyperlipidemia E78.5 Type 2 diabetes mellitus with other specified complication, without long-term current use of insulin E11.69 Diabetes mellitus type: type 2 Diabetes mellitus skilled nursing insulin use: without skilled nursing use Diabetes mellitus complication status: with other specified complication Diabetic neuropathy E11.40
[2024-06-06 16:53] LABS: Glucose Point of Care 181 mg/dL (70-110)
[2024-06-06] MEDS: artificial tears Op Soln 15 mL Btl 1 DROP EYE-BOTH (17:05)
[2024-06-06] MEDS: nitroglycerin 0.4 mg sublingual Tablet SUBLINGUAL (18:36)
--- NOTE | 2024-06-06 18:38 | PC.NURSE ---
Addendum entered by Johana Walsh RN 06/06/24 18:41: Nursing stayed with patient for the first 5 minutes and patient states the pain is going away. Original Note: Patient tells nursing staff that she is having mid-jaw pain and says that maybe it is a little in the mid chest area. Patient rates it 4/10. Would like to have a nitro. Nitro is given by nursing. Vitals ar HR 71 R 17, O2 92% BP 106/59. Telemetry is afib.
[2024-06-06 20:55] LABS: Glucose Point of Care 202 mg/dL (70-110)
[2024-06-06] MEDS: trazodone 150 mg Tablet 300 MG PO (21:14)
[2024-06-06] MEDS: carvedilol 6.25 mg Tablet PO (21:14)
[2024-06-06] MEDS: morphine 4 mg/mL SDV 1 mL 2 MG IVP (21:15)
[2024-06-07] VITALS: BP 87/57; PULSE 59; RESP 12; TEMP 37.1; O2SAT 96
[2024-06-07 01:09] VITALS: BP 111/51
[2024-06-07 04:00] VITALS: BP 101/59; PULSE 54; RESP 12; TEMP 36.8; O2SAT 98
[2024-06-07 06:00] VITALS: PULSE 52
[2024-06-07] MEDS: levothyroxine 25 mcg Tablet PO (06:11)
[2024-06-07 06:46] LABS: Glucose Point of Care 129 mg/dL (70-110)
[2024-06-07 07:41] VITALS: BP 115/63; PULSE 58; RESP 16; TEMP 36.6; O2SAT 98
[2024-06-07] MEDS: clopidogrel 75 mg Tablet PO (08:31)
[2024-06-07] MEDS: topiramate 100 mg Tablet 200 MG PO (08:31)
[2024-06-07] MEDS: pantoprazole DR 40 mg Tablet PO (08:31)
[2024-06-07] MEDS: atorvastatin 40 mg Tablet 20 MG PO (08:32)
[2024-06-07] MEDS: bumetanide 1 mg Tablet PO (08:32)
[2024-06-07] MEDS: BuSPIRONE 10 mg Tablet 30 MG PO (08:32)
[2024-06-07] MEDS: insulin glargine 100 units/1 mL 12 UNIT SUBCUT (08:32)
[2024-06-07] MEDS: aspirin 81 mg EC Tablet PO (08:32)
[2024-06-07] MEDS: nystatin cream 30 gm 1 APPLIC TOPICAL (08:33)
--- NOTE | 2024-06-07 09:46 | CTR_ITS ---
PROCEDURE INFORMATION: Exam: CTA Chest With Contrast Exam date and time: 06/07/2024 12:09 PM Age: 78 years old Clinical indication: Sternal or substernal pain; Additional info: Evaluate for pe TECHNIQUE: Imaging protocol: Computed tomographic angiography of the chest with contrast. Exam focused on the arteries. 3D rendering (Not supervised by radiologist): MIP and/or 3D reconstructed images were created by the technologist. Radiation optimization: All CT scans at this facility use at least one of these dose optimization techniques: automated exposure control; mA and/or kV adjustment per patient size (includes targeted exams where dose is matched to clinical indication); or iterative reconstruction. Contrast material: OMNI 350; Contrast volume: 82 ml; Contrast route: INTRAVENOUS (IV); COMPARISON: CR (CHEST, ) 06/04/2024 6:21 PM RADIATION DOSE METRICS: Total DLP (mGy-cm): 500.26 FINDINGS: Pulmonary arteries: There is a 14 x 2 mm metallic structure in the left lower lobe are artery visible on axial series 6, image 234 through 253 and coronal series 7 image 27 through 29. The structure is better visualized on prior chest radiographs. The pulmonary arteries are adequately opacified for evaluation to the subsegmental level. There is no filling defect to suggest embolism. Aorta: There is mild aortic atherosclerotic disease. Thyroid: Left thyroidectomy. Lungs: There is subsegmental atelectasis in the lung bases. There is no consolidation. Pleural spaces: There is no pleural effusion or pneumothorax. Heart: The heart is unremarkable. There is no pericardial effusion. Lymph nodes: There is no mediastinal or hilar lymphadenopathy. Bones/joints: Cervicothoracic posterolateral fusion hardware is partially imaged. Visible portions intact. There is moderate degenerative disease at both shoulders. There are multiple healed right rib fractures. There has been a sternotomy with intact repair. No dehiscence. There is a mild chronic compression fracture at T10 status post vertebroplasty. Soft tissues: The extrathoracic soft tissues are unremarkable. CT/CT angio chest PE protcl [id number] IMPRESSION: 1. No acute pulmonary embolism. 2. 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 The structure is visible on prior chest radiographs dating back to 10/26/2023.
[2024-06-07 11:14] VITALS: BP 114/62; PULSE 60; RESP 14; TEMP 36.9; O2SAT 96
--- NOTE | 2024-06-07 11:23 | PM.PN ---
Subjective Subjective: Patient is doing well this morning without chest pain. Vital signs are stable. Stress test was performed that showed no evidence of ischemia. Medications: Reviewed: Yes Vitals/I&O/Wt Last Vital Signs Temp 98.5 F 06/07/24 11:14 Pulse 60 06/07/24 11:14 Resp 14 06/07/24 11:14 BP 114/62 06/07/24 11:14 Pulse Ox 96 06/07/24 11:14 O2 Del Method Room Air 06/07/24 11:14 06/06/24 06/07/24 06/07/24 22:59 06:59 14:59 Intake Total 240 / 300 420 / 720 1000 / 1000 Output Total 650 / 1650 600 / 600 Balance -410 / -1350 420 / -930 400 / 400 Weight last 48 hrs Weight 207 lb 9.6 oz Weight 207 lb 9.6 oz Weight 209 lb Weight 209 lb Physical Exam Narrative: General: No apparent distress, healthy appearing, well nourished HENMT: normoceophalic Eye: PERRL Neck: No carotid bruit bilaterally Muskuloskeletal: Full ROM Respiratory: Normal respiratory effort, clear to auscultation bilaterally throughout all lung perez, no use of accessory muscles Cardio: No JVD, regular rate, regular rhythm, S1 S2 normal, no murmurs GI: Normal to inspection, nondistended Extremities: Full ROM, normal, normal capillary refill, no cyanosis, trace edema bilaterally present Neuro: Alert and oriented x4, no focal motor deficits Psych: Affect normal, denies suicidal ideation, mental status grossly normal Skin: No rashes or lesions noted, no wounds Data 06/04/24 18:07 06/06/24 02:45 Other data: Myocardial perfusion IMPRESSIONS 1. Unremarkable Myocardial perfusion imaging 2. Normal LV ejection fraction 72% 3. LV wall motion analysis revealing no gross wall motion abnormalities. 4. Normal LV volume Low probability for coronary ischemia, based on the above findings No similar previous studies are available for comparison A&P Assessment and plan (1) Chest pain: Patient had Lexiscan/sestamibi/sestamibi stress test. No evidence of ischemia on the perfusion scan. She has a low risk for coronary events based on the current findings. At this point, it may be appropriate to continue the medical treatment. Qualifiers: Chest pain type: other chest pain Qualified Code(s): R07.89 - Other chest pain (2) Congestive heart failure: Patient was told her her congestive heart failure in the past. But currently she is not any diuretics. Clinically she is not in heart failure. She has trace edema of the lower extremities. Probnp stable at 403. Echocardiogram showed normal LV function with no significant wall motion abnormalities. Qualifiers: Heart failure type: unspecified Heart failure chronicity: unspecified Qualified Code(s): I50.9 - Heart failure, unspecified (3) Hypothyroidism: Clinically patient appears to be euthyroid. She is on thyroid supplement. This may be continued. Qualifiers: Hypothyroidism type: acquired Qualified Code(s): E03.9 - Hypothyroidism, unspecified (4) Type 2 diabetes mellitus with diabetic neuropathy, unspecified: Aggressive management of the diabetes would be appropriate. Qualifiers: Diabetes mellitus snf insulin use: without equipment operator intermodal yard use Qualified Code(s): E11.40 - Type 2 diabetes mellitus with diabetic neuropathy, unspecified (5) Obesity: Patient seems to understand the importance of lifestyle modification. Qualifiers: Obesity type: due to excess calories Obesity classification: adult class 2 (BMI 35 - 39.9) Serious obesity comorbidity presence: with serious comorbidity Body mass index: BMI 36.0-36.9 Qualified Code(s): E66.812 - Obesity, class 2; E66.01 - Morbid (severe) obesity due to excess calories; Z68.36 - Body mass index [BMI] 36.0-36.9, adult (6) Obstructive sleep apnea: Patient may benefit from CPAP treatment. She may require a repeat sleep study. This is deferred to the primary (7) Chronic kidney disease (CKD): Kidney function is stable. Creat 1.1. Qualifiers: Chronic kidney disease stage: stage 2 (mild) Qualified Code(s): N18.2 - Chronic kidney disease, stage 2 (mild) Plan Since the patient has no evidence of ischemia based on the perfusion scan, she may not require any further investigations or myocardial standpoint. At this time, cardiology will sign off of this patient. As always, if our assistance is needed in the future, please consult us. Thank you for allowing us to take care of this very pleasant patient. Attestations Medical Necessity Statement*: Deferred to primary Coding Level of Care Code Acute Code for Chg Fwd Diagnoses Other chest pain R07.89 Chest pain type: other chest pain Congestive heart failure, unspecified HF chronicity, unspecified heart failure type I50.9 Heart failure type: unspecified Heart failure chronicity: unspecified Acquired hypothyroidism E03.9 Hypothyroidism type: acquired Type 2 diabetes mellitus with diabetic neuropathy, without long-term current use of insulin E11.40 Diabetes mellitus equipment operator intermodal yard insulin use: without snf use Class 2 severe obesity due to excess calories with serious comorbidity and body mass index (BMI) of 36.0 to 36.9 in adult E66.812; E66.01; Z68.36 Obesity type: due to excess calories Obesity classification: adult class 2 (BMI 35 - 39.9) Serious obesity comorbidity presence: with serious comorbidity Body mass index: BMI 36.0-36.9 Obstructive sleep apnea G47.33 Stage 2 chronic kidney disease N18.2 Chronic kidney disease stage: stage 2 (mild)
[2024-06-07 11:44] LABS: Glucose Point of Care 170 mg/dL (70-110)
[2024-06-07] MEDS: iohexol 350 mg/mL 500 mL Btl (per mL) IV (12:16)
[2024-06-07] MEDS: insulin lispro 100 unit/1 mL SUBCUT (12:49)
--- NOTE | 2024-06-07 14:25 | PC.NURSE ---
Report is called to JAZZ Martinez at [facility] at [phone]. Case management is arranging for a ride.
--- NOTE | 2024-06-07 15:22 | PM.DCS ---
Discharge Providers Date of Admission: 06/04/24 21:43 Date of Discharge: June 07, 2024 Attending Provider at Admission: Alfonso Pedro MD Attending Provider at Discharge: Princess Gupta MD Primary Care Provider: Joni Woods MD Diagnoses at Discharge Discharge Diagnosis (1) Chest pain: Status: Acute Qualifiers: Chest pain type: other chest pain Qualified Code(s): R07.89 - Other chest pain (2) Congestive heart failure: Status: Acute Qualifiers: Heart failure type: unspecified Heart failure chronicity: unspecified Qualified Code(s): I50.9 - Heart failure, unspecified (3) Hypothyroidism: Status: Acute Qualifiers: Hypothyroidism type: acquired Qualified Code(s): E03.9 - Hypothyroidism, unspecified (4) Type 2 diabetes mellitus with diabetic neuropathy, unspecified: Status: Acute Qualifiers: Diabetes mellitus adjunct faculty for medical terminology insulin use: without adjunct faculty for medical terminology use Qualified Code(s): E11.40 - Type 2 diabetes mellitus with diabetic neuropathy, unspecified (5) Obesity: Status: Acute Qualifiers: Obesity type: due to excess calories Obesity classification: adult class 2 (BMI 35 - 39.9) Serious obesity comorbidity presence: with serious comorbidity Body mass index: BMI 36.0-36.9 Qualified Code(s): E66.812 - Obesity, class 2; E66.01 - Morbid (severe) obesity due to excess calories; Z68.36 - Body mass index [BMI] 36.0-36.9, adult (6) Obstructive sleep apnea: Status: Acute (7) Chronic kidney disease (CKD): Status: Chronic Qualifiers: Chronic kidney disease stage: stage 2 (mild) Qualified Code(s): N18.2 - Chronic kidney disease, stage 2 (mild) Reason for Visit Reason for Visit: chest pain Hospital Course Hospital Course Patient is a 78-year-old lady who presented to the hospital with atypical left-sided chest pain. Cardiology service was consulted due to concern for unstable angina. She underwent a cardiac stress test on June 06, 2024 which did not show any signs of reversible ischemia. She reported a past medical history of pulmonary embolism over 40 years ago, does not recall how she was treated at the time. Due to concern for PE as a cause of her pain, she underwent a CT of the chest today. While the study was negative for PE, it did show an embolized metallic device measuring 14 x 2 mm in the distal left lower lobe pulmonary artery without associated arterial occlusion. The structure was visible on prior chest radiographs dating back to October 26, 2023. Nature of this metallic object is not entirely clear at this time. She does not recall any history of cardiac or pulmonary interventions. Patient had an peripheral angiogram 7 to 8 years ago and has a stent in her right leg. Call was placed to vascular surgery at [facility] to discuss these above findings. Given that the patient has had this object in place at least since October 2023, perhaps longer, with no current pulmonary symptoms such as hypoxia or dyspnea, there is no current urgent indication to undergo vascular intervention. Referral has been placed to vascular surgery as an outpatient at [facility]. Call placed t patient's daughters to discuss- got VM. left message. Findings discussed with patient's PCP Dr. Lima. Physical Exam Narrative: General: No acute distress, AO x3 HEENT: PERRLA, pupils bilaterally equal and reactive, pallors not present Chest: Normal vesicular breath sounds, no added sounds, equal good air entry bilaterally CVS: S1-S2 regular, no murmurs, no tachycardia, no gallops, no rubs Abdomen: Soft, nontender, no organomegaly, bowel sounds present Neuro: No focal deficits, no facial deformity, AO x3, power 5/5 in all limbs Discharge Data Studies Completed and Pending Completed Studies During Hospitalization Category Date Time Status CTA chest [CT angio chest PE protcl [id number]] Routine Cat Scan 06/07/24 09:46 Completed Sestamibi Stress Test Request Routine Exams 06/06/24 06:00 Draft XR chest 1V portable [id number] Stat Exams 06/04/24 17:34 Completed NM julianne perf SPECT r/s* [id number] Routine Nuc Med 06/06/24 10:32 Completed CV. echo complete* [id number] Stat Ultrasound 06/05/24 20:29 Completed Radiology Impressions Chest X-Ray 06/04/24 17:34 IMPRESSION: No acute findings. Chest CTA 06/07/24 09:46 IMPRESSION: 1. No acute pulmonary embolism. 2. 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 The structure is visible on prior chest radiographs dating back to 10/26/2023. ADDENDUM: 06/07/24 1304 THIS REPORT CONTAINS FINDINGS THAT MAY BE CRITICAL TO PATIENT CARE. The findings and recommendations were personally verbally communicated via telephone conference with PRINCESS GUPTA at 1:02 PM CDT on 06/07/2024. The findings were acknowledged and understood. Laboratory Results WBC 9.48 10^3/uL (3.29-11.43) 06/04/24 18:07 RBC 5.40 10^6/uL (3.85-5.65) 06/04/24 18:07 Hgb 15.20 g/dL (11.27-16.99) 06/04/24 18:07 Hct 47.1 % (36-47) H 06/04/24 18:07 MCV 87.2 fl (85-98) 06/04/24 18:07 MCH 28.1 pg (27-33) 06/04/24 18:07 MCHC 32.3 g/dL (30-55) 06/04/24 18:07 RDW 12.8 % (12.1-15.1) 06/04/24 18:07 Plt Count 198 10^3/cmm (157-399) 06/04/24 18:07 MPV 10.7 fL (7.4-10.4) H 06/04/24 18:07 Neut % (Auto) 51.1 % 06/04/24 18:07 Lymph % (Auto) 37.2 % 06/04/24 18:07 [place] % (Auto) 6.9 % 06/04/24 18:07 Eos % (Auto) 3.5 % 06/04/24 18:07 Baso % (Auto) 0.7 % 06/04/24 18:07 Neut # (Auto) 4.84 10^3/uL (1.8-7.7) 06/04/24 18:07 Lymph # (Auto) 3.5 10^3/uL (0.8-4.8) 06/04/24 18:07 [place] # (Auto) 0.7 10^3/uL (0.2-0.9) 06/04/24 18:07 Eos # (Auto) 0.3 10^3/uL (0.0-0.8) 06/04/24 18:07 Baso # (Auto) 0.1 10^3/uL (0.0-0.1) 06/04/24 18:07 Nucleated RBC % (auto) 0 % 06/04/24 18:07 Nucleated RBCs # 0.0 /100WBC 06/04/24 18:07 Sodium 139 mmol/L (136-145) 06/06/24 02:45 Potassium 3.9 mmol/L (3.5-5.1) 06/06/24 02:45 Chloride 105 mmol/L (98-107) 06/06/24 02:45 Carbon Dioxide 25 mmol/L (22-29) 06/06/24 02:45 Anion Gap 12.9 (5-19) 06/06/24 02:45 BUN 29 mg/dL (8-23) H 06/06/24 02:45 Creatinine 1.1 mg/dL (0.5-0.9) H 06/06/24 02:45 GFR Calculation Not Reportable 06/06/24 02:45 Glucose 146 mg/dL (65-115) H 06/06/24 02:45 POC Glucose 170 mg/dL (70-110) H 06/07/24 11:13 Estimat Average Glucose 180 06/04/24 18:07 Hemoglobin A1c 7.9 % (4.0-6.0) H 06/04/24 18:07 Calculated Osmolality 296 mOsm/kg (285-295) H 06/06/24 02:45 Calcium 8.3 mg/dL (8.5-10.5) L 06/06/24 02:45 Total Bilirubin 0.2 mg/dL (0.15-1.2) 06/04/24 18:07 AST 8 U/L (0-32) 06/04/24 18:07 ALT < 5 U/L (0-33) 06/04/24 18:07 Alkaline Phosphatase 50 U/L (35-105) 06/04/24 18:07 Troponin T Baseline 33 ng/L (0-10) H 06/04/24 18:07 Troponin T 120 Minute 30.48 ng/L (0-10) H 06/04/24 20:37 Delta Troponin T -2.52 ABS# (0-10) L 06/04/24 20:37 Troponin T Hi Sens 6Hr 33.97 ng/L (0-10) H 06/04/24 23:32 Troponin T Hi Sens 6Hr Delta 0.97 ng/L (0-12) 06/04/24 23:32 NT-Pro-B Natriuret Pep 403 pg/mL (0-450) 06/04/24 18:07 Total Protein 6.7 g/dL (6.6-8.7) 06/04/24 18:07 Albumin 4.2 g/dL (3.5-5.2) 06/04/24 18:07 Globulin 2.5 g/dL (1.3-4.6) 06/04/24 18:07 Triglycerides 214 mg/dL (0-150) H 06/04/24 18:07 Cholesterol 174 mg/dL (0-200) 06/04/24 18:07 LDL Cholesterol, Calc 97 mg/dL (50-129) 06/04/24 18:07 HDL Cholesterol 34 mg/dL (60-100) L 06/04/24 18:07 LDL/HDL Ratio 2.85 RATIO (0.00-3.22) 06/04/24 18:07 Cholesterol/HDL Ratio 5.12 mg/dL (0.0-4.40) H 06/04/24 18:07 Vitals Last Vital Signs Temp 98.5 F 06/07/24 11:14 Pulse 60 06/07/24 11:14 Resp 14 06/07/24 11:14 BP 114/62 06/07/24 11:14 Pulse Ox 96 06/07/24 11:14 O2 Del Method Room Air 06/07/24 11:14 Discharge Plan Discharge Patient Disposition: Xfer SNF Condition: Stable Prescriptions: Continued ondansetron HCl 4 mg tablet 4 mg PO Q4H PRN (Reason: Nausea And Vomiting) fluticasone propionate 50 mcg/actuation spray,suspension 2 spray intranasal DAILY insulin aspart U-100 100 unit/mL (3 mL) insulin pen 6 unit SUBCUT 0730 meloxicam 15 mg tablet 15 mg PO DAILY insulin glargine [Lantus U-100 Insulin] 100 unit/mL solution 12 unit SUBCUT 0800 cholecalciferol (vitamin D3) 25 mcg (1,000 unit) Tablet 25 mcg PO DAILY omega-3 fatty acids 1,000 mg Capsule 1,000 mg PO BID acetaminophen 325 mg Tablet 650 mg PO Q4H PRN (Reason: Pain, Mild) carboxymethylcellulose sodium [Refresh Tears] 0.5 % Drops 1 drp OPHTHALMIC (EYE) QID fluconazole [Diflucan] 200 mg Tablet 200 mg PO DAILY Rx Instructions: for 7 days, last dose 06/05 insulin aspart U-100 100 unit/mL (3 mL) Insulin Pen 4 unit SUBCUT 1200,1700 Rx Instructions: at lunch and supper insulin aspart U-100 100 unit/mL (3 mL) Insulin Pen See Rx Instructions .ROUTE .COMPLEX PRN (Reason: Hyperglycemia) Rx Instructions: Inject per sliding scale, 200-250= 2units, 251-300= 3units, 301-350= 4units, 351-400= 5units every 4 hours PRN for hyperglycemia aspirin 81 mg Tablet 81 mg PO DAILY pravastatin 40 mg tablet 40 mg PO DAILY buspirone 30 mg tablet 30 mg PO BID Multi For Her 18 mg iron-600 mcg-40 mcg Capsule 1 cap PO DAILY topiramate 100 mg tablet 200 mg PO BID carvedilol 6.25 mg tablet 6.25 mg PO DAILY calcium carbonate-vitamin D3 [Calcium 600 + D(3)] 600 mg-10 mcg (400 unit) Tablet 1 tab PO DAILY levothyroxine 25 mcg tablet 25 mcg PO 0600 carbidopa-levodopa 25-100 mg tablet 1 tab PO TID Rx Instructions: at 0800, 1600, 2000 clopidogrel 75 mg tablet 75 mg PO DAILY trazodone 150 mg tablet 300 mg PO BEDTIME potassium chloride 20 mEq tablet extended release 20 meq PO DAILY pantoprazole 40 mg Tablet,Delayed Release (Dr/Ec) 40 mg PO BID Qty: 60 0RF bumetanide 1 mg Tablet 1 mg PO DAILY Qty: 30 0RF Discharge Orders: Discharge Order (Routine); Ordered 06/07/24 Ordered By: Princess Gupta Referrals: [facility], Pulmonology [Other] [facility] , and [facility] [Other] (urgent referral. Ct with incidental finding of metallic object ? vascular catheter lodged in pulmonary artery ) Joni Woods MD [Primary Care Provider] - Discharge Diet: Usual diet Discharge Activity: Resume usual activity Patient Instructions: Chronic Kidney Disease (DC), CHF Stoplight, Chest Pain Stoplight, Obstructive Sleep Apnea Discharge Attestations Time Spent in Discharge Care*: greater than 30 min Quality Metrics Clinical Quality Measures [ No reported AMI, CVA or VTE this stay] Coding Level of Care Code Acute Code for Chg Fwd Diagnoses Other chest pain R07.89 Chest pain type: other chest pain Congestive heart failure, unspecified HF chronicity, unspecified heart failure type I50.9 Heart failure type: unspecified Heart failure chronicity: unspecified Acquired hypothyroidism E03.9 Hypothyroidism type: acquired Type 2 diabetes mellitus with diabetic neuropathy, without long-term current use of insulin E11.40 Diabetes mellitus adjunct faculty for medical terminology insulin use: without adjunct faculty for medical terminology use Class 2 severe obesity due to excess calories with serious comorbidity and body mass index (BMI) of 36.0 to 36.9 in adult E66.812; E66.01; Z68.36 Obesity type: due to excess calories Obesity classification: adult class 2 (BMI 35 - 39.9) Serious obesity comorbidity presence: with serious comorbidity Body mass index: BMI 36.0-36.9 Obstructive sleep apnea G47.33 Stage 2 chronic kidney disease N18.2 Chronic kidney disease stage: stage 2 (mild)
== END 2024-06-07 15:58 | disposition skilled nursing facility (03) ==
LOC: ER 20:16 → CSU 21:44
PROVIDERS: Family Medicine; Internal Medicine; Admitting Provider Internal Medicine; Emergency Provider Emergency Medicine; PCP Internal Medicine; Visit Provider Student in an Organized Health Care Education/Training Program
DX: I50.9 Heart failure, unspecified (principal); E03.9 Hypothyroidism, unspecified; E11.42 Type 2 diabetes mellitus with diabetic polyneuropathy; E66.812 Obesity, class 2; E66.01 Morbid (severe) obesity due to excess calories; Z68.36 Body mass index [BMI] 36.0-36.9, adult; G47.33 Obstructive sleep apnea (adult) (pediatric); E11.22 Type 2 diabetes mellitus with diabetic chronic kidney disease; I13.0 Hypertensive heart and chronic kidney disease with heart failure and stage 1 through stage 4 chronic kidney disease, or unspecified chronic kidney disease; N18.2 Chronic kidney disease, stage 2 (mild); Z79.4 Long term (current) use of insulin; Z79.82 Long term (current) use of aspirin
CPT/HCPCS: 36415; 36416; 71045; 71275; 78452; 80048; 80053; 80061; 82962; 83036; 83880; 84484; 85025; 93005; 93017; 93306; 96372; 96374; 96375; 96376; 99285; A9500; G0378; J1650; J1815; J2270; J2405; J2785

== ENCOUNTER 2024-09-12 14:46 | Emergency (ER) | payer MEDICARE, MEDICAID, SELFPAY ==
[2024-09-12 14:47] VITALS: BP 176/91; PULSE 58; RESP 18; TEMP 36.6; O2SAT 96; BMI 32.9
--- NOTE | 2024-09-12 14:51 | CT_ITS ---
WS: [id number] CT CERVICAL SPINE HISTORY: fall TECHNIQUE: Contiguous 2.0 mm axial imaging performed through the entire cervical spine. Sagittal and coronal reformats also performed. All CT scans at [facility] use at least one of these dose o ptimization techniques: automated exposure control; mA and/or kV adjustment per patient size (include s targeted exams where dose is matched to clinical indication); or iterative reconstruction. DLP: 1851.33 mGy.cm COMPARISON: None available. Normal posterior cervical alignment. Posterior fusion hardware extends from C2-T1. Disc spaces are na rrowed. Osteophytes at all levels. Mild concave deformity of the superior endplates of T1 and T2. Lateral masses are aligned. The odontoid is intact. Normal craniocervical junction. Large posterior l aminectomy defects beginning at C2-3 through C6. At C6-7 osteophytic ridging resulting in moderate to severe central and foraminal stenosis. Lung apices are clear. CT/CT cervical spin wo con* [id number] IMPRESSION: 1. No acute cervical spine fracture. 2. Status post extensive posterior fusion from C2-T1. 3. Very slight, age-indeterminate compression fractures at T1 and T2.
--- NOTE | 2024-09-12 14:51 | CT_ITS ---
WS: [id number] CT HEAD NONCONTRAST HISTORY: fall TECHNIQUE: Contiguous axial imaging performed through the brain. Bone and soft tissue windows. Sagitt al and coronal reformats reviewed. All CT scans at [facility] use at least one of these dose optimization techniques: automated exposure control; mA and/or kV adjustment per patient size (includ es targeted exams where dose is matched to clinical indication); or iterative reconstruction. DLP: 1851.33 mGy.cm COMPARISON: None available. Heterogeneous with acute blood products in the subdural location over the LEFT frontal, temporal and parietal lobes. Slightly lobulated configuration but the extra-axial blood crosses the suture line th erefore this is most likely subdural hematoma with a maximum diameter of 12 mm over the LEFT temporal lobe. There is a small amount of blood extending along the interhemispheric falx and along the tento rium. Mixture of acute and subacute or acute with continued bleeding products. Midline shift and slight mass effect. Approximately 4 mm of midline shift. Questionable tiny amount o f blood layering along the RIGHT ambient cistern. Ventricles: Normal size with no hydrocephalus. No inferior displacement of the cerebellar tonsils. Paranasal sinuses: Air-fluid levels in the maxillary sinuses. Mastoid air cells: Well pneumatized. Calvarium and scalp: Skull is intact with no soft tissue edema or swelling. CT/CT head wo con* [id number] IMPRESSION: 1. Moderate size LEFT subdural hematoma of variable density suggesting acute o n subacute or acute with active bleeding. Largest diameter is 12 mm over the LE FT temporal lobe. There is additional blood along the interhemispheric falx and tentorium. 2. No hydrocephalus. 3. 4 mm of midline shift to the RIGHT. 4. No skull fracture identified. Notified Ghada Barlow MD at 09/12/2024 3:49 PM.
--- NOTE | 2024-09-12 14:51 | CT_ITS ---
WS: [id number] CT FACIAL BONES HISTORY: fall TECHNIQUE: Images obtained from the supraorbital location through the mandible. Soft tissue and bone windows are reviewed. Coronal and sagittal reformats have also been submitted. DLP: 1851.[address] scans at [facility] use at least one of these dose optimization techniques: automated e xposure control; mA and/or kV adjustment per patient size (includes targeted exams where dose is matc hed to clinical indication); or iterative reconstruction. COMPARISON: None available. No acute facial bone fractures are identified. Zygomatic arches are intact. Nasal bones are intact. T here are small air-fluid levels in the maxillary sinuses but the calvin of the maxillary sinuses appea r to be intact. Lamina papyracea are normal. No visualized skull fracture. No mandibular condyle frac ture. Advanced degenerative changes in the upper cervical spine. Extensive posterior fusion hardware in the cervical spine. There is a soft tissue hematoma along the LEFT lateral mandible. No blood along the inner ear. Patien t has a known LEFT subdural hemorrhage. CT/CT facial bones wo con* [id number] IMPRESSION: 1. No acute facial bone fracture. 2. Soft tissue hematoma centered along the LEFT mandible. 3. Small air-fluid levels in the maxillary sinuses but no sinus fracture ident ified.
--- NOTE | 2024-09-12 14:59 | ECG_ITS ---
[facility] Test Date: 2024-09-12 Pat Name: Jaylene Montiel Department: Room: Gender: Female Step Down Nurse: : 1945 Requested By: Ghada Barlow Order Number: [id number] Mary MD: Chandan Walters M.D. Measurements Intervals [place] Rate: 56 P: 50 MS: 187 QRS: -4 QRSD: 77 T: 54 QT: 465 QTc: 451 Interpretive Statements SINUS BRADYCARDIA LOW QRS VOLTAGE IN PRECORDIAL LEADS [QRS DEFLECTION < 1.0 mV IN CHEST LEADS] Compared to ECG 06/05/2024 12:22:10 Sinus rhythm no longer present Myocardial infarct finding no longer present Electronically Signed On 09-15-2024 22:06:02 TWISTING DEPARTMENT END FINDER by Chandan Walters M.D. [email or web address] [id number]
[2024-09-12 15:00] VITALS: BP 163/94; PULSE 58; RESP 16; O2SAT 97
--- NOTE | 2024-09-12 15:00 | ED_ITS ---
HPI - Fall 2 General: Chief Complaint: Fall Stated Complaint: fall Time Seen by Provider: 09/12/24 14:47 Source: patient and EMS Mode of arrival: EMS Limitations: no limitations History of Present Illness: 78-year-old female states that she had f ell today at home states she had felt little lightheaded and tripped and fell states she did hit her head she has a headache she also has bruising to left upper lip. She denies any other injuries. She denies chest pain. Associated symptoms-after fall: Reports headache(s); Denies abdominal pain, chest pain or neck pain Related Data Home Medications Medication Instructions Recorded Confirmed [id number] fumarate 18 1 cap PO DAILY 10/25/23 09/12/24 mg-FA 600 mcg-vit K 40 mcg capsule (Multi For Her) topiramate 100 mg tablet 200 mg PO BID 10/25/23 09/12/24 insulin glargine 100 unit/mL 12 unit SUBCUT 0800 02/22/24 09/12/24 subcutaneous solution (Lantus U-100 Insulin) omega-3 fatty acids 1,000 mg 1,000 mg PO BID 06/04/24 09/12/24 capsule insulin aspart U-100 100 unit/mL See Rx Instructions .Route 06/05/24 09/12/24 (3 mL) subcutaneous pen .COMPLEX PRN Hyperglycemia aspirin 81 mg tablet,delayed 81 mg PO DAILY 09/12/24 09/12/24 release Previous Rx's Medication Instructions Recorded bumetanide 1 mg tablet 1 mg PO DAILY #30 tabs 08/02/24 buspirone 30 mg tablet 30 mg PO BID #60 tabs 08/02/24 clopidogrel 75 mg tablet 75 mg PO DAILY #30 tabs 08/02/24 fluticasone propionate 50 2 spray intranasal DAILY #16 grams 08/02/24 mcg/actuation nasal spray,suspension meloxicam 15 mg tablet 15 mg PO DAILY #30 tabs 08/02/24 metoprolol tartrate 25 mg tablet 12.5 mg (1/2 x 25 mg) PO BID #30 08/02/24 tabs pantoprazole 40 mg tablet,delayed 40 mg PO BID #60 tabs 08/02/24 release potassium chloride 20 mEq 20 meq PO DAILY #30 tabs 08/02/24 tablet,extended release rosuvastatin 20 mg tablet 20 mg PO DAILY #30 tabs 08/02/24 levothyroxine 25 mcg tablet 25 mcg PO 0600 #90 tabs 08/24/24 trazodone 300 mg tablet 300 mg PO BEDTIME #30 tabs 08/29/24 meclizine 50 mg tablet 50 mg PO BID PRN dizziness #30 tabs 09/06/24 ondansetron 8 mg disintegrating 8 mg PO Q8H PRN nausea and 09/06/24 tablet vomiting 5 days #15 tabs Allergies Allergy/AdvReac Type Severity Reaction Status Date / Time Influenza Virus Vaccines Allergy ALGY-Swell Verified 09/07/24 09:58 Lip/Tongue/Throat lisinopril Allergy ADR-Cough Verified 09/07/24 09:58 Sulfa (Sulfonamide Allergy ALGY-Anaphy Verified 09/07/24 09:58 Antibiotics) laxis Review of Systems 2 Const: Denies: fever(s), chills, body aches or change in appetite ENMT: Denies: throat pain or dental pain Card: Denies: chest pain Resp: Denies: dyspnea GI: Denies: abdominal pain, nausea, vomiting or diarrhea Musc: Denies: neck pain or back pain Skin/Breast: Denies: rash Neuro: Reports: headache(s) PFSH ED 2 PFSH: Medical History Psychiatric care Obesity with body mass index (BMI) of 30.0 to 39.9 Chronic kidney disease (CKD) Hyperlipidemia Obstructive sleep apnea hypopnea, severe Hx of pulmonary embolus during had PE last 2 pregnancies Post-surgical hypothyroidism Congestive heart failure Dorsalgia Obesity Tremor, unspecified Type 2 diabetes mellitus with diabetic neuropathy, unspecified Diabetic neuropathy Hypertension Diabetes Coronary artery disease Decubitus ulcer of sacral region, stage 4 Surgical History Hx of thymectomy upper sternotomy Hx of cardiac cath reports no stents but has CAD Hx of vascular surgery R groin; she says it is in the vein Hx of appendectomy Hx of cholecystectomy Hx of thyroidectomy L thyroidectomy done for goiter; no cancer History of bunionectomy of both great toes History of right shoulder replacement History of bilateral knee arthroplasty History of total hysterectomy with bilateral salpingo-oophorectomy (BSO) no cancer Hx of section X 1 Hx of non-cataract eye surgery bilateral; for glaucoma Hx of cataract surgery OU H/O neck surgery Family History Father Family history of premature coronary artery disease CAD (coronary artery disease) Mother Diabetes mellitus, type 2 Leukemia Sister Breast cancer Social History Smoking and tobacco/nicotine status: former use of tobacco/nicotine Alcohol intake: former Former alcohol use details: rare and in 1970s Substance/Drug Use: never Household members: none Housing: House Marital status: / Number of children: 4 Highest education level completed: Master's Degree Current occupational status: 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 Physical Exam 2 Const: COMMON NORMALS: no acute distress, patient oriented x3 and healthy appearing HENMT: COMMON NORMALS: normocephalic and atraumatic HEAD & SCALP: n ormocephalic and atraumatic OTHER: Contusion to left upper lip Eye: COMMON NORMALS: Equal, round and reactive pupils present and EOMs intact bilaterally PUPIL: Yes Equal, round and reactive pupils present Neck/C-Spine: COMMON NORMALS: full ROM and supple Chest: COMMONS NORMALS: normal inspection of the chest and normal palpation of entire chest wall Resp: COMMON NORMALS: normal respiratory effort, No retractions, No use of accessory muscles and clear to auscultation bilaterally AUSCULTATION: clear to auscultation bilaterally Cardio: COMMON NORMALS: regular rate, regular rhythm and No murmurs present (Cardio) RATE: regular rate RHYTHM: regular rhythm GI: COMMON NORMALS: Normal to inspection, nondistended, normoactive bowel sounds present, Soft to palpation, non-tender and no masses PALPATION: Yes Soft to palpation Extremity: COMMON NORMALS: normal to inspection and full ROM Neuro: COMMON NORMALS: patient oriented x3, moves all extremities and no focal motor deficits Psych: COMMON NORMALS: mental status grossly normal, Normal thought process present and cooperative THOUGHT PROCESS: Normal thought process present Skin: COMMON NORMALS: no rashes or lesions noted and no wounds GENERAL SKIN EXAM: no rashes or lesions noted Course 2 Vital Signs: Vital signs: Vital Signs Temperature 97.9 F 09/12/24 14:47 Pulse Rate 88 09/12/24 16:00 Respiratory Rate 15 09/12/24 16:00 Blood Pressure 109/91 09/12/24 16:00 Pulse Oximetry 95 09/12/24 16:00 Oxygen Delivery Me thod Room Air 09/12/24 14:47 MDM - Fall Medical Decision Making Patient presents here with fall head injury does have a subdural hemorrhage on the head injury. She has been awake and alert here did speak to [facility] will transfer. Medical Records I reviewed the patient's medical records. Lab Data I reviewed the patient's lab results. 09/12/24 15:21 09/12/24 15:21 Radiology Impressions Cervical Spine CT 09/12/24 14:51 IMPRESSION: 1. No acute cervical spine fracture. 2. Status post extensive posterior fusion from C2-T1. 3. Very slight, age-indeterminate compression fractures at T1 and T2. Face CT 09/12/24 14:51 IMPRESSION: 1. No acute facial bone fracture. 2. Soft tissue hematoma centered along the LEFT mandible. 3. Small air-fluid levels in the maxillary sinuses but no sinus fracture identified. Head CT 09/12/24 14:51 IMPRESSION: 1. Moderate size LEFT subdural hematoma of variable density suggesting acute on subacute or acute with active bleeding. Largest diameter is 12 mm over the LEFT temporal lobe. There is additional blood along the interhemispheric falx and tentorium. 2. No hydrocephalus. 3. 4 mm of midline shift to the RIGHT. 4. No skull fracture identified. Notified Ghada Barlow MD at 09/12/2024 3:49 PM. Laboratory Results WBC 8.27 10^3/uL (3.29-11.43) 09/12/24 15:21 RBC 5.18 10^6/uL (3.85-5.65) 09/12/24 15:21 Hgb 15.00 g/dL (11.27-16.99) 09/12/24 15:21 Hct 45.3 % (36-47) 09/12/24 15:21 MCV 87.5 fl (85-98) 09/12/24 15:21 MCH 29.0 pg (27-33) 09/12/24 15: MCHC 33.1 g/dL (30-55) 09/12/24 15:21 RDW 12.0 % (12.1-15.1) L 09/12/24 15:21 Plt Count 215 10^3/cmm (157-399) 09/12/24 15:21 MPV 11.1 fL (7.4-10.4) H 09/12/24 15:21 Neut % (Auto) 51.9 % 09/12/24 15:21 Lymph % (Auto) 31.0 % 09/12/24 15:21 Esmeralda % (Auto) 7.5 % 09/12/24 15:21 Eos % (Auto) 8.5 % 09/12/24 15:21 Baso % (Auto) 0.6 % 09/12/24 15:21 Neut # (Auto) 4.30 10^3/uL (1.8-7.7) 09/12/24 15:21 Lymph # (Auto) 2.6 10^3/uL (0.8-4.8) 09/12/24 15:21 Esmeralda # (Auto) 0.6 10^3/uL (0.2-0.9) 09/12/24 15:21 Eos # (Auto) 0.7 10^3/uL (0.0-0.8) 09/12/24 15:21 Baso # (Auto) 0.1 10^3/uL (0.0-0.1) 09/12/24 15:21 Nucleated RBC % (auto) 0 % 09/12/24 15: Nucleated RBCs # 0.0 /100WBC 09/12/24 15:21 PT 12.70 SECONDS (12.1-14.9) 09/12/24 15:21 INR 0.89 (0.8-1.2) 09/12/24 15:21 Sodium 139 mmol/L (136-145) 09/12/24 15:21 Potassium 4.3 mmol/L (3.5-5.1) 09/12/24 15:21 Chloride 99 mmol/L (98-107) 09/12/24 15:21 Carbon Dioxide 28 mmol/L (22-29) 09/12/24 15:21 Anion Gap 16.3 (5-19) 09/12/24 15:21 BUN 23 mg/dL (8-23) 09/12/24 15:21 Creatinine 1.1 mg/dL (0.5-0.9) H 09/12/24 15:21 GFR Calculation Not Reportable 09/12/24 15:21 Glucose 123 mg/dL (65-115) H 09/12/24 15:21 Calculated Osmolality 293 mOsm/kg (285-295) 09/12/24 15:21 Calcium 9.0 mg/dL (8.5-10.5) 09/12/24 15:21 Total Bilirubin 0.2 mg/dL (0.15-1.2) 09/12/24 15:21 AST 25 U/L (0-32) 09/12/24 15:21 ALT 19 U/L (0-33) 09/12/24 15:21 Alkaline Phosphatase 51 U/L (35-105) 09/12/24 15:21 Total Protein 6.5 g/dL (6.6-8.7) L 09/12/24 15:21 Albumin 3.7 g/dL (3.5-5.2) 09/12/24 15:21 Globulin 2.8 g/dL (1.3-4.6) 09/12/24 15:21 All radiology interpretation(s) finalized by discharge EKG Data EKG 1: I personally reviewed and interpreted this EKG as follows: EKG interpretation date: 09/12/24 EKG interpretation time: 14:59 Interpretation: sinus sondra hr [address] elevation qrs 77 qtc 457 Critical Care Time 2 Critical Care Time: Critical Care Time: Yes Total Critical Care Time: 35 Attestation: The high probability of a clinically significant, sudden or life threatening deterioration of the patient's trauma system(s) required my full and direct attention, intervention and personal management. The critical care time is as shown. This time is in addition to time spent performing any reported procedures but includes the following: [x] Data and vital sign review and interpretation [x] Patient assessment, examination and intervention [x] Documentation [x] Medication orders and management Discharge Plan Discharge Patient Disposition: Xfer Short-Term Hosp Clinical Impression: Subdural hemorrhage Condition: Stable Referrals: Candace Rogers MD [Primary Care Provider] - Coding Level of Care Code ED Donor Specialist for g Robbi
[2024-09-12 15:32] LABS: Basophils # 0.1 10^3/uL (0.0-0.1); Basophils % 0.6 %; Eosinophils # 0.7 10^3/uL (0.0-0.8); Eosinophils % 8.5 %; Hematocrit 45.3 % (36-47); Lymphocytes # 2.6 10^3/uL (0.8-4.8); Mean Corpuscular HGB Conc 33.1 g/dL (30-55); Mean Corpuscular Volume 87.5 fl (85-98); Mean Platelet Volume 11.1 fL (7.4-10.4); Monocytes # 0.6 10^3/uL (0.2-0.9); Monocytes % 7.5 %; Neutrophils % 51.9 %; Nucleated Red Blood Cells % 0 %; Platelet Count 215 10^3/cmm (157-399); Red Blood Count 5.18 10^6/uL (3.85-5.65); White Blood Count 8.27 10^3/uL (3.29-11.43)
[2024-09-12 15:37] VITALS: BP 133/76; PULSE 57; RESP 16; O2SAT 94
[2024-09-12 15:39] LABS: INR 0.89 (0.8-1.2)
[2024-09-12 15:42] LABS: Alanine Aminotransferase 19 U/L (0-33); Albumin Level 3.7 g/dL (3.5-5.2); Alkaline Phosphatase 51 U/L (35-105); Anion Gap 16.3 (5-19); Aspartate Amino Transferase 25 U/L (0-32); Blood Urea Nitrogen 23 mg/dL (8-23); Carbon Dioxide 28 mmol/L (22-29); Chloride 99 mmol/L (98-107); Creatinine Clr Calc Pharmacy 42.4065; Globulin 2.8 g/dL (1.3-4.6); Glucose 123 mg/dL (65-115); Osmolality Calculated 293 mOsm/kg (285-295); Potassium 4.3 mmol/L (3.5-5.1); Sodium 139 mmol/L (136-145); Total Bilirubin 0.2 mg/dL (0.15-1.2); Total Protein 6.5 g/dL (6.6-8.7)
[2024-09-12 16:00] VITALS: BP 109/91; PULSE 58; RESP 15; O2SAT 95
[2024-09-12] MEDS: ondansetron 2 mg/ML SDV 2 mL 4 MG IVP (16:09)
[2024-09-12] MEDS: morphine 4 mg/mL SDV 1 mL IVP (16:09)
[2024-09-12 16:30] VITALS: BP 148/81; PULSE 58; RESP 26; O2SAT 94
== END 2024-09-12 16:40 | disposition short-term general hospital (02) ==
PROVIDERS: Emergency Provider Emergency Medicine; PCP Family Medicine
DX: I62.01 Nontraumatic acute subdural hemorrhage (principal); Z87.891 Personal history of nicotine dependence; E11.40 Type 2 diabetes mellitus with diabetic neuropathy, unspecified; E11.22 Type 2 diabetes mellitus with diabetic chronic kidney disease; I12.9 Hypertensive chronic kidney disease with stage 1 through stage 4 chronic kidney disease, or unspecified chronic kidney disease; N18.9 Chronic kidney disease, unspecified; I25.10 Atherosclerotic heart disease of native coronary artery without angina pectoris
CPT/HCPCS: 36415; 70450; 70486; 72125; 80053; 85025; 85610; 93005; 96374; 96375; 99285; J2270; J2405

== ENCOUNTER 2024-09-19 13:37 | Outpatient (CLI) | payer MEDICARE, MEDICAID, SELFPAY | END 2024-09-19 13:38 | disposition home or self-care (01) | LOC: SLEEP 13:53 | PROVIDERS: PCP Family Medicine; Visit Provider Family Medicine | DX: G47.33 Obstructive sleep apnea (adult) (pediatric) (principal) | CPT/HCPCS: G0399 ==

== ENCOUNTER 2024-09-26 14:52 | Emergency (ER) | payer MEDICARE, SELFPAY ==
[2024-09-26 14:54] VITALS: BP 116/88; PULSE 59; RESP 17; TEMP 37.2; O2SAT 98
--- NOTE | 2024-09-26 14:55 | CT_ITS ---
WS: [id number] Exam: CT head thrombolytic [id number] Date/Time of Exam: 09/26/2024 2:55 PM Reason For Exam: ACUTE SYMPTOMS OF STROKE Comparison 09/12/2024. Subacute LEFT subdural hematoma is again noted along the LEFT frontal and temporal lobes. This shows improvement. There is still some diffuse edema in the LEFT cerebral hemisphere with about 5 mm LEFT to RIGHT shift. Mild effacement of the LEFT lateral ventricle. Hematoma measures about 10.4 mm in greatest thickness along the LEFT temporal lobe. Residual blood noted in the tentorial and interhemispheric fissure. The skull is intact. The RIGHT cerebral hemisphere is otherwise unremarkable. CT/CT head thrombolytic [id number] IMPRESSION: 1. Improving subacute left-sided subdural hematoma as noted above. There is sti ll some diffuse cerebral edema in the LEFT cerebral hemisphere and about 5 mm L EFT to RIGHT shift across midline. No significant new finding is identified.
[2024-09-26 15:01] LABS: Glucose Point of Care 184 mg/dL (70-110)
--- NOTE | 2024-09-26 15:11 | XRR_ITS ---
PROCEDURE INFORMATION: Exam: XR Chest Exam date and time: 09/26/2024 3:18 PM Age: 78 years old Clinical indication: Other: Weakness TECHNIQUE: Imaging protocol: Radiologic exam of the chest. Views: 1 view. COMPARISON: CT angio chest PE protcl [id number] 06/07/2024 12:09 PM FINDINGS: Lungs: No focal consolidation. Pleural spaces: No evidence of pneumothorax. No evidence of pleural effusion. Heart/Mediastinum: Cardiomediastinal silhouette is within normal limits. Postsurgical changes of the mediastinum. Bones/joints: No evidence of acute osseous abnormality. Cervicothoracic fusion hardware noted. XR/XR chest 1V portable [id number] IMPRESSION: 1. No acute cardiopulmonary abnormality.
--- NOTE | 2024-09-26 15:11 | ECG_ITS ---
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 Measurements Intervals [place] Rate: 54 P: 43 MS: 174 QRS: -14 QRSD: 78 T: 37 QT: 425 QTc: 403 Interpretive Statements SINUS BRADYCARDIA LOW QRS VOLTAGE IN PRECORDIAL LEADS [QRS DEFLECTION < 1.0 mV IN CHEST LEADS] POSSIBLE ANTERIOR MYOCARDIAL INFARCTION , OF INDETERMINATE AGE [30 ms Q WAVE IN V3/V4, OR R < 0.2 mV IN V4] Compared to ECG 09/12/2024 14:59:55 Myocardial infarct finding now present Electronically Signed On 09-26-2024 20:27:22 SCENE AND LIGHTING DESIGN LECTURER by Jerry Wells M.D. [id number] [id number]
--- NOTE | 2024-09-26 15:31 | W.ED.NEUROSD ---
HPI - Neuro Symptoms/Deficit General: Chief Complaint: Neuro Symptoms/Deficit Stated Complaint: Stroke Alert Time Seen by Provider: 09/26/24 14:58 History of Present Illness: This is a 78-year-old female with a history of obesity and diabetes and a recent fall with a subdural hematoma for which she was admitted to [facility] in [place] and sent home recently. She is continue to have headaches at home. Today she had some slurred speech associated with a headache. On my exam she no longer has any slurred speech. She has some difficulty initially with speaking and then not able to come up with a word or being distracted by pain. She says loud voices make her headache much worse. Related Data Home Medications ?Medication ?Instructions ?Recorded ?Confirmed [id number] fumarate 18 1 cap PO DAILY 10/25/23 09/22/24 mg-FA 600 mcg-vit K 40 mcg capsule (Multi For Her) topiramate 100 mg tablet 200 mg PO BID 10/25/23 09/22/24 insulin glargine 100 unit/mL 12 unit SUBCUT 0800 02/22/24 09/22/24 subcutaneous solution (Lantus U-100 Insulin) omega-3 fatty acids 1,000 mg 1,000 mg PO BID 06/04/24 09/22/24 capsule insulin aspart U-100 100 unit/mL See Rx Instructions .Route 06/05/24 09/22/24 (3 mL) subcutaneous pen .COMPLEX PRN Hyperglycemia aspirin 81 mg tablet,delayed 81 mg PO DAILY 09/12/24 09/22/24 release Previous Rx's ?Medication ?Instructions ?Recorded bumetanide 1 mg tablet 1 mg PO DAILY #30 tabs 08/02/24 buspirone 30 mg tablet 30 mg PO BID #60 tabs 08/02/24 clopidogrel 75 mg tablet 75 mg PO DAILY #30 tabs 08/02/24 fluticasone propionate 50 2 spray intranasal DAILY #16 grams 08/02/24 mcg/actuation nasal spray,suspension meloxicam 15 mg tablet 15 mg PO DAILY #30 tabs 08/02/24 metoprolol tartrate 25 mg tablet 12.5 mg (1/2 x 25 mg) PO BID #30 08/02/24 tabs pantoprazole 40 mg tablet,delayed 40 mg PO BID #60 tabs 08/02/24 release potassium chloride 20 mEq 20 meq PO DAILY #30 tabs 08/02/24 tablet,extended release rosuvastatin 20 mg tablet 20 mg PO DAILY #30 tabs 08/02/24 levothyroxine 25 mcg tablet 25 mcg PO 0600 #90 tabs 08/24/24 trazodone 300 mg tablet 300 mg PO BEDTIME #30 tabs 08/29/24 meclizine 50 mg tablet 50 mg PO BID PRN dizziness #30 tabs 09/06/24 ondansetron 8 mg disintegrating 8 mg PO Q8H PRN nausea and 09/06/24 tablet vomiting 5 days #15 tabs Auto-titrating CPAP 6-16cm #1 ea 09/22/24 cefdinir 300 mg capsule 300 mg PO BID 7 days #14 caps 09/26/24 levetiracetam 750 mg tablet 750 mg PO BID #60 tabs 09/26/24 (Keppra) Allergies Allergy/AdvReac Type Severity Reaction Status Date / Time Influenza Virus Vaccines Allergy ALGY-Swell Verified 09/22/24 09:09 Lip/Tongue/Throat lisinopril Allergy ADR-Cough Verified 09/22/24 09:09 Sulfa (Sulfonamide Allergy ALGY-Anaphy Verified 09/22/24 09:09 Antibiotics) laxis Review of Systems Narrative: Constitutional symptoms: Negative except as documented in HPI. Skin symptoms: Negative except as documented in HPI. Eye symptoms: Negative except as documented in HPI. ENMT symptoms: Negative except as documented in HPI. Respiratory symptoms: Negative except as documented in HPI. Cardiovascular symptoms: Negative except as documented in HPI. Gastrointestinal symptoms: Negative except as documented in HPI. Genitourinary symptoms: Negative except as documented in HPI. Musculoskeletal symptoms: Negative except as documented in HPI. Neurologic symptoms: Negative except as documented in HPI. Psychiatric symptoms: Negative except as documented in HPI. Endocrine symptoms: Negative except as documented in HPI. PFSH ED PFSH: Medical History (Updated 09/26/24 @ 18:23 by Alexia Goss MD) Obstructive sleep apnea sleep study done 09.19.24 Mild YUDELKA; nocturnal hypoxemia; auto titrating CPAP 6-16cm ordered Psychiatric care Obesity with body mass index (BMI) of 30.0 to 39.9 Chronic kidney disease (CKD) Hyperlipidemia Hx of pulmonary embolus during had PE last 2 pregnancies Post-surgical hypothyroidism Congestive heart failure Dorsalgia Obesity Tremor, unspecified Type 2 diabetes mellitus with diabetic neuropathy, unspecified Diabetic neuropathy Hypertension Diabetes Coronary artery disease Decubitus ulcer of sacral region, stage 4 Surgical History Hx of thymectomy upper sternotomy Hx of cardiac cath reports no stents but has CAD Hx of vascular surgery R groin; she says it is in the vein Hx of appendectomy Hx of cholecystectomy Hx of thyroidectomy L thyroidectomy done for goiter; no cancer History of bunionectomy of both great toes History of right shoulder replacement History of bilateral knee arthroplasty History of total hysterectomy with bilateral salpingo-oophorectomy (BSO) no cancer Hx of section X 1 Hx of non-cataract eye surgery bilateral; for glaucoma Hx of cataract surgery OU H/O neck surgery Family History Father Family history of premature coronary artery disease CAD (coronary artery disease) Mother Diabetes mellitus, type 2 Leukemia Sister Breast cancer Social History Smoking and tobacco/nicotine status: never used tobacco/nicotine Alcohol intake: former Former alcohol use details: rare and in 1970s Substance/Drug Use: never Household members: none Housing: House Marital status: / Number of children: 4 Highest education level completed: Master's Degree 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 Skin: Warm, dry. Head: Normocephalic, atraumatic. Neck: Supple, trachea midline. Eye: Extraocular movements are intact. Ears, nose, mouth and throat: mucosa moist. Cardiovascular: Regular, Normal peripheral perfusion. Respiratory: Lungs are clear to auscultation, respirations are non-labored, breath sounds are equal, Symmetrical chest wall expansion. Gastrointestinal: Soft, Nontender, Non distended Musculoskeletal: Normal ROM, no deformity. Neurological: Alert and oriented, No focal neurological deficit observed. Patient has some pauses in her speech that seem to be related more to pain and difficulty concentrating been like a word salad or aphasia. No slurred speech. Psychiatric: Cooperative, appropriate mood & affect. Course Vital Signs: Vital signs: Vital Signs Temperature 98.9 F 09/26/24 14:54 Pulse Rate 61 02/17/25 18:30 Respiratory Rate 17 09/26/24 14:54 Blood Pressure 137/73 09/26/24 18:30 Pulse Oximetry 98 09/26/24 18:30 Oxygen Delivery Me thod Room Air 09/26/24 18:30 MDM - Neuro Symptoms/Deficit Medical Decision Making Medical decision making: Differential diagnosis for patient with focal neurologic deficit(s) includes but not limited to and based on the above HPI, review of systems and physical exam: ischemic stroke, hemorrhagic stroke and embolic stroke secondary to atrial fibrillation), TIA, Rodríguez's palsey, metabolic encephalopathy with previous stroke. Orders placed to evaluate differential diagnosis based on the above differential, HPI and physical exam CT of the head without contrast: Improving subacute left sided subdural hematoma. Some diffuse cerebral edema in the left cerebral hemisphere and about 5 mm ftqu-dl-qtdgm shift across midline. No significant change from previous with some slight improvement possibly. This was reviewed and interpreted by myself the emergency room physician. I also reviewed the radiology report. Consultation: I spoke with Dr. Holm who his neurosurgeon at [facility] and is covering for Dr. Werner who is the patient's neurosurgeon when she was admitted there. He recommends follow-up and also recommends Chest x-ray: No acute process. No infiltrate. No pneumothorax. This was reviewed and interpreted by myself the emergency room physician. I also reviewed the radiology report. Lab Review: Laboratory results were reviewed and interpreted by myself the emergency room physician. No leukocytosis. No anemia. No renal failure. I reviewed the patient's medical record. Reexamination: Patient remained stable. Vitals are normal. I discussed the findings with patient but was called back to the room with an irate family member over concern for giving of Tylenol as it might affect her Dexcom readings. I discussed that if this is the case then perhaps she can recheck glucose if abnormal at home over the next 12 hours with a different monitor. I discussed that pain with this headache hopefully will be relieved by treatment with Keppra and treating her urinary tract infection. Assessment and plan: Subdural hematoma Headache Urinary tract infection ? IV Keppra, IV fluids, IV Rocephin and IV Tylenol in the emergency room. - Discharged home - Discussed plan with patient. Answered any questions. - Evaluation and treatment of this problem were appropriate in the emergency setting. Lab Data 09/26/24 15:35 09/26/24 15:[address] 09/26/24 14:55 IMPRESSION: 1. Improving subacute left-sided subdural hematoma as noted above. There is still some diffuse cerebral edema in the LEFT cerebral hemisphere and about 5 mm LEFT to RIGHT shift across midline. No significant new finding is identified. Chest X-Ray 09/26/24 15:11 IMPRESSION: 1. No acute cardiopulmonary abnormality. Laboratory Results WBC 11.07 10^3/uL (3.29-11.43) 09/26/24 15:35 RBC 5.03 10^6/uL (3.85-5.65) 09/26/24 15:35 Hgb 14.00 g/dL (11.27-16.99) 09/26/24 15:35 Hct 43.5 % (36-47) 09/26/24 15:35 MCV 86.5 fl (85-98) 09/26/24 15:35 MCH 27.8 pg (27-33) 09/26/24 15:35 MCHC 32.2 g/dL (30-55) 09/26/24 15:35 RDW 12.3 % (12.1-15.1) 09/26/24 15:35 Plt Count 304 10^3/cmm (157-399) 09/26/24 15:35 MPV 10.3 fL (7.4-10.4) 09/26/24 15:35 Neut % (Auto) 61.5 % 09/26/24 15:35 Lymph % (Auto) 25.7 % 09/26/24 15:35 [place] % (Auto) 8.4 % 09/26/24 15:35 Eos % (Auto) 3.3 % 09/26/24 15:35 Baso % (Auto) 0.6 % 09/26/24 15:35 Neut # (Auto) 6.80 10^3/uL (1.8-7.7) 09/26/24 15:35 Lymph # (Auto) 2.9 10^3/uL (0.8-4.8) 09/26/24 15:35 Erath # (Auto) 0.9 10^3/uL (0.2-0.9) 09/26/24 15:35 Eos # (Auto) 0.4 10^3/uL (0.0-0.8) 09/26/24 15:35 Baso # (Auto) 0.1 10^3/uL (0.0-0.1) 09/26/24 15:35 Nucleated RBC % (auto) 0 % 09/26/24 15:35 Nucleated RBCs # 0.0 /100WBC 09/26/24 15:35 PT 13.00 SECONDS (12.1-14.9) 09/26/24 15:35 INR 0.92 (0.8-1.2) 09/26/24 15:35 APTT 25.0 SECONDS (23.9-36.7) 09/26/24 15:35 Sodium 141 mmol/L (136-145) 09/26/24 15:35 Potassium 4.0 mmol/L (3.5-5.1) 09/26/24 15:35 Chloride 101 mmol/L (98-107) 09/26/24 15:35 Carbon Dioxide 28 mmol/L (22-29) 09/26/24 15:35 Anion Gap 16.0 (5-19) 09/26/24 15:35 BUN 19 mg/dL (8-23) 09/26/24 15:35 Creatinine 1.0 mg/dL (0.5-0.9) H 09/26/24 15:35 GFR Calculation Not Reportable 09/26/24 15:35 Glucose 166 mg/dL (65-115) H 09/26/24 15:35 POC Glucose 184 mg/dL (70-110) H 09/26/24 14:58 Calculated Osmolality 298 mOsm/kg (285-295) H 09/26/24 15:35 Lactic Acid 1.4 mmol/L (0.5-2.2) 09/26/24 15:35 Calcium 9.1 mg/dL (8.5-10.5) 09/26/24 15:35 Total Bilirubin 0.3 mg/dL (0.15-1.2) 09/26/24 15:35 AST 9 U/L (0-32) 09/26/24 15:35 ALT 7 U/L (0-33) 09/26/24 15:35 Alkaline Phosphatase 52 U/L (35-105) 09/26/24 15:35 Total Protein 6.8 g/dL (6.6-8.7) 09/26/24 15:35 Albumin 3.7 g/dL (3.5-5.2) 09/26/24 15:35 Globulin 3.1 g/dL (1.3-4.6) 09/26/24 15:35 Urine Color Yellow (Yellow) 09/26/24 17:08 Urine Appearance Cloudy (CLEAR) A 09/26/24 17:08 Urine pH 5.5 (5-7) 09/26/24 17:08 Ur Specific Tuttle 1.020 (1.005-1.030) 09/26/24 17:08 Urine Protein Trace (Negative) A 09/26/24 17:08 Urine Glucose (UA) Negative (Normal) 09/26/24 17: Urine Ketones Negative (Negative) 09/26/24 17:08 Urine Blood Trace (Negative) A 09/26/24 17:08 Urine Nitrate Negative (Negative) 09/26/24 17:08 Urine Bilirubin Negative (Negative) 09/26/24 17:08 Urine Urobilinogen 1.0 mg/dL (Negative) 09/26/24 17:08 Ur Leukocyte Esterase 2+ (Negative) A 09/26/24 17:08 Urine RBC 0-2 /hpf (0-2) 09/26/24 17:08 Urine WBC >100 /hpf (0-5) H 09/26/24 17:08 Ur Squamous Epith Cells 6-10 /hpf (0-5) 09/26/24 17:08 Amorphous Sediment Not Reportable 09/26/24 17:08 Urine Bacteria None seen /hpf (NONE) 09/26/24 17:08 Hyaline Casts 11.16 /lpf 09/26/24 17:08 Influenza A (PCR) Negative (Negative) 09/26/24 16:40 Influenza Type B (PCR) Negative (Negative) 09/26/24 16:40 RSV (PCR) Negative (Negative) 09/26/24 16:40 SARS-CoV-2 (PCR) Negative (Negative) 09/26/24 16:40 All radiology interpretation(s) finalized by discharge Discharge Plan Discharge Patient Disposition: Home Clinical Impression: Subdural hematoma, Urinary tract infection, Headache Condition: Stable Prescriptions: New cefdinir 300 mg capsule 300 mg PO BID 7 Days Qty: 14 0RF levetiracetam [Keppra] 750 mg tablet 750 mg PO BID Qty: 60 0RF No Action bumetanide 1 mg tablet 1 mg PO DAILY Qty: 30 3RF buspirone 30 mg tablet 30 mg PO BID Qty: 60 3RF metoprolol tartrate 25 mg tablet 12.5 mg PO BID Qty: 30 3RF clopidogrel 75 mg tablet 75 mg PO DAILY Qty: 30 3RF fluticasone propionate 50 mcg/actuation spray,suspension 2 spray intranasal DAILY Qty: 16 3RF meloxicam 15 mg tablet 15 mg PO DAILY Qty: 30 3RF pantoprazole 40 mg tablet,delayed release (DR/EC) 40 mg PO BID Qty: 60 3RF potassium chloride 20 mEq tablet extended release 20 meq PO DAILY Qty: 30 3RF rosuvastatin 20 mg tablet 20 mg PO DAILY Qty: 30 3RF insulin glargine [Lantus U-100 Insulin] 100 unit/mL solution 12 unit SUBCUT 0800 meclizine 50 mg tablet 50 mg PO BID PRN (Reason: dizziness) Qty: 30 0RF ondansetron 8 mg tablet,disintegrating 8 mg PO Q8H PRN (Reason: nausea and vomiting) 5 Days Qty: 15 0RF levothyroxine 25 mcg tablet 25 mcg PO 0600 Qty: 90 1RF trazodone 300 mg tablet 300 mg PO BEDTIME Qty: 30 1RF (DME) Auto-titrating CPAP 6-16cm See Rx Instructions .Route .MEDSUPPLY Qty: 1 0RF Rx Instructions: and needs CPAP supplies/mask too omega-3 fatty acids 1,000 mg Capsule 1,000 mg PO BID insulin aspart U-100 100 unit/mL (3 mL) Insulin Pen See Rx Instructions .ROUTE .COMPLEX PRN (Reason: Hyperglycemia) Rx Instructions: Inject per sliding scale, 200-250= 2units, 251-300= 3units, 301-350= 4units, 351-400= 5units every 4 hours PRN for hyperglycemia aspirin [Aspir-81] 81 mg Tablet,Delayed Release (Dr/Ec) 81 mg PO DAILY Multi For Her 18 mg iron-600 mcg-40 mcg Capsule 1 cap PO DAILY topiramate 100 mg tablet 200 mg PO BID Discharge Orders: Discharge ED (Routine); Ordered 09/26/24 Ordered By: Alexia Goss Referrals: Candace Rogers MD [Primary Care Provider] - Discharge Diet: Usual diet Discharge Activity: Increase activity as tolerated and Limit activity as instructed Patient Instructions: Urinary Tract Infection in Older Adults (ED), Opioid Safety, Pain Management Activity Restrictions/Additional Instructions: I spoke with Dr. Werner's partner Dr. Sal. He is concerned you may be having spells related to the injury to your brain and recommends you take Keppra. He also recommends that you follow-up with Dr. Werner very soon. The phone number for Dr. Werner is [phone]. He is at [facility] neurosurgery. This is at [address] [place] [id number]. Please contact the clinic for follow-up as soon as possible. Thank you for choosing [facility] for your healthcare needs today. Please realize this is an emergency room and that we are providing you with a medical screening exam and this may not be complete and all inclusive of all the testing and or work up that you may need to determine your ailment or severity of your illness. You have been screened and evaluated and felt safe for discharge. Health conditions do change or evolve sometimes and as such it is important that you follow up with your Primary Doctor to be re checked, 3-5 days is a general good time frame for follow up. 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
[2024-09-26] MEDS: levETIRAcetam 1,000 MG/100 ML PREMIX 400 MG IV (15:55)
[2024-09-26] MEDS: acetaminophen 1,000 MG/100 ML PIGGYBACK 400 MG IV (15:58)
[2024-09-26 16:04] LABS: Basophils # 0.1 10^3/uL (0.0-0.1); Basophils % 0.6 %; Eosinophils # 0.4 10^3/uL (0.0-0.8); Eosinophils % 3.3 %; Hematocrit 43.5 % (36-47); Lymphocytes # 2.9 10^3/uL (0.8-4.8); Lymphocytes % 25.7 %; Mean Corpuscular HGB Conc 32.2 g/dL (30-55); Mean Corpuscular Hemoglobin 27.8 pg (27-33); Mean Corpuscular Volume 86.5 fl (85-98); Mean Platelet Volume 10.3 fL (7.4-10.4); Monocytes # 0.9 10^3/uL (0.2-0.9); Monocytes % 8.4 %; Neutrophils % 61.5 %; Nucleated Red Blood Cells % 0 %; Platelet Count 304 10^3/cmm (157-399); Red Blood Count 5.03 10^6/uL (3.85-5.65); Red Cell Distribution Width 12.3 % (12.1-15.1); White Blood Count 11.07 10^3/uL (3.29-11.43)
[2024-09-26 16:26] LABS: INR 0.92 (0.8-1.2)
[2024-09-26 16:30] LABS: Alanine Aminotransferase 7 U/L (0-33); Albumin Level 3.7 g/dL (3.5-5.2); Alkaline Phosphatase 52 U/L (35-105); Aspartate Amino Transferase 9 U/L (0-32); Blood Urea Nitrogen 19 mg/dL (8-23); Calcium 9.1 mg/dL (8.5-10.5); Carbon Dioxide 28 mmol/L (22-29); Chloride 101 mmol/L (98-107); Globulin 3.1 g/dL (1.3-4.6); Glucose 166 mg/dL (65-115); Osmolality Calculated 298 mOsm/kg (285-295); Sodium 141 mmol/L (136-145); Total Bilirubin 0.3 mg/dL (0.15-1.2); Total Protein 6.8 g/dL (6.6-8.7)
[2024-09-26 16:31] LABS: Lactic Sepsis W/Reflex 1.4 mmol/L (0.5-2.2)
[2024-09-26 16:42] VITALS: BP 150/79; PULSE 53; O2SAT 98
[2024-09-26 17:30] LABS: Bilirubin Urine Negative (Negative); Blood Urine Trace (Negative); Glucose Urine UA Negative (Normal); Ketones Urine Negative (Negative); Leukocyte Esterase Urine 2+ (Negative); Nitrate Urine Negative (Negative); Protein Urine Trace (Negative); Urine Appearance Cloudy (CLEAR); Urine Color Yellow (Yellow); pH Urine 5.5 (5-7)
[2024-09-26 17:37] LABS: Bacteria Urine None Seen /hpf; Hyaline Casts Urine 11.16 /lpf; RBC Urine 0-2 /hpf (0-2); WBC Urine >100 /hpf (0-5)
[2024-09-26 17:38] LABS: Influenza A NEGATIVE (Negative); Influenza B NEGATIVE (Negative); Respiratory Syncytial Virus Ce NEGATIVE (Negative); SARS-CoV-2 PCR NEGATIVE (Negative)
[2024-09-26 18:00] VITALS: BP 154/73; PULSE 54; O2SAT 96
[2024-09-26 18:10] LABS: Add Urine Culture? Yes; UA Slide Review UA Slide Review Perf
[2024-09-26] MEDS: sodium chloride 0.9% 500 ML 999 ML IV (18:28)
[2024-09-26] MEDS: cefTRIAXone 1,000 mg SDV 1000 MG IVP (18:29)
[2024-09-26 18:30] VITALS: BP 137/73; PULSE 61; O2SAT 98
--- NOTE | 2024-09-26 18:43 | PC.NURSE ---
THIS NURSE WAS CALLED INTO PT ROOM DUE TO PT DAUGHTER HAVING SOME QUESTIONS. THIS NURSE ASKED PT DAUGHTER WHAT QUESTIONS SHE HAD. PT DAUGHTER STATED SHE TOLD ME YOU GAVE HER TYLENOL. THIS NURSE VERBALIZED THAT IV TYLENOL WAS GIVEN. PT DAUGHTER STATED NO! NO! NO! SHE CANNOT HAVE TYLENOL WITH HER DEXCOM. LET ME TALK TO THE DOCTOR. THIS NURSE NOTIFIED DR. WILL THAT PT FAMILY WOULD LIKE TO SPEAK WITH HIM. DR. WILL AT BEDSIDE. WHEN DR. WILL ENTERED THE ROOM, PT DAUGHTER BECAME VERBALLY ESCALATED WITH DR. WILL STATING HE DID NOT DO WHAT HE WAS SUPPOSED TO DO. DR. WILL EDUCATED PT DAUGHTER ON WHAT WAS DONE FOR PT HERE AND HOW HE PLACED THE APPROPRIATE CONSULTS IN FOR THE PT. DR. WILL EDUCATED PT DAUGHTER ON ALL THE INTERVENTIONS HE DID AND HOW PT IS SUPPOSED TO FOLLOW UP. PT DAUGHTER STILL UPSET WITH THE TYLENOL BEING GIVEN. DR WILL EDUCATED PT DAUGHTER THAT IF SHE WAS CONCERNED ABOUT PT BLOOD SUGARS, SHE CAN CHECK SUGARS THROUGH THE NIGHT. PT DAUGHTER VERBALIZED UNDERSTANDING.
[2024-09-26 19:24] VITALS: BP 143/79; PULSE 54; O2SAT 98
== END 2024-09-26 19:27 | disposition home or self-care (01) ==
PROVIDERS: Emergency Provider Emergency Medicine; PCP Family Medicine
DX: S06.5X0A Traumatic subdural hemorrhage without loss of consciousness, initial encounter (principal); N39.0 Urinary tract infection, site not specified; R51.9 Headache, unspecified; Z79.02 Long term (current) use of antithrombotics/antiplatelets; Z79.4 Long term (current) use of insulin; Z79.82 Long term (current) use of aspirin; Z11.52 Encounter for screening for COVID-19; E11.40 Type 2 diabetes mellitus with diabetic neuropathy, unspecified; E11.22 Type 2 diabetes mellitus with diabetic chronic kidney disease; I12.9 Hypertensive chronic kidney disease with stage 1 through stage 4 chronic kidney disease, or unspecified chronic kidney disease; N18.9 Chronic kidney disease, unspecified; I25.10 Atherosclerotic heart disease of native coronary artery without angina pectoris; X58.XXXA Exposure to other specified factors, initial encounter
CPT/HCPCS: 36415; 36416; 70450; 71045; 80053; 81001; 82962; 83605; 85025; 85610; 85730; 87040; 87086; 87637; 93005; 96361; 96374; 96375; 99285; J0131; J0696; J1953; J7040

== ENCOUNTER → 2024-11-25 11:36 | Outpatient (BNVA) | payer MEDICARE, SELFPAY | PROVIDERS: PCP Family Medicine; Visit Provider Internal Medicine | DX: E11.69 Type 2 diabetes mellitus with other specified complication (principal); E78.2 Mixed hyperlipidemia; I25.10 Atherosclerotic heart disease of native coronary artery without angina pectoris | CPT/HCPCS: 99214 ==

== ENCOUNTER → 2024-11-28 13:18 | Outpatient (BNVA) | payer MEDICARE, MEDICAID, SELFPAY | PROVIDERS: PCP Family Medicine; Visit Provider Podiatrist Foot & Ankle Surgery | DX: E11.40 Type 2 diabetes mellitus with diabetic neuropathy, unspecified (principal); L60.3 Nail dystrophy; L84 Corns and callosities; Q66.71 Congenital pes cavus, right foot; Q66.72 Congenital pes cavus, left foot; L90.9 Atrophic disorder of skin, unspecified; Z79.4 Long term (current) use of insulin | CPT/HCPCS: 11056; 11721; 99204 ==

== ENCOUNTER 2024-12-25 12:36 | Emergency (ER) | payer MEDICARE, MEDICAID, SELFPAY ==
[2024-12-25 12:37] VITALS: BP 152/75; PULSE 70; RESP 16; TEMP 36.2; O2SAT 98; BMI 38.0
--- NOTE | 2024-12-25 12:56 | XRR_ITS ---
PROCEDURE INFORMATION: Exam: XR Chest Exam date and time: 12/25/2024 1:34 PM Age: 79 years old Clinical indication: Pain; Chest pressure; Additional info: Chest pain TECHNIQUE: Imaging protocol: Radiologic exam of the chest. Views: 1 view. COMPARISON: CR XR chest 1V portable [id number] 09/26/2024 3:18 PM FINDINGS: Lungs: Low lung volumes with associated bibasilar compression/atelectasis. No focal consolidation. Pleural spaces: No large pleural effusion. No pneumothorax. Heart/Mediastinum: The cardiomediastinal silhouette is stable. Bones/joints: Median sternotomy wires in place. Cervical fusion hardware is partially visualized. Screw anchor noted in the right humeral head. Degenerative changes of the bilateral shoulders. No acute osseous abnormality. XR/XR chest 1V portable [id number] IMPRESSION: No acute cardiopulmonary abnormality.
[2024-12-25 13:22] LABS: Basophils # 0.1 10^3/uL (0.0-0.1); Basophils % 1.2 %; Eosinophils # 0.4 10^3/uL (0.0-0.8); Eosinophils % 4.6 %; Hematocrit 43.6 % (36-47); Lymphocytes # 2.8 10^3/uL (0.8-4.8); Lymphocytes % 34.2 %; Mean Corpuscular HGB Conc 31.4 g/dL (30-55); Mean Corpuscular Hemoglobin 27.6 pg (27-33); Mean Corpuscular Volume 87.9 fl (85-98); Mean Platelet Volume 10.6 fL (7.4-10.4); Monocytes # 0.5 10^3/uL (0.2-0.9); Monocytes % 6.1 %; Neutrophils # 4.31 10^3/uL (1.8-7.7); Neutrophils % 53.5 %; Nucleated Red Blood Cells % 0 %; Platelet Count 160 10^3/cmm (157-399); Red Blood Count 4.96 10^6/uL (3.85-5.65); Red Cell Distribution Width 12.7 % (12.1-15.1); White Blood Count 8.05 10^3/uL (3.29-11.43)
[2024-12-25 13:51] LABS: Troponin(5th) Baseline 22 ng/L (0-10)
--- NOTE | 2024-12-25 14:18 | W.ED.CHESTPA ---
HPI - Chest Pain General: Chief Complaint: Chest Pain Stated Complaint: chest pain Time Seen by Provider: 12/25/24 12:56 History of Present Illness: Jaylene Montiel presents to the emergency department with chest pain and jaw pain that started today around 10 AM. The patient reports pain across her chest and in the right side of her jaw. She acknowledges experiencing a little shortness of breath associated with the pain. The patient also mentions constipation as a recent issue, stating she finally had a bowel movement last night after not having one for a couple of weeks. She reports some discomfort with urination, which she attributes to improper washing of the genital area for the past 3-4 weeks due to lack of assistance. The patient mentions having diabetes as well. The patient denies experiencing nausea, vomiting, or diarrhea. She reports feeling hungry but understands she cannot eat until her condition is evaluated further. Related Data Home Medications ?Medication ?Instructions ?Recorded ?Confirmed topiramate 100 mg tablet 200 mg PO BID 10/25/23 12/25/24 aspirin 81 mg tablet,delayed 81 mg PO DAILY 09/12/24 12/25/24 release cholecalciferol (vitamin D3) 125 125 mcg PO DAILY 12/25/24 12/25/24 mcg (5,000 unit) tablet (Vitamin D3) insulin glargine 100 unit/mL (3 12 unit SUBCUT DAILY 12/25/24 12/25/24 mL) subcutaneous pen (Lantus Solostar U-100 Insulin) insulin lispro 100 unit/mL 12 unit SUBCUT TID 12/25/24 12/25/24 subcutaneous pen (Humalog KwikPen (U-100) Insulin) meclizine 25 mg tablet 25 mg PO BID PRN Dizziness Or 12/25/24 12/25/24 Vertigo mmbhddoxtjoe-ejrdhdvu-yipqrff-folic 1 tab PO DAILY 12/25/24 12/25/24 acid 400 mcg-vit K1 20 mcg tablet niacin 500 mg tablet 500 mg PO DAILY 12/25/24 12/25/24 omega-3 acid ethyl esters 1 gram 1 cap PO BID 12/25/24 12/25/24 capsule pravastatin 40 mg tablet 40 mg PO DAILY 12/25/24 12/25/24 Previous Rx's ?Medication ?Instructions ?Recorded bumetanide 1 mg tablet 1 mg PO DAILY #30 tabs 08/02/24 buspirone 30 mg tablet 30 mg PO BID #60 tabs 08/02/24 clopidogrel 75 mg tablet 75 mg PO DAILY #30 tabs 08/02/24 fluticasone propionate 50 2 spray intranasal DAILY #16 grams 08/02/24 mcg/actuation nasal spray,suspension meloxicam 15 mg tablet 15 mg PO DAILY #30 tabs 08/02/24 metoprolol tartrate 25 mg tablet 12.5 mg (1/2 x 25 mg) PO BID #30 08/02/24 tabs pantoprazole 40 mg tablet,delayed 40 mg PO BID #60 tabs 08/02/24 release potassium chloride 20 mEq 20 meq PO DAILY #30 tabs 08/02/24 tablet,extended release rosuvastatin 20 mg tablet 20 mg PO DAILY #30 tabs 08/02/24 levothyroxine 25 mcg tablet 25 mcg PO 0600 #90 tabs 08/24/24 trazodone 300 mg tablet 300 mg PO BEDTIME #30 tabs 08/29/24 ondansetron 8 mg disintegrating 8 mg PO Q8H PRN nausea and 09/06/24 tablet vomiting 5 days #15 tabs levetiracetam 750 mg tablet 750 mg PO BID #60 tabs 09/26/24 (Keppra) Auto-titrating CPAP 6-16cm #1 ea 10/07/24 blood sugar diagnostic (Accu-Chek #100 ea 10/17/24 Guide test strips) blood-glucose meter (Accu-Chek #1 ea 10/17/24 Guide Glucose Meter) blood-glucose sensor (DexBloomThat G7 #3 ea 10/24/24 Sensor device) insulin aspart U-100 100 unit/mL See Rx Instructions .Route 11/01/24 (3 mL) subcutaneous pen .COMPLEX PRN Hyperglycemia #15 mL Diabetic shoes with 3 set insoles #1 ea 11/28/24 Allergies Allergy/AdvReac Type Severity Reaction Status Date / Time Influenza Virus Vaccines Allergy ALGY-Swell Verified 11/28/24 13:45 Lip/Tongue/Throat lisinopril Allergy ADR-Cough Verified 11/28/24 13:45 Sulfa (Sulfonamide Allergy ALGY-Anaphy Verified 11/28/24 13:45 Antibiotics) laxis Review of Systems General: Reports: 10 or more systems reviewed and unremarkable except in HPI and below PFSH ED PFSH: Medical History Obstructive sleep apnea sleep study done 09.19.24 Mild YUDELKA; nocturnal hypoxemia; auto titrating CPAP 6-16cm ordered Psychiatric care Obesity with body mass index (BMI) of 30.0 to 39.9 Chronic kidney disease (CKD) Hyperlipidemia Hx of pulmonary embolus during had PE last 2 pregnancies Post-surgical hypothyroidism Congestive heart failure Dorsalgia Obesity Tremor, unspecified Type 2 diabetes mellitus with diabetic neuropathy, unspecified Diabetic neuropathy Hypertension Diabetes Coronary artery disease Decubitus ulcer of sacral region, stage 4 Surgical History Hx of thymectomy upper sternotomy Hx of cardiac cath reports no stents but has CAD Hx of vascular surgery R groin; she says it is in the vein Hx of appendectomy Hx of cholecystectomy Hx of thyroidectomy L thyroidectomy done for goiter; no cancer History of bunionectomy of both great toes History of right shoulder replacement History of bilateral knee arthroplasty History of total hysterectomy with bilateral salpingo-oophorectomy (BSO) no cancer Hx of section X 1 Hx of non-cataract eye surgery bilateral; for glaucoma Hx of cataract surgery OU H/O neck surgery Family History Father Family history of premature coronary artery disease CAD (coronary artery disease) Mother Diabetes mellitus, type 2 Leukemia Sister Breast cancer Social History Smoking and tobacco/nicotine status: former use of tobacco/nicotine (Quit smoking in 1971) Alcohol intake: former Former alcohol use details: rare and in 1970s Substance/Drug Use: never Household members: none Housing: House Marital status: / Number of children: 4 Highest education level completed: Master's Degree Current occupational status: 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 Physical Exam Const: COMMON NORMALS: no acute distress, patient oriented x3, healthy appearing, alert and well nourished HENMT: COMMON NORMALS: normocephalic HEAD & SCALP: normocephalic Eye: COMMON NORMALS: EOMs intact bilaterally Neck/C-Spine: COMMON NORMALS: full ROM and supple Resp: COMMON NORMALS: normal respiratory effort, No retractions and clear to auscultation bilaterally AUSCULTATION: clear to auscultation bilaterally Cardio: COMMON NORMALS: regular rate, regular rhythm, No gallops present (Cardio) and No murmurs present (Cardio) RATE: regular rate RHYTHM: regular rhythm GI: COMMON NORMALS: Soft to palpation and non-tender PALPATION: Yes Soft to palpation Extremity: GENERAL: Yes normal exam except as noted Neuro: COMMON NORMALS: patient oriented x3 SENSORIUM/ORIENTATION: Yes alert Skin: COMMON NORMALS: no rashes or lesions noted GENERAL SKIN EXAM: no rashes or lesions noted Course Vital Signs: Vital signs: Vital Signs Temperature 97.2 F L 12/25/24 12:37 Pulse Rate 58 L 12/25/24 18:13 Respiratory Rate 16 12/25/24 12:37 Blood Pressure 148/73 12/25/24 18:13 Pulse Oximetry 90 12/25/24 18:13 Oxygen Delivery Me thod Room Air 12/25/24 18:13 MDM - Chest Pain Medical Decision Making 79-year-old female presents to the emergency department for evaluation of chest pain and right-sided jaw pain. Her initial set of vital signs demonstrated a slightly elevated blood pressure and a slightly low temperature. Laboratory evaluation was only significant for initial elevated troponin and elevated platelet level. Her second troponin went up by 0.3 and her 6-hour troponin went down by 1.25. After the patient had been on the floor for a few hours she asked if she could eat because she was worried that her blood sugar was very low at 116. A idxmi-wa-nmop bedside glucose confirmed the 116 that she had on her CGM. I counseled the patient that a glucose of 116 is not considered low and that she did not need to eat or need IV glucose at this time. She became very upset and said that we needed to contact her daughter. Nursing contacted the daughter to let her know of the abnormal blood sugar. After the patient's 6-hour observation period with EKGs and troponins the patient was told that her chest pain was not cardiac in nature and was likely muscle skeletal. She and her daughter became very upset and started questioning and yelling at nursing staff. Several attempts by myself and nursing staff were made to educate the patient and her daughter. They were resistant to the attempts. Security was required to escort the patient and her daughter out of the emergency department. Lab Data 12/25/24 13:16 12/25/24 13:16 Radiology Impressions Chest X-Ray 12/25/24 12:56 IMPRESSION: No acute cardiopulmonary abnormality. Laboratory Results WBC 8.05 10^3/uL (3.29-11.43) 12/25/24 13:16 RBC 4.96 10^6/uL (3.85-5.65) 12/25/24 13:16 Hgb 13.70 g/dL (11.27-16.99) 12/25/24 13:16 Hct 43.6 % (36-47) 12/25/24 13:16 MCV 87.9 fl (85-98) 12/25/24 13:16 MCH 27.6 pg (27-33) 12/25/24 13:16 MCHC 31.4 g/dL (30-55) 12/25/24 13:16 RDW 12.7 % (12.1-15.1) 12/25/24 13:16 Plt Count 160 10^3/cmm (157-399) 12/25/24 13:16 MPV 10.6 fL (7.4-10.4) H 12/25/24 13:16 Neut % (Auto) 53.5 % 12/25/24 13:16 Lymph % (Auto) 34.2 % 12/25/24 13:16 Wells % (Auto) 6.1 % 12/25/24 13:16 Eos % (Auto) 4.6 % 12/25/24 13:16 Baso % (Auto) 1.2 % 12/25/24 13:16 Neut # (Auto) 4.31 10^3/uL (1.8-7.7) 12/25/24 13:16 Lymph # (Auto) 2.8 10^3/uL (0.8-4.8) 12/25/24 13:16 Wells # (Auto) 0.5 10^3/uL (0.2-0.9) 12/25/24 13:16 Eos # (Auto) 0.4 10^3/uL (0.0-0.8) 12/25/24 13:16 Baso # (Auto) 0.1 10^3/uL (0.0-0.1) 12/25/24 13:16 Nucleated RBC % (auto) 0 % 12/25/24 13:16 Nucleated RBCs # 0.0 /100WBC 12/25/24 13:16 Sodium 143 mmol/L (136-145) 12/25/24 13:16 Potassium 4.5 mmol/L (3.5-5.1) 12/25/24 13:16 Chloride 106 mmol/L (98-107) 12/25/24 13:16 Carbon Dioxide 26 mmol/L (22-29) 12/25/24 13:16 Anion Gap 15.5 (5-19) 12/25/24 13:16 BUN 19 mg/dL (8-23) 12/25/24 13:16 Creatinine 0.7 mg/dL (0.5-0.9) 12/25/24 13:16 GFR Calculation Not Reportable 12/25/24 13:16 Glucose 157 mg/dL (65-115) H 12/25/24 13:16 POC Glucose 114 mg/dL (70-110) H 12/25/24 18:09 Calculated Osmolality 302 mOsm/kg (285-295) H 12/25/24 13:16 Calcium 9.1 mg/dL (8.5-10.5) 12/25/24 13:16 Troponin T Baseline 22 ng/L (0-10) H 12/25/24 13:16 Troponin T 120 Minute 22.34 ng/L (0-10) H 12/25/24 15:23 Delta Troponin T 0.34 ABS# (0-10) 12/25/24 15:23 Troponin T Hi Sens 6Hr 20.75 ng/L (0-10) H 12/25/24 19:17 Troponin T Hi Sens 6Hr Delta -1.25 ng/L (0-12) L 12/25/24 19:17 NT-Pro-B Natriuret Pep 288 pg/mL (0-450) 12/25/24 13:16 All radiology interpretation(s) finalized by discharge Discharge Plan Discharge Patient Disposition: Home Clinical Impression: Hyperosmolality Chest pain Qualifiers: Chest pain type: other chest pain Qualified Code(s): R07.89 - Other chest pain Condition: Stable Prescriptions: No Action bumetanide 1 mg tablet 1 mg PO DAILY Qty: 30 3RF buspirone 30 mg tablet 30 mg PO BID Qty: 60 3RF metoprolol tartrate 25 mg tablet 12.5 mg PO BID Qty: 30 3RF clopidogrel 75 mg tablet 75 mg PO DAILY Qty: 30 3RF fluticasone propionate 50 mcg/actuation spray,suspension 2 spray intranasal DAILY Qty: 16 3RF meloxicam 15 mg tablet 15 mg PO DAILY Qty: 30 3RF pantoprazole 40 mg tablet,delayed release (DR/EC) 40 mg PO BID Qty: 60 3RF potassium chloride 20 mEq tablet extended release 20 meq PO DAILY Qty: 30 3RF rosuvastatin 20 mg tablet 20 mg PO DAILY Qty: 30 3RF (DME) Diabetic shoes with 3 set insoles See Rx Instructions .Route .MEDSUPPLY Qty: 1 0RF Rx Instructions: As directed ondansetron 8 mg tablet,disintegrating 8 mg PO Q8H PRN (Reason: nausea and vomiting) 5 Days Qty: 15 0RF levothyroxine 25 mcg tablet 25 mcg PO 0600 Qty: 90 1RF trazodone 300 mg tablet 300 mg PO BEDTIME Qty: 30 1RF (DME) Auto-titrating CPAP 6-16cm See Rx Instructions .Route .MEDSUPPLY Qty: 1 0RF Rx Instructions: and needs CPAP supplies/mask too (DME) blood-glucose meter [Accu-Chek Guide Glucose Meter] Misc See Rx Instructions .Route Qty: 1 0RF Rx Instructions: As directed (DME) Accu-Chek Guide test strips Strip See Rx Instructions .Route Qty: 100 0RF Rx Instructions: As directed (DME) Dexcom G7 Sensor Device See Rx Instructions .Route Qty: 3 0RF Rx Instructions: As directed insulin aspart U-100 100 unit/mL (3 mL) insulin pen See Rx Instructions .ROUTE .COMPLEX PRN (Reason: Hyperglycemia) Qty: 15 0RF Rx Instructions: Inject per sliding scale, 200-250= 2units, 251-300= 3units, 301-350= 4units, 351-400= 5units every 4 hours PRN for hyperglycemia aspirin [Aspir-81] 81 mg Tablet,Delayed Release (Dr/Ec) 81 mg PO DAILY levetiracetam [Keppra] 750 mg tablet 750 mg PO BID Qty: 60 0RF meclizine 25 mg tablet 25 mg PO BID PRN (Reason: Dizziness Or Vertigo) niacin 500 mg Tablet 500 mg PO DAILY insulin lispro [Humalog KwikPen Insulin] 100 unit/mL insulin pen 12 unit SUBCUT TID omega-3 acid ethyl esters 1 gram capsule 1 cap PO BID insulin glargine [Lantus Solostar U-100 Insulin] 100 unit/mL (3 mL) insulin pen 12 unit SUBCUT DAILY cholecalciferol (vitamin D3) [Vitamin D3] 125 mcg (5,000 unit) Tablet 125 mcg PO DAILY One-A-Day Women's 50 Plus 400-20 mcg Tablet 1 tab PO DAILY pravastatin 40 mg tablet 40 mg PO DAILY topiramate 100 mg tablet 200 mg PO BID Discharge Orders: Discharge ED (Routine); Ordered 12/25/24 Ordered By: Mark Law Referrals: Candace Rogers MD [Primary Care Provider, [facility]] Discharge Diet: Advance as tolerated Discharge Activity: Resume usual activity Patient Instructions: Opioid Safety, Pain Management Activity Restrictions/Additional Instructions: Please return to the emergency department with any new or worsening symptoms. Your blood work did suggest that she may be dehydrated. Increase your oral fluid intake. Follow-up with your primary care physician with any persistent symptoms. Print Language: Slovenian Coding Level of Care Code ED Senior Ux Developer for Peri Culp
[2024-12-25 14:23] LABS: Anion Gap 15.5 (5-19); Blood Urea Nitrogen 19 mg/dL (8-23); Calcium 9.1 mg/dL (8.5-10.5); Carbon Dioxide 26 mmol/L (22-29); Chloride 106 mmol/L (98-107); Creatinine Clr Calc Pharmacy 62.0312; Glucose 157 mg/dL (65-115); Osmolality Calculated 302 mOsm/kg (285-295); Potassium 4.5 mmol/L (3.5-5.1); Sodium 143 mmol/L (136-145)
[2024-12-25 14:31] LABS: NT Pro B Type Natriuretic Pept 288 pg/mL (0-450)
--- NOTE | 2024-12-25 14:56 | ECG_ITS ---
[email or web address]: 2024-[facility]25 Pat Name: Jaylene Montiel Department: Room: Gender: Female Remittance Clerk: : 1945 Requested By: Mark Law Order Number: [id number] Mary MD: Kristopher Neri M.D. Measurements Intervals [place] Rate: 54 P: 50 AL: 186 QRS: -20 QRSD: 94 T: 56 QT: 447 QTc: 424 Interpretive Statements SINUS BRADYCARDIA LOW QRS VOLTAGE IN PRECORDIAL LEADS [QRS DEFLECTION < 1.0 mV IN CHEST LEADS] POSSIBLE ANTERIOR MYOCARDIAL INFARCTION , PROBABLY OLD [30 ms Q WAVE IN V3/V4, OR R < 0.2 mV IN V4] Compared to ECG 09/26/2024 16:06:53 No significant changes Electronically Signed On 12-25-2024 19:58:42 CDT by Kristopher Neri M.D. [email or web address] [id number]
[2024-12-25] MEDS: nitroglycerin 0.4 mg sublingual Tablet SUBLINGUAL (15:03)
[2024-12-25 15:04] VITALS: BP 146/79; PULSE 62; O2SAT 98
--- NOTE | 2024-12-25 15:11 | PC.PHAR ---
Patient had all bottles with her . Patient is taking Pravastatin 40mg and Rosuvastatin 20mg.
[2024-12-25 15:50] LABS: Troponin 5 2HR 22.34 ng/L (0-10); Troponin 5 2HR Delta 0.34 ABS# (0-10)
[2024-12-25 18:12] LABS: Glucose Point of Care 114 mg/dL (70-110)
[2024-12-25 18:13] VITALS: BP 148/73; PULSE 58; O2SAT 90
--- NOTE | 2024-12-25 18:56 | ECG_ITS ---
[facility] Date: 2024-12-25 Pat Name: Jaylene Montiel Department: Room: Gender: Female Statistical Typist: : 1945 Requested By: Mark Rodriguez Order Number: [id number] Mary MD: Jerry Wells M.D. Measurements Intervals [place] Rate: 67 P: 58 RI: 174 QRS: -13 QRSD: 85 T: 73 QT: 397 QTc: 420 Interpretive Statements SINUS RHYTHM LOW QRS VOLTAGE IN PRECORDIAL LEADS [QRS DEFLECTION < 1.0 mV IN CHEST LEADS] Compared to ECG 09/26/2024 16:06:53 Sinus bradycardia no longer present Myocardial infarct finding no longer present Electronically Signed On 12-27-2024 17:55:24 CDT by Jerry Wells M.D. [email or web address] [id number]
[2024-12-25 19:51] LABS: Troponin 5 6HR 20.75 ng/L (0-10)
[2024-12-25 20:01] LABS: Troponin 5 6HR Delta -1.25 ng/L (0-12)
== END 2024-12-25 21:05 | disposition home or self-care (01) ==
PROVIDERS: Emergency Provider General Practice; PCP Family Medicine
DX: E78.5 Hyperlipidemia, unspecified (principal); E11.22 Type 2 diabetes mellitus with diabetic chronic kidney disease; I13.0 Hypertensive heart and chronic kidney disease with heart failure and stage 1 through stage 4 chronic kidney disease, or unspecified chronic kidney disease; N18.9 Chronic kidney disease, unspecified; I50.9 Heart failure, unspecified; I25.10 Atherosclerotic heart disease of native coronary artery without angina pectoris; Z87.891 Personal history of nicotine dependence; R07.89 Other chest pain; Z79.4 Long term (current) use of insulin; Z79.82 Long term (current) use of aspirin; R00.1 Bradycardia, unspecified
CPT/HCPCS: 36415; 36416; 71045; 80048; 82962; 83880; 84484; 85025; 93005; 99285; J9999

== ENCOUNTER → 2025-01-10 08:12 | Outpatient (BNVA) | payer MEDICARE, MEDICAID, SELFPAY | PROVIDERS: PCP Family Medicine; Visit Provider Nurse Practitioner Family | DX: I13.0 Hypertensive heart and chronic kidney disease with heart failure and stage 1 through stage 4 chronic kidney disease, or unspecified chronic kidney disease (principal); E11.22 Type 2 diabetes mellitus with diabetic chronic kidney disease; N18.9 Chronic kidney disease, unspecified; I50.9 Heart failure, unspecified; Z79.4 Long term (current) use of insulin; E78.2 Mixed hyperlipidemia; Z79.02 Long term (current) use of antithrombotics/antiplatelets; Z79.82 Long term (current) use of aspirin | CPT/HCPCS: 99214 ==

== ENCOUNTER 2025-01-12 08:42 | Outpatient (CLI) | payer OTHER, MEDICAID, SELFPAY ==
[2025-01-12 10:03] LABS: Alanine Aminotransferase 13 U/L (0-33); Albumin Level 4.2 g/dL (3.5-5.2); Alkaline Phosphatase 43 U/L (35-105); Anion Gap 16.3 (5-19); Aspartate Amino Transferase 12 U/L (0-32); Blood Urea Nitrogen 24 mg/dL (8-23); Calcium 9.3 mg/dL (8.5-10.5); Carbon Dioxide 27 mmol/L (22-29); Chloride 104 mmol/L (98-107); Cholesterol 177 mg/dL (0-200); Globulin 3.1 g/dL (1.3-4.6); Glucose 118 mg/dL (65-115); HDL Cholesterol 52 mg/dL (60-100); LDL Cholesterol Calculated 103 mg/dL (50-129); LDL HDL Ratio 1.98 RATIO (0.00-3.22); Osmolality Calculated 301 mOsm/kg (285-295); Potassium 4.3 mmol/L (3.5-5.1); Sodium 143 mmol/L (136-145); Total Bilirubin 0.3 mg/dL (0.15-1.2); Total Protein 7.3 g/dL (6.6-8.7); Triglycerides 112 mg/dL (0-150)
[2025-01-12 10:23] LABS: Estmated Average Glucose 171; Hemoglobin A1C 7.6 % (4.0-6.0)
[2025-01-12 18:24] LABS: Creatinine Urine, Random 11 mg/dL (28-217); Microalbumin Random Urine 2 ug/dL (0-20)
[2025-01-12 18:30] LABS: Microalbum Creatinine Ratio Ur 182 mg/dL (0-20)
== END 2025-01-12 08:43 | disposition home or self-care (01) ==
LOC: LAB 08:44
PROVIDERS: PCP Family Medicine; Visit Provider Internal Medicine
DX: E78.2 Mixed hyperlipidemia (principal); I25.10 Atherosclerotic heart disease of native coronary artery without angina pectoris; E11.69 Type 2 diabetes mellitus with other specified complication
CPT/HCPCS: 36415; 80053; 80061; 82044; 83036

== ENCOUNTER 2025-01-24 08:22 | Outpatient (CLI) | payer OTHER, MEDICAID, SELFPAY ==
[2025-01-24 09:56] LABS: Glucose Fasting 138 mg/dL (74-106)
[2025-01-25 07:04] LABS: C-Peptide 3.73 ng/mL (0.80-3.85)
== END 2025-01-24 08:23 | disposition home or self-care (01) ==
LOC: LAB 08:24
PROVIDERS: PCP Family Medicine; Visit Provider Internal Medicine
DX: E78.2 Mixed hyperlipidemia (principal); E11.40 Type 2 diabetes mellitus with diabetic neuropathy, unspecified; E11.69 Type 2 diabetes mellitus with other specified complication; L89.153 Pressure ulcer of sacral region, stage 3
CPT/HCPCS: 36415; 82947; 84681; 86337; 86341

== ENCOUNTER → 2025-03-02 11:26 | Outpatient (BNVA) | payer OTHER, MEDICAID, SELFPAY | PROVIDERS: PCP Family Medicine; Visit Provider Internal Medicine | DX: E11.69 Type 2 diabetes mellitus with other specified complication (principal); E78.2 Mixed hyperlipidemia | CPT/HCPCS: 99214 ==

== ENCOUNTER 2025-03-08 22:36 | Emergency (ER) | payer OTHER, MEDICAID, SELFPAY ==
--- NOTE | 2025-03-08 22:38 | XRR_ITS ---
PROCEDURE INFORMATION: Exam: XR Chest Exam date and time: 03/08/2025 10:41 PM Age: 79 years old Clinical indication: Pain; Chest pressure; Additional info: Cheast pain TECHNIQUE: Imaging protocol: Radiologic exam of the chest. Views: 1 view. COMPARISON: CR XR chest 1V portable [id number] 12/25/2024 1:34 PM FINDINGS: Lungs: Unremarkable. No consolidation. Pleural spaces: Unremarkable. No pleural effusion. No pneumothorax. Heart/Mediastinum: Unremarkable. No cardiomegaly. Bones/joints: Prior median sternotomy. No acute osseous finding. XR/XR chest 1V portable [id number] IMPRESSION: No acute findings.
--- NOTE | 2025-03-08 22:38 | ECG_ITS ---
[facility] Date: 2025-03-08 Pat Name: Jaylene Montiel Department: Room: Gender: Female Milk Handler: : 1945 Requested By: Alexia Ramirez Order Number: [id number] Mary MD: Chandan Walters M.D. Measurements Intervals [place] Rate: 62 P: 29 CA: 166 QRS: 1 QRSD: 79 T: 52 QT: 413 QTc: 420 Interpretive Statements SINUS RHYTHM LOW QRS VOLTAGE IN PRECORDIAL LEADS [QRS DEFLECTION < 1.0 mV IN CHEST LEADS] POSSIBLE ANTERIOR MYOCARDIAL INFARCTION , PROBABLY OLD [30 ms Q WAVE IN V3/V4, OR R < 0.2 mV IN V4] Compared to ECG 12/25/2024 16:59:42 Sinus bradycardia no longer present Myocardial infarct finding still present Electronically Signed On 03-09-2025 10:23:00 CDT by Chandan Walters M.D. [id number] [id number]
[2025-03-08 22:45] VITALS: BP 119/72; PULSE 61; RESP 18; TEMP 36.6; O2SAT 95
[2025-03-08 22:59] LABS: Hematocrit 40.6 % (36-47); Hemoglobin 13.40 g/dL (11.27-16.99); Mean Corpuscular HGB Conc 33.0 g/dL (30-55); Mean Corpuscular Hemoglobin 27.6 pg (27-33); Mean Corpuscular Volume 83.7 fl (85-98); Nucleated Red Blood Cells % 0 %; Platelet Count 179 10^3/cmm (157-399); Red Blood Count 4.85 10^6/uL (3.85-5.65); White Blood Count 8.56 10^3/uL (3.29-11.43)
[2025-03-08 23:16] LABS: Troponin(5th) Baseline 18 ng/L (0-10)
[2025-03-08 23:34] LABS: Alanine Aminotransferase 8 U/L (0-33); Albumin Level 3.9 g/dL (3.5-5.2); Alkaline Phosphatase 44 U/L (35-105); Anion Gap 15.8 (5-19); Aspartate Amino Transferase 9 U/L (0-32); Blood Urea Nitrogen 17 mg/dL (8-23); Calcium 9.2 mg/dL (8.5-10.5); Carbon Dioxide 25 mmol/L (22-29); Chloride 104 mmol/L (98-107); Creatinine Clr Calc Pharmacy 50.5545; Globulin 2.1 g/dL (1.3-4.6); Glucose 153 mg/dL (65-115); NT Pro B Type Natriuretic Pept 802 pg/mL (0-450); Osmolality Calculated 297 mOsm/kg (285-295); Potassium 3.8 mmol/L (3.5-5.1); Sodium 141 mmol/L (136-145); Total Protein 6.0 g/dL (6.6-8.7)
--- NOTE | 2025-03-09 00:11 | W.ED.CHESTPA ---
HPI - Chest Pain General: Chief Complaint: Chest Pain Stated Complaint: chest pain Time Seen by Provider: 03/08/25 23:37 History of Present Illness: 79-year-old female with a history of morbid obesity, obstructive sleep apnea, chronic kidney disease, type 2 diabetes mellitus, hypertension, coronary artery disease on Plavix who presents the emergency room with chest pain. She says pain started about 3 and half hours prior to arrival. Said she was in a hot car today and got chills and then the chest pain started. No cough. No fevers. No abdominal pain. No vomiting. Patient says she has never had stents. She says she is on Plavix for congestive heart failure. Related Data Home Medications ?Medication ?Instructions ?Recorded ?Confirmed topiramate 100 mg tablet 200 mg PO BID 10/25/23 03/01/25 aspirin 81 mg tablet,delayed 81 mg PO DAILY 09/12/24 03/01/25 release cholecalciferol (vitamin D3) 125 125 mcg PO DAILY 12/25/24 03/01/25 mcg (5,000 unit) tablet (Vitamin D3) insulin glargine 100 unit/mL (3 12 unit SUBCUT DAILY 12/25/24 03/01/25 mL) subcutaneous pen (Lantus Solostar U-100 Insulin) insulin lispro 100 unit/mL 12 unit SUBCUT TID 12/25/24 03/01/25 subcutaneous pen (Humalog KwikPen (U-100) Insulin) meclizine 25 mg tablet 25 mg PO BID PRN Dizziness Or 12/25/24 03/01/25 Vertigo pncmujogwbgs-eyuzqipc-alczinz-folic 1 tab PO DAILY 12/25/24 03/01/25 acid 400 mcg-vit K1 20 mcg tablet niacin 500 mg tablet 500 mg PO DAILY 12/25/24 03/01/25 omega-3 acid ethyl esters 1 gram 1 cap PO BID 12/25/24 03/01/25 capsule pravastatin 40 mg tablet mg PO 03/02/25 03/02/25 Previous Rx's ?Medication ?Instructions ?Recorded bumetanide 1 mg tablet 1 mg PO DAILY #30 tabs 08/02/24 buspirone 30 mg tablet 30 mg PO BID #60 tabs 08/02/24 clopidogrel 75 mg tablet 75 mg PO DAILY #30 tabs 08/02/24 fluticasone propionate 50 2 spray intranasal DAILY #16 grams 08/02/24 mcg/actuation nasal spray,suspension meloxicam 15 mg tablet 15 mg PO DAILY #30 tabs 08/02/24 metoprolol tartrate 25 mg tablet 12.5 mg (1/2 x 25 mg) PO BID #30 08/02/24 tabs pantoprazole 40 mg tablet,delayed 40 mg PO BID #60 tabs 08/02/24 release potassium chloride 20 mEq 20 meq PO DAILY #30 tabs 08/02/24 tablet,extended release levothyroxine 25 mcg tablet 25 mcg PO 0600 #90 tabs 08/24/24 trazodone 300 mg tablet 300 mg PO BEDTIME #30 tabs 08/29/24 ondansetron 8 mg disintegrating 8 mg PO Q8H PRN nausea and 09/06/24 tablet vomiting 5 days #15 tabs levetiracetam 750 mg tablet 750 mg PO BID #60 tabs 09/26/24 (Keppra) Auto-titrating CPAP 6-16cm #1 ea 10/07/24 blood sugar diagnostic (Accu-Chek #100 ea 10/17/24 Guide test strips) blood-glucose meter (Accu-Chek #1 ea 10/17/24 Guide Glucose Meter) blood-glucose sensor ([employer] G7 #3 ea 10/24/24 Sensor device) insulin aspart U-100 100 unit/mL See Rx Instructions .Route 11/01/24 (3 mL) subcutaneous pen .COMPLEX PRN Hyperglycemia #15 mL Diabetic shoes with 3 set insoles #1 ea 11/28/24 Allergies Allergy/AdvReac Type Severity Reaction Status Date / Time Influenza Virus Vaccines Allergy ALGY-Swell Verified 03/08/25 22:50 Lip/Tongue/Throat lisinopril Allergy ADR-Cough Verified 03/08/25 22:50 Sulfa (Sulfonamide Allergy ALGY-Anaphy Verified 03/08/25 22:50 Antibiotics) laxis Review of Systems Narrative: Constitutional symptoms: Negative except as documented in HPI. Skin symptoms: Negative except as documented in HPI. Eye symptoms: Negative except as documented in HPI. ENMT symptoms: Negative except as documented in HPI. Respiratory symptoms: Negative except as documented in HPI. Cardiovascular symptoms: Negative except as documented in HPI. Gastrointestinal symptoms: Negative except as documented in HPI. Genitourinary symptoms: Negative except as documented in HPI. Musculoskeletal symptoms: Negative except as documented in HPI. Neurologic symptoms: Negative except as documented in HPI. Psychiatric symptoms: Negative except as documented in HPI. Endocrine symptoms: Negative except as documented in HPI. PFSH ED PFSH: Medical History (Updated 03/09/25 @ 01:22 by Alexia Goss MD) Obstructive sleep apnea sleep study done 2.. Mild YUDELKA; nocturnal hypoxemia; auto titrating CPAP 6-16cm ordered Psychiatric care Obesity with body mass index (BMI) of 30.0 to 39.9 Chronic kidney disease (CKD) Hyperlipidemia Hx of pulmonary embolus during had PE last 2 pregnancies Post-surgical hypothyroidism Congestive heart failure Dorsalgia Obesity Tremor, unspecified Type 2 diabetes mellitus with diabetic neuropathy, unspecified Diabetic neuropathy Hypertension Diabetes Coronary artery disease Decubitus ulcer of sacral region, stage 4 Surgical History Hx of thymectomy upper sternotomy Hx of cardiac cath reports no stents but has CAD Hx of vascular surgery R groin; she says it is in the vein Hx of appendectomy Hx of cholecystectomy Hx of thyroidectomy L thyroidectomy done for goiter; no cancer History of bunionectomy of both great toes History of right shoulder replacement History of bilateral knee arthroplasty History of total hysterectomy with bilateral salpingo-oophorectomy (BSO) no cancer Hx of section X 1 Hx of non-cataract eye surgery bilateral; for glaucoma Hx of cataract surgery OU H/O neck surgery Family History Father Family history of premature coronary artery disease CAD (coronary artery disease) Mother Diabetes mellitus, type 2 Leukemia Sister Breast cancer Social History Smoking and tobacco/nicotine status: unknown if used tobacco/nicotine Alcohol intake: former Former alcohol use details: rare and in 1970s Substance/Drug Use: never Household members: none Housing: House Marital status: / Number of children: 4 Highest education level completed: Master's Degree 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 Skin: Warm, dry. Head: Normocephalic, atraumatic. Neck: Supple, trachea midline. Eye: Extraocular movements are intact. Ears, nose, mouth and throat: mucosa moist. Cardiovascular: Regular, Normal peripheral perfusion. Respiratory: Lungs are clear to auscultation, respirations are non-labored, breath sounds are equal, Symmetrical chest wall expansion. Gastrointestinal: Soft, Nontender, Non distended Musculoskeletal: Normal ROM, no deformity. Neurological: Alert and oriented, No focal neurological deficit observed. Psychiatric: Cooperative, appropriate mood & affect. Course Vital Signs: Vital signs: Vital Signs Temperature 97.9 F 03/08/25 22:45 Pulse Rate 50 L 03/09/25 00:25 Respiratory Rate 18 03/09/25 00:25 Blood Pressure 117/65 03/09/25 00:25 Pulse Oximetry 95 03/09/25 00:25 Oxygen Delivery Me thod Room Air 03/09/25 00:25 Oxygen Flow Rate 2 03/08/25 22:45 MDM - Chest Pain Medical Decision Making Differential diagnosis for patient with chest pain includes but is not limited to and based on the above HPI, review of systems and physical exam: Pneumonia. unstable angina. angina. Acute coronary syndrome / AK. Pulmonary embolism. Costochondritis / musculoskeletal. Pleurisy. Pericarditis. Esophageal spasm. Pancreatis. Cholecystitis. Orders placed to evaluate differential diagnosis based on the above differential, HPI and physical exam EKG: Time 2246. Rate 62. Normal sinus rhythm, No ST-T changes, no ectopy, normal WI & QRS intervals, This was reviewed and interpreted by myself the ER physician at 2250 Chest x-ray: No acute process. No infiltrate. No pneumothorax. This was reviewed and interpreted by myself the emergency room physician. I also reviewed the radiology report. Lab Review: Laboratory results were reviewed and interpreted by myself the emergency room physician. No leukocytosis. No anemia. No renal failure. Serial cardiac markers are negative. I reviewed the patient's medical record. Reexamination: Patient remained stable. No increased work of breathing. No altered mental status. No focal motor deficits. Discussed findings with the patient and offered admission. She says she prefers to go home and follow-up as an outpatient. Assessment and plan: Noncardiac chest pain Dehydration ?1 L normal saline bolus - Discharged home - Discussed plan with patient. Answered any questions. - Evaluation and treatment of this problem were appropriate in the emergency setting. Lab Data 03/08/25 22:15 07/30/25 22:15 Radiology Impressions Chest X-Ray 03/08/25 22:38 IMPRESSION: No acute findings. Laboratory Results WBC 8.56 10^3/uL (3.29-11.43) 03/08/25 22:15 RBC 4.85 10^6/uL (3.85-5.65) 03/08/25 22:15 Hgb 13.40 g/dL (11.27-16.99) 03/08/25 22:15 Hct 40.6 % (36-47) 03/08/25 22:15 MCV 83.7 fl (85-98) L 03/08/25 22:15 MCH 27.6 pg (27-33) 03/08/25 22:15 MCHC 33.0 g/dL (30-55) 03/08/25 22:15 RDW 12.7 % (12.1-15.1) 03/08/25 22:15 Plt Count 179 10^3/cmm (157-399) 03/08/25 22:15 MPV 10.8 fL (7.4-10.4) H 03/08/25 22:15 Neut % (Auto) 55.1 % 03/08/25 22:15 Lymph % (Auto) 33.3 % 03/08/25 22:15 [place] % (Auto) 6.9 % 03/08/25 22:15 Eos % (Auto) 3.5 % 03/08/25 22:15 Baso % (Auto) 0.7 % 03/08/25 22:15 Neut # (Auto) 4.72 10^3/uL (1.8-7.7) 03/08/25 22:15 Lymph # (Auto) 2.9 10^3/uL (0.8-4.8) 03/08/25 22:15 [place] # (Auto) 0.6 10^3/uL (0.2-0.9) 03/08/25 22:15 Eos # (Auto) 0.3 10^3/uL (0.0-0.8) 03/08/25 22:15 Baso # (Auto) 0.1 10^3/uL (0.0-0.1) 03/08/25 22:15 Nucleated RBC % (auto) 0 % 03/08/25 22:15 Nucleated RBCs # 0.0 /100WBC 03/08/25 22:15 Sodium 141 mmol/L (136-145) 03/08/25 22:15 Potassium 3.8 mmol/L (3.5-5.1) 03/08/25 22:15 Chloride 104 mmol/L (98-107) 03/08/25 22:15 Carbon Dioxide 25 mmol/L (22-29) 03/08/25 22:15 Anion Gap 15.8 (5-19) 03/08/25 22:15 BUN 17 mg/dL (8-23) 03/08/25 22:15 Creatinine 1.0 mg/dL (0.5-0.9) H 03/08/25 22:15 GFR Calculation Not Reportable 03/08/25 22:15 Glucose 153 mg/dL (65-115) H 03/08/25 22:15 Calculated Osmolality 297 mOsm/kg (285-295) H 03/08/25 22:15 Calcium 9.2 mg/dL (8.5-10.5) 03/08/25 22:15 Total Bilirubin 0.2 mg/dL (0.15-1.2) 03/08/25 22:15 AST 9 U/L (0-32) 03/08/25 22:15 ALT 8 U/L (0-33) 03/08/25 22:15 Alkaline Phosphatase 44 U/L (35-105) 03/08/25 22:15 Troponin T Baseline 18 ng/L (0-10) H 03/08/25 22:15 Troponin T 120 Minute 16.84 ng/L (0-10) H 03/09/25 00:25 Delta Troponin T -1.16 ABS# (0-10) L 03/09/25 00:25 NT-Pro-B Natriuret Pep 802 pg/mL (0-450) H 03/08/25 22:15 Total Protein 6.0 g/dL (6.6-8.7) L 03/08/25 22:15 Albumin 3.9 g/dL (3.5-5.2) 03/08/25 22:15 Globulin 2.1 g/dL (1.3-4.6) 03/08/25 22:15 All radiology interpretation(s) finalized by discharge Discharge Plan Discharge Patient Disposition: Home Clinical Impression: Non-cardiac chest pain, Dehydration Condition: Stable Prescriptions: No Action bumetanide 1 mg tablet 1 mg PO DAILY Qty: 30 3RF buspirone 30 mg tablet 30 mg PO BID Qty: 60 3RF metoprolol tartrate 25 mg tablet 12.5 mg PO BID Qty: 30 3RF clopidogrel 75 mg tablet 75 mg PO DAILY Qty: 30 3RF fluticasone propionate 50 mcg/actuation spray,suspension 2 spray intranasal DAILY Qty: 16 3RF meloxicam 15 mg tablet 15 mg PO DAILY Qty: 30 3RF pantoprazole 40 mg tablet,delayed release (DR/EC) 40 mg PO BID Qty: 60 3RF potassium chloride 20 mEq tablet extended release 20 meq PO DAILY Qty: 30 3RF (DME) Diabetic shoes with 3 set insoles See Rx Instructions .Route .MEDSUPPLY Qty: 1 0RF Rx Instructions: As directed ondansetron 8 mg tablet,disintegrating 8 mg PO Q8H PRN (Reason: nausea and vomiting) 5 Days Qty: 15 0RF pravastatin 40 mg tablet PO levothyroxine 25 mcg tablet 25 mcg PO 0600 Qty: 90 1RF trazodone 300 mg tablet 300 mg PO BEDTIME Qty: 30 1RF (DME) Auto-titrating CPAP 6-16cm See Rx Instructions .Route .MEDSUPPLY Qty: 1 0RF Rx Instructions: and needs CPAP supplies/mask too (DME) blood-glucose meter [Accu-Chek Guide Glucose Meter] Misc See Rx Instructions .Route Qty: 1 0RF Rx Instructions: As directed (DME) Accu-Chek Guide test strips Strip See Rx Instructions .Route Qty: 100 0RF Rx Instructions: As directed (DME) Dexcom G7 Sensor Device See Rx Instructions .Route Qty: 3 0RF Rx Instructions: As directed insulin aspart U-100 100 unit/mL (3 mL) insulin pen See Rx Instructions .ROUTE .COMPLEX PRN (Reason: Hyperglycemia) Qty: 15 0RF Rx Instructions: Inject per sliding scale, 200-250= 2units, 251-300= 3units, 301-350= 4units, 351-400= 5units every 4 hours PRN for hyperglycemia aspirin [Aspir-81] 81 mg Tablet,Delayed Release (Dr/Ec) 81 mg PO DAILY levetiracetam [Keppra] 750 mg tablet 750 mg PO BID Qty: 60 0RF meclizine 25 mg tablet 25 mg PO BID PRN (Reason: Dizziness Or Vertigo) niacin 500 mg Tablet 500 mg PO DAILY insulin lispro [Humalog KwikPen Insulin] 100 unit/mL insulin pen 12 unit SUBCUT TID omega-3 acid ethyl esters 1 gram capsule 1 cap PO BID insulin glargine [Lantus Solostar U-100 Insulin] 100 unit/mL (3 mL) insulin pen 12 unit SUBCUT DAILY cholecalciferol (vitamin D3) [Vitamin D3] 125 mcg (5,000 unit) Tablet 125 mcg PO DAILY One-A-Day Women's 50 Plus 400-20 mcg Tablet 1 tab PO DAILY topiramate 100 mg tablet 200 mg PO BID Discharge Orders: Discharge ED (Routine); Ordered 03/09/25 Ordered By: Alexia Goss Referrals: Viridiana Carias DO [Primary Care Provider, Family Practice] Discharge Diet: Usual diet Discharge Activity: Increase activity as tolerated Patient Instructions: Noncardiac Chest Pain (ED), Opioid Safety, Pain Management, Patient Portal & Champ Instructions Activity Restrictions/Additional Instructions: Thank you for choosing [facility] for your healthcare needs today. You have been screened and evaluated and felt safe for discharge. Health conditions do change or evolve sometimes and as such it is important that you follow up with your Primary Doctor to be re checked, 3-5 days is a general good time frame for follow up. You are always welcome to return to the ED for re assessment if your symptoms are worsening or you have new concerns Print Language: Romansh Coding Level of Care Code ED Television Production Technician for Peri Culp
[2025-03-09 00:25] VITALS: BP 117/65; PULSE 50; RESP 18; O2SAT 95
[2025-03-09 00:44] LABS: Troponin 5 2HR 16.84 ng/L (0-10)
[2025-03-09 00:51] LABS: Troponin 5 2HR Delta -1.16 ABS# (0-10)
[2025-03-09 01:51] VITALS: BP 154/77; PULSE 55; RESP 14; O2SAT 95
--- OUTSIDE RECORDS SUMMARY | 2025-03-10 03:13 | XMS_ITS | Encounter Summary ---
Author Organization [facility] Address [address] [place] [address] Care Team Providers Care Change Control Manager Name Role Phone Viridiana Carias Primary Care Provider [phone]- [phone] Encounter Details Date Type Department Care Team (Latest Contact Info) Description 02/06/2025 Results Follow-Up [facility] [address] [place] [address] [facility] [address] [place] [address] MISCELLANEOUS LAB TEST Social History Tobacco Use Types Packs/Day Years Used Date Smoking Tobacco: Never Smokeless Tobacco: Never Alcohol Use Standard Drinks/Week Comments No 0 (1 standard drink = 0.6 oz pur e alcohol) Comments No Sex and Gender Information Value Date Recorded Sex Assigned at Not on file Legal Sex Female 9:09 PM CDT Gender Identity Not on file Sexual Orientation Not on file Occupation Industry Job Start Date Job End Date Not on file Not on file Not on file Not on file documented as of this encounter Plan of Treatment Upcoming Encounters Date Type Department Care Team (Late st Contact Info) Description 05/23/2025 2:00 PM CDT Office Visit [facility] [address] [place] [address] [facility] [address] [place] [phone] documented as of this encounter Visit Diagnoses Not on filedocumented in this encounter Care Teams Change Control Manager Relationship Specialty Start Date End Date Viridiana Carias DO [address] [place] [phone] PCP - General Family Practice 10/17/24 documented as of this encounter
--- OUTSIDE RECORDS SUMMARY | 2025-03-10 03:13 | XMS_ITS | Encounter Summary ---
Author Organization [facility] Address [address] [place] [address] Care Team Providers Care Aircraft Painter Apprentice Name Role Phone Viridiana Carias DO Primary Care Provider [phone]- [phone] Reason for Visit * Reason Comments Medication Question Encounter Details Date Type Department Care Team (Late st Contact Info) Description 02/22/2025 Telephone [facility] [place] [address] [place] [address] Viridiana Carias DO [address] [place] [address] Medication Question Social History Tobacco Use Types Packs/Day Years [...] on file documented as of this encounter Miscellaneous Notes * Telephone Encounter - Mandie Escobar - 02/23/2025 8:18 AM CDT I have faxed the update med list to [facility] Mandie Escobar, 02/23/2025 8:18 AM * Telephone Encounter - Jing Maza FNP - 02/22/2025 12:03 PM CDT I do not believe I have told her to stop starting metoprolol. She can have metoprolol and lidocainepatch refilled. * Telephone Encounter - Cheli Sal LPN - 02/22/2025 11:49 AM CDT 02/22/2025 11:49 AM I returned call to Hansa at the pharmacy, she said daughter wanted to know why lidocaine patches and metoprolol have not been filled. Hansa says she was told by the daughter on 11/16/24 to stop fillingmetoprolol, that Alfonso told her (daughter) that pt was to stop taking this, and she (daughter) toldthe pharmacy she did not remember telling them that. Lidocaine patches on med list under historicalprovider. Per pharmacy they last filled Metoprolol on 10/21/[address] Qiu. Pharmacy discontinues script that was sent in on 11/04/24. Pharmacy would like updated med list faxed to them [phone]. Cheli SCHULZ * Telephone Encounter - Burton Pham - 02/22/2025 10:51 AM CDT Copied from [facility] #[id number]. Topic: Medication Request >> Feb 22, 2025 10:49 AM Burton Martines wrote: Pharmacy Calling: Brayan Vel[facility]quez - [address] (Pharmacy) Pharmacy Contact Name: Hansa Pharmacy Number: Medication: metoprolol tartrate (LOPRESSOR) 25 mg tablet lidocaine (Lidoderm) 5 % Adhesive Patch, Medicated Call Notes: Caller has questions concerning a prescription. Is the patient there at the pharmacy waiting to fill a prescription? No Is there an encounter open? No documented in this encounter Plan of Treatment Upcoming Encounters Date Type Department Care Team (Late st Contact Info) Description 05/23/2025 2:00 PM CDT Office Visit [facility] [address] [place] [address] Jing Maza FNP [address] [place] [address] documented as of this encounter Visit Diagnoses Diagnosis Primary hypertension Unspecified essential hypertension documented in this encounter Additional Health Concerns Assessment Noted Time PHQ-9 Depression Total Score: 2 02/19/20 25 1:10 PM CDT documented as of this encounter Care Teams Aircraft Painter Apprentice Relationship Specialty Start Date End Date Viridiana Carias DO [address] [place] [address] PCP - General Family Practice 10/17/24 documented as of this encounter
--- OUTSIDE RECORDS SUMMARY | 2025-03-10 03:13 | XMS_ITS | Encounter Summary ---
Author Organization [facility] Address [address] [place] [address] Care Team Providers Care Kitchen Hand Name Role Phone Viridiana Carias Primary Care Provider [phone]- [phone] Encounter Details Date Type Department Care Team (Late Contact Info) Description 02/03/2025 Results Follow-Up [facility] [address] [place] [address] Jing Maza, [facility] [address] [place] [address] CBC WITH DIFFERENTIAL, HIV DETECTION W/REFLX CONFIRMATION, TSH, Additional followed-up results: 3 Social History Tobacco Use Types Packs/Day Years [...] Encounters Date Type Department Care Team (Late Contact Info) Description 05/23/2025 2:00 PM CDT Office Visit [facility] [address] [place] [phone] Jing Maza, [facility] [address] [place] [phone] documented as of this encounter Visit Diagnoses Not on filedocumented in this encounter Care Teams Kitchen Hand Relationship Specialty Start Date End Date Viridiana Carias DO [address] [place] [phone] PCP - General Family Practice 10/17/24 documented as of this encounter
--- OUTSIDE RECORDS SUMMARY | 2025-03-10 03:14 | XMS_ITS | Encounter Summary ---
Author Organization [facility] Address 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) Social History Tobacco Use Types Packs/Day Years [...] Description 05/23/2025 2:00 PM CDT Office Visit [facility] [address] [place] [address] Jing Maza, [facility] [address] [place] [address] documented as of this encounter Visit Diagnoses Diagnosis Mixed stress and urge urinary incontinence- Primary Mixed incontinence urge and stress (male)(female) documented in this encounter Additional Health Concerns Assessment Noted Time PHQ-9 Depression Total Score: 2 02/19/20 25 1:10 PM CDT documented as of this encounter Care Teams Technical Administrator Relationship Specialty Start Date End Date Viridiana Carias DO [address] [place] [phone] PCP - General Family Practice 10/17/24 documented as of this encounter
--- OUTSIDE RECORDS SUMMARY | 2025-03-10 03:14 | XMS_ITS | Clinical Summary ---
Author Organization [facility] Address [address] [place] [address] Phone Care Team Providers Care Airflight Attendants Supervisor Name Role Phone Viridiana Carias Ashley PRATT Primary Care Provider Allergies Active Allergy Reactions Criticality Noted Date Comments Influenza Virus Vaccine Ts 2012- (18 Yrs-64 Yrs) Hives High 03/18/2014 Lisinopril Other (See Comments) Medium 10/17/2024 Patient not able to recall the specific reaction Sulfa (Sulfonamide Antibiotics) Swelling Low 03/18/2014 Medications meclizine 25 mg Tablet, Chewable Take 25 mg by mouth 2 times daily as needed for Dizziness. Active ondansetron (ZOFRAN ODT) 8 mg Tablet, Rapid Dissolve Take 8 mg by mouth every 8 hours as needed for Nausea/Emesis. Dissolve 1 tablet on top of tongue then swallow with saliva every 8 hours as needed for nausea or vomiting Active lidocaine (Lidoderm) 5 % Adhesive Patch, Medicated Apply 1 Patch to affected area every 12 hours. Active levothyroxine 25 mcg tabletIndications :Acquired hypothyroidism TAKE ONE TABLET BY MOUTH EVERY DAY at 6:00am 90 Tablet 1 025 Active Lantus Solostar U-100 Insulin 100 unit/mL (3 mL) solution for injection inject 12 units UNDER THE SKIN ONCE a day 15 mL 025 Active aspirin (ECOTRIN EC) 81 mg Tablet, Delayed Release (E.C.)Indications :Atherosclerosis of [place] coronary artery of [place] heart without angina pectoris Take 1 Tablet (81 mg) by mouth daily. 90 Tablet 3 025 Active pravastatin (PRAVACHOL) 40 mg tabletIndications :Atherosclerosis of [place] coronary artery of [place] heart without angina pectoris,Mixed hyperlipidemia Take 1 Tablet (40 mg) by mouth daily. 90 Tablet 3 025 Active cetirizine (ZyrTEC) 10 mg tabletIndications :Environmental and seasonal allergies Take 1 Tablet (10 mg) by mouth daily. 90 Tablet 3 025 Active pantoprazole (PROTONIX) 40 mg Tablet, Delayed Release (E.C.)Indications :Gastro-esophagea l reflux disease without esophagitis TAKE 1 TABLET BY MOUTH TWICE DAILY 180 Tablet 3 Active blood sugar diagnostic (Accu-Chek Guide test strips) StripIndications: Type 2 diabetes mellitus with other specified complication, with long-term current use of insulin (CMS/LTAC, [facility]IN [facility]) USE DIRECTED TO TEST BLOOD SUGAR UP TO 6 TIMES DAILY 200 Strip 6 Active levETIRAcetam (KEPPRA) 750 mg TabletIndications :Seizure (CMS/HCC) TAKE 1 TABLET BY MOUTH EVERY TWELVE HOURS 180 Tablet 3 Active Blood-Glucose Sensor (Dexcom G7 Sensor) DeviceIndications :Type 2 diabetes mellitus with other specified complication, with long-term current use of insulin (CMS/HCC) USE as directed, change sensor EVERY 10 days 9 Each Active cpap medical deviceIndications :YUDELKA (obstructive sleep apnea) CPAP @ 6-16 cwp with heated humidifier. Length of need:99 months; full face mask with headgear every 6 months; mask only every 3 months; 2 cushions per month; Tubing heated 1 every 3 months, water chamber 1 every 6 months, chin strap 1 every 6 months, filters disposable 2 per month, filters reusable 1 per 6 months. 1 Each Active insulin lispro (HumaLOG,ADMELOG) 100 unit/mL pen syringeIndication s:Type 2 diabetes mellitus with other specified complication, with long-term current use of insulin (CMS/HCC) Inject 12 Units by subcutaneous injection 3 times daily with meals. 33 mL 3 Active omega-3 acid ethyl esters (LOVAZA) 1 gram CapsuleIndication s:Mixed hyperlipidemia TAKE ONE CAPSULE BY MOUTH TWICE DAILY 180 Capsule 3 Active nystatin (MYCOSTATIN) 100,000 unit/gram CreamIndications: Yeast infection Apply to affected area 4 times daily. 30 Gram 4 Active psyllium (FIBER-CAP) 0.52 gram CapsuleIndication s:Slow transit constipation Take 2 Capsules by mouth 2 times daily. 120 Capsule 11 Active bumetanide (BUMEX) 1 mg tabletIndications :Leg swelling TAKE 1 TABLET BY MOUTH DAILY 30 Tablet 3 Active busPIRone (BUSPAR) 30 mg TabletIndications :Anxiety state TAKE 1 TABLET BY MOUTH TWICE DAILY 60 Tablet 025 Active traZODone (DESYREL) 300 mg tabletIndications :Primary insomnia TAKE ONE TABLET BY MOUTH AT BEDTIME 30 Tablet 3 Active clopidogreL (PLAVIX) 75 mg TabletIndications :Atherosclerotic heart disease of [place] coronary artery without angina pectoris TAKE 1 TABLET BY MOUTH DAILY 30 Tablet 3 Active Additional Information Patient not taking.Reported on 02/21/2025 potassium CHLORIDE (K-TAB) 20 mEq Extended Release tabletIndications :Leg swelling TAKE 1 TABLET BY MOUTH DAILY 30 Tablet 3 Active fluticasone propionate (FLONASE) 50 mcg/spray [place], Suspension nasal inhalerIndication s:Seasonal allergic rhinitis due to pollen SPRAY 2 SPRAYS in each nostril DAILY 16 Gram Active HYDROcodone-aceta minophen (NORCO) 5-325 mg tabletIndications :Chronic midline low back pain with bilateral sciatica Take 1 Tablet by mouth 2 times daily as needed for Pain, Moderate. Max Daily Amount: 2 Tablets 30 Tablet Active metoprolol tartrate (LOPRESSOR) 25 mg tabletIndications :Primary hypertension Take 1 Tablet (25 mg) by mouth 2 times daily. 180 Tablet 3 025 Active Miscellaneous Medical SupplyIndications :Mixed stress and urge urinary incontinence Adult depend absorbent pad. Fit for size. 200 Each Active clopidogreL (PLAVIX) 75 mg TabletIndications :Atherosclerotic heart disease of [place] coronary artery without angina pectoris TAKE 1 TABLET BY MOUTH DAILY 30 Tablet 3 025 2024 Discontinued bumetanide (BUMEX) 1 mg tabletIndications :Leg swelling TAKE 1 TABLET BY MOUTH DAILY 30 Tablet 3 025 2024 Discontinued metoprolol tartrate (LOPRESSOR) 25 mg tabletIndications :Primary hypertension TAKE 1/2 TABLET BY MOUTH BODY TWICE DAILY 30 Tablet 3 025 2024 Discontinued(R eorder) potassium CHLORIDE (K-TAB) 20 mEq Extended Release tabletIndications :Leg swelling TAKE 1 TABLET BY MOUTH DAILY 30 Tablet 3 025 2024 Discontinued fluticasone propionate (FLONASE) 50 mcg/spray [place], Suspension nasal inhalerIndication s:Seasonal allergic rhinitis due to pollen SPRAY 2 SPRAYS in each nostril DAILY 16 Gram 3 025 2024 Discontinued busPIRone (BUSPAR) 30 mg TabletIndications :Anxiety state TAKE 1 TABLET BY MOUTH TWICE DAILY 60 Tablet 3 025 2024 Discontinued traZODone (DESYREL) 300 mg tabletIndications :Primary insomnia TAKE ONE TABLET BY MOUTH AT BEDTIME 30 Tablet 3 025 2024 Discontinued rosuvastatin (CRESTOR) 20 mg tablet Take 1 Tablet by mouth daily. 025 2024 Discontinued(A lternate therapy prescribed) fluconazole (DIFLUCAN) 150 mg tabletIndications :Yeast infection Take 1 Tablet (150 mg) by mouth daily for 10 days. 10 Tablet 025 2024 fluconazole (DIFLUCAN) 150 mg tabletIndications :Yeast infection Take 1 Tablet (150 mg) by mouth daily for 10 days. 10 Tablet 025 2024 Active Problems Problem Noted Date Diagnosed Date Mild cognitive impairment with memory loss 01/25 Primary insomnia 01/25/2025 Slow transit constipation 01/25/2025 Chronic osteoarthritis 11/15/2024 Chronic congestive heart failure 11/15/2024 Postoperative hypothyroidism 11/15/2024 Environmental and seasonal allergies 11/15/2024 Atherosclerosis of [place] co ronary artery of [place] heart without angina pectoris 11/15/2024 Acute pain of left knee 09/14/2024 SDH (subdural hematoma) 09/13/2024 Severe episode of recurrent major depressive disorder, without psychotic features 03/18/2014 Type 2 diabetes mellitus with other specified co mplication 03/18/2014 Hypertension 03/18/2014 Hyperlipidemia 03/18/2014 Arthritis 03/18/2014 Depression 03/18/2014 YUDELKA (obstructive sleep apnea) 03/18/2014 Familial tremor 03/18/2014 Corneal abrasion 03/18/2014 Encounters Date Type Department Care Team Description 03/09/2025 12:28 PM CDT - 03/09/2025 11:59 PM CDT Hospital Encounter [facility] [address] [place] [address] Jing Maza FNP Arrived Discharge Disposition: Home or Self Care 03/09/2025 Orders Only [facility] Health Information Management [place] [address] [place] [address] Provider, Abstract 03/09/2025 Refill [facility] [address] [place] [address] Jing Maza FNP Seizure ([facility]/HCC) 03/03/2025 Orders Only [facility] [address] [place] [address] Jing Maza FNP Mixed stress and urge urinary incontinence (Primary Dx) 03/02/2025 Telephone [facility] [address] [place] [facility] [place] [address] Viridiana Carias DO Needs Orders Written; Patient Communication 02/27/2025 Telephone [facility] [address] [place] [facility] [place] [address] Viridiana Carias DO Provider Call 02/22/2025 Telephone [facility] [address] [facility] [place] [address] Jv, Viridiana L, DO Medication Question 02/21/2025 1:00 PM CDT Office Visit [facility] [address] [place] [address] Jing Maza FNP Medicare annual wellness visit, subsequent (Primary Dx); Frail elderly; Chronic osteoarthritis; Yeast infection; Mild cognitive impairment with memory loss; Atherosclerosis of [place] coronary artery of [place] heart without angina pectoris; Postoperative hypothyroidism; Type 2 diabetes mellitus with other specified complication, with long-term current use of insulin ([facility], [facility]); Other secondary hypertension; Chronic midline low back pain with bilateral sciatica 02/17/2025 Orders Only [facility] [address] [place] [address] Jing Maza FNP 02/07/2025 Refill [facility] [address] [place] [address] Jing Maza FNP Arthritis; Mixed hyperlipidemia; Leg swelling; Anxiety state; Primary insomnia; Atherosclerotic heart disease of [place] coronary artery without angina pectoris; Seasonal allergic rhinitis due to pollen 02/06/2025 Orders Only [facility] [address] [place] [address] Jing Maza FNP Mild cognitive impairment with memory loss (Primary Dx) 02/06/2025 Results Follow-Up [facility] [address] [place] [address] Jing Maza FNP MISCELLANEOUS LAB TEST 02/03/2025 Results Follow-Up [facility] [address] [place] [address] Jing Maza FNP CBC WITH DIFFERENTIAL, HIV DETECTION W/REFLX CONFIRMATION, TSH, Additional followed-up results: 3 02/03/2025 Orders Only [facility] [address] [place] [address] Jing Maza FNP Yeast infection (Primary Dx) 01/26/2025 Orders Only Initial Department [address] [address] [facility] [address] [place]: [place] [address] Provider, Historical 01/26/2025 Orders Only Initial Department [address] [facility] [address] [address] [place]: [place] [address] Provider, Historical 01/26/2025 Orders Only [facility] [address] [place] [address] Jing Maza FNP 01/26/2025 Telephone [facility] [address] [place] [address] Viridiana Carias, Medication Question; Medication Review; Provider Call 01/25/2025 3:20 PM CDT Office Visit [facility] [address] [place] [address] Jing Maza FNP Yeast infection (Primary Dx); Type 2 diabetes mellitus with other specified complication, with long-term current use of insulin ([facility], [facility]); Mild cognitive impairment with memory loss; Slow transit constipation; Primary insomnia 01/17/2025 External Device Data [facility] ABSTRACTION Provider, Abstract 01/11/2025 External Device Data [facility] [place]CTION Provider, Abstract 01/06/2025 Refill [facility] [address] [place] [address] Jing Maza FNP Mixed hyperlipidemia 01/03/2025 Telephone [facility] [address] [place] [address] Jing Maza FNP Needs Orders Written 12/21/2024 Telephone [facility] [address] [place] [address] Viridiana Carias, Information 12/13/2024 Telephone [facility] [address] [place] [address] Viridiana Carias DO Provider Call 12/12/2024 Orders Only [facility] [address] [place] [address] Jing Maza, ROD Type 2 diabetes mellitus with other specified complication, with long-term current use of insulin ([facility]) (Primary Dx) 12/12/2024 Telephone [facility] [address] [place] [address] Viridiana Carias DO Provider Call 12/09/2024 Orders Only [facility] [address] [place] [address] Jing Maza, ROD YUDELKA (obstructive sleep apnea) from Last 3 Months Family History Medical History Relation Name Comments Depression Daughter 1 Depression Daughter 2 Bipolar Disorder Daughter 3 Bipolar Disorder Daughter 4 Depression Mother Relation Name Status Comments Daughter 1 Daughter 2 Daughter 3 Daughter 4 Mother Social History Tobacco Use Types Packs/Day Years Used Date Smoking Tobacco: Never Smokeless Tobacco: Never Tobacco Cessation:Counseling Given: Not Answered Alcohol Use Standard Drinks/Week Comments No 0 [...] file Not on file Not on file Last Filed Vital Signs Vital Sign Reading Time Taken Comments Blood Pressure 136/72 02/21/2025 1:22 PM CDT Pulse 78 02/21/2025 1:22 PM CDT Temperature 36.6 C (97.9 F) 02/21/2025 1:22 PM CDT Respiratory Rate 18 02/21/2025 1:22 PM CDT Oxygen Saturation 92% 02/21/2025 1:22 PM CDT Inhaled Oxygen Concentration - - Weight 99.4 kg (219 lb 3.2 oz) 02/21/2025 1:22 P M CDT Height 157.5 cm (5' 2 ) 02/21/2025 1:22 PM CDT Body Mass Index 40.09 02/21/2025 1:22 PM CDT Plan of Treatment Upcoming Encounters Date Type Department Care Team (Late st Contact Info) Description 05/23/2025 2:00 PM CDT Office Visit [facility] [address] [place] [address] Jing Maza, ARCHITECTURAL INSPECTOR [address] [place] [address] Health Maintenance Due Date Last Done Comments DIABETES ANNUAL FOOT EXAM 1964 DIABETES ANNUAL RETINAL EXAM 1964 DTAP/TDAP/TD VACCINES (1 - Tdap) 1965 PNEUMOCOCCAL VACCINE 50+ YEA RS (1 of 2 - PCV) 1965 ZOSTER VACCINE (1 of 2) 1996 OSTEOPOROSIS SCREENING 12/09/2011 RSV VACCINE (60+ or ) (1 - 1-dose 75+ series) 2021 [place]) Preventative Visit/Annual Wellness Visit 08/10/2024 INFLUENZA VACCINE (#1) 2025 DIABETES HBA1C Q 6 MONTHS 05/17/2025 11/15/2024, 03/2014 DIABETES: A1C (Auto Order) 11/15/2025 11/15/2024, LDL CHOLESTEROL ANNUAL 11/15/2025 11/15/2024 DIABETES MICROALBUMIN ANNUAL SCREEN 01/25/2026 01/25/2025 K[facility] uACR (Auto Order) Completed 01/25/2025 KHE eGFR (Auto Order) Completed 03/08/2025 , 01/26/2025, 10/17/2024, Additional history exists Procedures Procedure Name Priority Date/Time Associated Diagnosis Comments MRI BRAIN W WO CONTRAST Routine 03/09/2025 2:10 PM CDT Mild cognitive impairment with memory loss COMPREHENSIVE METABOLIC PANEL Routine 03/08/2025 12:10 PM CDT MISCELLANEOUS LAB TEST Routine 8:30 AM CDT SYPHILIS SEROLOGY W/REFLEX Routine 01/26/2025 8:29 AM CDT COMPREHENSIVE METABOLIC PANEL Routine 01/26/2025 8:29 AM CDT VITAMIN B12 AND FOLATE Routine 8:29 AM CDT TSH Routine 01/26/2025 8:29 AM CDT HIV DETECTION W/REFLX CONFIRMATION Routine 01/26/2025 8:29 AM CDT CBC WITH DIFFERENTIAL Routine 01/26/2025 8:29 AM CDT MICROALBUMIN/CREATININ E RATIO, RANDOM UR Routine 01/25/2025 5:14 PM CDT Type 2 diabetes mellitus with other specified complication, with long-term current use of insulin (CMS/HCC) URINALYSIS WITH REFLEX CULTURE Routine 01/25/2025 5:14 PM CDT Mild cognitive impairment with memory loss URINE CULTURE Routine 01/25/2025 5:14 PM CDT LIPID PANEL Routine 11/15/2024 3:26 PM CDT Type 2 diabetes mellitus with other specified complication, with long-term current use of insulin (CMS/HCC) HEMOGLOBIN A1C Routine 11/15/2024 3:26 PM CDT Type 2 diabetes mellitus with other specified complication, with long-term current use of insulin (CMS/HCC) from Last 3 Months or Most Recently Relevant to Health Maintenance Results * MRI BRAIN W WO CONTRAST (03/09/2025 2:10 PM CDT) Anatomical Region Laterality Modality Head Magnetic Resonan ce 03/09/2025 2:10 PM CDT Impressions 03/09/2025 5:34 PM CDT IMPRESSION: Please see below. Exam: MRI BRAIN W WO CONTRAST Date/Time of Exam: 03/09/2025 2:10 PM Reason For Exam: Memory loss. Diagnosis: Mild cognitive impairment with memory loss. Technique: MRI of the brain was performed prior to and following the administration of intravenous contrast. Contrast: GADOBENATE DIMEGLUMINE 529 MG/ML(0.1 MMOL/0.2 ML) INTRAVENOUS SOLUTION Given:20 mL Findings: Comparison 10/27/2024. No acute infarction. Left frontotemporal pachymeningeal FLAIR nonsuppression and enhancement measuring up to 2 mm in thickness. There is susceptibility effect along the surface of the left frontal and temporal lobes. Mild sequela of small vessel ischemic disease and diffuse parenchymal volume loss. No hydrocephalus. Basal cisterns are patent. No suspicious osseous abnormality. The paranasal sinuses are predominantly clear. Bilateral mastoid effusions. Prior cataract surgery. No abnormal brain parenchymal enhancement. 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 A small left subdural hygroma may also be present. Mild superficial siderosis along the cerebral convexity, likely from previous episodes of hemorrhage. Narrative Procedure Note Buddy Espinosa DO - 03/09/2025 IMPRESSION: Please see below. Exam: MRI BRAIN W WO CONTRAST Date/Time of Exam: 03/09/2025 2:10 PM Reason For Exam: Memory loss. Diagnosis: Mild cognitive impairment with memory loss. Technique: MRI of the brain was performed prior to and following the administration of intravenous contrast. Contrast: GADOBENATE DIMEGLUMINE 529 MG/ML(0.1 MMOL/0.2 ML) INTRAVENOUS SOLUTION Given:20 mL Findings: Comparison 10/27/2024. No acute infarction. Left frontotemporal pachymeningeal FLAIR nonsuppression and enhancement measuring up to 2 mm in thickness. There is susceptibility effect along the surface of the left frontal and temporal lobes. Mild sequela of small vessel ischemic disease and diffuse parenchymal volume loss. No hydrocephalus. Basal cisterns are patent. No suspicious osseous abnormality. The paranasal sinuses are predominantly clear. Bilateral mastoid effusions. Prior cataract surgery. No abnormal brain parenchymal enhancement. 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 A small left subdural hygroma may also be present. Mild superficial siderosis along the cerebral convexity, likely from previous episodes of hemorrhage. us Jing Maza ARCHITECTURAL INSPECTOR MR ORDERABLES Final Resu lt * COMPREHENSIVE METABOLIC PANEL (03/08/2025 12:10 PM CDT) Only the most recent of2 resultswithin the time period is included. Blood us Abstract Provider CHEMISTRY ORDERABLES Final Res ult * MISCELLANEOUS LAB TEST (01/26/2025 8:30 AM CDT) MISCELLANEOUS LAB TEST REPORT [facility], Comment: AD DETECT(TM) ABETA 42/40 AND [id number] EVALUATION, PLASMA TEST NAME RESULT FLAG UNITS REF RANGE ========= ====== ==== ===== ========= INTERPRETATION SEE COMMENT RESULT COMMENT: Low Likelihood This panel combines beta amyloid 42/40 and [id number] plasma scores to provide an assessment of the likelihood of amyloid plaque deposition in the brain. A score of less than 0.3254 is consistent with a low likelihood of a positive amyloid PET scan in someone with cognitive impairment. This determination cannot diagnose Alzheimer's disease by itself and should be used in combination with the patient's clinical history and presentation. ABETA 42 69 pg/mL Reference Range: NOT ESTABLISHED ABETA 40 411 pg/mL Reference Range: NOT ESTABLISHED ABETA 42/40 RATIO 0.168 L > OR = 0.170 AD DETECT [id number], PLASMA 0.10 pg/mL < OR = 0.15 LIKELIHOOD SCORE 0.0551 Likelihood of amyloid PET positivity: Low Likelihood: <0.3254 Indeterminant: 0.3254-0.6460 High Likelihood: >0.6460 The likelihood score for amyloid PET positivity was determined by a calculation that included plasma ABeta42/40 ratio and plasma [id number], where ABeta42/40 is the ratio of plasma ABeta42 (pg/mL) and plasma ABeta40 (pg/mL), and phosphorylated tau at position 217 (pg/mL). To determine lower, indeterminant, and higher likelihoods of amyloid PET positivity, a lower likelihood cutpoint (0.3254) was established to achieve > or = 90% sensitivity for amyloid PET positivity while a higher likelihood cutpoint (0.6460) was established to achieve > or = 90% specificity for amyloid PET negativity. Based on the two cutpoints, the lower likelihood of amyloid PET positive is below the lower likelihood cutpoint, the indeterminant likelihood is between the lower and the higher likelihood cutpoints, and the higher likelihood of amyloid PET positive is above the higher likelihood cutpoint. The concentrations on this report only represent wild type Abeta 40 and 42. The variants of Abeta 40 and 42 are not detected in this assay. This test was developed and its analytical performance characteristics have been determined by [facility]. It has not been cleared or approved by the FDA. This assay has been validated pursuant to the CLIA regulations and is used for clinical purposes. FASTING:UNKNOWN FASTING: UNKNOWN Test Performed at: [facility], [id number] [place] [id number] Xiomara Ruiz MD,PhD,XANDER 01/26/2025 8:30 AM CDT 01/26/2025 8:[address] [facility] CHEMISTRY ORDERABLES Final Result [facility] [phone] [facility], [address] [place] [address] * SYPHILIS SEROLOGY W/REFLEX (01/26/2025 8:29 AM CDT) T PALLIDUM ANTIBODIES NEGATIVE NEGATIVE [facility] dale Thomas Comment: No antibodies to T. pallidum (the agent causing syphilis) were detected in the specimen. This result, however, does not exclude very recent T. pallidum infection; testing of a second specimen, collected 2-4 weeks after this specimen, is recommended if the index of suspicion for recent infection is high. FASTING:UNKNOWN FASTING: UNKNOWN Test Performed at: [facility] [address] [place] [id number] Irvin Artis 01/26/2025 8:29 AM CDT 01/26/2025 8:[address] [facility] CHEMISTRY ORDERABLES Final Result [facility] [phone] [facility] [address] [place] [address] * HIV DETECTION W/REFLX CONFIRMATION (01/26/2025 8:29 AM CDT) HIV-1/2 AG AND AB SCREEN NON-REACT UMAIR NON-REACT UMAIR [facility] Comment: HIV-1 antigen and HIV-1/HIV-2 antibodies were not detected. There is no laboratory evidence of HIV infection. PLEASE NOTE: This information has been disclosed to you from records whose confidentiality may be protected by state law. If your state requires such protection, then the state law prohibits you from making any further disclosure of the information without the specific written consent of the person to whom it pertains, or as otherwise permitted by law. A general authorization for the release of medical or other information is NOT sufficient for this purpose. For additional information please refer to http://education.[employer]/faq/PDB858 (This link is being provided for informational/ educational purposes only.) The performance of this assay has not been clinically validated in patients less than 2 years old. Test Performed at: [facility] [address] [facility] [place] [address] Mahendra Dumont MD 01/26/2025 8:29 AM CDT 01/26/2025 8:29 AM CDT Kushtimmy Hamilton Shaunna [facility] CHEMISTRY ORDERABLES Final Result [facility] [phone] [employer] [address] [facility] [place] [address] * VITAMIN B12 AND FOLATE (01/26/2025 8:29 AM CDT) Pathologist [facility] VITAMIN B12 409 200 - 1100 pg/mL [facility] FOLATE, SERUM 14.0 ng/mL [facility] Comment: Reference Range Low: <3.4 Borderline: 3.4-5.4 Normal: >5.4 FASTING:UNKNOWN FASTING: UNKNOWN Test Performed at: [facility] [address] [place] [address] Mahendra Dumont MD 01/26/2025 8:29 AM CDT 01/26/2025 8:29 AM CDT Jing Maza ARCHITECTURAL INSPECTOR CHEMISTRY ORDERABLES Final Result [facility] [phone] [facility] [address] [place] [address] * (ABNORMAL) CBC WITH DIFFERENTIAL (01/26/2025 8:29 AM CDT) Pathologist [facility] WBC 13.0(H) 3.8 - 10.8 Thousand/u L [facility] RBC 4.41 3.80 - 5.10 Million/uL [facility] HEMOGLOBIN 12.3 11.7 - 15.5 g/dL [facility] HEMATOCRIT 40.3 35.0 - 45.0 % [facility] MCV 91.4 80.0 - 100.0 fL [facility] MCH 27.9 27.0 - 33.0 pg [facility] MCHC 30.5(L) 32.0 - 36.0 g/dL [facility] Comment: For adults, a slight decrease in the calculated MCHC value (in the range of 30 to 32 g/dL) is most likely not clinically significant; however, it should be interpreted with caution in correlation with other red cell parameters and the patient's clinical condition. RDW 13.5 11.0 - 15.0 % [facility] PLATELETS 249 140 - 400 Thousand/u L [facility] MPV 11.2 7.5 - 12.5 fL [facility] NEUTROPHIL ABSOLUTE 7,540 1,500 - 7,800 cells/uL [facility] LYMPHOCYTE ABSOLUTE 4,303(H) 850 - 3,900 cells/uL [facility] MONOCYTE ABSOLUTE 845 200 - 950 cells/uL [facility] EOSINOPHIL ABSOLUTE 208 15 - 500 cells/uL [facility] BASOPHILS ABSOLUTE 104 0 - 200 cells/uL [facility] NEUTROPHIL 58 % [facility] LYMPHOCYTES 33.1 % [facility] MONOCYTE 6.5 % [facility] EOSINOPHILS 1.6 % [facility] BASOPHILS 0.8 % [facility] Comment: FASTING:UNKNOWN FASTING: UNKNOWN Test Performed at: [facility] [address] PeggyIrena Dumont MD 01/26/2025 8:29 AM CDT 01/26/2025 8:[address] [facility] HEMATOLOGY ORDERABLES Monik l Result [facility] [phone] [facility] [employer] [address] * TSH (01/26/2025 8:29 AM CDT) TSH 3.47 0.40 - 4.50 mIU/L [facility] Comment: Test Performed at: [facility] [address] PeggyIrena Dumont MD 01/26/2025 8:29 AM CDT 01/26/2025 8:[address] [facility] CHEMISTRY ORDERABLES Final Result [facility] [phone] [facility] [employer] [address] * (ABNORMAL) URINALYSIS WITH REFLEX CULTURE (01/25/2025 5:14 PM CDT) COLOR UA YELLOW YELLOW [facility] CLARITY UA CLEAR CLEAR [facility] SPECIFIC GRAVITY UA 1.008 1.001 - 1.035 [facility] PH UA 5.5 5.0 - 8.0 [facility] GLUCOSE UA NEGATIVE NEGATIVE [facility] BILIRUBIN UA NEGATIVE NEGATIVE [facility] KETONES UA NEGATIVE NEGATIVE [facility] BLOOD UA NEGATIVE NEGATIVE [facility] PROTEIN UA NEGATIVE NEGATIVE [facility] NITRITE UA NEGATIVE NEGATIVE [facility] LEUKOCYTE ESTERASE UA 1+(A) NEGATIVE [facility] WBC UA 6-10(A) < OR = 5 /HPF [facility] RBC UA NONE SEEN < OR = 2 /HPF [facility] EPITHELIAL CELLS, URINE NONE SEEN < OR = 5 /HPF [facility] BACTERIA UA NONE SEEN NONE SEEN /HPF [facility] HYALINE CAST NONE SEEN NONE SEEN /LPF [facility] URINE NOTE [facility] Comment: This urine was analyzed for the presence of WBC, RBC, bacteria, casts, and other formed elements. Only those elements seen were reported. URINE CULTURE [facility] Comment: CULTURE INDICATED - RESULTS TO FOLLOW Test Performed at: [facility] [address] [place] [address] Mahendra Dumont MD Urine URINE SPECIMEN OBTAINED BY CLEAN CATCH PROCEDURE / Unknown 01/25/2025 5:14 PM CDT 01/26/2025 3:16 AM CDT Jing Maza ARCHITECTURAL INSPECTOR URINE ORDERABLES Final Res ult [facility] [phone] [facility] [address] [place] [address] * MICROALBUMIN/CREATININE RATIO, RANDOM UR (01/25/2025 5:14 PM CDT) CREATININE, URINE 32 20 - 275 mg/dL [facility] ALBUMIN, URINE 0.8 See Note: mg/dL [facility] Comment: Reference Range: Reference Range Not established ALB/CREAT RATIO, URINE 25 <30 mg/g creat [facility] Comment: The ADA defines abnormalities in albumin excretion as follows: Albuminuria Category Result (mg/g creatinine) Normal to Mildly increased <30 Moderately increased 30-299 Severely increased > OR = 300 The ADA recommends that at least two of three specimens collected within a 3-6 month period be abnormal before considering a patient to be within a diagnostic category. Test Performed at: [place] [address] Mahendra Dumont MD Urine URINE SPECIMEN OBTAINED BY CLEAN CATCH PROCEDURE / Unknown 01/25/2025 5:14 PM CDT 01/26/2025 3:[address] [facility] URINE ORDERABLES Final Res ult [facility] [phone] [place] [address] * URINE CULTURE (01/25/2025 5:14 PM CDT) URINE CULTURE SEE NOTE [facility] Comment: CULTURE, URINE, ROUTINE Micro Number: [id number] Test Status: Final Specimen Source: Urine Specimen Quality: Adequate Result: No Growth Test Performed at: [place] [address] Mahendra Dumont MD 01/25/2025 5:14 PM CDT 01/26/2025 3:[address] [facility] MICROBIOLOGY - GENERAL ORD ERABLES Final Result [facility] [phone] [place] [address] * (ABNORMAL) HEMOGLOBIN A1C (11/15/2024 3:26 PM CDT) HEMOGLOBIN A1C 7.6(H) <5.7 % of total Hgb [facility] Comment: For someone without known diabetes, a hemoglobin A1c value of 6.5% or greater indicates that they may have diabetes and this should be confirmed with a follow-up test. For someone with known diabetes, a value <7% indicates that their diabetes is well controlled and a value greater than or equal to 7% indicates suboptimal control. A1c targets should be individualized based on duration of diabetes, age, comorbid conditions, and other considerations. Currently, no consensus exists regarding use of hemoglobin A1c for diagnosis of diabetes for children. ESTIMATED AVERAGE GLUCOSE (MG/DL) 171 mg/dL [facility] ESTIMATED AVERAGE GLUCOSE (MMOL/L) 9.5 mmol/L [facility] Comment: FASTING:UNKNOWN FASTING: UNKNOWN Test Performed at: [facility] [address] Mahendra Dumont MD Blood 11/15/2024 3:26 PM CDT 11/15/2024 3:26 PM CDT Jing Maza ARCHITECTURAL INSPECTOR CHEMISTRY ORDERABLES Final Result [facility] [phone] [address] * (ABNORMAL) LIPID PANEL (11/15/2024 3:26 PM CDT) CHOLESTEROL 131 <200 mg/dL [facility] HDL 44(L) > OR = 50 mg/dL [facility] TRIGLYCERIDE 183(H) <150 mg/dL [facility] LDL CALCULATED 61 mg/dL (calc) [facility] Comment: Reference range: <100 Desirable range <100 mg/dL for primary prevention; <70 mg/dL for patients with CHD or diabetic patients with > or = 2 CHD risk factors. LDL-C is now calculated using the Maria T calculation, which is a validated novel method providing better accuracy than the Friedewald equation in the estimation of LDL-C. Herman SS et al. LARRY. 2013;310(19): 1738-9836 (http://education.Sailthru/faq/MHR522) CHOL/HDL RATIO 3.0 <5.0 (calc) [facility] NON-HDL CHOLESTEROL 87 <130 mg/dL (calc) [facility] Comment: For patients with diabetes plus 1 major ASCVD risk factor, treating to a non-HDL-C goal of <100 mg/dL (LDL-C of <70 mg/dL) is considered a therapeutic option. FASTING:UNKNOWN FASTING: UNKNOWN Test Performed at: [facility] [address] Mahendra Dumont MD Blood 11/15/2024 3:26 PM CDT 11/15/2024 3:26 PM CDT Jing Maza ARCHITECTURAL INSPECTOR CHEMISTRY ORDERABLES Final Result [facility] [phone] [facility] [employer] [address] from Last 3 Months or Most Recently Relevant to Health Maintenance [place] [address] [address] [place] [id number] [place] [facility] DUAL COMPLETE PPO DSNP [facility] [id number] RX [employer] RX Member Subscriber Plan / Payer (Ef fective 2024-Present) Name:Jaylene Montiel Relation to Subscriber:Self Name:Jaylene Montiel Payer ID:Not on file Group ID:[id number] Type:RX Medicare Part D Address: [place], [place] RX INFOCROSSING Medicaid [place]ID [place] Advance Directives For more information, please contact: [phone] * Full Code (Latest Code Status on File) Date Activated Date Inactivated Comments 09/12/2024 10:48 PM 09/16/2024 11:49 PM * Full Code Date Activated Date Inactivated Comments 03/18/2014 3:20 AM 03/22/2014 1:49 PM Care Teams Airflight Attendants Supervisor Relationship Specialty Start Date End Date Viridiana Carias DO [address] [place] [address] PCP - General Family Practice 10/17/24
--- OUTSIDE RECORDS SUMMARY | 2025-03-10 03:14 | XMS_ITS | Encounter Summary ---
Author Organization [facility] Address [address] [place] [address] Care Team Providers Care Drawing Instructor Name Role Phone Viridiana Carias DO Primary Care Provider [phone] Reason for Visit * Reason Comments Needs Orders Written Patient Communication Encounter Details Date Type Department Care Team (Late st Contact Info) Description 03/02/2025 Telephone [facility] [place] [address] [place] [address] Viridiana Carias [address] [place] [address] Needs Orders Written; Patient Communication Social History Tobacco Use Types Packs/Day Years [...] * Telephone Encounter - Mandie Escobar - 03/03/2025 4:41 PM CDT Order has been faxed to HOME Mandie Escobar, 03/03/2025 4:41 PM * Telephone Encounter - Jing Maza FNP - 03/03/2025 7:18 AM CDT I have ordered the incontinence pad. Please fax to [facility] in [facility]. * Telephone Encounter - Rae Agarwal - 03/02/2025 3:27 PM CDT Copied from [facility] #[id number]. Topic: CPA Information Request >> Mar 02, 2025 3:26 PM Rae Dash wrote: Caller is returning phone call from clinic. Caller Name: ROSANA torres [facility] Patient/Caregiver Callback Number: Telephone Information: Patient Has Additional Questions Are the credentials of the caregiver who talked to the patient tempering oven operator? No Call Notes: Patient/Caller requires a call back to discuss these items are not available at the pharmacy - seeing if Cheli can find a supply company please call when done. * Telephone Encounter - Cheli Sal LPN - 03/02/2025 2:32 PM CDT 03/02/2025 2:32 PM I returned call to pt's daughter. Pt is incontinence pads, needs medium absorbency, would like to get this order sent to [facility] if possible. Cheli SCHULZ * Telephone Encounter - Pam Cho - 03/02/2025 1:52 PM CDT Copied from [facility] #[id number]. Topic: CPA Information Request - Order or Referral Request >> Mar 02, 2025 1:49 PM Pam Dia wrote: Caller Name: Rosana Patient/Caregiver Callback Number: Telephone Information: Call Notes: incontinence supplies. Patient is paying out of pocket and its about $80 a month. She is totally out and they don't have the money to get more until the end of next week, Please call themand let them know if this can be done. Caller is requesting: New Non Lab Order Has the patient been seen for this issue? Yes Order: incontinence supplies Reason for Request: Cost Preferred Facility/Location: [facility] - If they can do it. documented in this encounter Plan of Treatment Upcoming Encounters Date Type Department Care Team (Late st Contact Info) Description 05/23/2025 2:00 PM CDT Office Visit [facility] [place] [address] [place] [address] Jing Maza, [facility] [address] [place] [address] documented as of this encounter Visit Diagnoses Not on filedocumented in this encounter Additional Health Concerns Assessment Noted Time PHQ-9 Depression Total Score: 2 02/19/20 1:10 PM CDT documented as of this encounter Care Teams Drawing Instructor Relationship Specialty Start Date End Date Viridiana Carias DO [address] [place] [address] PCP - General Family Practice 10/17/24 documented as of this encounter
== END 2025-03-09 01:53 | disposition home or self-care (01) ==
PROVIDERS: Emergency Provider Emergency Medicine; PCP Family Medicine
DX: R07.89 Other chest pain (principal); E86.0 Dehydration; Z79.4 Long term (current) use of insulin; Z79.82 Long term (current) use of aspirin; Z79.02 Long term (current) use of antithrombotics/antiplatelets; E78.5 Hyperlipidemia, unspecified; I25.10 Atherosclerotic heart disease of native coronary artery without angina pectoris; E11.22 Type 2 diabetes mellitus with diabetic chronic kidney disease; I13.0 Hypertensive heart and chronic kidney disease with heart failure and stage 1 through stage 4 chronic kidney disease, or unspecified chronic kidney disease; N18.9 Chronic kidney disease, unspecified; I50.9 Heart failure, unspecified
CPT/HCPCS: 36415; 71045; 80053; 83880; 84484; 85025; 93005; 99285; J7030

== ENCOUNTER → 2025-03-14 13:40 | Outpatient (BNVA) | payer OTHER, MEDICAID, SELFPAY | PROVIDERS: PCP Family Medicine; Visit Provider Podiatrist Foot & Ankle Surgery | DX: E11.40 Type 2 diabetes mellitus with diabetic neuropathy, unspecified (principal); L60.3 Nail dystrophy; L84 Corns and callosities; L90.9 Atrophic disorder of skin, unspecified; Z79.4 Long term (current) use of insulin | CPT/HCPCS: 11056; 11721 ==

== ENCOUNTER 2025-03-22 22:04 | Emergency (ER) | payer OTHER, MEDICAID, SELFPAY ==
[2025-03-22] VITALS (8 sets, daily range): BP systolic 106–149; BP diastolic 53–87; PULSE 47–57; RESP 12–16; TEMP 36.6; O2SAT 90–96; BMI 36.6
--- NOTE | 2025-03-22 22:14 | W.ED.CHESTPA ---
HPI - Chest Pain General: Chief Complaint: Chest Pain Stated Complaint: ABD PAIN Time Seen by Provider: 03/22/25 22:05 History of Present Illness: 79-year-old female with a history of morbid obesity, obstructive sleep apnea, chronic kidney disease, hyperlipidemia, congestive heart failure, tremor, type 2 diabetes, diabetic neuropathy, hypertension and coronary artery disease who presents emergency room with chest pain. She said she is been feeling short of breath and having chest pain for about a couple of hours now. She also complains of allover pain and some abdominal pain. No nausea or vomiting. She says she has not had a bowel movement in a week and a half Related Data Home Medications ?Medication ?Instructions ?Recorded ?Confirmed topiramate 100 mg tablet 200 mg PO BID 10/25/23 03/14/25 aspirin 81 mg tablet,delayed 81 mg PO DAILY 09/12/24 03/14/25 release cholecalciferol (vitamin D3) 125 125 mcg PO DAILY 12/25/24 03/14/25 mcg (5,000 unit) tablet (Vitamin D3) insulin glargine 100 unit/mL (3 12 unit SUBCUT DAILY 12/25/24 03/14/25 mL) subcutaneous pen (Lantus Solostar U-100 Insulin) insulin lispro 100 unit/mL 12 unit SUBCUT TID 12/25/24 03/14/25 subcutaneous pen (Humalog KwikPen (U-100) Insulin) meclizine 25 mg tablet 25 mg PO BID PRN Dizziness Or 12/25/24 03/14/25 Vertigo qyhdnzkdwsky-jlvfyhps-feygmzw-folic 1 tab PO DAILY 12/25/24 03/14/25 acid 400 mcg-vit K1 20 mcg tablet niacin 500 mg tablet 500 mg PO DAILY 12/25/24 03/14/25 omega-3 acid ethyl esters 1 gram 1 cap PO BID 12/25/24 03/14/25 capsule pravastatin 40 mg tablet mg PO 03/02/25 03/14/25 Previous Rx's ?Medication ?Instructions ?Recorded bumetanide 1 mg tablet 1 mg PO DAILY #30 tabs 08/02/24 buspirone 30 mg tablet 30 mg PO BID #60 tabs 08/02/24 clopidogrel 75 mg tablet 75 mg PO DAILY #30 tabs 08/02/24 fluticasone propionate 50 2 spray intranasal DAILY #16 grams 08/02/24 mcg/actuation nasal spray,suspension meloxicam 15 mg tablet 15 mg PO DAILY #30 tabs 08/02/24 metoprolol tartrate 25 mg tablet 12.5 mg (1/2 x 25 mg) PO BID #30 08/02/24 tabs pantoprazole 40 mg tablet,delayed 40 mg PO BID #60 tabs 08/02/24 release potassium chloride 20 mEq 20 meq PO DAILY #30 tabs 08/02/24 tablet,extended release levothyroxine 25 mcg tablet 25 mcg PO 0600 #90 tabs 08/24/24 trazodone 300 mg tablet 300 mg PO BEDTIME #30 tabs 08/29/24 ondansetron 8 mg disintegrating 8 mg PO Q8H PRN nausea and 09/06/24 tablet vomiting 5 days #15 tabs levetiracetam 750 mg tablet 750 mg PO BID #60 tabs 09/26/24 (Keppra) Auto-titrating CPAP 6-16cm #1 ea 10/07/24 blood sugar diagnostic (Accu-Chek #100 ea 10/17/24 Guide test strips) blood-glucose meter (Accu-Chek #1 ea 10/17/24 Guide Glucose Meter) blood-glucose sensor (FL3XX G7 #3 ea 10/24/24 Sensor device) insulin aspart U-100 100 unit/mL See Rx Instructions .Route 11/01/24 (3 mL) subcutaneous pen .COMPLEX PRN Hyperglycemia #15 mL Diabetic shoes with 3 set insoles #1 ea 11/28/24 Allergies Allergy/AdvReac Type Severity Reaction Status Date / Time Influenza Virus Vaccines Allergy ALGY-Swell Verified 03/14/25 13:54 Lip/Tongue/Throat lisinopril Allergy ADR-Cough Verified 03/14/25 13:54 Sulfa (Sulfonamide Allergy ALGY-Anaphy Verified 03/14/25 13:54 Antibiotics) laxis PFSH ED PFSH: Medical History (Updated 03/23/25 @ 00:53 by Alexia Goss MD) Obstructive sleep apnea sleep study done 09.19.24 Mild YUDELKA; nocturnal hypoxemia; auto titrating CPAP 6-16cm ordered Psychiatric care Obesity with body mass index (BMI) of 30.0 to 39.9 Chronic kidney disease (CKD) Hyperlipidemia Hx of pulmonary embolus during had PE last 2 pregnancies Post-surgical hypothyroidism Congestive heart failure Dorsalgia Obesity Tremor, unspecified Type 2 diabetes mellitus with diabetic neuropathy, unspecified Diabetic neuropathy Hypertension Diabetes Coronary artery disease Decubitus ulcer of sacral region, stage 4 Surgical History Hx of thymectomy upper sternotomy Hx of cardiac cath reports no stents but has CAD Hx of vascular surgery R groin; she says it is in the vein Hx of appendectomy Hx of cholecystectomy Hx of thyroidectomy L thyroidectomy done for goiter; no cancer History of bunionectomy of both great toes History of right shoulder replacement History of bilateral knee arthroplasty History of total hysterectomy with bilateral salpingo-oophorectomy (BSO) no cancer Hx of section X 1 Hx of non-cataract eye surgery bilateral; for glaucoma Hx of cataract surgery OU H/O neck surgery Family History Father Family history of premature coronary artery disease CAD (coronary artery disease) Mother Diabetes mellitus, type 2 Leukemia Sister Breast cancer Social History Smoking and tobacco/nicotine status: unknown if used tobacco/nicotine Alcohol intake: former Former alcohol use details: rare and in 1970s Substance/Drug Use: never Household members: none Housing: House Marital status: / Number of children: 4 Highest education level completed: Master's Degree 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 Skin: Warm, dry. Head: Normocephalic, atraumatic. Neck: Supple, trachea midline. Eye: Extraocular movements are intact. Ears, nose, mouth and throat: mucosa moist. Cardiovascular: Regular, Normal peripheral perfusion. Respiratory: Lungs are clear to auscultation, respirations are non-labored, breath sounds are equal, Symmetrical chest wall expansion. Gastrointestinal: Soft, Nontender, Non distended Musculoskeletal: Normal ROM, no deformity. Neurological: Alert and oriented, No focal neurological deficit observed. Psychiatric: Cooperative, appropriate mood & affect. Course Vital Signs: Vital signs: Vital Signs Temperature 97.8 F 03/22/25 22:05 Pulse Rate 51 L 03/23/25 00:45 Respiratory Rate 14 03/23/25 00:45 Blood Pressure 150/71 03/23/25 00:45 Pulse Oximetry 95 03/23/25 00:45 Oxygen Delivery Me thod Room Air 03/22/25 22:05 MDM - Chest Pain Medical Decision Making Differential diagnosis for patient with chest pain includes but is not limited to and based on the above HPI, review of systems and physical exam: Pneumonia. unstable angina. angina. Acute coronary syndrome / [place]. Pulmonary embolism. Costochondritis / musculoskeletal. Pleurisy. Pericarditis. Esophageal spasm. Pancreatis. Cholecystitis. Orders placed to evaluate differential diagnosis based on the above differential, HPI and physical exam Chest x-ray: Cardiomegaly and small pleural effusions. This was reviewed and interpreted by myself the emergency room physician. I also reviewed the radiology report. Lab Review: Laboratory results were reviewed and interpreted by myself the emergency room physician. Mild leukocytosis. No anemia. No renal failure. Serial cardiac markers are negative. I reviewed the patient's medical record. Reexamination: Patient remained stable. No increased work of breathing. No altered mental status. No focal motor deficits. Assessment and plan: Noncardiac chest pain Constipation - Discharged home - Discussed plan with patient. Answered any questions. - Evaluation and treatment of this problem were appropriate in the emergency setting. Lab Data 03/22/25 22:18 03/22/25 22:18 Radiology Impressions Chest X-Ray 03/22/25 22:16 IMPRESSION: Cardiomegaly with small pleural effusions. Laboratory Results WBC 11.89 10^3/uL (3.29-11.43) H 03/22/25 22:18 RBC 5.49 10^6/uL (3.85-5.65) 03/22/25 22:18 Hgb 15.30 g/dL (11.27-16.99) 03/22/25 22:18 Hct 47.1 % (36-47) H 03/22/25 22:18 MCV 85.8 fl (85-98) 03/22/25 22:18 MCH 27.9 pg (27-33) 03/22/25 22:18 MCHC 32.5 g/dL (30-55) 03/22/25 22:18 RDW 12.6 % (12.1-15.1) 03/22/25 22:18 Plt Count 202 10^3/cmm (157-399) 03/22/25 22:18 MPV 10.3 fL (7.4-10.4) 03/22/25 22:18 Neut % (Auto) 37.7 % 03/22/25 22:18 Lymph % (Auto) 50.0 % 03/22/25 22:18 Bent % (Auto) 6.5 % 03/22/25 22:18 Eos % (Auto) 4.1 % 03/22/25 22:18 Baso % (Auto) 1.1 % 03/22/25 22:18 Neut # (Auto) 4.48 10^3/uL (1.8-7.7) 03/22/25 22:18 Lymph # (Auto) 6.0 10^3/uL (0.8-4.8) H 03/22/25 22:18 Bent # (Auto) 0.8 10^3/uL (0.2-0.9) 03/22/25 22:18 Eos # (Auto) 0.5 10^3/uL (0.0-0.8) 03/22/25 22:18 Baso # (Auto) 0.1 10^3/uL (0.0-0.1) 03/22/25 22:18 Nucleated RBC % (auto) 0 % 03/22/25 22:18 Nucleated RBCs # 0.0 /100WBC 03/22/25 22:18 Sodium 138 mmol/L (136-145) 03/22/25 22:18 Potassium 4.1 mmol/L (3.5-5.1) 03/22/25 22:18 Chloride 102 mmol/L (98-107) 03/22/25 22:18 Carbon Dioxide 24 mmol/L (22-29) 03/22/25 22:18 Anion Gap 16.1 (5-19) 03/22/25 22:18 BUN 20 mg/dL (8-23) 03/22/25 22:18 Creatinine 1.0 mg/dL (0.5-0.9) H 03/22/25 22:18 GFR Calculation Not Reportable 03/22/25 22:18 Glucose 84 mg/dL (65-115) 03/22/25 22:18 Calculated Osmolality 288 mOsm/kg (285-295) 03/22/25 22:18 Calcium 9.8 mg/dL (8.5-10.5) 03/22/25 22:18 Total Bilirubin 0.2 mg/dL (0.15-1.2) 03/22/25 22:18 AST 15 U/L (0-32) 03/22/25 22:18 ALT 12 U/L (0-33) 03/22/25 22:18 Alkaline Phosphatase 46 U/L (35-105) 03/22/25 22:18 Troponin T Baseline 21 ng/L (0-10) H 03/22/25 22:18 Troponin T 120 Minute 19.41 ng/L (0-10) H 03/23/25 00:00 Delta Troponin T -1.59 ABS# (0-10) L 03/23/25 00:00 NT-Pro-B Natriuret Pep 703 pg/mL (0-450) H 03/22/25 22:18 Total Protein 7.2 g/dL (6.6-8.7) 03/22/25 22:18 Albumin 4.3 g/dL (3.5-5.2) 03/22/25 22:18 Globulin 2.9 g/dL (1.3-4.6) 03/22/25 22:18 Lipase 52 U/L (13-60) 03/22/25 22:18 All radiology interpretation(s) finalized by discharge Discharge Plan Discharge Patient Disposition: Home Clinical Impression: Non-cardiac chest pain, Constipation Condition: Stable Prescriptions: No Action bumetanide 1 mg tablet 1 mg PO DAILY Qty: 30 3RF buspirone 30 mg tablet 30 mg PO BID Qty: 60 3RF metoprolol tartrate 25 mg tablet 12.5 mg PO BID Qty: 30 3RF clopidogrel 75 mg tablet 75 mg PO DAILY Qty: 30 3RF fluticasone propionate 50 mcg/actuation spray,suspension 2 spray intranasal DAILY Qty: 16 3RF meloxicam 15 mg tablet 15 mg PO DAILY Qty: 30 3RF pantoprazole 40 mg tablet,delayed release (DR/EC) 40 mg PO BID Qty: 60 3RF potassium chloride 20 mEq tablet extended release 20 meq PO DAILY Qty: 30 3RF (DME) Diabetic shoes with 3 set insoles See Rx Instructions .Route .MEDSUPPLY Qty: 1 0RF Rx Instructions: As directed ondansetron 8 mg tablet,disintegrating 8 mg PO Q8H PRN (Reason: nausea and vomiting) 5 Days Qty: 15 0RF pravastatin 40 mg tablet PO levothyroxine 25 mcg tablet 25 mcg PO 0600 Qty: 90 1RF trazodone 300 mg tablet 300 mg PO BEDTIME Qty: 30 1RF (DME) Auto-titrating CPAP 6-16cm See Rx Instructions .Route .MEDSUPPLY Qty: 1 0RF Rx Instructions: and needs CPAP supplies/mask too (DME) blood-glucose meter [Accu-Chek Guide Glucose Meter] Misc See Rx Instructions .Route Qty: 1 0RF Rx Instructions: As directed (DME) Accu-Chek Guide test strips Strip See Rx Instructions .Route Qty: 100 0RF Rx Instructions: As directed (DME) Dexcom G7 Sensor Device See Rx Instructions .Route Qty: 3 0RF Rx Instructions: As directed insulin aspart U-100 100 unit/mL (3 mL) insulin pen See Rx Instructions .ROUTE .COMPLEX PRN (Reason: Hyperglycemia) Qty: 15 0RF Rx Instructions: Inject per sliding scale, 200-250= 2units, 251-300= 3units, 301-350= 4units, 351-400= 5units every 4 hours PRN for hyperglycemia aspirin [Aspir-81] 81 mg Tablet,Delayed Release (Dr/Ec) 81 mg PO DAILY levetiracetam [Keppra] 750 mg tablet 750 mg PO BID Qty: 60 0RF meclizine 25 mg tablet 25 mg PO BID PRN (Reason: Dizziness Or Vertigo) niacin 500 mg Tablet 500 mg PO DAILY insulin lispro [Humalog KwikPen Insulin] 100 unit/mL insulin pen 12 unit SUBCUT TID omega-3 acid ethyl esters 1 gram capsule 1 cap PO BID insulin glargine [Lantus Solostar U-100 Insulin] 100 unit/mL (3 mL) insulin pen 12 unit SUBCUT DAILY cholecalciferol (vitamin D3) [Vitamin D3] 125 mcg (5,000 unit) Tablet 125 mcg PO DAILY One-A-Day Women's 50 Plus 400-20 mcg Tablet 1 tab PO DAILY topiramate 100 mg tablet 200 mg PO BID Discharge Orders: Discharge ED (Routine); Ordered 03/23/25 Ordered By: Alexia Goss Referrals: Viridiana Carias DO [Primary Care Provider, Family Practice] Discharge Diet: Usual diet Discharge Activity: Increase activity as tolerated Patient Instructions: Constipation (ED), Noncardiac Chest Pain (ED), Opioid Safety, Pain Management, Patient Portal & Champ Instructions Activity Restrictions/Additional Instructions: Thank you for choosing [facility] for your healthcare needs today. You have been screened and evaluated and felt safe for discharge. Health conditions do change or evolve sometimes and as such it is important that you follow up with your Primary Doctor to be re checked, 3-5 days is a general good time frame for follow up. You are always welcome to return to the ED for re assessment if your symptoms are worsening or you have new concerns Print Language: Persian Coding Level of Care Code ED [employer] Operator for Peri Culp
--- NOTE | 2025-03-22 22:16 | XRR_ITS ---
PROCEDURE INFORMATION: Exam: XR Chest Exam date and time: 03/22/2025 10:37 PM Age: 79 years old Clinical indication: Chest wall pain; Additional info: Chest pain TECHNIQUE: Imaging protocol: Radiologic exam of the chest. Views: 1 view. COMPARISON: CR (CHEST, ) 03/08/2025 10:41 PM FINDINGS: Lungs: Unremarkable. No consolidation. Pleural spaces: Small pleural effusions could be present this blunting of the costophrenic angles bilaterally. No pneumothorax. Heart/Mediastinum: Heart is enlarged. Patient post open heart and fusion of the cervical spine. Bones/joints: Unremarkable. XR/XR chest 1V portable [id number] IMPRESSION: Cardiomegaly with small pleural effusions.
[2025-03-22 22:32] LABS: Hematocrit 47.1 % (36-47); Hemoglobin 15.30 g/dL (11.27-16.99); Mean Corpuscular HGB Conc 32.5 g/dL (30-55); Mean Corpuscular Hemoglobin 27.9 pg (27-33); Mean Corpuscular Volume 85.8 fl (85-98); Nucleated Red Blood Cells % 0 %; Platelet Count 202 10^3/cmm (157-399); Red Blood Count 5.49 10^6/uL (3.85-5.65); White Blood Count 11.89 10^3/uL (3.29-11.43)
--- NOTE | 2025-03-22 22:35 | ECG_ITS ---
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
[2025-03-22 23:04] LABS: Slide Review Slide Review Perform
[2025-03-22 23:06] LABS: Alanine Aminotransferase 12 U/L (0-33); Albumin Level 4.3 g/dL (3.5-5.2); Alkaline Phosphatase 46 U/L (35-105); Blood Urea Nitrogen 20 mg/dL (8-23); Calcium 9.8 mg/dL (8.5-10.5); Carbon Dioxide 24 mmol/L (22-29); Chloride 102 mmol/L (98-107); Creatinine Clr Calc Pharmacy 48.5625; Globulin 2.9 g/dL (1.3-4.6); Glucose 84 mg/dL (65-115); Lipase 52 U/L (13-60); NT Pro B Type Natriuretic Pept 703 pg/mL (0-450); Osmolality Calculated 288 mOsm/kg (285-295); Sodium 138 mmol/L (136-145); Total Protein 7.2 g/dL (6.6-8.7)
--- OUTSIDE RECORDS SUMMARY | 2025-03-22 23:09 | XMS_ITS | Encounter Summary ---
Author Organization [facility] Address [address] [place] [address] Care Team Providers Care Deputy Commonwealth'S Attorney Name Role Phone Viridiana Carias Primary Care Provider [phone] Encounter Details Date Type Department Care Team (Late Contact Info) Description 02/03/2025 Results Follow-Up [facility] Family Medicine [place] [address] [place] [address] [facility] [address] [place] [address] CBC WITH DIFFERENTIAL, HIV DETECTION [...] Care Team (Late st Contact Info) Description 05/17/2025 11:20 AM CDT Office Visit [facility] Spine Neurosurgery [address] [place] [id number] Nydia Werner MD [address] [place] [id number] 05/23/2025 2:00 PM CDT Office Visit [facility] [address] [place] [address] Jing Maza FNP [address] [place] [address] documented as of this encounter Visit Diagnoses Not on filedocumented in this encounter Care Teams Deputy Commonwealth'S Attorney Relationship Specialty Start Date End Date Viridiana Carias DO [address] [place] [address] PCP - General Family Practice 10/17/24 documented as of this encounter
--- OUTSIDE RECORDS SUMMARY | 2025-03-22 23:09 | XMS_ITS | Encounter Summary ---
Author Organization [facility] Address [address] [place] [address] Care Team Providers Care Asphalt Paving Foreman Name Role Phone Viridiana Carias Primary Care Provider [phone] Encounter Details Date Type Department Care Team (Latest Contact Info) Description 02/06/2025 Results Follow-Up [facility] Family Medicine [place] [address] [place] [address] [facility] [address] [place] [address] MISCELLANEOUS LAB TEST Social History [...] Description 05/17/2025 11:20 AM CDT Office Visit [facility] Spine Neurosurgery [address] [place] [address] Nydia Werner MD [address] [address] 05/23/2025 2:00 PM CDT Office Visit [facility] [address] [place] [address] Jing Maza FNP [address] [place] [address] documented as of this encounter Visit Diagnoses Not on filedocumented in this encounter Care Teams Asphalt Paving Foreman Relationship Specialty Start Date End Date Viridiana Carias DO [address] [place] [address] PCP - General Family Practice 10/17/24 documented as of this encounter
--- OUTSIDE RECORDS SUMMARY | 2025-03-22 23:09 | XMS_ITS | Clinical Summary ---
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 90 Tablet 3 11/16/19 25 Active cetirizine (ZyrTEC) 10 mg tabletIndications :Environmental and seasonal allergies Take 1 Tablet (10 mg) by mouth daily. 90 Tablet 11/16/19 25 Active pantoprazole (PROTONIX) 40 mg Tablet, Delayed Release (E.C.)Indications :Gastro-esophagea l reflux disease without esophagitis TAKE 1 TABLET BY MOUTH TWICE DAILY 180 Tablet 3 11/30/19 25 Active blood sugar diagnostic (Accu-Chek Guide test strips) StripIndications: Type 2 diabetes mellitus with other specified complication, with long-term current use of insulin (CMS/HCC) USE DIRECTED TO TEST BLOOD SUGAR UP TO 6 TIMES DAILY 200 Strip 11/30/19 25 Active levETIRAcetam (KEPPRA) 750 mg TabletIndications :Seizure (CMS/HCC) TAKE 1 TABLET BY MOUTH EVERY TWELVE HOURS 180 Tablet 11/30/19 25 Active Blood-Glucose Sensor (Dexcom G7 Sensor) DeviceIndications :Type 2 diabetes mellitus with other specified complication, with long-term current use of insulin (CMS/HCC) USE as directed, change sensor EVERY 10 days 9 Each 11/30/19 25 Active cpap medical deviceIndications :YUDELKA (obstructive sleep [...] reusable 1 per 6 months. 1 Each 12/10/19 25 Active insulin lispro (HumaLOG,ADMELOG) 100 unit/mL pen syringeIndication s:Type 2 diabetes mellitus with other specified complication, with long-term current use of insulin (CMS/HCC) Inject 12 Units by subcutaneous injection 3 times daily with meals. 33 mL 12/13/19 25 Active omega-3 acid ethyl esters (LOVAZA) 1 gram CapsuleIndication s:Mixed hyperlipidemia TAKE ONE CAPSULE BY MOUTH TWICE DAILY 180 Capsule 01/07/20 25 Active nystatin (MYCOSTATIN) 100,000 unit/gram CreamIndications: Yeast infection Apply to affected area 4 times daily. 30 Gram 4 01/26/20 25 Active psyllium (FIBER-CAP) 0.52 gram CapsuleIndication s:Slow transit constipation Take 2 Capsules by mouth 2 times daily. 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 TAKE 1 TABLET BY MOUTH DAILY 30 Tablet 02/16/20 25 Active Additional Information Patient not taking.Reported on 02/21/2025 potassium CHLORIDE (K-TAB) 20 mEq Extended Release tabletIndications :Leg swelling TAKE 1 TABLET BY MOUTH DAILY 30 Tablet 02/16/20 25 Active fluticasone propionate (FLONASE) 50 mcg/spray [place], Suspension nasal inhalerIndication s:Seasonal allergic rhinitis due to pollen SPRAY 2 SPRAYS in each nostril DAILY 16 Gram 02/16/20 25 Active HYDROcodone-aceta minophen (NORCO) 5-325 mg tabletIndications :Chronic midline low back pain with bilateral sciatica Take 1 Tablet by mouth 2 times daily as needed for Pain, Moderate. Max Daily Amount: 2 Tablets 30 Tablet 02/22/20 25 Active metoprolol tartrate (LOPRESSOR) 25 mg tabletIndications :Primary hypertension Take 1 Tablet (25 mg) by mouth 2 times daily. 180 Tablet 3 02/23/20 25 Active Miscellaneous Medical SupplyIndications :Mixed stress and urge urinary incontinence Adult depend absorbent pad. Fit for size. 200 Each 03/03/20 25 Active metoprolol tartrate (LOPRESSOR) 25 mg tabletIndications :Primary hypertension TAKE 1/2 TABLET BY MOUTH BODY TWICE DAILY 30 Tablet 3 11/05/19 25 025 Discontinu ed(Reorder ) fluconazole (DIFLUCAN) 150 mg tabletIndications :Yeast infection Take 1 Tablet (150 mg) by mouth daily for 10 days. 10 Tablet 02/22/20 25 025 Active Problems Problem Noted Date Diagnosed Date Mild cognitive impairment with memory loss 01/25 Primary insomnia 01/25/2025 Slow transit constipation 01/25/2025 Chronic osteoarthritis 11/15/2024 Chronic congestive heart failure 11/15/2024 Postoperative hypothyroidism 11/15/2024 Environmental and seasonal allergies 11/15/2024 Atherosclerosis of ewiiaapaayp co ronary artery of ewiiaapaayp heart without angina pectoris 11/15/2024 Acute pain of left knee 09/14/2024 SDH (subdural hematoma) 09/13/2024 Severe episode of recurrent major depressive disorder, without psychotic features 03/18/2014 Type 2 diabetes mellitus with other specified co mplication 03/18/2014 Hypertension 03/18/2014 Hyperlipidemia 03/18/2014 Arthritis 03/18/2014 Depression 03/18/2014 YUDELKA (obstructive sleep apnea) 03/18/2014 Familial tremor 03/18/2014 Corneal abrasion 03/18/2014 Encounters Date Type Department Care Team Description 03/13/2025 Orders Only [facility] [address] [facility] [place] [address] Jing Maza FNP Abnormal brain MRI (Primary Dx); Pachymeningitis; Subdural hygroma 03/10/2025 Results Follow-Up [facility] [address] [facility] [place] [address] Jing Maza FNP MRI BRAIN W WO CONTRAST 03/09/2025 12:28 PM CDT - 03/09/2025 11:59 PM CDT Hospital Encounter [facility] MRI [place] [address] [place] [address] Jing Maza FNP Discharge Disposition: Home or Self Care 03/09/2025 Orders Only [facility] Health Information Management [place] [address] [address] Provider, Abstract 03/09/2025 Refill [facility] [address] [place] [address] Jing Maza FNP Seizure ([facility]) 03/03/2025 Orders Only [facility] [address] [place] [address] Jing Maza FNP Mixed stress and urge urinary incontinence (Primary Dx) 03/02/2025 Telephone [facility] [address] [place] [address] Viridiana Carias DO Needs Orders Written; Patient Communication 02/27/2025 Telephone [facility] [address] [place] [address] Viridiana Carias DO Provider Call 02/22/2025 Telephone [facility] [address] [place] [address] Viridiana Carias DO Medication Question 02/21/2025 1:00 PM CDT Office Visit [facility] [address] [place] [address] Jing Maza FNP Medicare annual wellness visit, subsequent (Primary Dx); Frail elderly; Chronic osteoarthritis; Yeast infection; Mild cognitive impairment with memory loss; 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; Postoperative hypothyroidism; Type 2 diabetes mellitus with other specified complication, with long-term current use of insulin ([facility]); Other secondary hypertension; Chronic midline low back pain with bilateral sciatica 02/17/2025 Orders Only [facility] [address] [place] [address] Jing Maza FNP 02/07/2025 Refill [facility] [address] [place] [address] Jing Maza, TECHNICIAN TEST SYSTEMS Arthritis; Mixed hyperlipidemia; Leg swelling; Anxiety state; Primary insomnia; 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; Seasonal allergic rhinitis due to pollen 02/06/2025 Orders Only [facility] [address] [place] [address] Jing Maza, ROD Mild cognitive impairment with memory loss (Primary Dx) 02/06/2025 Results Follow-Up [facility] [address] [place] [address] Jing Maza FNP MISCELLANEOUS LAB TEST 02/03/2025 Results Follow-Up [facility] [address] [place] [address] Jing Maza FNP CBC WITH DIFFERENTIAL, HIV DETECTION W/REFLX CONFIRMATION, TSH, Additional followed-up results: 3 02/03/2025 Orders Only [facility] [address] [place] [address] Jing Maza FNP Yeast infection (Primary Dx) 01/26/2025 Orders Only Initial Department [address] [place] [address] Dr PARSONS: [place] [address] Provider, Historical 01/26/2025 Orders Only Initial Department [address] [facility] [address] PARSONS: [place] [address] Provider, Historical 01/26/2025 Orders Only [facility] [address] [place] [address] Jing Maza FNP 01/26/2025 Telephone [facility] [address] [place] [address] Viridiana Carias DO Medication Question; Medication Review; Provider Call 01/25/2025 3:20 PM CDT Office Visit [facility] [address] [place] [phone] Jing Maza, ROD Yeast infection (Primary Dx); Type 2 diabetes mellitus with other specified complication, with long-term current use of insulin ([facility]); Mild cognitive impairment with memory loss; Slow transit constipation; Primary insomnia 01/17/2025 External Device Data [place] ABSTRACTION Provider, Abstract 01/11/2025 External Device Data [place] ABSTRACTION Provider, Abstract 01/06/2025 Refill [facility] [address] [place] [address] Jing Maza FNP Mixed hyperlipidemia 01/03/2025 Telephone [facility] [address] [place] [address] Jing Maza FNP Needs Orders Written 12/21/2024 [facility] [address] [place] [address] Viridiana Carias, Information from Last 3 Months Family History Medical [...] Description 05/17/2025 11:20 AM CDT Office Visit [facility] Spine Neurosurgery [address] [place] [address] Nydia Werner MD [address] [place] [address] 05/23/2025 2:00 PM CDT Office Visit [facility] Family Medicine [place] [address] [place] [address] Jing Maza FNP [address] [place] [address] Health Maintenance Due Date Last Done Comments DIABETES ANNUAL FOOT EXAM 1964 DIABETES ANNUAL RETINAL EXAM 1964 DTAP/TDAP/TD VACCINES (1 - Tdap) 1965 PNEUMOCOCCAL VACCINE 50+ YEA RS (1 of 2 - PCV) 1965 ZOSTER VACCINE (1 of 2) 1996 OSTEOPOROSIS SCREENING 12/09/2011 RSV VACCINE (60+ or ) (1 - 1-dose 75+ series) 2021 Medicare Advantage ([place]) Preventative Visit/Annual Wellness Visit 08/10/2024 INFLUENZA VACCINE (#1) 2025 DIABETES HBA1C Q 6 MONTHS 05/17/2025 11/15/2024, 03/2014 DIABETES: A1C (Auto Order) 11/15/2025 11/15/2024, LDL CHOLESTEROL ANNUAL 11/15/2025 11/15/2024 DIABETES MICROALBUMIN ANNUAL SCREEN 01/25/2026 01/25/2025 SHRUTHIE uACR (Auto Order) Completed 01/25/2025 KHE eGFR [...] complication, with long-term current use of insulin ([facility]) from Last 3 Months or Most Recently [...] convexity, likely from previous episodes of hemorrhage. Jing Maza TECHNICIAN TEST SYSTEMS MR ORDERABLES Final Resu lt * COMPREHENSIVE METABOLIC PANEL (03/08/2025 12:10 PM CDT) Only the most recent of2 resultswithin the time period is included. Blood Abstract Provider CHEMISTRY ORDERABLES Final Res ult * MISCELLANEOUS LAB TEST (01/26/2025 8:30 AM CDT) MISCELLANEOUS LAB TEST REPORT [facility], Comment: AD DETECT(TM) ABETA 42/40 AND [id number] EVALUATION, PLASMA TEST NAME RESULT FLAG UNITS REF RANGE ========= ====== ==== ===== ========= INTERPRETATION SEE COMMENT RESULT COMMENT: Low Likelihood This panel combines beta amyloid 42/40 and [id number] plasma scores to provide an assessment of [...] L > OR = 0.170 AD DETECT [id number], PLASMA 0.10 pg/mL < OR = 0.15 LIKELIHOOD SCORE 0.0551 Likelihood of amyloid PET positivity: Low Likelihood: <0.3254 Indeterminant: 0.3254-0.6460 High Likelihood: >0.6460 The likelihood score for amyloid PET positivity was determined by a calculation that included plasma ABeta42/40 ratio and plasma p-Aua754, where ABeta42/40 is the ratio of plasma [...] analytical performance characteristics have been determined by [facility] It has not been cleared or approved by the FDA. This assay has been validated pursuant to the CLIA regulations and is used for clinical purposes. FASTING:UNKNOWN FASTING: UNKNOWN Test Performed at: [facility], [address] [place] [address] Xiomara Ruiz MD,PhD,XANDER 01/26/2025 8:30 AM CDT 01/26/2025 8:31 AM CDT Jing Maza TECHNICIAN TEST SYSTEMS CHEMISTRY ORDERABLES Final Result [facility] [phone] [facility], [address] [place] [address] * SYPHILIS SEROLOGY W/REFLEX (01/26/2025 8:29 AM CDT) T PALLIDUM ANTIBODIES NEGATIVE NEGATIVE [facility] Thomas Comment: No antibodies to T. pallidum (the agent causing syphilis) were detected in the specimen. This result, however, does not exclude very recent T. pallidum infection; testing of a second specimen, collected 2-4 weeks after this specimen, is recommended if the index of suspicion for recent infection is high. FASTING:UNKNOWN FASTING: UNKNOWN Test Performed at: [facility] [address] [place] [address] Irvin Artis 01/26/2025 8:29 AM CDT 01/26/2025 8:29 AM CDT Kushfarihalavern Maza TECHNICIAN TEST SYSTEMS CHEMISTRY ORDERABLES Final Result [facility] [phone] [facility] [address] [place] [address] * HIV DETECTION W/REFLX CONFIRMATION (01/26/2025 8:29 AM CDT) Pathologist [facility] HIV-1/2 AG AND AB SCREEN NON-REACT UMAIR NON-REACT UMAIR [facility] [place] Comment: HIV-1 antigen and HIV-1/HIV-2 antibodies were [...] purpose. For additional information please refer to http://education.MyFeelBack/faq/OAL172 (This link is being provided for informational/ educational purposes only.) The performance of this assay has not been clinically validated in patients less than 2 years old. Test Performed at: [facility] [address] [place] [address] Mahendra Dumont MD 01/26/2025 8:29 AM CDT 01/26/2025 8:29 AM CDT Jing Maza [facility] CHEMISTRY ORDERABLES Final Result Performing Organization Address [facility] de Phone Number [facility] [phone] [facility] [address] [place] [address] * VITAMIN B12 AND FOLATE (01/26/2025 8:29 AM CDT) Pathologist [facility] VITAMIN B12 409 200 - 1100 pg/mL [facility] FOLATE, SERUM 14.0 ng/mL [facility] Comment: Reference Range Low: <3.4 Borderline: 3.4-5.4 Normal: >5.4 FASTING:UNKNOWN FASTING: UNKNOWN Test Performed at: [facility] [id number] [place] [address] Mahendra Dumont MD 01/26/2025 8:29 AM CDT 01/26/2025 8:29 AM CDT Jing Maza [facility] CHEMISTRY ORDERABLES Final Result Performing Organization Address [facility] de Phone Number [facility] [phone] [facility] [address] [place] [address] * (ABNORMAL) CBC WITH DIFFERENTIAL (01/26/2025 8:29 AM CDT) Pathologist [facility] WBC 13.0(H) 3.8 - 10.8 Thousand/u L [...] Comment: FASTING:UNKNOWN FASTING: UNKNOWN Test Performed at: [facility] [address] Mahendra Dumont MD 01/26/2025 8:29 AM CDT 01/26/2025 8:29 AM CDT us Jing Maza TECHNICIAN TEST SYSTEMS HEMATOLOGY ORDERABLES Monik l Result [facility] [phone] [facility] [address] [place] [address] * TSH (01/26/2025 8:29 AM CDT) TSH 3.47 0.40 - 4.50 mIU/L [facility] Comment: Test Performed at: [facility] [address] [place] [address] Mahendra Dumont MD 01/26/2025 8:29 AM CDT 01/26/2025 8:29 AM CDT Jing Maza TECHNICIAN TEST SYSTEMS CHEMISTRY ORDERABLES Final Result [facility] [phone] [facility] [address] [place] [address] * (ABNORMAL) URINALYSIS WITH REFLEX CULTURE (01/25/2025 [...] - RESULTS TO FOLLOW Test Performed at: [facility] [address] [facility] [place] [address] Mahendra Dumont MD Urine URINE SPECIMEN OBTAINED BY CLEAN CATCH PROCEDURE / Unknown 01/25/2025 5:14 PM CDT 01/26/2025 3:16 AM CDT Jing Maza [facility] URINE ORDERABLES Final Res ult Performing Organization Address [facility]/ZIP Co de Phone Number [facility] [phone] [facility] [address] [place], [place] [address] [address] * MICROALBUMIN/CREATININE RATIO, RANDOM UR (01/25/2025 5:14 [...] within a diagnostic category. Test Performed at: [facility] [address] [place] [address] Mahendra Dumont MD Urine URINE SPECIMEN OBTAINED BY CLEAN CATCH PROCEDURE / Unknown 01/25/2025 5:14 PM CDT 01/26/2025 3:16 AM CDT Jing Maza [facility] URINE ORDERABLES Final Res ult Performing Organization Address [facility]/ZIP Co de Phone Number [facility] [phone] [facility] [address] [place] [address] [place] [address] * URINE CULTURE (01/25/2025 5:14 PM CDT) URINE CULTURE SEE NOTE [facility] Comment: CULTURE, URINE, ROUTINE Micro Number: [id number] Test Status: Final Specimen Source: Urine Specimen Quality: Adequate Result: No Growth Test Performed at: [facility] [address] [place] [address] Mahendra Dumont MD 01/25/2025 5:14 PM CDT 01/26/2025 3:16 AM CDT Kushtimmy Hamilton Maza [facility] MICROBIOLOGY - GENERAL ORD ERABLES Final Result [facility] [phone] [facility] [address] [place] [address] * (ABNORMAL) HEMOGLOBIN A1C (11/15/2024 3:26 PM CDT) HEMOGLOBIN A1C 7.6(H) <5.7 % of total Hgb [facility] [facility] Comment: For someone without known diabetes, [...] children. ESTIMATED AVERAGE GLUCOSE (MG/DL) 171 mg/dL [facility] ESTIMATED AVERAGE GLUCOSE (MMOL/L) 9.5 mmol/L [facility] [facility] Comment: FASTING:UNKNOWN FASTING: UNKNOWN Test Performed at: [facility] [employer] [place], [place] [address] Mahendra Dumont MD Blood 11/15/2024 3:26 PM CDT 11/15/2024 3:26 PM CDT Jing [place]INT[place] CHEMISTRY ORDERABLES Final Result [facility] [phone] [facility] [address] [place] [address] * (ABNORMAL) LIPID PANEL (11/15/2024 3:26 PM CDT) CHOLESTEROL 131 <200 mg/dL [facility] [facility] HDL 44(L) > OR = 50 mg/dL [facility] TRIGLYCERIDE 183(H) <150 mg/dL [facility] LDL CALCULATED 61 mg/dL (calc) [facility] [facility] Comment: Reference range: <100 Desirable range <100 mg/dL for primary prevention; <70 mg/dL for patients with CHD or diabetic patients with > or = 2 CHD risk factors. LDL-C is now calculated using the Maria T calculation, which is a validated novel method providing better accuracy than the Friedewald equation in the estimation of LDL-C. Herman SS et al. LARRY. 2013;310(19): 5647-0709 (http://education.Vizional Technologies/faq/NJL907) CHOL/HDL RATIO 3.0 <5.0 (calc) [facility] [facility] NON-HDL CHOLESTEROL 87 <130 mg/dL (calc) [facility] [facility] Comment: For patients with diabetes plus 1 major ASCVD risk factor, treating to a non-HDL-C goal of <100 mg/dL (LDL-C of <70 mg/dL) is considered a therapeutic option. FASTING:UNKNOWN FASTING: UNKNOWN Test Performed at: [facility] [address] Mahendra Dumont MD Blood 11/15/2024 3:26 PM CDT 11/15/2024 3:26 PM CDT Jing Maza TECHNICIAN TEST SYSTEMS CHEMISTRY ORDERABLES Final Result [facility] [phone] [facility] [address] from Last 3 Months or Most Recently Relevant to Health Maintenance Insurance MEDICAID [place] [facility] DUAL COMPLETE PPO DSNP [facility] [id number] RX [employer] RX Member Subscriber Plan / Payer (Ef fective 2024-Present) Name:Jaylene Montiel Relation to Subscriber:Self Name:Jaylene Montiel Payer ID:Not on file Group ID:[id number] Type:RX Medicare Part D Address: [place] RX [employer] Medicaid [place] Advance Directives For more information, please contact: [phone] * Full Code (Latest Code Status on File) Date Activated Date Inactivated Comments 09/12/2024 10:48 PM 09/16/2024 11:49 PM * Full Code Date Activated Date Inactivated Comments 03/18/2014 3:20 AM 03/22/2014 1:49 PM Care Teams Casing Grader Relationship Specialty Start Date End Date Viridiana Carias DO [address] [place] [address] PCP - General Family Practice 10/17/24
--- OUTSIDE RECORDS SUMMARY | 2025-03-22 23:09 | XMS_ITS | Encounter Summary ---
Author Organization [facility] Address [address] [place] [address] Care Team Providers Care Metal Pourer Name Role Phone Viridiana Carias DO Primary Care Provider [phone] Reason for Visit * Reason Comments Medication Question Encounter Details Date Type Department Care Team (Late st Contact Info) Description 02/22/2025 Telephone [facility] Family Medicine [place] [address] [place] [address] Viridiana Carias DO [address] [place] [address] Medication Question Social History Tobacco [...] have faxed the update med list to [facility] Mandie Escobar, 02/23/2025 8:18 AM [...] like updated med list faxed to them [phone]. Cheli SCHULZ * Telephone Encounter - Burton Pham - 02/22/2025 10:51 AM CDT Copied from [facility] #[id number]. Topic: Medication Request >> Feb 22, 2025 10:49 AM Burton Martines wrote: Pharmacy Calling: Brayan Velásquez - [address] (Pharmacy) Pharmacy Contact Name: [facility] [...] Description 05/17/2025 11:20 AM CDT Office Visit [facility] Spine Neurosurgery [address] [place] [address] Nydia Werner MD [address] [place] [address] 05/23/2025 2:00 PM CDT Office Visit [facility] Family Medicine [place] [address] [place] [address] Jing Maza FNP [address] [place] [address] documented as of this encounter Visit Diagnoses Diagnosis Primary hypertension Unspecified essential hypertension documented in this encounter Additional Health Concerns Assessment Noted Time PHQ-9 Depression Total Score: 2 02/19/20 25 1:10 PM CDT documented as of this encounter Care Teams Metal Pourer Relationship Specialty Start Date End Date Viridiana Carias DO [address] [place] [address] PCP - General Family Practice 10/17/24 documented as of this encounter
[2025-03-22 23:10] LABS: Anion Gap 16.1 (5-19); Aspartate Amino Transferase 15 U/L (0-32); Potassium 4.1 mmol/L (3.5-5.1)
[2025-03-22 23:18] LABS: Troponin(5th) Baseline 21 ng/L (0-10)
--- NOTE | 2025-03-23 00:23 | XRR_ITS ---
PROCEDURE INFORMATION: Exam: XR Abdomen Exam date and time: 03/23/2025 12:36 AM Age: 79 years old Clinical indication: Abdominal pain; Generalized; Additional info: Abd pain TECHNIQUE: Imaging protocol: Radiologic exam of the abdomen. Views: Frontal supine view of the abdomen. 1 View. COMPARISON: CR (CHEST, ) 03/22/2025 10:37 PM FINDINGS: Gastrointestinal tract: There is decreased bowel gas throughout the abdomen and pelvis nonspecific there is no severe constipation or high-grade obstruction . There is increased density in the abdomen may reflect patient body habitus or underlying component of ascites. Vasculature: There is a vascular stent in the right pelvis Bones/joints: Bony structures show no acute findings XR/XR abdomen 1V* [id number] IMPRESSION: Nonspecific bowel gas pattern no severe constipation or high-grade obstruction
[2025-03-23 00:28] LABS: Troponin 5 2HR 19.41 ng/L (0-10)
[2025-03-23 00:31] LABS: Troponin 5 2HR Delta -1.59 ABS# (0-10)
[2025-03-23 00:45] VITALS: BP 150/71; PULSE 51; RESP 14; O2SAT 95
--- NOTE | 2025-03-23 00:49 | ECG_ITS ---
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
[2025-03-23] MEDS: magnesium citrate Btl 296 mL PO (01:26)
[2025-03-23 01:32] VITALS: BP 150/71; PULSE 53; O2SAT 97
== END 2025-03-23 01:36 | disposition home or self-care (01) ==
PROVIDERS: Emergency Provider Emergency Medicine; PCP Family Medicine
DX: R07.89 Other chest pain (principal); K59.00 Constipation, unspecified; Z79.02 Long term (current) use of antithrombotics/antiplatelets; Z79.4 Long term (current) use of insulin; Z79.82 Long term (current) use of aspirin; E78.5 Hyperlipidemia, unspecified; I25.10 Atherosclerotic heart disease of native coronary artery without angina pectoris; E11.22 Type 2 diabetes mellitus with diabetic chronic kidney disease; I13.0 Hypertensive heart and chronic kidney disease with heart failure and stage 1 through stage 4 chronic kidney disease, or unspecified chronic kidney disease; N18.9 Chronic kidney disease, unspecified; I50.9 Heart failure, unspecified
CPT/HCPCS: 36415; 71045; 74018; 80053; 83690; 83880; 84484; 85025; 93005; 99285; J9999

== ENCOUNTER 2025-04-21 08:44 | Outpatient (CLI) | payer OTHER, MEDICAID, SELFPAY ==
[2025-04-21 10:24] LABS: Estmated Average Glucose 148; Hemoglobin A1C 6.8 % (4.0-6.0)
[2025-04-21 10:32] LABS: Alanine Aminotransferase 14 U/L (0-33); Albumin Level 4.1 g/dL (3.5-5.2); Alkaline Phosphatase 42 U/L (35-105); Anion Gap 15.2 (5-19); Aspartate Amino Transferase 12 U/L (0-32); Blood Urea Nitrogen 18 mg/dL (8-23); Calcium 9.2 mg/dL (8.5-10.5); Carbon Dioxide 25 mmol/L (22-29); Chloride 101 mmol/L (98-107); Cholesterol 242 mg/dL (0-200); Globulin 2.9 g/dL (1.3-4.6); Glucose 195 mg/dL (65-115); HDL Cholesterol 42 mg/dL (60-100); Osmolality Calculated 291 mOsm/kg (285-295); Potassium 4.2 mmol/L (3.5-5.1); Sodium 137 mmol/L (136-145); Total Protein 7.0 g/dL (6.6-8.7); Triglycerides 234 mg/dL (0-150)
[2025-04-21 10:33] LABS: Creatinine Urine, Random 44 mg/dL (28-217)
[2025-04-21 10:39] LABS: Microalbum Creatinine Ratio Ur 45 mg/dL (0-20)
== END 2025-04-21 08:45 | disposition home or self-care (01) ==
LOC: LAB 08:44
PROVIDERS: PCP Family Medicine; Visit Provider Internal Medicine
DX: E78.2 Mixed hyperlipidemia (principal); E11.40 Type 2 diabetes mellitus with diabetic neuropathy, unspecified; E11.69 Type 2 diabetes mellitus with other specified complication; I25.10 Atherosclerotic heart disease of native coronary artery without angina pectoris
CPT/HCPCS: 36415; 80053; 80061; 82044; 83036; 86337; 86341

== ENCOUNTER → 2025-06-01 11:28 | Outpatient (BNVA) | payer OTHER, MEDICAID, SELFPAY | PROVIDERS: PCP Family Medicine; Visit Provider Internal Medicine Endocrinology, Diabetes & Metabolism | DX: I25.10 Atherosclerotic heart disease of native coronary artery without angina pectoris (principal); E78.2 Mixed hyperlipidemia; E11.69 Type 2 diabetes mellitus with other specified complication; Z79.4 Long term (current) use of insulin | CPT/HCPCS: 99214 ==

== ENCOUNTER → 2025-06-12 13:46 | Outpatient (BNVA) | payer OTHER, MEDICAID, SELFPAY | PROVIDERS: PCP Family Medicine; Visit Provider Thoracic Surgery (Cardiothoracic Vascular Surgery) | DX: L24.A9 Irritant contact dermatitis due friction or contact with other specified body fluids (principal) | CPT/HCPCS: 99203 ==

== ENCOUNTER 2025-07-07 09:35 | Emergency (ER) | payer MEDICARE, MEDICAID, SELFPAY ==
[2025-07-07 09:37] VITALS: BP 131/70; PULSE 73; RESP 18; TEMP 36.4; O2SAT 95; BMI 42.0
--- NOTE | 2025-07-07 09:41 | CTR_ITS ---
PROCEDURE INFORMATION: Exam: CT Head Without Contrast Exam date and time: 07/07/2025 10:15 AM Age: 79 years old Clinical indication: Injury or trauma; Fall; Blunt trauma (contusions or hematomas); Loss of consciousness unknown TECHNIQUE: Imaging protocol: Computed tomography of the head without contrast. Radiation optimization: All CT scans at this facility use at least one of these dose optimization techniques: automated exposure control; mA and/or kV adjustment per patient size (includes targeted exams where dose is matched to clinical indication); or iterative reconstruction. COMPARISON: CT head thrombolytic [id number] 09/26/2024 2:54 PM RADIATION DOSE METRICS: Total DLP (mGy-cm): 447.3 FINDINGS: Brain: There is no mass effect or midline shift, acute hemorrhage, extra-axial fluid collection or acute lobar infarct. Cerebral ventricles: No ventriculomegaly. Paranasal sinuses: Visualized sinuses are unremarkable. No fluid levels. Mastoid air cells: Visualized mastoid air cells are well aerated. Bones: Unremarkable. No acute fracture. Soft tissues: There is left frontal soft tissue swelling. CT/CT head wo con* [id number] IMPRESSION: No acute intracranial process.
--- NOTE | 2025-07-07 09:41 | CTR_ITS ---
PROCEDURE INFORMATION: Exam: CT Thoracic Spine Without Contrast Exam date and time: 07/07/2025 10:21 AM Age: 79 years old Clinical indication: Injury or trauma; Fall; Blunt trauma (contusions or hematomas) TECHNIQUE: Imaging protocol: Computed tomography of the thoracic spine without contrast. Radiation optimization: All CT scans at this facility use at least one of these dose optimization techniques: automated exposure control; mA and/or kV adjustment per patient size (includes targeted exams where dose is matched to clinical indication); or iterative reconstruction. COMPARISON: CT cervical spin wo con* [id number] 07/07/2025 10:15 AM RADIATION DOSE METRICS: Total DLP (mGy-cm): 2553.3 FINDINGS: Bones/joints: Postprocedural changes at T10 status post vertebroplasty. Posterior spinal fusion hardware extends from the lower cervical spine through T1. T2 superior endplate irregularities unchanged from cervical spine CT 09/12/2024. Minimal T3 superior endplate irregularity is age indeterminate without comparison imaging but is favored as chronic, degenerative. There are mild degenerative changes throughout the visible areas of the spine. Soft tissues: CT is not the preferred modality for assessing the soft tissue contents of the spinal canal but is no definite acute abnormality. Vasculature: Mild atherosclerotic disease is evident. Lungs: Mild diffuse bronchiectasis with peribronchial thickening. No rib fracture in the [id number]-bo-blgg. CT/CT thoracic spin wo con* [id number] IMPRESSION: No acute appearing fracture. Nonemergent findings as above.
--- NOTE | 2025-07-07 09:41 | XRR_ITS ---
PROCEDURE INFORMATION: Exam: XR Left Knee Exam date and time: 07/07/2025 10:31 AM Age: 79 years old Clinical indication: Injury or trauma; Fall; Blunt trauma; Knee; Left TECHNIQUE: Imaging protocol: Radiologic exam of the left knee. Views: 3 views. COMPARISON: No relevant prior studies available. FINDINGS: Bones/joints: Total knee arthroplasty hardware is present. No significant periprosthetic lucency. No acute appearing fracture. Soft tissues: Normal. XR/XR knee LT 3V* [id number] IMPRESSION: No acute appearing fracture.
--- NOTE | 2025-07-07 09:41 | CTR_ITS ---
PROCEDURE INFORMATION: Exam: CT Lumbar Spine Without Contrast Exam date and time: 07/07/2025 10:21 AM Age: 79 years old Clinical indication: Injury or trauma; Fall; Blunt trauma (contusions or hematomas) TECHNIQUE: Imaging protocol: Computed tomography of the lumbar spine without contrast. Radiation optimization: All CT scans at this facility use at least one of these dose optimization techniques: automated exposure control; mA and/or kV adjustment per patient size (includes targeted exams where dose is matched to clinical indication); or iterative reconstruction. COMPARISON: CR XR abdomen 1V* [id number] 03/23/2025 12:36 AM RADIATION DOSE METRICS: Total DLP (mGy-cm): 2553.3 FINDINGS: Bones/joints: 5 lumbar type vertebral bodies are identified. There are mild degenerative changes throughout the visible areas of the spine. There is L5 compression deformity with the approximate 30% height loss and 4 mm retropulsion of the compressed superior endplate. This is age indeterminate without comparison imaging. There is no significant paravertebral hematoma. There is spinal stenosis at L4-L5, the severity of which could be better assessed with MRI but which appears at least moderate and potentially severe. Lungs: Visible pulmonary parenchyma in the field of view is unremarkable. Vasculature: There is right common iliac vein stent extending into the external iliac vein. Patency isn't assessed on this technique. Moderate atherosclerotic disease is evident. Soft tissues: See Bones/joints finding. CT/CT lumbar spine wo con* [id number] IMPRESSION: 1. L5 compression deformity, age indeterminate. Approximate 30% height loss. Spinal stenosis is moderate, potentially severe. MRIs available for further evaluation if clinically indicated. 2. Additional nonemergent findings, as above.
--- NOTE | 2025-07-07 09:41 | CTR_ITS ---
PROCEDURE INFORMATION: Exam: CT Cervical Spine Without Contrast Exam date and time: 07/07/2025 10:15 AM Age: 79 years old Clinical indication: Injury or trauma; Fall; Blunt trauma TECHNIQUE: Imaging protocol: Computed tomography of the cervical spine without contrast. Radiation optimization: All CT scans at this facility use at least one of these dose optimization techniques: automated exposure control; mA and/or kV adjustment per patient size (includes targeted exams where dose is matched to clinical indication); or iterative reconstruction. COMPARISON: CT cervical spin wo con* [id number] 09/12/2024 3:25 PM RADIATION DOSE METRICS: Total DLP (mGy-cm): 447.3 FINDINGS: Bones: There is no evidence of acute cervical fracture or subluxation. The patient is post laminectomy from C3 to C6 and posterior fixation via lateral mass screws at C2, C3, C4, C5 and C6 and pedicle screws at T1/screws joined by vertical rods. The bones are generally osteopenic. Spondylosis is noted with disc osteophyte, uncovertebral spurring and facet arthropathy. Lungs: Lung apices are normal. Soft tissues: Unremarkable. CT/CT cervical spin wo con* [id number] IMPRESSION: No evidence for acute cervical fracture.
--- OUTSIDE RECORDS SUMMARY | 2025-07-07 09:46 | XMS_ITS | Encounter Summary ---
Author Organization [facility] Address [address] [place] [address] Care Team Providers Care Librarian Assistant Name Role Phone Viridiana Carias Ashley PRATT Primary Care Provider [phone] Reason for Visit * Reason Comments Med Refill Encounter Details Date Type Department Care Team ([facility] st Contact Info) Description 07/02/2025 Refill [facility] [place] [address] [place] [address] [facility] [address] [place] [address] Anxiety state; Primary insomnia; Seasonal allergic rhinitis due to pollen; Leg swelling; Atherosclerotic heart disease of [place] coronary artery without angina pectoris Social History Tobacco Use Types Packs/Day Years Used Date Smoking Tobacco: Never Smokeless Tobacco: Never Alcohol Use Standard Drinks/Week Comments No 0 (1 standard drink = 0.6 oz pur e alcohol) Feeling Safe Answer Date Recorded Are you in a relationship wi th someone who hurts you emotionally and/or physically? No 09/12/2024 Food Insecurity Answer Date Recorded Patient needs follow up regardin 12/06/2024 Transportation Needs Answer Date Record ed Patient needs follow up regardin 12/06/2024 Housing Stability Answer Date Recorded Social/Environmental Concerns No concerns Utility Needs Answer Date Recorded Patient needs follow up regardin 12/06/2024 Comments No Sex and Gender Information Value Date Recorded Sex Assigned at Not on file Legal Sex Female 9:09 PM CDT Gender Identity Not on file Sexual Orientation Not on file Occupation Industry Job Start Date Job End Date Not on file Not on file Not on file Not on file documented as of this encounter Miscellaneous Notes * Telephone Encounter - Cheli Sal, STAFF VETERINARIAN - 07/03/2025 7:31 AM CST Medication Refill Request Last Fill Date:Buspar 02/15/25 #60 with 3 RF Trazodone 02/15/25 #30 with 3 RF Flonase 02/15/25 with 3 RF Bumex 02/15/25 #30 with 3 RF Potassium 02/15/25 #30 with 3 RF Plavix 02/15/25 #30 with 3 RF RAINE 06/06/25 CCC Recent and Future Visits: Recent Visits Date Type Provider Dept 06/06/25 Office Visit Jing Maza [facility] 02/21/25 Office Visit Jing Maza [facility] 01/25/25 Office Visit Jing Maza [facility] 11/15/24 Office Visit Jing Maza [facility] 10/17/24 Office Visit Jing Maza [facility] Showing recent visits within past 540 days with a meds authorizing provider and meeting all other requirements Future Appointments Date Type Provider Dept 09/06/25 Appointment Jing Maza [facility] Showing future appointments within next 365 days with a meds authorizing provider and meeting all other requirements Last Labs: Lab Results Component Value Date/Time CREAT 1.20 (H) 01/26/2025 08:29 AM BUN 29 (H) 01/26/2025 08:29 AM NA 138 01/26/2025 08:29 AM K 4.4 01/26/2025 08:29 AM CL 102 01/26/2025 08:29 AM CO2 25 01/26/2025 08:29 AM GFR 46 (L) 01/26/2025 08:29 AM Lab Results Component Value Date/Time ALT 14 01/26/2025 08:29 AM AST 11 01/26/2025 08:29 AM ALKPHOS 38 01/26/2025 08:29 AM BILITOTAL 0.3 01/26/2025 08:29 AM Jaylene Ashley Montiel - 1945 Check and review of the [place] PDMP performed on 07/03/2025 at 7:31 AM was CORN PRODUCTION MANAGER documented in this encounter Plan of Treatment Upcoming Encounters Date Type Department Care Team (Late st Contact Info) Description 07/20/2025 2:30 PM SEED CORN PRODUCTION MANAGER Telephone Check Up [facility] [address] [place] [phone] Candis Coates PA [address] [place] [address] 09/06/2025 1:20 PM SEED CORN PRODUCTION MANAGER Office Visit [facility] [place] [address] [place] [address] Jing Maza, ROD [address] [place] [address] documented as of this encounter Visit Diagnoses Diagnosis Anxiety state Anxiety state, unspecified Primary insomnia Persistent disorder of initiating or maintaining sleep Seasonal allergic rhinitis due to pollen Leg swelling Swelling of limb Atherosclerotic heart disease of [place] coronary artery without angina pectoris Coronary atherosclerosis of [place] coronary artery documented in this encounter Additional Health Concerns Assessment Noted Time PHQ-9 Depression Total Score: 2 02/19/20 1:10 PM CDT documented as of this encounter Care Teams Librarian Assistant Relationship Specialty Start Date End Date Viridiana Carias DO [address] [place] [phone] PCP - General Family Practice 10/17/24 documented as of this encounter
--- OUTSIDE RECORDS SUMMARY | 2025-07-07 09:46 | XMS_ITS | Encounter Summary ---
Author Organization [facility] Address [address] [place] [address] Care Team Providers Care Clerical Adjudicator Name Role Phone Viridiana Carias Ashley PRATT Primary Care Provider [phone] Encounter Details Date Type Department Care Team (Late st Contact Info) Description 06/11/2025 Results Follow-Up [facility] [place] [address] [place] [address] Jing Maza [facility] [address] [place] [address] WOUND (AEROBIC) CULTURE WITH GRAM STAIN Social History Tobacco Use Types Packs/Day Years [...] st Contact Info) Description 07/20/2025 2:30 PM RN CORRECTIONAL Telephone Check Up [facility] [address] [place] [phone] Candis Coates PA [address] [place] [phone] 09/06/2025 1:20 PM RN CORRECTIONAL Office Visit [facility] [place] [address] [place] [address] Jing Maza, [facility] [address] [place] [address] documented as of this encounter Visit Diagnoses Not on filedocumented in this encounter Additional Health Concerns Assessment Noted Time PHQ-9 Depression Total Score: 2 02/19/20 25 1:10 PM CDT documented as of this encounter Care Teams Clerical Adjudicator Relationship Specialty Start Date End Date Viridiana Carias DO [address] [place] [phone] PCP - General Family Practice 10/17/24 documented as of this encounter
--- OUTSIDE RECORDS SUMMARY | 2025-07-07 09:46 | XMS_ITS | Encounter Summary ---
Author Organization [facility] Address [address] [place] [address] Care Team Providers Care Pail Tester Name Role Phone Viridiana Carias DO Primary Care Provider [phone] Reason for Visit * Reason Comments Medication Question Encounter Details Date Type Department Care Team (Late st Contact Info) Description 02/22/2025 Telephone [facility] [place] [address] [place] [address] Viridiana Carias [address] [place] [address] Medication Question Social History Tobacco [...] have faxed the update med list to [facility] Mandie Escobar, 02/23/2025 8:18 [...] daughter on 11/16/24 to stop fillingmetoprolol, that Stone told her (daughter) that pt was to stop taking this, and she (daughter) toldthe pharmacy she did not remember telling them that. Lidocaine patches on med list under historicalprovider. Per pharmacy they last filled Metoprolol on 10/21/[address] Qiu. Pharmacy discontinues script that was sent in on 11/04/24. Pharmacy would like updated med list faxed to them [phone]. Cheli SCHULZ * Telephone Encounter - Burton Pham - 02/22/2025 10:51 AM CDT Copied from [facility] #[id number]. Topic: Medication Request >> Feb 22, 2025 10:49 AM Burton Martines wrote: Pharmacy Calling: Brayan Velásquez - [place], [place] - [address] [facility] (Pharmacy) Pharmacy Contact Name: [facility] Number: [...] st Contact Info) Description 07/20/2025 2:30 PM BUILD AUTOMATION ENGINEER Telephone Check Up [facility] [address] [place] [phone] Candis Coates PA [address] [place] [phone] 09/06/2025 1:20 PM BUILD AUTOMATION ENGINEER Office Visit [facility] [place] [address] [place] [address] Jing Maza FNP [address] [place] [phone] documented as of this encounter Visit Diagnoses Diagnosis Primary hypertension Unspecified essential hypertension documented in this encounter Additional Health Concerns Assessment Noted Time PHQ-9 Depression Total Score: 2 02/19/20 1:10 PM CDT documented as of this encounter Care Teams Pail Tester Relationship Specialty Start Date End Date Viridiana Carias DO [address] [place] [address] PCP - General Family Practice 10/17/24 documented as of this encounter
--- OUTSIDE RECORDS SUMMARY | 2025-07-07 09:47 | XMS_ITS | Clinical Summary ---
Author Organization [facility] Address [address], [facility] [address] [place] [address] Phone Care Team Providers Care Industrial Hygiene Manager Name Role Phone Viridiana Carias Primary Care Provider Allergies Active Allergy Reactions [...] to affected area every 12 hours. 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 90 Tablet 3 Active cetirizine (ZyrTEC) 10 mg tabletIndications :Environmental and seasonal allergies Take 1 Tablet (10 mg) by mouth daily. 90 Tablet 3 Active pantoprazole (PROTONIX) 40 mg Tablet, Delayed [...] BY MOUTH EVERY TWELVE HOURS 180 Tablet Active Blood-Glucose Sensor (Dexcom G7 Sensor) DeviceIndications [...] times daily with meals. 33 mL 3 025 Active omega-3 acid ethyl esters (LOVAZA) 1 gram CapsuleIndication s:Mixed hyperlipidemia TAKE ONE CAPSULE BY MOUTH TWICE DAILY 180 Capsule 3 Active psyllium (FIBER-CAP) 0.52 gram CapsuleIndication s:Slow transit constipation Take 2 Capsules by mouth 2 times daily. 120 Capsule 11 Active HYDROcodone-aceta minophen (NORCO) 5-325 mg tabletIndications :Chronic midline low back pain with bilateral sciatica Take 1 Tablet by mouth 2 times daily as needed for Pain, Moderate. Max Daily Amount: 2 Tablets 30 Tablet Active metoprolol tartrate (LOPRESSOR) 25 mg tabletIndications :Primary hypertension Take 1 Tablet (25 mg) by mouth 2 times daily. 180 Tablet 3 Active Miscellaneous Medical SupplyIndications :Mixed stress and urge urinary incontinence Adult depend absorbent pad. Fit for size. 200 Each 4 Active levothyroxine 25 mcg tabletIndications :Acquired hypothyroidism TAKE ONE TABLET BY MOUTH EVERY DAY at 6:00am 100 Tablet 2 Active losartan (COZAAR) 25 mg tablet Take 1 Tablet by mouth daily. Active nystatin (NYSTOP) 100,000 unit/gram powderIndications :Intertriginous candidiasis Apply to affected area 4 times daily. 60 Gram 3 Active busPIRone (BUSPAR) 30 mg TabletIndications :Anxiety state TAKE 1 TABLET BY MOUTH TWICE DAILY 180 Tablet 3 Active traZODone (DESYREL) 300 mg tabletIndications :Primary insomnia TAKE 1 TABLET BY MOUTH EVERY NIGHT AT BEDTIME 100 Tablet 3 Active fluticasone propionate (FLONASE) 50 mcg/spray Formoso, Suspension nasal inhalerIndication s:Seasonal allergic rhinitis due to pollen INSTILL 2 SPRAYS IN EACH NOSTRIL DAILY 16 Gram 3 025 Active bumetanide (BUMEX) 1 mg tabletIndications :Leg swelling TAKE 1 TABLET BY MOUTH EVERY DAY 30 Tablet 3 025 Active potassium CHLORIDE (K-TAB) 20 mEq Extended Release tabletIndications :Leg swelling TAKE 1 TABLET BY MOUTH EVERY DAY 30 Tablet 3 025 Active clopidogreL (PLAVIX) 75 mg TabletIndications :Atherosclerotic heart disease of picayune coronary artery without angina pectoris TAKE 1 TABLET BY MOUTH EVERY DAY 100 Tablet 3 025 Active bumetanide (BUMEX) 1 mg tabletIndications :Leg swelling TAKE 1 TABLET BY MOUTH DAILY 30 Tablet 3 025 2024 Discontinued busPIRone (BUSPAR) 30 mg TabletIndications :Anxiety state TAKE 1 TABLET BY MOUTH TWICE DAILY 60 Tablet 3 025 2024 Discontinued traZODone (DESYREL) 300 mg tabletIndications :Primary insomnia TAKE ONE TABLET BY MOUTH AT BEDTIME 30 Tablet 3 2024 Discontinued clopidogreL (PLAVIX) 75 mg TabletIndications :Atherosclerotic heart disease of picayune coronary artery without angina pectoris TAKE 1 TABLET BY MOUTH DAILY 30 Tablet 3 2024 Discontinued potassium CHLORIDE (K-TAB) 20 mEq Extended Release tabletIndications :Leg swelling TAKE 1 TABLET BY MOUTH DAILY 30 Tablet 3 2024 Discontinued fluticasone propionate (FLONASE) 50 mcg/spray Formoso, Suspension nasal inhalerIndication s:Seasonal allergic rhinitis due to pollen SPRAY 2 SPRAYS in each nostril DAILY 16 Gram 3 2024 Discontinued fluconazole (DIFLUCAN) 150 mg tabletIndications :Intertriginous candidiasis Take 1 Tablet (150 mg) by mouth daily for 14 days. 14 Tablet 2024 cephALEXin (KEFLEX) 500 mg capsuleIndication s:Skin infection Take 1 Capsule (500 mg) by mouth 3 times daily for 7 days. 21 Capsule 2024 Active Problems Problem Noted Date Diagnosed Date Frail elderly 06/06/2025 Intertriginous candidiasis 06/06/2025 Mild cognitive impairment with memory loss 01/25 Primary insomnia 01/25/2025 Slow transit constipation 01/25/2025 Chronic osteoarthritis 11/15/2024 Chronic congestive heart failure 11/15/2024 Postoperative hypothyroidism 11/15/2024 Environmental and seasonal allergies 11/15/2024 Atherosclerosis of picayune co ronary artery of picayune heart without angina pectoris 11/15/2024 Acute pain of left knee 09/14/2024 SDH (subdural hematoma) 09/13/2024 Severe episode of recurrent major depressive disorder, without psychotic features 03/18/2014 Type 2 diabetes mellitus with other specified co mplication 03/18/2014 Other secondary hypertension 03/18/2014 Mixed hyperlipidemia 03/18/2014 Arthritis 03/18/2014 Depression 03/18/2014 YUDELKA (obstructive sleep apnea) 03/18/2014 Familial tremor 03/18/2014 Corneal abrasion 03/18/2014 Encounters Date Type Department Care Team Description 07/02/2025 Refill [facility] [address] [place] [address] Jing Maza FNP Anxiety state; Primary insomnia; Seasonal allergic rhinitis due to pollen; Leg swelling; Atherosclerotic heart disease of picayune coronary artery without angina pectoris 06/13/2025 External Device Data STL ABSTRACTION Provider, Abstract 06/13/2025 Refill [facility] [address] [place] [address] Jing Maza FNP Anxiety state; Primary insomnia; Leg swelling; Seasonal allergic rhinitis due to pollen; Atherosclerotic heart disease of picayune coronary artery without angina pectoris 06/11/2025 Results Follow-Up [facility] [address] [place] [address] Jing Maza FNP WOUND (AEROBIC) CULTURE WITH GRAM STAIN 06/06/2025 8:40 AM CDT Office Visit [facility] [address] [place] [address] Jing Maza FNP SDH (subdural hematoma) (CMS/HCC) (Primary Dx); Other secondary hypertension; Chronic osteoarthritis; Intertriginous candidiasis; Skin infection; Frail elderly 06/06/2025 Orders Only [facility] [address] [place] [address] Mandie Escobar Skin infection 06/01/2025 2:01 PM CDT - 06/01/2025 11:59 PM CDT Hospital Encounter [facility] CT Scan [place] [address] [place] [phone] Candis Coates PA Discharge Disposition: Home or Self Care 05/23/2025 External Device Data STL ABSTRACTION Provider, Abstract 05/17/2025 11:20 AM CDT Office Visit [facility] [address] [place] [address] Candis Coates PA SDH (subdural hematoma) ([facility]) (Primary Dx) 05/11/2025 Telephone [facility] [address] [place] [address] Viridiana Carias, DO Medication Assistance 05/09/2025 External Device Data STL ABSTRACTION Provider, Abstract 05/03/2025 Refill [facility] [address] [place] [address] Jing Maza, GYM SUPERVISOR Yeast infection 05/02/2025 External Device Data STL ABSTRACTION Provider, Abstract 04/26/2025 Telephone [facility] [address] [place] [address] Viridiana Carias, DO Patient Communication [facility] [address] [place] [address] Jing Maza, GYM SUPERVISOR Yeast infection 04/18/2025 Refill [facility] [address] [place] [address] Jing Maza, GYM SUPERVISOR Seizure ([facility]/HCC) 04/13/2025 Refill [facility] [address] [place] [address] Jing Maza, GYM SUPERVISOR Acquired hypothyroidism 04/12/2025 External Device Data STL ABSTRACTION Provider, Abstract 04/07/2025 Refill [facility] [address] [place] [address] Jing Maza, GYM SUPERVISOR Seizure (CMS/HCC) from Last 3 Months Family History Medical [...] Sign Reading Time Taken Comments Blood Pressure 140/70 06/06/2025 8:44 AM CDT Pulse 78 06/06/2025 8:42 AM CDT Temperature 36.6 C (97.9 F) 06/06/2025 8:42 AM CDT Respiratory Rate 17 06/06/2025 8:42 AM CDT Oxygen Saturation 94% 06/06/2025 8:42 AM CDT Inhaled Oxygen Concentration - - Weight 106.6 kg (235 lb) 06/06/2025 8:42 AM CDT Height 157.5 cm (5' 2 ) 06/06/2025 8:42 AM CDT Body Mass Index 42.98 06/06/2025 8:42 AM CDT Plan of Treatment Upcoming Encounters Date Type Department Care Team (Late st Contact Info) Description 07/20/2025 2:30 PM GROUP PRESIDENT Telephone Check Up [facility] [address] [place] [phone] Candis Coates PA [address] [place] [address] 09/06/2025 1:20 PM GROUP PRESIDENT Office Visit [facility] [place] [address] [place] [address] Jing Maza, GYM SUPERVISOR [address] [place] [address] Health Maintenance Due Date Last Done Comments DIABETES ANNUAL FOOT EXAM 1964 DIABETES ANNUAL RETINAL EXAM 1964 DTAP/TDAP/TD VACCINES (1 - Tdap) 1965 PNEUMOCOCCAL VACCINE 50+ YEA RS (1 of 2 - PCV) 1965 ZOSTER VACCINE (1 of 2) 1996 OSTEOPOROSIS SCREENING 12/09/2011 RSV VACCINE (60+ or ) (1 - 1-dose 75+ series) 2021 Medicare [place]) Preventative Visit/Annual Wellness Visit 08/10/2024 INFLUENZA VACCINE (#1) 2025 DIABETES HBA1C Q 6 MONTHS 05/17/2025 11/15/2024, 03/2014 DIABETES: A1C (Auto Order) 11/15/2025 11/15/2024, LDL CHOLESTEROL ANNUAL 11/15/2025 11/15/2024 DIABETES MICROALBUMIN ANNUAL SCREEN 01/25/2026 01/25/2025 [facility] uACR (Auto Order) Completed 01/25/2025 [facility] eGFR (Auto Order) Completed 03/22/2025 , 03/08/2025, 01/26/2025, Additional history exists Procedures Procedure Name Priority Date/Time Associated Diagnosis Comments WOUND CULTURE WITH GRAM STAIN Routine 06/06/2025 9:30 AM CDT Skin infection CT HEAD WO CONTRAST Routine 06/01/2025 2 :19 PM CDT SDH (subdural hematoma) (CMS/HCC) COMPREHENSIVE METABOLIC PANEL Routine 03/22/2025 10:20 AM CDT MICROALBUMIN/CREATININ E RATIO, RANDOM UR Routine 01/25/2025 5:14 PM CDT Type 2 diabetes mellitus with other specified complication, with long-term current use of insulin ([facility]) LIPID PANEL Routine 11/15/2024 3:26 PM CDT Type 2 diabetes mellitus with other specified complication, with long-term current use of insulin ([facility]) HEMOGLOBIN A1C Routine 11/15/2024 3:26 PM CDT Type 2 diabetes mellitus with other specified complication, with long-term current use of insulin ([facility]) from Last 3 Months or Most Recently Relevant to Health Maintenance Results * (ABNORMAL) WOUND (AEROBIC) CULTURE WITH GRAM STAIN (06/06/2025 9:30 AM CDT) AEROBIC CULTURE SEE NOTE(A) [facility] [place] Comment: CULTURE, AEROBIC BACTERIA WITH GRAM STAIN Micro Number: [id number] Test Status: Final Specimen Source: Groin Specimen Quality: Adequate Gram Stain: Many epithelial cells Many White blood cells seen Many Mixed bacterial morphotypes present, none predominant. Result: Scant growth of Staphylococcus aureus Negative for inducible clindamycin resistance. COMMENT: Additional organisms of questionable significance were isolated that normally do not warrant identification and susceptibilities. Please contact the laboratory within three days if identification and susceptibilities are clinically indicated. S.aureus INT KHANG CIPROFLOXACIN R >=8 CLINDAMYCIN S <=0.25 ERYTHROMYCIN R >=8 GENTAMICIN S <=0.5 LEVOFLOXACIN R >=8 MOXIFLOXACIN R 4 OXACILLIN S 0.5 1 TETRACYCLINE R >=16 TRIMETHOPRIM/SULFA S <=10 VANCOMYCIN S <=0.5 S = Susceptible I = Intermediate R = Resistant NS = Not susceptible SDD = Susceptible Dose Dependent * = Not Tested NR = Not Reported NN = See Therapy Comments THERAPY COMMENTS Note 1: Oxacillin susceptible staphylococci are susceptible to other penicillinase-stable penicillins (e.g., methicillin, nafcillin), beta- lactam/beta-lactamase inhibitor combinations, and cephems with staphylococcal indications, including cefazolin. Test Performed at: [facility] [address] [place] [address] Mahendra Dumont MD Wound SWAB OF GROIN / Unknown 06/06/2025 9:30 AM CDT 06/07/2025 6:03 AM CDT Jing Maza GYM SUPERVISOR MICROBIOLOGY - GENERAL ORD ERABLES Final Result [facility] [phone] [facility] [address] [place] [address] * CT HEAD WO CONTRAST (06/01/2025 2:19 PM CDT) Anatomical Region Laterality Modality Head Computed Tomogra phy 06/01/2025 1:57 PM CDT Impressions 06/01/2025 4:01 PM CDT IMPRESSION: No acute intracranial abnormality. No residual subdural collection is detected. Narrative 06/01/2025 4:01 PM CDT EXAM: CT HEAD WO CONTRAST DATE/TIME OF EXAM: 06/01/2025 2:19 PM REASON FOR STUDY: Subdural hematoma, SDH DIAGNOSIS: SDH (subdural hematoma) (CMS/HCC) COMPARISON: CT head November 06, 2024. MRI brain March 09, 2025.. TECHNIQUE: CT head performed without contrast. FINDINGS: No evidence of an acute territorial infarct, parenchymal hemorrhage, hydrocephalus or abnormal extra-axial fluid collection. No midline shift. Basilar cisterns remain patent. Mild microangiopathic changes of the periventricular white matter. Minimal to mild global parenchymal atrophy. No mastoid effusion. No paranasal sinus fluid level. No calvarial fracture. Evidence of bilateral ocular lens replacement. Procedure Note Hay Peterson MD - 06/01/2025 EXAM: CT HEAD WO CONTRAST DATE/TIME OF EXAM: 06/01/2025 2:19 PM REASON FOR STUDY: Subdural hematoma, SDH DIAGNOSIS: SDH (subdural hematoma) (CMS/HCC) COMPARISON: CT head November 06, 2024. MRI brain March 09, 2025.. TECHNIQUE: CT head performed without contrast. FINDINGS: No evidence of an acute territorial infarct, parenchymal hemorrhage, hydrocephalus or abnormal extra-axial fluid collection. No midline shift. Basilar cisterns remain patent. Mild microangiopathic changes of the periventricular white matter. Minimal to mild global parenchymal atrophy. No mastoid effusion. No paranasal sinus fluid level. No calvarial fracture. Evidence of bilateral ocular lens replacement. IMPRESSION: No acute intracranial abnormality. No residual subdural collection is detected. Candis QUICK CT ORDERABLES Final Result * COMPREHENSIVE METABOLIC PANEL (03/22/2025 10:20 AM CDT) Blood Abstract Provider CHEMISTRY ORDERABLES Final Res ult * MICROALBUMIN/CREATININE RATIO, RANDOM UR (01/25/2025 5:14 PM CDT) CREATININE, URINE 32 20 - 275 mg/dL [facility] ALBUMIN, URINE 0.8 See Note: mg/dL [facility] Comment: Reference Range: Reference Range Not established ALB/CREAT RATIO, URINE 25 <30 mg/g creat [facility] Comment: The ADA defines abnormalities in albumin excretion as follows: Albuminuria Category Result (mg/g creatinine) Normal to Mildly increased <30 Moderately increased 30-299 Severely increased > OR = 300 The ADA recommends that at least two of three specimens collected within a 3-6 month period be abnormal before considering a patient to be within a diagnostic category. Test Performed at: [facility] [address] [place] [address] Mahendra Dumont MD Urine URINE SPECIMEN OBTAINED BY CLEAN CATCH PROCEDURE / Unknown 01/25/2025 5:14 PM CDT 01/26/2025 3:16 AM CDT Jing Maza GYM SUPERVISOR URINE ORDERABLES Final Res ult [facility] [phone] [facility] [address] [facility] [place] [address] * (ABNORMAL) HEMOGLOBIN A1C (11/15/2024 3:26 PM CDT) HEMOGLOBIN A1C 7.6(H) <5.7 % of total Hgb [facility] Comment: For someone without known diabetes, [...] ESTIMATED AVERAGE GLUCOSE (MG/DL) 171 mg/dL [facility] ESTIMATED AVERAGE GLUCOSE (MMOL/L) 9.5 mmol/L [facility] Comment: FASTING:UNKNOWN FASTING: UNKNOWN Test Performed at: [facility] [address] [place] [address] Mahendra Dumont MD Blood 11/15/2024 3:26 PM CDT 11/15/2024 3:26 PM CDT Jing Maza GYM SUPERVISOR CHEMISTRY ORDERABLES Final Result [facility] [phone] [facility] [address] [place] [address] * (ABNORMAL) LIPID PANEL (11/15/2024 3:26 PM CDT) Pathologist [facility] CHOLESTEROL 131 <200 mg/dL [facility] HDL 44(L) > OR = 50 mg/dL [facility] TRIGLYCERIDE 183(H) <150 mg/dL [facility] LDL CALCULATED 61 mg/dL (calc) [facility] Comment: Reference range: <100 Desirable range <100 mg/dL for primary prevention; <70 mg/dL for patients with CHD or diabetic patients with > or = 2 CHD risk factors. LDL-C is now calculated using the Herman-Amor calculation, which is a validated novel method providing better accuracy than the Friedewald equation in the estimation of LDL-C. Herman SS et al. LARRY. 2013;310(19): 7151-3926 (http://education.[employer].Atlas Genetics/faq/TSA424) CHOL/HDL RATIO 3.0 <5.0 (calc) [facility] NON-HDL CHOLESTEROL 87 <130 mg/dL (calc) [facility] Comment: For patients with diabetes plus 1 major ASCVD risk factor, treating to a non-HDL-C goal of <100 mg/dL (LDL-C of <70 mg/dL) is considered a therapeutic option. FASTING:UNKNOWN FASTING: UNKNOWN Test Performed at: [facility] [address] [address] Mahendra Dumont MD Blood 11/15/2024 3:26 PM CDT 11/15/2024 3:26 PM CDT Jing Maza GYM SUPERVISOR CHEMISTRY ORDERABLES Final Result [facility] [phone] [facility] [place] [address] [place] [address] from Last 3 Months or Most Recently Relevant to Health Maintenance Insurance [place]ICAID [place] DUAL COMPLETE PPO DSNP [facility] [id number] RX [employer] RX Member Subscriber Plan / Payer (Ef fective 2024-Present) Name:Jaylene Montiel Relation to Subscriber:Self Name:Jaylene Montiel Payer ID:Not on file Group ID:[id number] Type:RX Medicare Part D Address: [place], [place] RX INFOCROSSING Medicaid [place]ICAID [place] Advance Directives For more information, please contact: [phone] * Full Code (Latest Code Status on File) Date Activated Date Inactivated Comments 09/12/2024 10:48 PM 09/16/2024 11:49 PM * Full Code Date Activated Date Inactivated Comments 03/18/2014 3:20 AM 03/22/2014 1:49 PM Care Teams Industrial Hygiene Manager Relationship Specialty Start Date End Date Viridiana Carias DO [address] [place] [address] PCP - General Family Practice 10/17/24
--- NOTE | 2025-07-07 09:50 | W.ED.FALL ---
HPI - Fall General: Chief Complaint: Fall Stated Complaint: fall- head pain Time Seen by Provider: 07/07/25 09:37 Source: patient and EMS Mode of arrival: EMS Limitations: no limitations History of Present Illness: 71-year-old female who is wheelchair-bound states she went to the bathroom 1 AM and believes she had fell. She does not remember the event and woke up on the floor has been on the floor since 1 AM. Does have a hematoma to her left forehead she does complain of a headache along with left knee pain and back pain. Patient denies any chest pain denies any recent illness or vomiting. Related Data Home Medications ?Medication ?Instructions ?Recorded ?Confirmed topiramate 100 mg tablet 200 mg PO BID 10/25/23 06/01/25 aspirin 81 mg tablet,delayed 81 mg PO DAILY 09/12/24 06/01/25 release cholecalciferol (vitamin D3) 125 125 mcg PO DAILY 12/25/24 06/01/25 mcg (5,000 unit) tablet (Vitamin D3) insulin glargine 100 unit/mL (3 12 unit SUBCUT DAILY 12/25/24 06/01/25 mL) subcutaneous pen (Lantus Solostar U-100 Insulin) insulin lispro 100 unit/mL 12 unit SUBCUT TID 12/25/24 06/01/25 subcutaneous pen (Humalog KwikPen (U-100) Insulin) meclizine 25 mg tablet 25 mg PO BID PRN Dizziness Or 12/25/24 06/01/25 Vertigo tmjwymjlbdmy-zfuwvggh-oeohkyt-folic 1 tab PO DAILY 12/25/24 06/01/25 acid 400 mcg-vit K1 20 mcg tablet niacin 500 mg tablet 500 mg PO DAILY 12/25/24 06/01/25 omega-3 acid ethyl esters 1 gram 1 cap PO BID 12/25/24 06/01/25 capsule Previous Rx's ?Medication ?Instructions ?Recorded bumetanide 1 mg tablet 1 mg PO DAILY #30 tabs 08/02/24 buspirone 30 mg tablet 30 mg PO BID #60 tabs 08/02/24 clopidogrel 75 mg tablet 75 mg PO DAILY #30 tabs 08/02/24 fluticasone propionate 50 2 spray intranasal DAILY #16 grams 08/02/24 mcg/actuation nasal spray,suspension meloxicam 15 mg tablet 15 mg PO DAILY #30 tabs 08/02/24 metoprolol tartrate 25 mg tablet 12.5 mg (1/2 x 25 mg) PO BID #30 08/02/24 tabs pantoprazole 40 mg tablet,delayed 40 mg PO BID #60 tabs 08/02/24 release potassium chloride 20 mEq 20 meq PO DAILY #30 tabs 08/02/24 tablet,extended release levothyroxine 25 mcg tablet 25 mcg PO 0600 #90 tabs 08/24/24 trazodone 300 mg tablet 300 mg PO BEDTIME #30 tabs 08/29/24 ondansetron 8 mg disintegrating 8 mg PO Q8H PRN nausea and 09/06/24 tablet vomiting 5 days #15 tabs levetiracetam 750 mg tablet 750 mg PO BID #60 tabs 09/26/24 (Keppra) Auto-titrating CPAP 6-16cm #1 ea 10/07/24 blood sugar diagnostic (Accu-Chek #100 ea 10/17/24 Guide test strips) blood-glucose meter (Accu-Chek #1 ea 10/17/24 Guide Glucose Meter) blood-glucose sensor ([employer] G7 #3 ea 10/24/24 Sensor device) insulin aspart U-100 100 unit/mL See Rx Instructions .Route 11/01/24 (3 mL) subcutaneous pen .COMPLEX PRN Hyperglycemia #15 mL Diabetic shoes with 3 set insoles #1 ea 11/28/24 atorvastatin 40 mg tablet (Lipitor) 40 mg PO DAILY #90 tabs 06/01/25 losartan 25 mg tablet 25 mg PO DAILY #90 tabs 06/01/25 Allergies Allergy/AdvReac Type Severity Reaction Status Date / Time Influenza Virus Vaccines Allergy ALGY-Swell Verified 03/14/25 13:54 Lip/Tongue/Throat lisinopril Allergy ADR-Cough Verified 03/14/25 13:54 Sulfa (Sulfonamide Allergy ALGY-Anaphy Verified 03/14/25 13:54 Antibiotics) laxis PFS ED PFSH: Medical History (Updated 07/07/25 @ 11:14 by Ghada Barlow MD) Obstructive sleep apnea sleep study done 09.19.24 Mild YUDELKA; nocturnal hypoxemia; auto titrating CPAP 6-16cm ordered Psychiatric care Obesity with body mass index (BMI) of 30.0 to 39.9 Chronic kidney disease (CKD) Hyperlipidemia Hx of pulmonary embolus during had PE last 2 pregnancies Post-surgical hypothyroidism Congestive heart failure Dorsalgia Obesity Tremor, unspecified Type 2 diabetes mellitus with diabetic neuropathy, unspecified Diabetic neuropathy Hypertension Diabetes Coronary artery disease Decubitus ulcer of sacral region, stage 4 Surgical History Hx of thymectomy upper sternotomy Hx of cardiac cath reports no stents but has CAD Hx of vascular surgery R groin; she says it is in the vein Hx of appendectomy Hx of cholecystectomy Hx of thyroidectomy L thyroidectomy done for goiter; no cancer History of bunionectomy of both great toes History of right shoulder replacement History of bilateral knee arthroplasty History of total hysterectomy with bilateral salpingo-oophorectomy (BSO) no cancer Hx of section X 1 Hx of non-cataract eye surgery bilateral; for glaucoma Hx of cataract surgery OU H/O neck surgery Family History Father Family history of premature coronary artery disease CAD (coronary artery disease) Mother Diabetes mellitus, type 2 Leukemia Sister Breast cancer Social History Smoking and tobacco/nicotine status: never used tobacco/nicotine Alcohol intake: former Former alcohol use details: rare and in 1970s Substance/Drug Use: never Household members: none Housing: House Marital status: / Number of children: 4 Highest education level completed: Master's Degree Current occupational status: 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 Physical Exam Const: COMMON NORMALS: patient oriented x3 HENMT: COMMON NORMALS: normocephalic HEAD & SCALP: normocephalic OTHER: Bruising to the forehead Eye: COMMON NORMALS: Equal, round and reactive pupils present and EOMs intact bilaterally PUPIL: Yes Equal, round and reactive pupils present Neck/C-Spine: COMMON NORMALS: full ROM and supple Chest: COMMONS NORMALS: normal inspection of the chest and normal palpation of entire chest wall Resp: COMMON NORMALS: normal respiratory effort, No retractions, No use of accessory muscles and clear to auscultation bilaterally AUSCULTATION: clear to auscultation bilaterally Cardio: COMMON NORMALS: regular rate, regular rhythm and No murmurs present (Cardio) RATE: regular rate RHYTHM: regular rhythm GI: COMMON NORMALS: Normal to inspection, nondistended, normoactive bowel sounds present, Soft to palpation, non-tender and no masses PALPATION: Yes Soft to palpation Extremity: COMMON NORMALS: normal to inspection and full ROM Neuro: COMMON NORMALS: patient oriented x3, moves all extremities and no focal motor deficits Psych: COMMON NORMALS: mental status grossly normal, Normal thought process present and cooperative THOUGHT PROCESS: Normal thought process present Skin: COMMON NORMALS: no rashes or lesions noted and no wounds GENERAL SKIN EXAM: no rashes or lesions noted Course Vital Signs: Vital signs: Vital Signs Temperature 97.6 F 07/07/25 09:37 Pulse Rate 63 07/07/25 10:57 Respiratory Rate 18 07/07/25 09:37 Blood Pressure 141/88 07/07/25 10:57 Pulse Oximetry 94 07/07/25 10:57 Oxygen Delivery Me thod Room Air 07/07/25 10:57 MDM - Fall Medical Decision Making 71-year-old female presents after a fall overnight. She has been well-appearing here did image her head C-spine and knee and thoracic and lumbar spine. Did review images showed no acute abnormalities no signs of subdural epidural hematoma or fracture. Patient is at her baseline here she feels improved she is stable for discharge at this time did an EKG that I interpreted showed normal sinus rhythm heart rate [address] elevation QRS 81 QTc 433 she is to follow-up with her PCP and return if worsening Medical Records I reviewed the patient's medical records. Lab Data I reviewed the patient's lab results. 07/07/25 10:55 07/07/25 10:55 Radiology Impressions Cervical Spine CT 07/07/25 09:41 IMPRESSION: No evidence for acute cervical fracture. Head CT 07/07/25 09:41 IMPRESSION: No acute intracranial process. Knee X-Ray 07/07/25 09:41 IMPRESSION: No acute appearing fracture. Lumbar Spine CT 07/07/25 09:41 IMPRESSION: 1. L5 compression deformity, age indeterminate. Approximate 30% height loss. Spinal stenosis is moderate, potentially severe. MRIs available for further evaluation if clinically indicated. 2. Additional nonemergent findings, as above. Thoracic Spine CT 07/07/25 09:41 IMPRESSION: No acute appearing fracture. Nonemergent findings as above. Laboratory Results WBC 12.12 10^3/uL (3.29-11.43) H 07/07/25 10:55 RBC 5.43 10^6/uL (3.85-5.65) 07/07/25 10:55 Hgb 15.20 g/dL (11.27-16.99) 07/07/25 10:55 Hct 47.0 % (36-47) 07/07/25 10:55 MCV 86.6 fl (85-98) 07/07/25 10:55 MCH 28.0 pg (27-33) 07/07/25 10:55 MCHC 32.3 g/dL (30-55) 07/07/25 10:55 RDW 12.6 % (12.1-15.1) 07/07/25 10:55 Plt Count 188 10^3/cmm (157-399) 07/07/25 10:55 MPV 10.8 fL (7.4-10.4) H 07/07/25 10:55 Neut % (Auto) 73.4 % 07/07/25 10:55 Lymph % (Auto) 16.2 % 07/07/25 10:55 [place] % (Auto) 9.2 % 07/07/25 10:55 Eos % (Auto) 0.5 % 07/07/25 10:55 Baso % (Auto) 0.4 % 07/07/25 10:55 Neut # (Auto) 8.89 10^3/uL (1.8-7.7) H 07/07/25 10:55 Lymph # (Auto) 2.0 10^3/uL (0.8-4.8) 07/07/25 10:55 [place] # (Auto) 1.1 10^3/uL (0.2-0.9) H 07/07/25 10:55 Eos # (Auto) 0.1 10^3/uL (0.0-0.8) 07/07/25 10:55 Baso # (Auto) 0.1 10^3/uL (0.0-0.1) 07/07/25 10:55 Nucleated RBC % (auto) 0 % 07/07/25 10:55 Nucleated RBCs # 0.0 /100WBC 07/07/25 10:55 Sodium 141 mmol/L (136-145) 07/07/25 10:55 Potassium 4.0 mmol/L (3.5-5.1) 07/07/25 10:55 Chloride 104 mmol/L (98-107) 07/07/25 10:55 Carbon Dioxide 25 mmol/L (22-29) 07/07/25 10:55 Anion Gap 16.0 (5-19) 07/07/25 10:55 BUN 10 mg/dL (8-23) 07/07/25 10:55 Creatinine 0.9 mg/dL (0.5-0.9) 07/07/25 10:55 GFR Calculation Not Reportable 07/07/25 10:55 Glucose 174 mg/dL (65-115) H 07/07/25 10:55 Calculated Osmolality 295 mOsm/kg (285-295) 07/07/25 10:55 Calcium 9.0 mg/dL (8.5-10.5) 07/07/25 10:55 Total Bilirubin 0.6 mg/dL (0.15-1.2) 07/07/25 10:55 AST 12 U/L (0-32) 07/07/25 10:55 ALT 10 U/L (0-33) 07/07/25 10:55 Alkaline Phosphatase 42 U/L (35-105) 07/07/25 10:55 Creatine Kinase 221 U/L (26-192) H 07/07/25 10:55 Total Protein 6.1 g/dL (6.6-8.7) L 07/07/25 10:55 Albumin 4.1 g/dL (3.5-5.2) 07/07/25 10:55 Globulin 2.0 g/dL (1.3-4.6) 07/07/25 10:55 All radiology interpretation(s) finalized by discharge EKG Data EKG 1: I personally reviewed and interpreted this EKG as follows: EKG interpretation date: 07/07/25 EKG interpretation time: 10:04 Interpretation: nsr hr [address] elevation qrs 81 qtc 423 Discharge Plan Discharge Patient Disposition: Home Clinical Impression: Fall, Closed head injury Condition: Stable Prescriptions: No Action bumetanide 1 mg tablet 1 mg PO DAILY Qty: 30 3RF buspirone 30 mg tablet 30 mg PO BID Qty: 60 3RF metoprolol tartrate 25 mg tablet 12.5 mg PO BID Qty: 30 3RF clopidogrel 75 mg tablet 75 mg PO DAILY Qty: 30 3RF fluticasone propionate 50 mcg/actuation spray,suspension 2 spray intranasal DAILY Qty: 16 3RF meloxicam 15 mg tablet 15 mg PO DAILY Qty: 30 3RF pantoprazole 40 mg tablet,delayed release (DR/EC) 40 mg PO BID Qty: 60 3RF potassium chloride 20 mEq tablet extended release 20 meq PO DAILY Qty: 30 3RF (DME) Diabetic shoes with 3 set insoles See Rx Instructions .Route .MEDSUPPLY Qty: 1 0RF Rx Instructions: As directed atorvastatin [Lipitor] 40 mg tablet 40 mg PO DAILY Qty: 90 2RF losartan 25 mg tablet 25 mg PO DAILY Qty: 90 1RF ondansetron 8 mg tablet,disintegrating 8 mg PO Q8H PRN (Reason: nausea and vomiting) 5 Days Qty: 15 0RF levothyroxine 25 mcg tablet 25 mcg PO 0600 Qty: 90 1RF trazodone 300 mg tablet 300 mg PO BEDTIME Qty: 30 1RF (DME) Auto-titrating CPAP 6-16cm See Rx Instructions .Route .MEDSUPPLY Qty: 1 0RF Rx Instructions: and needs CPAP supplies/mask too (DME) blood-glucose meter [Accu-Chek Guide Glucose Meter] Misc See Rx Instructions .Route Qty: 1 0RF Rx Instructions: As directed (DME) Accu-Chek Guide test strips Strip See Rx Instructions .Route Qty: 100 0RF Rx Instructions: As directed (DME) Dexcom G7 Sensor Device See Rx Instructions .Route Qty: 3 0RF Rx Instructions: As directed insulin aspart U-100 100 unit/mL (3 mL) insulin pen See Rx Instructions .ROUTE .COMPLEX PRN (Reason: Hyperglycemia) Qty: 15 0RF Rx Instructions: Inject per sliding scale, 200-250= 2units, 251-300= 3units, 301-350= 4units, 351-400= 5units every 4 hours PRN for hyperglycemia aspirin [Aspir-81] 81 mg Tablet,Delayed Release (Dr/Ec) 81 mg PO DAILY levetiracetam [Keppra] 750 mg tablet 750 mg PO BID Qty: 60 0RF meclizine 25 mg tablet 25 mg PO BID PRN (Reason: Dizziness Or Vertigo) niacin 500 mg Tablet 500 mg PO DAILY insulin lispro [Humalog KwikPen Insulin] 100 unit/mL insulin pen 12 unit SUBCUT TID omega-3 acid ethyl esters 1 gram capsule 1 cap PO BID insulin glargine [Lantus Solostar U-100 Insulin] 100 unit/mL (3 mL) insulin pen 12 unit SUBCUT DAILY cholecalciferol (vitamin D3) [Vitamin D3] 125 mcg (5,000 unit) Tablet 125 mcg PO DAILY One-A-Day Women's 50 Plus 400-20 mcg Tablet 1 tab PO DAILY topiramate 100 mg tablet 200 mg PO BID Discharge Orders: Discharge ED (Routine); Ordered 07/07/25 Ordered By: Ghada Barlow Referrals: Viridiana Carias DO [Primary Care Provider, [facility]] - 4-7 days Discharge Diet: Advance as tolerated Discharge Activity: Resume usual activity Patient Instructions: Head Injury (ED) Print Language: Guinean Coding Level of Care Code ED [place] Dried Salt for Peri Culp
--- NOTE | 2025-07-07 09:54 | ECG_ITS ---
[facility] Date: 2025-07-07 Pat Name: Jaylene Montiel Department: Room: Gender: Female Slab Worker: : 1945 Requested By: Ghada Barlow Order Number: [id number] Mary MD: Aniceto Mendes M.D. Measurements Intervals [place] Rate: 65 P: 71 IN: 196 QRS: 16 QRSD: 78 T: 68 QT: 397 QTc: 415 Interpretive Statements TECHNICALLY POOR TRACING LOW QRS VOLTAGE IN PRECORDIAL LEADS [QRS DEFLECTION < 1.0 mV IN CHEST LEADS] Normal Sinus Rhythm Compared to ECG 03/23/2025 00:49:53 ARTIFACT NOW PRESENT Electronically Signed On 07-08-2025 16:17:02 COMMERCIAL INTELLIGENCE MANAGER by Aniceto Mendes M.D. [email or web address]
[2025-07-07 10:57] VITALS: BP 141/88; PULSE 63; O2SAT 94
[2025-07-07 11:03] LABS: Hematocrit 47.0 % (36-47); Hemoglobin 15.20 g/dL (11.27-16.99); Mean Corpuscular HGB Conc 32.3 g/dL (30-55); Mean Corpuscular Hemoglobin 28.0 pg (27-33); Mean Corpuscular Volume 86.6 fl (85-98); Nucleated Red Blood Cells % 0 %; Platelet Count 188 10^3/cmm (157-399); Red Blood Count 5.43 10^6/uL (3.85-5.65); White Blood Count 12.12 10^3/uL (3.29-11.43)
[2025-07-07 11:24] LABS: Alanine Aminotransferase 10 U/L (0-33); Albumin Level 4.1 g/dL (3.5-5.2); Alkaline Phosphatase 42 U/L (35-105); Aspartate Amino Transferase 12 U/L (0-32); Blood Urea Nitrogen 10 mg/dL (8-23); Calcium 9.0 mg/dL (8.5-10.5); Carbon Dioxide 25 mmol/L (22-29); Chloride 104 mmol/L (98-107); Globulin 2.0 g/dL (1.3-4.6); Glucose 174 mg/dL (65-115); Osmolality Calculated 295 mOsm/kg (285-295); Sodium 141 mmol/L (136-145); Total Protein 6.1 g/dL (6.6-8.7)
[2025-07-07 11:25] LABS: Anion Gap 16.0 (5-19); Potassium 4.0 mmol/L (3.5-5.1)
[2025-07-07 11:41] VITALS: BP 145/71; PULSE 58; O2SAT 94
== END 2025-07-07 11:42 | disposition home or self-care (01) ==
PROVIDERS: Emergency Provider Emergency Medicine; PCP Family Medicine
DX: S09.8XXA Other specified injuries of head, initial encounter (principal); W19.XXXA Unspecified fall, initial encounter; Z79.02 Long term (current) use of antithrombotics/antiplatelets; Z79.4 Long term (current) use of insulin; Z79.82 Long term (current) use of aspirin; E78.5 Hyperlipidemia, unspecified; I25.10 Atherosclerotic heart disease of native coronary artery without angina pectoris; E11.22 Type 2 diabetes mellitus with diabetic chronic kidney disease; I13.0 Hypertensive heart and chronic kidney disease with heart failure and stage 1 through stage 4 chronic kidney disease, or unspecified chronic kidney disease; N18.9 Chronic kidney disease, unspecified; I50.9 Heart failure, unspecified
CPT/HCPCS: 36415; 70450; 72125; 72128; 72131; 73562; 80053; 82550; 85025; 93005; 99284

== ENCOUNTER 2025-07-07 13:01 | Emergency (ER) | payer MEDICARE, MEDICAID, SELFPAY ==
--- OUTSIDE RECORDS SUMMARY | 2025-07-07 13:06 | XMS_ITS | Encounter Summary ---
Author Organization [facility] Address [address] [place] [address] Care Team Providers Care Instrument Technician Apprentice Name Role Phone Viridiana Carias Ashley PRATT Primary Care Provider [phone] Encounter Details Date Type Department Care Team (Late st Contact Info) Description 06/11/2025 Results Follow-Up [facility] Family Medicine [place] [address] [place] [address] Jing Maza [facility] [address] [place] [address] WOUND (AEROBIC) CULTURE WITH GRAM [...] st Contact Info) Description 07/20/2025 2:30 PM PERIODONTAL ASSISTANT Telephone Check Up [facility] Spine Neurosurgery [address] [place] [phone] Candis Coates PA [address] [place] [phone] 09/06/2025 1:20 PM PERIODONTAL ASSISTANT Office Visit [facility] [place] [address] [place] [address] Jing Maza, [facility] [address] [place] [address] documented as of this encounter Visit Diagnoses Not on filedocumented in this encounter Additional Health Concerns Assessment Noted Time PHQ-9 Depression Total Score: 2 02/19/20 25 1:10 PM CDT documented as of this encounter Care Teams Instrument Technician Apprentice Relationship Specialty Start Date End Date Viridiana Carias DO [address] [place] [phone] PCP - General Family Practice 10/17/24 documented as of this encounter
--- OUTSIDE RECORDS SUMMARY | 2025-07-07 13:06 | XMS_ITS | Encounter Summary ---
Author Organization [facility] Address [address] [place] [address] Care Team Providers Care Multimedia Producer Name Role Phone Viridiana Carias DO Primary Care Provider [phone] Reason for Visit * Reason Comments Medication Question Encounter Details Date Type Department Care Team (Late st Contact Info) Description 02/22/2025 Telephone [facility] [place] [address] [place] [address] Viridiana Carias [address] [place] [address] Medication Question Social History Tobacco [...] have faxed the update med list to [facility] Mandie Escobar, 02/23/2025 8:18 AM [...] like updated med list faxed to them [phone]. Cheli SCHULZ * Telephone Encounter - Burton Pham - 02/22/2025 10:51 AM CDT Copied from [facility] #[id number]. Topic: Medication Request >> Feb 22, 2025 10:49 AM Burton Martines wrote: Pharmacy Calling: Brayan Velásquez - [place], [place] - [address] [facility] (Pharmacy) Pharmacy Contact Name: [facility] Number: [...] st Contact Info) Description 07/20/2025 2:30 PM EDITORIAL CLERK Telephone Check Up [facility] Spine Neurosurgery [address] [place] [phone] Candis Coates PA [address] [place] [phone] 09/06/2025 1:20 PM EDITORIAL CLERK Office Visit [facility] Family Medicine [place] [address] [place] [address] Jing Maza FNP [address] [place] [phone] documented as of this encounter Visit Diagnoses Diagnosis Primary hypertension Unspecified essential hypertension documented in this encounter Additional Health Concerns Assessment Noted Time PHQ-9 Depression Total Score: 2 02/19/20 1:10 PM CDT documented as of this encounter Care Teams Multimedia Producer Relationship Specialty Start Date End Date Viridiana Carias DO [address] [place] [address] PCP - General Family Practice 10/17/24 documented as of this encounter
--- OUTSIDE RECORDS SUMMARY | 2025-07-07 13:06 | XMS_ITS | Encounter Summary ---
Author Organization [facility] Address [address] [place] [address] Care Team Providers Care Oracle Reports Developer Name Role Phone Viridiana Carias Ashley PRATT Primary Care Provider [phone] Reason for Visit * Reason Comments Med Refill Encounter Details Date Type Department Care Team ([facility] st Contact Info) Description 07/02/2025 Refill [facility] Family Medicine [place] [address] [place] [address] [facility] [address] [place] [address] Anxiety state; Primary insomnia; Seasonal allergic rhinitis due to pollen; Leg swelling; Atherosclerotic heart disease of jackson coronary artery without angina pectoris Social History [...] Notes * Telephone Encounter - Cheli Sal, BILINGUAL TEACHER AIDE - 07/03/2025 7:31 AM CST Medication Refill Request Last Fill Date:Buspar 02/15/25 #60 with 3 RF Trazodone 02/15/25 #30 with 3 RF Flonase 02/15/25 with 3 RF Bumex 02/15/25 #30 with 3 RF Potassium 02/15/25 #30 with 3 RF Plavix 02/15/25 #30 with 3 RF RAINE 06/06/25 CCC Recent and Future Visits: Recent Visits Date Type Provider Dept 06/06/25 Office Visit Jing Maza [facility] 02/21/25 Office Visit Jing Maza [facility] 01/25/25 Office Visit Jing Maza [facility] 11/15/24 Office Visit Jing Maza [facility] 10/17/24 Office Visit Jing Maza [facility] Showing recent visits within past 540 days with a meds authorizing provider and meeting all other requirements Future Appointments Date Type Provider Dept 09/06/25 Appointment Jing Maza [facility] Showing future appointments within next 365 [...] - 1945 Check and review of the [place] PDMP performed on 07/03/2025 at 7:31 AM was CTOR CORPORATE COMPLIANCE documented in this encounter Plan of Treatment Upcoming Encounters Date Type Department Care Team (Late st Contact Info) Description 07/20/2025 2:30 PM DIRECTOR CORPORATE COMPLIANCE Telephone Check Up [facility] Spine Neurosurgery [address] [place] [phone] Candis Coates PA [address] [place] [phone] 09/06/2025 1:20 PM DIRECTOR CORPORATE COMPLIANCE Office Visit [facility] Family Medicine [place] [address] [place] [address] Jing Maza, ROD [address] [place] [address] documented as of this encounter Visit Diagnoses Diagnosis Anxiety state Anxiety state, unspecified Primary insomnia Persistent disorder of initiating or maintaining sleep Seasonal allergic rhinitis due to pollen Leg swelling Swelling of limb Atherosclerotic heart disease of jackson coronary artery without angina pectoris Coronary atherosclerosis of jackson coronary artery documented in this encounter Additional Health Concerns Assessment Noted Time PHQ-9 Depression Total Score: 2 02/19/20 1:10 PM CDT documented as of this encounter Care Teams Oracle Reports Developer Relationship Specialty Start Date End Date Viridiana Carias DO [address] [place] [phone] PCP - General Family Practice 10/17/24 documented as of this encounter
--- OUTSIDE RECORDS SUMMARY | 2025-07-07 13:07 | XMS_ITS | Clinical Summary ---
Author Organization [facility] Address [address] [place] [address] Phone Care Team Providers Care Data Processing Systems Project Planner Name Role Phone Viridiana Carias Primary Care [...] mg Tablet, Delayed Release (E.C.)Indications :Atherosclerosis of king salmon coronary artery of king salmon heart without angina pectoris Take 1 Tablet (81 mg) by mouth daily. 90 Tablet 3 04/08/2 025 Active pravastatin (PRAVACHOL) 40 mg tabletIndications :Atherosclerosis of king salmon coronary artery of king salmon heart without angina pectoris,Mixed hyperlipidemia Take 1 [...] 3 Active fluticasone propionate (FLONASE) 50 mcg/spray [place], Suspension nasal inhalerIndication s:Seasonal allergic rhinitis due [...] 75 mg TabletIndications :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 TAKE 1 [...] 75 mg TabletIndications :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 TAKE 1 TABLET BY MOUTH DAILY 30 Tablet 3 2024 Discontinued potassium CHLORIDE (K-TAB) 20 mEq Extended Release tabletIndications :Leg swelling TAKE 1 TABLET BY MOUTH DAILY 30 Tablet 3 2024 Discontinued fluticasone propionate (FLONASE) 50 mcg/spray [place], Suspension nasal inhalerIndication s:Seasonal allergic rhinitis due [...] Environmental and seasonal allergies 11/15/2024 Atherosclerosis of king salmon co ronary artery of king salmon heart without angina pectoris 11/15/2024 Acute pain [...] Type Department Care Team Description 07/02/2025 Refill [facility] [address] [place] [address] Jing Maza FNP Anxiety state; Primary insomnia; Seasonal allergic rhinitis due to pollen; Leg swelling; 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 06/13/2025 External Device Data STL ABSTRACTION Provider, Abstract 06/13/2025 Refill [facility] [address] [place] [address] Jing Maza FNP Anxiety state; Primary insomnia; Leg swelling; Seasonal allergic rhinitis due to pollen; 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 06/11/2025 Results Follow-Up [facility] [address] [place] [address] Jing Maza FNP WOUND (AEROBIC) CULTURE WITH GRAM STAIN 06/06/2025 8:40 AM CDT Office Visit [facility] [address] [place] [address] Jing Maza FNP SDH (subdural hematoma) (CMS/HCC) (Primary Dx); Other secondary hypertension; Chronic osteoarthritis; Intertriginous candidiasis; Skin infection; Frail elderly 06/06/2025 Orders Only [facility] [address] [place] [address] Mandie Escobar Skin infection 06/01/2025 2:01 PM CDT - 06/01/2025 11:59 PM CDT Hospital Encounter [facility] CT Scan [place] [address] [place] [phone] Candis Coates PA Discharge Disposition: Home or Self Care 05/23/2025 External Device Data STL ABSTRACTION Provider, Abstract 05/17/2025 11:20 AM CDT Office Visit [facility] [address] [place] [address] Candis Coates PA SDH (subdural hematoma) ([facility]) (Primary Dx) 05/11/2025 Telephone [facility] [address] [place] [address] Viridiana Carias, DO Medication Assistance 05/09/2025 External Device Data STL ABSTRACTION Provider, Abstract 05/03/2025 Refill [facility] [address] [place] [address] Jing Maza, ICE SKATING INSTRUCTOR Yeast infection 05/02/2025 External Device Data STL ABSTRACTION Provider, Abstract 04/26/2025 Telephone [facility] [address] [place] [address] Viridiana Carias, DO Patient Communication 04/24/2025 [facility] [address] [place] [address] Jing Maza, ICE SKATING INSTRUCTOR Yeast infection 04/18/2025 Refill [facility] [address] [place] [address] Jing Maza, ICE SKATING INSTRUCTOR Seizure ([facility]/HCC) 04/13/2025 Refill [facility] [address] [place] [address] Jing Maza, ICE SKATING INSTRUCTOR Acquired hypothyroidism 04/12/2025 External Device Data STL ABSTRACTION Provider, Abstract 04/07/2025 Refill [facility] [address] [place] [address] Jing Maza, ICE SKATING INSTRUCTOR Seizure (CMS/HCC) from Last 3 Months Family [...] st Contact Info) Description 07/20/2025 2:30 PM SAS ETL DEVELOPER Telephone Check Up [facility] [address] [place] [phone] Candis Coates PA [address] [place] [phone] 09/06/2025 1:20 PM SAS ETL DEVELOPER Office Visit [facility] [address] [place] [address] Jing Maza, ICE SKATING INSTRUCTOR [address] [place] [address] Health Maintenance Due Date Last Done Comments DIABETES ANNUAL FOOT EXAM 1964 DIABETES ANNUAL RETINAL EXAM 1964 DTAP/TDAP/TD VACCINES (1 - Tdap) 1965 PNEUMOCOCCAL VACCINE 50+ YEA RS (1 of 2 - PCV) 1965 ZOSTER VACCINE (1 of 2) 1996 OSTEOPOROSIS SCREENING 12/09/2011 RSV VACCINE (60+ or ) (1 - 1-dose 75+ series) 2021 Medicare Advantage ([place]) Preventative Visit/Annual Wellness Visit 08/10/2024 INFLUENZA VACCINE [...] with long-term current use of insulin ([facility]) LIPID PANEL Routine 11/15/2024 3:26 PM CDT Type 2 diabetes mellitus with other specified complication, with long-term current use of insulin ([facility]) HEMOGLOBIN A1C Routine 11/15/2024 3:26 PM CDT Type 2 diabetes mellitus with other specified complication, with long-term current use of insulin ([facility]) from Last 3 Months or Most Recently Relevant to Health Maintenance Results * (ABNORMAL) WOUND (AEROBIC) CULTURE WITH GRAM STAIN (06/06/2025 9:30 AM CDT) AEROBIC CULTURE SEE NOTE(A) [facility] [place] Comment: CULTURE, AEROBIC BACTERIA WITH GRAM STAIN Micro Number: [id number] Test Status: Final Specimen Source: Groin Specimen [...] staphylococcal indications, including cefazolin. Test Performed at: [facility] [address] [place] [address] Mahendra Dumont MD Wound SWAB OF GROIN / Unknown 06/06/2025 9:30 AM CDT 06/07/2025 6:03 AM CDT Jing Maza ICE SKATING INSTRUCTOR MICROBIOLOGY - GENERAL ORD ERABLES Final Result [facility] [phone] [facility] [address] [place] [address] * CT HEAD WO CONTRAST (06/01/2025 2:19 [...] CREATININE, URINE 32 20 - 275 mg/dL [facility] ALBUMIN, URINE 0.8 See Note: mg/dL [facility] Comment: Reference Range: Reference Range Not established ALB/CREAT RATIO, URINE 25 <30 mg/g creat [facility] Comment: The ADA defines abnormalities in albumin excretion as follows: Albuminuria Category Result (mg/g creatinine) Normal to Mildly increased <30 Moderately increased 30-299 Severely increased > OR = 300 The ADA recommends that at least two of three specimens collected within a 3-6 month period be abnormal before considering a patient to be within a diagnostic category. Test Performed at: [facility] [address] [place] [address] Mahendra Dumont MD Urine URINE SPECIMEN OBTAINED BY CLEAN CATCH PROCEDURE / Unknown 01/25/2025 5:14 PM CDT 01/26/2025 3:16 AM CDT Jing Maza ICE SKATING INSTRUCTOR URINE ORDERABLES Final Res ult [facility] [phone] [facility] [address] [facility] [place] [address] * (ABNORMAL) HEMOGLOBIN A1C (11/15/2024 3:26 PM CDT) HEMOGLOBIN A1C 7.6(H) <5.7 % of total Hgb [facility] Comment: For someone without known diabetes, [...] ESTIMATED AVERAGE GLUCOSE (MG/DL) 171 mg/dL [facility] ESTIMATED AVERAGE GLUCOSE (MMOL/L) 9.5 mmol/L [facility] Comment: FASTING:UNKNOWN FASTING: UNKNOWN Test Performed at: [facility] [address] [place] [address] Mahendra Dumont MD Blood 11/15/2024 3:26 PM CDT 11/15/2024 3:26 PM CDT Jing Maza ICE SKATING INSTRUCTOR CHEMISTRY ORDERABLES Final Result [facility] [phone] [facility] [address] [place] [address] * (ABNORMAL) LIPID PANEL (11/15/2024 3:26 PM CDT) Pathologist [facility] CHOLESTEROL 131 <200 mg/dL [facility] HDL 44(L) > OR = 50 mg/dL [facility] TRIGLYCERIDE 183(H) <150 mg/dL [facility] [...] LDL-C. Herman SS et al. LARRY. 2013;310(19): 5331-5005 (http://education.[employer]/faq/SJQ304) CHOL/HDL RATIO 3.0 <5.0 (calc) [facility] NON-HDL CHOLESTEROL 87 <130 mg/dL (calc) [facility] Comment: For patients with diabetes plus 1 major ASCVD risk factor, treating to a non-HDL-C goal of <100 mg/dL (LDL-C of <70 mg/dL) is considered a therapeutic option. FASTING:UNKNOWN FASTING: UNKNOWN Test Performed at: [facility] [address] [address] Mahendra Dumont MD Blood 11/15/2024 3:26 PM CDT 11/15/2024 3:26 PM CDT Jing Maza ICE SKATING INSTRUCTOR CHEMISTRY ORDERABLES Final Result [facility] [phone] [facility] [place] [address] [place] [address] from Last 3 Months or Most Recently Relevant to Health Maintenance Insurance MEDICAID [place] DUAL COMPLETE PPO DSNP [facility] [id number] RX [employer] RX Member Subscriber Plan / Payer (Ef fective 2024-Present) Name:Jaylene Montiel Relation to Subscriber:Self Name:Jaylene Montiel Payer ID:Not on file Group ID:[id number] Type:RX Medicare Part D Address: [place], [place] RX INFOCROSSING Medicaid MEDICAID [place] Advance Directives For more information, please contact: [phone] * Full Code (Latest Code Status on File) Date Activated Date Inactivated Comments 09/12/2024 10:48 PM 09/16/2024 11:49 PM * Full Code Date Activated Date Inactivated Comments 03/18/2014 3:20 AM 03/22/2014 1:49 PM Care Teams Data Processing Systems Project Planner Relationship Specialty Start Date End Date Viridiana Carias DO [address] [place] [address] PCP - General Family Practice 10/17/24
[2025-07-07 13:10] VITALS: BP 143/90; PULSE 83; RESP 16; TEMP 36.4; O2SAT 93; BMI 43.3
--- NOTE | 2025-07-07 15:11 | W.ED.HA ---
HPI - Headache General: Chief Complaint: Headache Stated Complaint: headache History of Present Illness: 79-year-old female with history of DM, HTN, CAD, anxiety, diastolic CHF, presents to the emergency room with headache. She describes it is in the frontal left area of her head. She has a contusion here from previous fall. Content: Patient was just in the emergency room and had a full workup earlier today. She was waiting in the emergency room waiting room for her Medicaid ride that is post to be here at 430, when she stated she needed to lay down, and had a headache. Patient checked back in the emergency room. She has not had another fall. She has not had any neurological changes. No dysphagia, no sensation changes. Chronic memory loss. Her daughter helps her with her medications. She states compliance. Blood pressure is quite elevated at triage at 143/90. She is chronically on topiramate for headache, metoprolol, losartan for HTN. Associated symptoms: Deny chest pain, fever(s), nausea, rash or vomiting Related Data Home Medications ?Medication ?Instructions ?Recorded ?Confirmed topiramate 100 mg tablet 200 mg PO BID 10/25/23 06/01/25 aspirin 81 mg tablet,delayed 81 mg PO DAILY 09/12/24 06/01/25 release cholecalciferol (vitamin D3) 125 125 mcg PO DAILY 12/25/24 06/01/25 mcg (5,000 unit) tablet (Vitamin D3) insulin glargine 100 unit/mL (3 12 unit SUBCUT DAILY 12/25/24 06/01/25 mL) subcutaneous pen (Lantus Solostar U-100 Insulin) insulin lispro 100 unit/mL 12 unit SUBCUT TID 12/25/24 06/01/25 subcutaneous pen (Humalog KwikPen (U-100) Insulin) meclizine 25 mg tablet 25 mg PO BID PRN Dizziness Or 12/25/24 06/01/25 Vertigo turzmoqbaqtx-qpvlnjkj-ucezsep-folic 1 tab PO DAILY 12/25/24 06/01/25 acid 400 mcg-vit K1 20 mcg tablet niacin 500 mg tablet 500 mg PO DAILY 12/25/24 06/01/25 omega-3 acid ethyl esters 1 gram 1 cap PO BID 12/25/24 06/01/25 capsule Previous Rx's ?Medication ?Instructions ?Recorded bumetanide 1 mg tablet 1 mg PO DAILY #30 tabs 08/02/24 buspirone 30 mg tablet 30 mg PO BID #60 tabs 08/02/24 clopidogrel 75 mg tablet 75 mg PO DAILY #30 tabs 08/02/24 fluticasone propionate 50 2 spray intranasal DAILY #16 grams 08/02/24 mcg/actuation nasal spray,suspension meloxicam 15 mg tablet 15 mg PO DAILY #30 tabs 08/02/24 metoprolol tartrate 25 mg tablet 12.5 mg (1/2 x 25 mg) PO BID #30 08/02/24 tabs pantoprazole 40 mg tablet,delayed 40 mg PO BID #60 tabs 08/02/24 release potassium chloride 20 mEq 20 meq PO DAILY #30 tabs 08/02/24 tablet,extended release levothyroxine 25 mcg tablet 25 mcg PO 0600 #90 tabs 08/24/24 trazodone 300 mg tablet 300 mg PO BEDTIME #30 tabs 08/29/24 ondansetron 8 mg disintegrating 8 mg PO Q8H PRN nausea and 09/06/24 tablet vomiting 5 days #15 tabs levetiracetam 750 mg tablet 750 mg PO BID #60 tabs 09/26/24 (Keppra) Auto-titrating CPAP 6-16cm #1 ea 10/07/24 blood sugar diagnostic (Accu-Chek #100 ea 10/17/24 Guide test strips) blood-glucose meter (Accu-Chek #1 ea 10/17/24 Guide Glucose Meter) blood-glucose sensor ([employer] G7 #3 ea 10/24/24 Sensor device) insulin aspart U-100 100 unit/mL See Rx Instructions .Route 11/01/24 (3 mL) subcutaneous pen .COMPLEX PRN Hyperglycemia #15 mL Diabetic shoes with 3 set insoles #1 ea 11/28/24 atorvastatin 40 mg tablet (Lipitor) 40 mg PO DAILY #90 tabs 06/01/25 losartan 25 mg tablet 25 mg PO DAILY #90 tabs 06/01/25 Allergies Allergy/AdvReac Type Severity Reaction Status Date / Time Influenza Virus Vaccines Allergy ALGY-Swell Verified 03/14/25 13:54 Lip/Tongue/Throat lisinopril Allergy ADR-Cough Verified 03/14/25 13:54 Sulfa (Sulfonamide Allergy ALGY-Anaphy Verified 03/14/25 13:54 Antibiotics) laxis Review of Systems General: Reports: 10 or more systems reviewed and unremarkable except in HPI and below Const: Denies: fever(s), chills, change in appetite or change in weight Eyes: Denies: change in vision or blurry vision ENMT: Denies: throat pain, enlarged tonsils, odynophagia, hoarseness, ear or mastoid pain or sinus pain Card: Denies: chest pain, palpitations or dyspnea on exertion Resp: Denies: dyspnea, productive cough or wheezing GI: Denies: abdominal pain, nausea or vomiting : Denies: urinary frequency or urinary incontinence Musc: Denies: extremity pain or joint pain Skin/Breast: Denies: rash or pruritus Neuro: Reports: headache(s), lack of coordination (Chronic ) and difficulty walking (chronic); Denies: numbness in extremities, weakness in extremities, sensory changes, frequent falls, dizziness, vertigo or seizure-like activity Psych: Reports: anxiety, depression and irritability (Due to emergency room stress) Endo: Denies: polyuria or polydipsia Neri/Lymph: Denies: easy bruising or easy bleeding All/Imm: Denies: urticaria, throat swelling, tongue swelling or itchy eyes PFSH ED PFSH: Medical History (Updated 07/07/25 @ 15:18 by YNES Green) Obstructive sleep apnea sleep study done 09.19.24 Mild YUDELKA; nocturnal hypoxemia; auto titrating CPAP 6-16cm ordered Psychiatric care Obesity with body mass index (BMI) of 30.0 to 39.9 Chronic kidney disease (CKD) Hyperlipidemia Hx of pulmonary embolus during had PE last 2 pregnancies Post-surgical hypothyroidism Congestive heart failure Dorsalgia Obesity Tremor, unspecified Type 2 diabetes mellitus with diabetic neuropathy, unspecified Diabetic neuropathy Hypertension Diabetes Coronary artery disease Decubitus ulcer of sacral region, stage 4 Surgical History Hx of thymectomy upper sternotomy Hx of cardiac cath reports no stents but has CAD Hx of vascular surgery R groin; she says it is in the vein Hx of appendectomy Hx of cholecystectomy Hx of thyroidectomy L thyroidectomy done for goiter; no cancer History of bunionectomy of both great toes History of right shoulder replacement History of bilateral knee arthroplasty History of total hysterectomy with bilateral salpingo-oophorectomy (BSO) no cancer Hx of section X 1 Hx of non-cataract eye surgery bilateral; for glaucoma Hx of cataract surgery OU H/O neck surgery Family History Father Family history of premature coronary artery disease CAD (coronary artery disease) Mother Diabetes mellitus, type 2 Leukemia Sister Breast cancer Social History Smoking and tobacco/nicotine status: never used tobacco/nicotine Alcohol intake: former Former alcohol use details: rare and in 1970s Substance/Drug Use: never Household members: none Housing: House Marital status: / Number of children: 4 Highest education level completed: Master's Degree Current occupational status: 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 Physical Exam Const: COMMON NORMALS: patient oriented x3 HENMT: COMMON NORMALS: normocephalic, hearing grossly normal bilaterally and TM's normal bilaterally HEAD & SCALP: normocephalic TYMPANIC MEMBRANE: TM's normal bilaterally OTHER: Ecchymosis, light blue-black left mid to upper forehead Eye: COMMON NORMALS: Equal, round and reactive pupils present, EOMs intact bilaterally, conjunctivae normal, no scleral icterus and no papilledema CONJUNCTIVA: Yes conjunctivae normal PUPIL: Yes Equal, round and reactive pupils present DIRECT OPHTHALMOSCOPY: Yes no papilledema Neck/C-Spine: COMMON NORMALS: full ROM and supple Chest: COMMONS NORMALS: normal inspection of the chest and normal palpation of entire chest wall Resp: COMMON NORMALS: normal respiratory effort, No retractions, No use of accessory muscles and clear to auscultation bilaterally AUSCULTATION: clear to auscultation bilaterally Cardio: COMMON NORMALS: regular rate, regular rhythm and No murmurs present (Cardio) RATE: regular rate RHYTHM: regular rhythm GI: COMMON NORMALS: Normal to inspection, nondistended, normoactive bowel sounds present, Soft to palpation, non-tender and no masses PALPATION: Yes Soft to palpation Extremity: COMMON NORMALS: normal to inspection and full ROM Neuro: COMMON NORMALS: patient oriented x3, moves all extremities and no focal motor deficits Psych: COMMON NORMALS: mental status grossly normal, Normal thought process present and cooperative THOUGHT PROCESS: Normal thought process present Skin: COMMON NORMALS: no rashes or lesions noted and no wounds GENERAL SKIN EXAM: no rashes or lesions noted Course Vital Signs: Vital signs: Vital Signs Temperature 97.6 F 07/07/25 13:10 Pulse Rate 83 07/07/25 13:10 Respiratory Rate 16 07/07/25 13:10 Blood Pressure 143/90 07/07/25 13:10 Pulse Oximetry 93 07/07/25 13:10 Oxygen Delivery Me thod Room Air 07/07/25 13:10 MDM - Headache Medical Decision Making Patient is a 79-year-old female that was in the emergency room due to fall at 1 AM. She is primarily in a wheelchair. She was fully worked up, CT of her head was obtained. This is noted as no acute changes. I suspect her current complaints are secondary to secondary gain. Her blood pressure is quite elevated, and patient notes compliance, however she has been in the emergency room most today. Her neuro is without change. TMs are without blood in the canal. Will give a low dose of Toradol, and Norflex, and discharge. Medical Records I reviewed the patient's medical records. Lab Data I reviewed the patient's lab results. Previous creatinine 0.9 No radiology studies performed this visit Discharge Plan Discharge Patient Disposition: Home Clinical Impression: Headache Qualifiers: Headache type: cluster Headache chronicity pattern: chronic headache Intractability: not intractable Qualified Code(s): G44.029 - Chronic cluster headache, not intractable Condition: Stable Prescriptions: No Action bumetanide 1 mg tablet 1 mg PO DAILY Qty: 30 3RF buspirone 30 mg tablet 30 mg PO BID Qty: 60 3RF metoprolol tartrate 25 mg tablet 12.5 mg PO BID Qty: 30 3RF clopidogrel 75 mg tablet 75 mg PO DAILY Qty: 30 3RF fluticasone propionate 50 mcg/actuation spray,suspension 2 spray intranasal DAILY Qty: 16 3RF meloxicam 15 mg tablet 15 mg PO DAILY Qty: 30 3RF pantoprazole 40 mg tablet,delayed release (DR/EC) 40 mg PO BID Qty: 60 3RF potassium chloride 20 mEq tablet extended release 20 meq PO DAILY Qty: 30 3RF (DME) Diabetic shoes with 3 set insoles See Rx Instructions .Route .MEDSUPPLY Qty: 1 0RF Rx Instructions: As directed atorvastatin [Lipitor] 40 mg tablet 40 mg PO DAILY Qty: 90 2RF losartan 25 mg tablet 25 mg PO DAILY Qty: 90 1RF ondansetron 8 mg tablet,disintegrating 8 mg PO Q8H PRN (Reason: nausea and vomiting) 5 Days Qty: 15 0RF levothyroxine 25 mcg tablet 25 mcg PO 0600 Qty: 90 1RF trazodone 300 mg tablet 300 mg PO BEDTIME Qty: 30 1RF (DME) Auto-titrating CPAP 6-16cm See Rx Instructions .Route .MEDSUPPLY Qty: 1 0RF Rx Instructions: and needs CPAP supplies/mask too (DME) blood-glucose meter [Accu-Chek Guide Glucose Meter] Misc See Rx Instructions .Route Qty: 1 0RF Rx Instructions: As directed (DME) Accu-Chek Guide test strips Strip See Rx Instructions .Route Qty: 100 0RF Rx Instructions: As directed (DME) Dexcom G7 Sensor Device See Rx Instructions .Route Qty: 3 0RF Rx Instructions: As directed insulin aspart U-100 100 unit/mL (3 mL) insulin pen See Rx Instructions .ROUTE .COMPLEX PRN (Reason: Hyperglycemia) Qty: 15 0RF Rx Instructions: Inject per sliding scale, 200-250= 2units, 251-300= 3units, 301-350= 4units, 351-400= 5units every 4 hours PRN for hyperglycemia aspirin [Aspir-81] 81 mg Tablet,Delayed Release (Dr/Ec) 81 mg PO DAILY levetiracetam [Keppra] 750 mg tablet 750 mg PO BID Qty: 60 0RF meclizine 25 mg tablet 25 mg PO BID PRN (Reason: Dizziness Or Vertigo) niacin 500 mg Tablet 500 mg PO DAILY insulin lispro [Humalog KwikPen Insulin] 100 unit/mL insulin pen 12 unit SUBCUT TID omega-3 acid ethyl esters 1 gram capsule 1 cap PO BID insulin glargine [Lantus Solostar U-100 Insulin] 100 unit/mL (3 mL) insulin pen 12 unit SUBCUT DAILY cholecalciferol (vitamin D3) [Vitamin D3] 125 mcg (5,000 unit) Tablet 125 mcg PO DAILY One-A-Day Women's 50 Plus 400-20 mcg Tablet 1 tab PO DAILY topiramate 100 mg tablet 200 mg PO BID Discharge Orders: Discharge ED (Routine); Ordered 07/07/25 Ordered By: Yenny Morgan Referrals: Viridiana Carias DO [Primary Care Provider, Family Practice] Discharge Diet: Diabetic and Low Salt Discharge Activity: Resume usual activity Patient Instructions: Acute Headache (ED), Patient Portal & Champ Instructions Activity Restrictions/Additional Instructions: - Usual Tylenol scheduled 3 times a day for pain at home - Take your prescription medication as directed. Your blood pressure was elevated in the ED, make sure you are taking her blood pressure pills today. Your blood pressure worsening will account for her headache. - Return to ED if you have worsening headache symptoms, fever greater than 100.4 ?F. Thank you for choosing [facility] for your healthcare needs today. You have been screened and evaluated and felt safe for discharge. Health conditions do change or evolve sometimes and as such it is important that you follow up with your Primary Doctor to be re checked, 3-5 days is a general good time frame for follow up. You are always welcome to return to the ED for re assessment if your symptoms are worsening or you have new concerns Print Language: Bengali Coding Level of Care Code ED Conservation Of Resources Commissioner for Peri Culp
[2025-07-07] MEDS: orphenadrine 30 mg/mL Inj 2 mL IM (15:15)
== END 2025-07-07 15:51 | disposition home or self-care (01) ==
PROVIDERS: Emergency Provider Physician Assistant; PCP Family Medicine
DX: G44.029 Chronic cluster headache, not intractable (principal); Z79.02 Long term (current) use of antithrombotics/antiplatelets; Z79.4 Long term (current) use of insulin; Z79.82 Long term (current) use of aspirin; E78.5 Hyperlipidemia, unspecified; I25.10 Atherosclerotic heart disease of native coronary artery without angina pectoris; E11.22 Type 2 diabetes mellitus with diabetic chronic kidney disease; I13.0 Hypertensive heart and chronic kidney disease with heart failure and stage 1 through stage 4 chronic kidney disease, or unspecified chronic kidney disease; N18.9 Chronic kidney disease, unspecified; I50.9 Heart failure, unspecified
CPT/HCPCS: 96372; 99284; J1885; J2360